=== PATIENT | male | born 1955 | race Caucasian/White ===

== ENCOUNTER 2017-06-19 15:14 | Inpatient (IN) | payer OTHER ==
[~2017-06-19] VITALS: Ht 170.2 cm; Wt 93.6 kg
--- NOTE | 2017-06-19 18:46 | NUR ---
temp 101.8. TYLENOL 500 MG PO GIVEN.
--- NOTE | 2017-06-19 20:15 | NUR ---
ADMIT TO CCU PER STRETCHER. SOB WITH EXERTION. STATES BREATHING HAS BEEN HARD FOR SOMETIME AND DOESN'T FEEL LIKE IT IS MUCH WORSE THAN USUAL. PT HAS NOT EVER BEEN HOSPITALIZED BEFORE.
--- NOTE | 2017-06-19 20:30 | NUR ---
MEDS GIVEN WITH APPLESAUCE HAS TROUBLE SWALLOWING PILLS. AT FIRST STAES HE DIDN'T BELIEVE IN PILLS. USED URINAL.
--- NOTE | 2017-06-20 00:23 | NUR ---
HAS BEEN RESTING. STATES SLEEPS ONLY 3-4HRS AT A TIME NORMALLY. STATES PAIN L LEG IS BETTER. DECLINES NEB TX.
--- NOTE | 2017-06-20 02:33 | NUR ---
AWAKENED FOR MEDS. MEDS CUT UP AND GIVEN WITH PUDDING. SATS DEC TO 85 WHILE ASLEEP, INC TO 94% WHEN AWAKE.
--- NOTE | 2017-06-20 04:15 | NUR ---
RESTING. HR CONTROLLED
--- NOTE | 2017-06-20 06:21 | NUR ---
IN WITH PT. EXPLAINED WOULD TAKE DAYS FOR CLOTS TO DISOLVE AND THAT ANTICOAGS GIVEN TO PREVENT NEW CLOTS. EDEMA IMPROVED L FOOT.PT STATES HE IS FEELING BETTER.
--- NOTE | 2017-06-20 08:00 | NUR ---
AWAKE, ASSESSMENT DONE. STATES HE FEELS BETTER. SATES MUCH LESS PAIN IN LEFT LEG AND LESS SWELLING. IN ROOM. TALK WITH PATIENT ABOUT PLAN OF CARE FOR DAY. IS UNDERSTANDING. BREAKFAST ORDERED.
--- NOTE | 2017-06-20 09:00 | NUR ---
TOOK BREAKFAST WELL. RESTFUL.
--- NOTE | 2017-06-20 11:00 | NUR ---
DR. GOOD HERE TO SEE PATIENT ORDERS RECIEVED.
--- NOTE | 2017-06-20 11:15 | NUR ---
AMBULATED IN HALLWAY PER DR. GOOD'S ORDERS. HR TO 88. O2 SAT REMAINED > 90. IS WITH INCREASED SHORTNESS OF BREATH WITH EXERTION.
--- NOTE | 2017-06-20 11:44 | NUR ---
SPONGE BATH GIVEN. TOBIAS. TELE # 6 APPLIED
--- NOTE | 2017-06-20 13:50 | NUR ---
Patient given 60 mg po cardizem crushed in pudding. Patient denies pain/sob. Call light in reach. Patient has no requests.
--- NOTE | 2017-06-20 14:30 | NUR ---
SLEEPING, NO DISTRESS NOTED.
--- NOTE | 2017-06-20 16:20 | NUR ---
REPORT RECIEVED FROM QUINN CCU RN VIA TELEPHONE PRIOR TO PT TRANSFER TO FLOOR. PT TO ROOM 112 VIA RECLINER ACCOMPANIED BY QUINN RN AT 1605. PT ALERT, ORIENTED X 4. RATES PAIN 09/01.
--- NOTE | 2017-06-20 17:03 | NUR ---
GAVE PT PRINTED INFORMATION REGARDING WARFARIN, AND ALSO PRINTED INFORMATION REGARDING WARFARIN AND DIET. PROVIDED VERBAL EDUCATION, AND GAVE PT THE ABOVE NOTED PRINTOUTS. PT DENIED QUESTIONS. VERBALIZED UNDERSTANDING OF COMMON SIDE EFFECTS OF WARFARIN. PT SITTING UP IN RECLINER. DENIES NEEDS AT THIS TIME.
--- NOTE | 2017-06-20 17:53 | NUR ---
PT IN CHAIR TOOK TRAY FRESH WATER
--- NOTE | 2017-06-20 18:01 | NUR ---
PT SITTING UP IN RECLINER. DENIES NEEDS.
--- NOTE | 2017-06-20 18:27 | NUR ---
PT TRANSFERED TO FLOOR, TO ROOM 112 FROM CCU AT 1605 THIS AFTERNOON. UP WITH 1 PERSON ASSIST. IS SALINE LOCKED. HAS DIMINISHED LUNGS THROUGHOUT LUNG KOENIG. LLE IS SLIGHTLY SWOLLEN, NO REDNESS NOTED, PT REPORTS PAIN TO LLE 09/01. PT IS ON RA. DOES GET SHORT OF BREATH WITH EXERTION, BUT MAINTAINS OXYGEN SATURATION LEVEL GREATER THAN 90%.
--- NOTE | 2017-06-20 19:10 | NUR ---
BEDSIDE REPORT RECEIVED FROM OFFGOING RN. PT SITTING UP IN CHAIR VISITING WITH FRIEND AT BEDSIDE. CALL LIGHT WITHIN REACH.
--- NOTE | 2017-06-20 22:11 | NUR ---
PT ASSESSMENT COMPLETE. PT DENIES PAIN, NAUSEA, OR SOB. PT DENIES BM SINCE PRIOR TO ADMISSION. LLE SLIGHTLY REDDENED WITH TRACE EDEMA PRESENT. PEDAL PULSE IS PRESENT. PT STATES THAT PAIN IN EXTREMITY IS GREATLY IMPROVED. PT SITTING UP IN BED EATING PUDDING AND WATCHING TV. PT DENIES NEEDS AT THIS TIME. CALL LIGHT WITHIN REACH.
--- NOTE | 2017-06-21 00:55 | NUR ---
PT LYING IN BED AWAKE, WATCHING TV. STATES THAT HE IS HAVING A HARD TIME SLEEPING. ICE AWTER REFILLED AND URINAL EMPTIED. PT DENIES OTHER NEEDS AT THIS TIME. AGREES TO CALL FOR NEEDS. CALL LIGHT WITHIN REACH.
--- NOTE | 2017-06-21 02:51 | NUR ---
PT LYING IN BED AWAKE. 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 PT REQUESTS COFFEE. ASSESSMENT COMPLETE. PT STATES THAT PAIN IS MINIMAL. LUNGS SOUND COARSE THROUGHOUT, NO COUGH NOTED. SLIGHT REDNESS TO LLE PRESENT, UNCHANGED FROM PREVIOUS ASSESSMENT. TRACE EDEMA PRESENT TO L FOOT. CMS INTACT. PT DENIES OTHER NEEDS AT THIS TIME. CALL LIGHT WITHIN REACH.
--- NOTE | 2017-06-21 05:00 | NUR ---
PT AWAKE THROUGHOUT THE NIGHT. MINIMAL PAIN TO LLE. SLIGHT EDEMA AND REDNESS TO LLE. SOB WITH EXERTION, RA. LUNGS CLEAR/DIM. PT ON TELE # 6 WITH A FLUTTER, HR 88. INDEPENDENT IN ROOM. IV SL.
--- NOTE | 2017-06-21 07:30 | NUR ---
RECIEVED BEDSIDE REPORT FROM ZITA CORDON. PT AWAKE, ALERT, DENIES NEEDS. 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
--- NOTE | 2017-06-21 08:50 | NUR ---
PT UP IN RECLINER, ATE BREAKFAST, APETITE GOOD. DENIED PAIN. UP INDEPENDANTLY IN ROOM WITH THIS RN SUPERVISING, PT STEADY ON FEET, DENIED LIGHTHEADEDNESS OR DIZZINESS. ONLY MILD INCREASE IN SHORTNESS OF BREATH AFTER AMBULATING AROUND ROOM FOR APROXIMATELY 1.5 MINUTES. ON RA, OXYGEN SATURATION LEVEL 94%.
--- NOTE | 2017-06-21 11:53 | NUR ---
PT AND PT'S IN ROOM. PT ASKED THIS RN TO EXPLAIN HIS DIAGNOSIS AND THE MEDICATIONS THAT HE HAS STARTED TO HIS . THIS RN PROVIDED EDUCATION, SHOWED PT'S THE PRINT OUTS FOR WARFARIN EDUCATION AND WARFARIN AND DIET EDUCATION. PT'S ASKED IF DR. GOOD COULD CALL HER TO DISCUSS HIS CARE AND CONDITION, PT GAVE PERMISSION. THIS RN RELAYED THE REQUEST TO DR. GOOD.
--- NOTE | 2017-06-21 14:09 | NUR ---
PT SITTING UP IN BED. REPORTED THAT HE FEELS BETTER ABOUT STAYING IN THE HOSPITAL FOR TREATMENT NOW THAT HE HAS SPOKEN WITH DR. GOOD. PT REPORTED THAT DR. GOOD INDICATED THAT HE WOULD BE HOSPITALIZED FOR 2 MORE DAYS, AND PT INDICATED THAT KNOWING THE TIME OF HIS APROXIMATE DISCHARGE EASED HIS ANXIETY REGARDING HIS STAY AT [facility]. DENIED PAIN, DENIED SHORTNESS OF BREATH. GAVE SCHEDULED MEDICATION.
--- NOTE | 2017-06-21 15:56 | NUR ---
PT SITTING UP IN RECLINER. JUST FINISHED SHOWER. PROVIDED PT WITH FRESH ICE WATER. PT HAD A MEDIUM SOFT BM, AND VOIDED 700 CC URINE. PT DENIED PAIN AT REST, REPORTED THAT WITH AMBULATION, HIS PAIN HAS BEEN 3/10 AT MOST. REPORTS THAT HIS PAIN LEVEL WITH AMBULATION IS GREATLY REDUCED FROM WHAT IT WAS AT TIME OF HIS ADMISSION.
--- NOTE | 2017-06-21 18:52 | NUR ---
PT DOING WELL, STEADY ON FEET. REPORTS THAT SHORTNESS OF BREATH, COUGHING, AND PAIN TO LLE WITH AMBULATION HAVE ALL IMPROVED GREATLY WHEN COMPARED WITH AT ADMISSION. URINE OUTPUT QUANTITY SUFFICIENT. LUNGS RANGED FROM COARSE WITH WHEEZES TO CLEAR BUT DIMINISHED. HAS BEEN ON RA ALL SHIFT. PT DENIED NEED FOR PAIN MEDICATION THIS SHIFT. HAD ECHO THIS AM, BUT NO RESULTS THUS FAR. INR WAS 1.3, RECIEVED COUMADIN 10 MG PO FOR ANTICOAGULATION IN ADDITION TO ORDERED LOVENOX. TELE D/C'D THIS SHIFT. HR REMAINS IRREGULAR.
--- NOTE | 2017-06-21 19:30 | NUR ---
BEDSIDE REPORT RECEIVED FROM OFFGOING RN. PT LYING IN BED. STATES THAT HE WAS ABLE TO SHOWER INDEPENDENTLY TODAY, AND HAS BEEN INDEPENDENT IN THE ROOM. PT DENIES PAIN WHILE STILL, PAIN SLIGHTLY ELEVATES WITH AMBULATION PER PT. PT DENIES NEEDS AT THIS TIME. CALL LIGHT WITHIN REACH.
--- NOTE | 2017-06-21 19:46 | NUR ---
PATIENT DIDN'T WANT TO TAKE A SHOWER TODAY JUST WANTED TO REST.
--- NOTE | 2017-06-21 22:27 | EKG ---
[facility] [address] [place] [address] Signed Atrial flutter with variable AV block ST \T\ T wave abnormality, consider inferior ischemia Abnormal ECG No previous ECGs available Confirmed by SHOAIB GOOD MD ([id number]) on 06/21/2017 10:27:45 PM Electronically Signed By: SHOAIB GOOD MD 06/21/17 2227 PATIENT NAME: JOHN HERNANDEZ Electrocardiogram DATE OF : 53 PHYSICIAN: SHOAIB GOOD MD REPORT #: [id number] REPORT IS CONFIDENTIAL AND NOT TO BE RELEASED WITHOUT AUTHORIZATION
--- NOTE | 2017-06-21 23:15 | NUR ---
PT ASSESSMENT COMPLETE. PT RETURNING TO BED FROM BATHROOM, STATES THAT HE "FILLED THE URINAL". PT NOTED TO BE SLIGHTLY TACHYPNIC, DENIES SOB. STATES THAT HIS STOMACH IS "UPSET". LUNG SOUNDS CLEAR/DIM THROUGHOUT. PT'S LLE CONTINUES TO BE SLIGHTLY REDDENED, WARM TO TOUCH. CMS IS INTACT TO LLE, PEDAL PULSES PRESENT. PT ABLE TO TAKE SCHEDULED MEDICATION WITH PUDDING, HOWEVER, STATES THAT IT WAS SOMEWHAT DIFFICULT AND PILL GOT "CAUGHT IN HIS THROAT" MOMENTARILY. PT DENIES NEEDS AT THIS TIME. MILK AND PUDDING AT BEDSIDE. PT CALL LIGHT WITHIN REACH.
--- NOTE | 2017-06-22 02:15 | NUR ---
PT RESTING WITH EYES CLOSED. RESPIRATIONS EVEN AND UNLABORED. PT APPEARS TO BE SLEEPING. CALL LIGHT WITHIN PT'S REACH.
--- NOTE | 2017-06-22 04:50 | NUR ---
PT RESTING IN BED WITH EYES CLOSED. APPEARS TO BE SLEEPING, RESPIRATIONS EVEN AND UNLABORED. NO S/SX OF DISTRESS NOTED. CALL LIGHT WITHIN REACH.
--- NOTE | 2017-06-22 06:16 | NUR ---
PT LYING IN BED WATCHING TV. AGREES THAT HE SLEPT MOST OF THE NIGHT. PT DENIES PAIN, NAUSEA, OR SOB. PT ASSESSMENT COMPLETE. LLE REMAINS SLIGHTLY PINK, WARM TO TOUCH. PEDAL PULSES PRESENT. CMS INTACT. PT DENIES NEEDS AT THIS TIME. STATES THAT HE IS "JUST WAITING ON BREAKFAST." CALL LIGHT WITHIN REACH.
--- NOTE | 2017-06-22 07:48 | NUR ---
PT AWAKE, ALERT, ORIENTED X 4. DENIED PAIN. REPORTED THAT HE RESTED WELL. BEDSIDE REPORT RECIEVED FROM [facility].
--- NOTE | 2017-06-22 10:49 | NUR ---
AM MEDICATIONS GIVEN TO PT. PT DENIES PAIN, DENIES SHORTNESS OF BREATH. ENCOURAGED PT TO DEEP BREATH AND COUGH, AND TO USE INSENTIVE SPIROMETER.
--- NOTE | 2017-06-22 13:45 | NUR ---
PT IS RESTING IN BED WITH CALL LIGHT IN REACH. PT DID NOT NEED ANYTHING ELSE AT THE MOMENT
--- NOTE | 2017-06-22 13:51 | NUR ---
PT LAYING IN BED, AWAKE, ALERT, ORIENTED X 4. PT DENIES PAIN, DENIES SHORTNESS OF BREATH, REPORTED THAT HE WAS ABLE TO EAT MOST OF LUNCH AND TOLERATED WELL. CMS TO RLE INTACT, TRACE EDEMA PRESENT, LEG REMAINS SLIGHTLY WARMER THAN LEFT LEG, AND SLIGHTLY PINK.
--- NOTE | 2017-06-22 14:20 | NUR ---
PT WAS SITTING UP EATING LUNCH AND WATCHING TV. HE WELCOMED ME, I TOLD HIM I JUST WANTED TO SAY HELLO, AND BE AVAILABLE IF NEEDED. HE THANKED ME AND WENT BACK TO HIS LUNCH. GOD BLESS HIM
[2017-06-22] MEDS ORDERED: DILTIAZEM 24HR240 M3 PO (15:38)
[2017-06-22] MEDS ORDERED: COUMADIN5 MG PO (15:38)
[2017-06-22] MEDS ORDERED: PREDNISONE20 MG PO (15:38)
[2017-06-22] MEDS ORDERED: PULMICORT FLE180 MCG INH (15:38)
[2017-06-22] MEDS ORDERED: COMBIVENT RESPIM4 GM INH (15:38)
[2017-06-22] MEDS ORDERED: CEFUROXIME500 MG PO (15:38)
[2017-06-22] MEDS ORDERED: IPRAT-ALBUT 0.5-3 ML INH (15:38)
[2017-06-22] MEDS ORDERED: NICOTINE PATCH1 EAC1 TD (15:38)
[2017-06-22] MEDS ORDERED: ENOXAPARIN100 MG/1 M SUB-Q (15:38)
[2017-06-22] MEDS ORDERED: SEREVENT DISKU1 PUFF INH (15:41)
--- NOTE | 2017-06-22 18:26 | NUR ---
PT IS SITTING UP[ ON SIDE OF BED VISITING WITH A FRIEND. PT DID NOT NEED ANYTHING ELSE AT THE MOMENT
--- NOTE | 2017-06-22 18:46 | NUR ---
PT IN BED, DENIES PAIN, DENIES NEEDS. REMAINS ON RA, DENIES SHORTNESS OF BREATH. VISITED WITH FRIEND FROM WORK FOR APROXIMATELY AN HOUR, AND FRIEND HAS NOW GONE HOME.
--- NOTE | 2017-06-22 20:16 | NUR ---
PT UP TO BATHROOM, STEADY ON FEET, INDEPENDANT IN ROOM. PT VERY PLEASENT, ALERT AND ORIENTED X4. DENIES PAIN. IV WNL AND FLUSHES WELL. SOB ON EXERTION, BUT RECOVERS QUICKLY. GAVE FRESH ICE WATER. CALL LIGHT IN REACH. NO FURTHER NEEDS.
--- NOTE | 2017-06-23 00:26 | NUR ---
PT HAS BEEN RESTING QUIETLY. CALL LIGHT IN REACH. PT LIGHTS AND TV OFF IN ROOM. APPEARS ASLEEP AT THE MOMENT, EYES CLOSED, RR WNL AND UNLABORED.
--- NOTE | 2017-06-23 03:04 | NUR ---
PT SITTING UP AT BEDSIDE. DUMPED URINAL AND HAT, WHICH WERE BOTH NEARLY FULL OF URINE. URINE IS LATOSHA IN COLOR. FILLED PT'S WATER CUP WITH FRESH ICE WATER. PT REPORTS "AKIRA BEEN REALLY THIRSTY, AKIRA FILLED MY CUP SEVERAL TIMES TONIGHT."
--- NOTE | 2017-06-23 06:20 | NUR ---
PT HAD UNEVENTFUL NIGHT. SLEPT MAJORITY OF SHIFT. INDEPENDANT IN ROOM. ALERT AND ORIENTED X4. VERY PLEASENT AND COOPERATIVE. PT WILL GO HOME ON LOVENOX, NEEDS TO BE TAUGHT HOW TO ADMINISTER THE SQ INJECTION, BOTH PT AND ON BOARD. DISCHARGE PLANNING INVOLVED IN HELPING WITH [facility].
--- NOTE | 2017-06-23 06:59 | NUR ---
PT SITTING UP IN BED, WATCHING TV. PT DENIES NEEDS AT THIS TIME.
--- NOTE | 2017-06-23 08:19 | NUR ---
Patient up giving himself a bedbath at this time. Breakfast tray taken out and linen changed.
--- NOTE | 2017-06-23 08:50 | NUR ---
Patient up to restroom at this time.
--- NOTE | 2017-06-23 09:30 | NUR ---
assessment complete. patient anxious about medications and discharge for hospital. the chapman of medications is a very big consern for pain at this time. in room. assisted wtih lovenox injection. demonstrated proper insertion of lovenox. the was them able to given on her own. patient tolerated well. tolerated instruction well and felt comfortable with given lovenox
--- NOTE | 2017-06-23 09:42 | NUR ---
Patient is up in room visiting with his .
--- NOTE | 2017-06-23 10:14 | NUR ---
Patient's up in room and dressed to go home. Vitals taken and I&O's charted.
--- NOTE | 2017-06-23 10:50 | NUR ---
Patient dressed and awaiting dr. smiley for discharge
--- NOTE | 2017-06-23 11:30 | NUR ---
dr. smiley in room to talk with patient. plan to discharge with plan to follow up with lab work and coumadin clinc
[2017-06-23] MEDS ORDERED: COUMADIN5 MG PO (12:11)
--- NOTE | 2017-06-23 12:24 | NUR ---
pharmacy in room to go over home medication and new prescriptions. side effects and reasons to take medication went over by pharmacy as well as nurse. given the extra scheduled dose of 10mg warfin. patient anxious at times about going home, but in room to assist with information that was given. all discharge information was given and patient and were able to read back.
[2017-08-11] MEDS ORDERED: LIPITOR80 MG PO (15:02)
[2017-08-11] MEDS ORDERED: LISINOPRIL20 MG PO (15:03)
== END 2017-06-23 12:45 | disposition home or self-care (01) | DRG 176 ==
LOC: ED 15:14 → MS 18:34 → CCU 18:34 → MS 18:34
PROVIDERS: ADMIT Internal Medicine
DX: I26.99 Other pulmonary embolism without acute cor pulmonale (principal); I48.92 Unspecified atrial flutter; J44.9 Chronic obstructive pulmonary disease, unspecified; R59.0 Localized enlarged lymph nodes; R79.89 Other specified abnormal findings of blood chemistry; F17.210 Nicotine dependence, cigarettes, uncomplicated
CPT/HCPCS: 36415; 71020; 71260; 80053; 83605; 83880; 84484; 85025; 85610; 93005; 93010; 93306; 93971; 94640; 94668; 96372; 96374; 96375; 99285; 99406; J1650; J2930; Q9967

== ENCOUNTER 2017-07-08 09:36 | Emergency (ER) | payer OTHER ==
[~2017-07-08] VITALS: Ht 170.2 cm; Wt 93.4 kg
[~2017-07-08 09:36] MED LIST: CEFUROXIME500 MG PO; COMBIVENT RESPIM4 GM INH; COUMADIN5 MG PO; DILTIAZEM 24HR240 M3 PO; ENOXAPARIN100 MG/1 M SUB-Q; IPRAT-ALBUT 0.5-3 ML INH; NICOTINE PATCH1 EAC1 TD; PREDNISONE20 MG PO; PULMICORT FLE180 MCG INH; SEREVENT DISKU1 PUFF INH
--- NOTE | 2017-07-08 20:42 | EKG ---
[facility] [address] [place] [address] Signed Normal sinus rhythm Normal ECG When compared with ECG of 19-JUN-2017 16:15, Sinus rhythm has replaced Atrial flutter ST no longer depressed in Inferior leads T wave inversion no longer evident in Inferior leads Confirmed by SHOAIB GOOD MD ([id number]) on 07/08/2017 8:42:27 PM Electronically Signed By: SHOAIB GOOD MD 07/08/172041 PATIENT NAME: JOHN HERNANDEZ Electrocardiogram DATE OF : 53 PHYSICIAN: SHOAIB GOOD MD REPORT #: [id number] REPORT IS CONFIDENTIAL AND NOT TO BE RELEASED WITHOUT AUTHORIZATION
[2017-08-11] MEDS ORDERED: LIPITOR80 MG PO (15:02)
[2017-08-11] MEDS ORDERED: LISINOPRIL20 MG PO (15:03)
== END 2017-07-08 13:13 | disposition short-term general hospital (02) ==
LOC: ED 09:36
DX: I63.9 Cerebral infarction, unspecified (principal); F17.200 Nicotine dependence, unspecified, uncomplicated; Z79.899 Other long term (current) drug therapy; Z79.52 Long term (current) use of systemic steroids; Z79.01 Long term (current) use of anticoagulants
CPT/HCPCS: 70450; 70496; 70498; 71010; 80053; 84484; 85025; 85610; 85730; 93005; 93010; 96374; 99285; J2997; Q9967

== ENCOUNTER 2017-08-23 13:10 | Inpatient (IN) | payer OTHER ==
[~2017-08-23] VITALS: Ht 172.7 cm; Wt 91.6 kg
--- OUTSIDE RECORDS SUMMARY | ~2017-08-23 | XMS | Clinical Summary ---
Demographics + + + | Address | [address] | | | [place] [address] | + + + | Home Phone | | + + + | Preferred Language | Unknown | + + + | Marital Status | | + + + | Lutheran Affiliation | CHR | + + + | Race | White | + + + | Ethnic Group | Not or | + + + Author + + + | Author | [facility] | + + + | Organization | [facility] | + + + | Address | Unknown | + + + | Phone | Unavailable | + + + Support +------+ + + + +-------- -+ | Name | Relationship | Address | Phone | +------+ + + + +-------- -+ ECON | [address] | | [address] | [address] | +------+ + + + +-------- -+ ECON | Unknown | Unavailable | +------+ + + + +-------- -+ Care Team Providers + +------+-------+ | Care Pediatric Speech Language Pathologist Name | Role | Phone | + +------+-------+ | Mercedes Good MD | PP | tel | + +------+-------+ Source Comments TONEY is fully live on both [facility] and [facility] In[facility] Allergies No Known Allergies Current Medications + + +---------+---------+------+------+-------+ | Prescription | Sig. | Disp. | Refills | Star | End | Statu | | | | | | t | Date | s | | | | | | Date | | | + + +---------+---------+------+------+-------+ | dilTIAZem CD 24 | Take 240 mg by mouth | | | | | Activ | | hour release (CARTIA | once daily. | | | | | e | | XT) 240 mg oral | | | | | | | | capsule,extended | | | | | | | | release 24hr | | | | | | | + + +---------+---------+------+------+-------+ | | Inhale 3 mL every | | | | | Activ | | ipratropium-albutero | six hours as needed | | | | | e | | l 0.5 mg-3 mg(2.5 mg | for dyspnea/SOB. | | | | | | | base)/3 mL | | | | | | | | inhalation solution | | | | | | | | for nebulization | | | | | | | + + +---------+---------+------+------+-------+ | atorvastatin 80 mg | Take 1 tablet by | 30 | 0 | 12/1 | | Activ | | oral | mouth once daily. | tablet | | 6/20 | | e | | tabletIndications: | Indications: | | | 17 | | | | prevention of | prevention of | | | | | | | cerebrovascular | cerebrovascular | | | | | | | accident | accident | | | | | | + + +---------+---------+------+------+-------+ | enoxaparin 40 | Inject 0.4 mL under | 5 | 0 | 12/1 | | Activ | | mg/0.4 mL | the skin (SUBC) once | Syringe | | 02/09 | | e | | subcutaneous | daily in the | | | 17 | | | | syringeIndications: | evening. | | | | | | | Pulmonary | Indications: | | | | | | | Thromboembolism | Pulmonary | | | | | | | Prevention, Until | Thromboembolism | | | | | | | INR therapeutic on | Prevention, Until | | | | | | | warfarin | INR therapeutic on | | | | | | | | warfarin | | | | | | + + +---------+---------+------+------+-------+ | lisinopril 20 mg | Take 1 tablet by | 30 | 0 | 12/ | | Activ | | oral | mouth once daily. | tablet | | 02/09 | | e | | tabletIndications: | Indications: | | | 17 | | | | hypertension, | hypertension, | | | | | | | Prevention of stroke | Prevention of stroke | | | | | | + + +---------+---------+------+------+-------+ | warfarin 5 mg oral | Take 1 tablet by | 1 | 0 | 07/23 | | Activ | | tabletIndications: | mouth once daily. 1 | tablet | | 02/09 | | e | | Deep Vein Thrombosis | pill (5mg) daily | | | 17 | | | | with Pulmonary | every day except | | | | | | | Embolism, Prevent | Wednesday. Take 1 and | | | | | | | Thromboembolism in | 08/24 (7.5mg) every | | | | | | | Chronic Atrial | Wednesday. Start | | | | | | | Fibrillation | Wednesday Indications: | | | | | | | | Deep Vein Thrombosis | | | | | | | | with Pulmonary | | | | | | | | Embolism, Prevent | | | | | | | | Thromboembolism in | | | | | | | | Chronic Atrial | | | | | | | | Fibrillation | | | | | | + + +---------+---------+------+------+-------+ | aspirin chewable | Chew and swallow 1 | 5 | 0 | 07/23 | 07/24 | Expir | | 81 mg oral | tablet once daily | tablet | | 02/09 | 09/11 | ed | | tablet,chewableIndic | for 5 days. Will | | | 17 | 17 | | | ations: prevention | stop in 5 days after | | | | | | | of cerebrovascular | starting Warfarin | | | | | | | accident | Indications: | | | | | | | | prevention of | | | | | | | | cerebrovascular | | | | | | | | accident | | | | | | + + +---------+---------+------+------+-------+ Active Problems + + + | Problem | Noted Date | + + + | Undifferentiated adenocarcinoma lung -multiple nodules with | 08/02/2017 | | adenopathy (HCC) | | + + + + + | Overview: Secondary to chronic tobacco abuse. Family | | considering not treating. Patient had biopsy done at [facility]. That result was not available on admission to | | inpatient rehabilitation. Result of the biopsy subsequently | | became available middle of this inpatient rehabilitation stay. | | Revealed adenocarcinoma which is poorly differentiated. | | Patient's had apparently been called by 1 of the physicians | | from [facility]. 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 | 07/22/2017 | | to hemorrhagic stroke following tPA (HCC) | | + + + Encounters +--------+ + + + + | Date | Type | Specialty | Care Team | Description | +--------+ + + + + | 07/22/ | Hospital | | Gillian Villarreal, | | | 2016 - | Encounter | | Bon Richards | | | | | | MD Jami Quiroz, | | | 08/07/ | | | Travon Hoover MD | | | 2016 | | | | | +--------+ + + + + +---+ + | | Discharge | | | Summaries | | | - Jami, | | | Travon Hoover | | | - | | | 08/06/2017 | | | 8:46 PM | | | PST | | | Formatting | | | of this | | | note may be | | | different | | | from the | | | original.IN | | | PATIENT | | | REHAB | | | DISCHARGE | | | SUMMARYHOSP | | | ITALIST | | | SERVICEAtte | | | nding | | | Physician: | | | Travon A | | | Jami, | | | MDPCP: | | | Lohith V | | | Good, | | | MDAdmission | | | Date: | | | 07/22/2017D | | | ischarge | | | Date: | | | 08/06/17Cod | | | e Status: | | | FullConsult | | | ing | | | Physician: | | | None | | | Discharge | | | diagnoses:1 | | | . Ischemic | | | left | | | temporal | | | parietal | | | stroke with | | | subsequent | | | hemorrhage | | | following | | | tPA2. | | | Undifferent | | | iated | | | adenocarcin | | | robin lung | | | diagnosis | | | [facility] | | | [facility] by | | | biopsy3. | | | Chronic | | | anticoagula | | | tion with | | | warfarin | | | -held for 1 | | | month due | | | to the | | | intracrania | | | l bleed | | | -resuming | | | on the day | | | before | | | discharge4. | | | Paroxysmal | | | atrial | | | fibrillatio | | | n5. Recent | | | pulmonary | | | embolism | | | approximate | | | ly 6 weeks | | | ago | | | resulting | | | in | | | initiation | | | of warfarin | | | Reason | | | For | | | Admission:P | | | atients | | | Hospital | | | Problem | | | List:Active | | | Hospital | | | Problems1) | | | CVA | | | (cerebral | | | vascular | | | accident) | | | with | | | subsequent | | | transformat | | | ion to | | | hemorrhagic | | | stroke | | | following | | | tPA (HCC)2) | | | | | | Undifferent | | | iated | | | adenocarcin | | | robin lung | | | -multiple | | | nodules | | | with | | | adenopathy | | | | | | (HCC)Second | | | andre to | | | chronic | | | tobacco | | | abuse. | | | Family | | | considering | | | not | | | treating. | | | Patient had | | | biopsy | | | done at | | | [facility] | | | hospital. | | | That result | | | was not | | | available | | | on | | | admission | | | to | | | inpatient | | | rehabilitat | | | ion. | | | Result of | | | the biopsy | | | subsequentl | | | y became | | | available | | | middle of | | | this | | | inpatient | | | rehabilitat | | | ion stay. | | | Revealed | | | adenocarcin | | | robin which | | | is poorly | | | differentia | | | tati. | | | Patient's | | | had | | | apparently | | | been called | | | by 1 of | | | the | | | physicians [facility] | | | Family is | | | currently | | | considering | | | not | | | pursuing | | | further | | | evaluation3 | | | ) | | | Paroxysmal | | | atrial | | | fibrillatio | | | n (HCC)4) | | | Chronic | | | anticoagula | | | tion5) | | | History of | | | cigarette | | | smokingAnti | | | coagulation | | | with | | | warfarin is | | | being held | | | due to the | | | | | | hemorrhagic | | | | | | transformat | | | ion listed | | | aboveMajor | | | Diagnostic | | | Studies:1. | | | MRI scan | | | brain | | | 08/06/2017 | | | -no | | | findings to | | | suggest | | | intracrania | | | l | | | metastases. | | | There is | | | a large | | | left | | | temporopari | | | etal stroke | | | which had | | | secondary | | | bleeding. | | | No longer | | | any mass | | | effect. | | | There is a | | | second very | | | small 8 by | | | 5 mm | | | density in | | | the left | | | cerebellum | | | -likely a | | | second | | | ischemic | | | stroke2. CT | | | scan head | | | without | | | contrast | | | July | | | 2016 | | | :1. No | | | evidence of | | | acute | | | intracrania | | | l | | | hemorrhage | | | or acute | | | hemorrhagic | | | transformat | | | ion of | | | previous | | | infarcts.2. | | | Evolving | | | large left | | | temporopari | | | etal | | | infarct | | | with | | | decreasing | | | edemaand | | | mass | | | effect.3. | | | Additional | | | small | | | hypodense | | | lesions | | | within the | | | deep left | | | frontalwhit | | | e matter | | | and left | | | cerebellar | | | vermis as | | | seen on the | | | prior | | | MRI.Hospita | | | l and | | | Inpatient | | | Rehab | | | Course:1. | | | Ischemic | | | stroke: | | | Patient had | | | no motor, | | | coordinatio | | | n, apraxic | | | symptoms or | | | signs. His | | | primary | | | deficit is | | | receptive | | | and | | | expressive | | | aphasia. | | | He is about | | | 80% | | | accurate on | | | | | | | | | yes-no for | | | questions. | | | He was | | | initially | | | essentially | | | mute but | | | now is | | | spontaneous | | | ly doing | | | some basic | | | spontaneous | | | speech. | | | The content | | | of the | | | speech is | | | fairly | | | marginal | | | still. He | | | is | | | independent | | | with | | | ambulation | | | and ADLs. | | | As this was | | | likely a | | | atrial | | | fibrillatio | | | n related | | | embolic | | | stroke | | | especially | | | with 2 | | | different | | | foci noted, | | | resumption | | | of | | | warfarin | | | was | | | recommended | | | by the | | | discharging | | | [facility]. | | | The | | | recommendat | | | ion was to | | | repeat a CT | | | scan on | | | 08/07/2017 | | | prior to | | | initiating | | | warfarin. | | | Since the | | | patient had | | | a previous | | | history at | | | the prior | | | hospital of | | | | | | adenocarcin | | | robin lung | | | and no MRI | | | of the | | | brain was | | | done, an | | | MRI of the | | | brain was | | | done with | | | and without | | | contrast | | | today | | | before | | | discharge. | | | There is no | | | findings | | | on either | | | of the | | | abnormality | | | seen to | | | suggest | | | that there | | | is | | | metastatic | | | adenocarcin | | | robin to the | | | brain. CT | | | scan today | | | did not | | | reveal | | | anything | | | suggesting | | | ongoing | | | bleeding. | | | I spoke | | | with the | | | patient's | | | by | | | phone as | | | the patient | | | is not | | | able to | | | comprehend | | | his overall | | | clinical | | | scenario | | | verbally. | | | I have | | | indicated | | | to her the | | | indication | | | to resume | | | warfarin | | | therapy the | | | risk and | | | the benefit | | | of it. | | | Told her | | | without | | | warfarin I | | | am | | | concerned | | | that he | | | could have | | | ongoing | | | more | | | devastating | | | stroke. | | | With the | | | warfarin | | | there is a | | | small | | | chance that | | | he could | | | have | | | another | | | intracrania | | | l bleed. | | | She agreed | | | to proceed | | | with | | | warfarin | | | therapy | | | after this | | | presentatio | | | n her. The | | | patient's | | | warfarin | | | was | | | slightly | | | subtherapeu | | | tic when he | | | first was | | | admitted | | | with his | | | stroke. It | | | is of note | | | that he | | | did miss | | | one of his | | | doses of | | | warfarin | | | which | | | likely | | | accounted | | | for this.I | | | have called | | | the | | | Neurology | | | [facility] | | | Dr. | | | Mikel | | | [facility] | | | yesterday | | | and again | | | today. He | | | has | | | apparently | | | not in the | | | country for | | | the next 3 | | | weeks. | | | The staff | | | at the | | | clinic | | | planning on | | | setting up | | | a visit | | | with 1 of | | | his | | | associates. | | | The neuro | | | images | | | done today | | | overall | | | pushed to | | | the clinic | | | per their | | | request. 2. | | | | | | Adenocarcin | | | robin lung | | | patient's | | | was | | | somewhat | | | reluctant | | | to have | | | this | | | discussed | | | in front of | | | her | | | . | | | The | | | inpatient | | | rehabilitat | | | ion | | | physician | | | the week | | | before me | | | did discuss | | | this in | | | front of | | | the patient | | | with his | | | | | | present. | | | It is | | | unclear | | | whether the | | | patient | | | actually | | | comprehends | | | this | | | diagnosis I | | | suspect | | | not. | | | Patient's | | | has | | | asked to be | | | able to | | | discuss | | | with him on | | | discharge. | | | Patient is | | | been | | | generally | | | informed of | | | this | | | diagnosis | | | but unclear | | | whether he | | | | | | comprehensi | | | ve.. | | | Initially | | | there was a | | | thought | | | that the | | | family did | | | not want to | | | treat | | | this. A | | | visit with | | | an | | | oncologist | | | in | | | [place] | | | has been | | | set up for | | | this next | | | Wednesday. | | | The | | | records | | | from | | | [facility] | | | [facility] | | | will be | | | helpful in | | | making | | | decisions | | | about | | | therapy. | | | The | | | patient's | | | will | | | attend the | | | oncology | | | visit. 3. | | | Paroxysmal | | | atrial | | | fibrillatio | | | n patient | | | has had no | | | episodes | | | that | | | suggest | | | atrial | | | fibrillatio | | | n while | | | here. A 12 | | | lead EKG | | | 1-3 | | | revealed | | | normal | | | sinus | | | rhythm. He | | | is | | | continued | | | on his | | | diltiazem | | | CD. 4. | | | History of | | | DVT/pulmona | | | ry embolism | | | apparently | | | early | | | June | | | the patient | | | presented | | | to the | | | hospital in | | | [place] | | | with a PE. | | | He was | | | started on | | | warfarin. | | | Due to the | | | intracrania | | | l bleed | | | warfarin | | | was | | | reversed | | | and he had | | | IVC filter | | | placed. | | | Once he is | | | therapeutic | | | again the | | | IVC filter | | | can | | | certainly | | | be | | | removed.I | | | called the | | | patient's | | | PCP Dr. | | | Good today | | | for verbal | | | hand off | | | of this | | | patient.Fun | | | ctional | | | Course:FUNC | | | TIONAL | | | HISTORY:* | | | | | | PRE-morbid | | | Admit | | | Discharge | | | Eating 7 | | | 2 6 | | | | | | Grooming 7 | | | 4 7 | | | Bathing 7 | | | 3 6 | | | Up.Dress. | | | 7 4 7 | | | Low. Dress. | | | 7 4 7 | | | Toilieting | | | 7 1 7 | | | Bladder 7 | | | 3 7 Bowel | | | mgmnt 7 | | | 6 7 | | | Bed,chair, | | | WC transf. | | | 7 4 7 | | | Toilet | | | trnsf 7 4 | | | 6 | | | Tub/shower | | | 7 4 shwr | | | 6 shwr | | | Walk or WC | | | 7 4 5 | | | Stairs 7 | | | 4 6 | | | Comprehensi | | | on 7 2 4 | | | Expression | | | 7 2 4 | | | Soc. | | | Interact. | | | 7 4 5 | | | Prob. Solv. | | | 7 3 4 | | | Memory 7 | | | 3 4* 7= | | | Compete; 6= | | | Modified | | | independent | | | ; 5= | | | Supervision | | | ; 4=Min | | | assist; | | | 3=Mod. | | | Assist; 2= | | | Max. | | | Assist; 1= | | | total | | | assist; 0= | | | did not | | | occurDischa | | | rge | | | Vitals:BP | | | 121/74 | | | | Pulse 65 | | | | Temp 37 C | | | (98.6 F) | | | | RR 18 | | | | Ht 1.778 m | | | (5' 10") | | | | Wt 84 kg | | | (185 lb 3 | | | oz) | SpO2 | | | 94% | BMI | | | 26.57 | | | kg/(m^2)Dis | | | charge | | | Examination | | | :General | | | Appearance: | | | Alert. | | | Spontaneous | | | | | | verbalizati | | | ons with | | | marginal | | | content. | | | Verbal | | | instruction | | | s without | | | demonstrati | | | on he often | | | does not | | | do | | | properly. | | | When I | | | demonstrate | | | he then | | | can copy | | | quite | | | well.HEENT: | | | PERRL, | | | EOMIRespira | | | tory: | | | Unlabored, | | | CTA | | | bilaterally | | | Cardiovascu | | | lar: RRR, | | | no | | | M/R/GAbdome | | | n: + BS, | | | soft, | | | NT/ND, no | | | massesExt/M | | | usculoskele | | | ketan: No LE | | | edemaSkin: | | | No | | | rashesNeuro | | | logic: No | | | facial | | | droop. | | | Doubt | | | visual | | | field cut | | | by | | | confrontati | | | on. | | | Responds | | | somewhat to | | | my verbal | | | questions | | | his | | | responses | | | are hard to | | | track with | | | his | | | vertebral | | | response. | | | Spontaneous | | | | | | verbalizati | | | ons have | | | improved. | | | Still the | | | content is | | | somewhat | | | difficult | | | to | | | trackPsychi | | | atric: | | | Alert. | | | Common | | | cooperative | | | . Very | | | directable. | | | Medication | | | List | | | START | | | taking | | | these | | | medications | | | aspirin | | | chewable 81 | | | mg | | | ChewChew | | | and swallow | | | 1 tablet | | | once daily | | | for 5 days. | | | Will stop | | | in 5 days | | | after | | | starting | | | Warfarin | | | Indications | | | : | | | prevention | | | of | | | cerebrovasc | | | ular | | | accidentSta | | | rt taking | | | on: | | | 08/07/2017 | | | atorvastati | | | n 80 mg | | | TabCommonly | | | known as: | | | | | | LIPITORTake | | | 1 tablet | | | by mouth | | | once daily. | | | | | | Indications | | | : | | | prevention | | | of | | | cerebrovasc | | | ular | | | accidentSta | | | rt taking | | | on: | | | 08/07/2017 | | | enoxaparin | | | 40 mg/0.4 | | | mL | | | SyrgCommonl | | | y known as: | | | | | | LOVENOXInje | | | ct 0.4 mL | | | under the | | | skin (SUBC) | | | once daily | | | in the | | | evening. | | | Indications | | | : Pulmonary | | | | | | Thromboembo | | | lism | | | Prevention, | | | Until INR | | | therapeutic | | | on | | | warfarinSta | | | rt taking | | | on: | | | 08/07/2017 | | | lisinopril | | | 20 mg | | | TabCommonly | | | known as: | | | | | | PRINIVILTak | | | e 1 tablet | | | by mouth | | | once daily. | | | | | | Indications | | | : | | | hypertensio | | | n, | | | Prevention | | | of | | | strokeStart | | | taking on: | | | | | | 08/07/2017 | | | CONTINUE | | | taking | | | these | | | medications | | | CARTIA XT | | | 240 mg | | | Cp24 1 | | | dailyGeneri | | | c drug: | | | dilTIAZem | | | CD 24 hour | | | release | | | ipratropium | | | -albuterol | | | 0.5 mg-3 | | | mg(2.5 mg | | | base)/3 mL | | | Nebu q.i.d. | | | p.r.n. | | | wheezingCom | | | monly known | | | as: | | | DUO-NEB | | | warfarin 5 | | | mg Tab 1 | | | every day | | | with | | | exception | | | of Wednesday | | | where he | | | takes 1 & | | | 1/2. First | | | dosage was | | | 08/06/2017 | | | after | | | having been | | | off for 1 | | | monthCommon | | | ly known | | | as: | | | COUMADIN | | | Diet | | | Regular | | | Sodium | | | restricted | | | diet | | | reduced | | | blood | | | pressure. | | | Should | | | target 4000 | | | mg per 24 | | | hours | | | Activity 1. | | | You are | | | not to | | | drive a | | | vehicle | | | until | | | cleared by | | | your doctor | | | 2. You | | | must have | | | someone | | | home at all | | | times as | | | you would | | | not be able | | | to call | | | for help if | | | a problem | | | arose3. You | | | are able | | | to ambulate | | | without an | | | assistive | | | deviceDesti | | | nation/Disp | | | osition | | | Destination | | | /Dispositio | | | n: Home | | | Condition | | | on | | | Discharge | | | Fair | | | Schedule | | | the | | | following | | | appointment | | | (s) when | | | you get | | | home | | | Mukund C | | | Lamar | | | , MD On | | | 08/11/2017. | | | | | | Specialty: | | | Hematology | | | & | | | OncologyWhy | | | : follow | | | up from | | | hospitaliza | | | tion, | | | appointment | | | time is | | | 2:30Contact | | | | | | information | | | [facility] | | | [id number] | | | [facility] | | | [address] | | | [address] | | | n [place] | | | [phone] | [phone] | | | LOHITH V | | | GOOD, MD | | | On | | | 08/11/2017. | | | | | | Specialty: | | | Internal | | | MedicineWhy | | | : follow | | | up from | | | hospitaliza | | | tion, | | | appointment | | | time is | | | 4:30 | | | pmContact | | | information | | | [facility] | | | [id number] | | | [address] | | | [address] | | | n [place] | | | [phone] | | [phone] | | | TATI J | | | LOWENKOPF, | | | MD. Call in | | | 1 week. | | | Specialty: | | | | | | NeurologyWh | | | y: Dr. | | | Lowenkopf | | | will not be | | | in the | | | office but | | | 1 of his | | | associates | | | will be | | | able to see | | | | | | you.Contact | | | | | | information | | | [facility] | [facility] | | | [facility] | | | [address] | | [address] | | | [address] | | | [address] | | | [place] | | | [phone] | | [phone] | | | Other | | | Discharge | | | Orders and | | | Instruction | | | s 1. Will | | | need to get | | | labs drawn | | | Cristian for | | | an INR. | | | This will | | | be sent to | | | your doctor | | | Good | | | Stroke | | | Discharge | | | Orders & | | | Instruction | | | s What are | | | the warning | | | signs of | | | stroke? | | | Call 911 | | | if you | | | experience: | | | - | | | Sudden | | | weakness or | | | numbness | | | of the | | | face, arm, | | | or leg, | | | especially | | | on one side | | | of the | | | body; - | | | Sudden | | | confusion, | | | trouble | | | speaking or | | | | | | understandi | | | ng; - | | | Sudden | | | trouble | | | seeing in | | | one or both | | | eyes; | | | - Sudden | | | trouble | | | walking, | | | dizziness, | | | loss of | | | balance or | | | coordinatio | | | n; - | | | Sudden | | | severe | | | headaches | | | with no | | | obvious | | | cause. | | | Today there | | | are | | | treatments | | | that can | | | reduce the | | | damage | | | caused by a | | | stroke. | | | However, | | | you must | | | seek | | | medical | | | attention | | | FAST | | | POSSIBLE BY | | | CALLING | | | 911. | | | Time is | | | Brain.Outst | | | anding | | | labs/studie | | | s: No | | | outstanding | | | labs or | | | studiesTime | | | spent in | | | preparation | | | of this | | | discharge | | | was greater | | | then 30 | | | minutes. | | | Travon | | | Jami, | | | [facility] | | | [facility] | | | ServiceMid- | | | [facility] | | | Center[facility] Dr | | | Mikel | | | Lowenkopf | | | Dr. | | | Lohith | | | Good MD | | | Dr. | | | Mukund | | | Lamar | +---+ + from Last 3 Months Social History + + + +--------+ + | Tobacco Use | Types | Packs/Day | Years | Date | | | | | Used | | + + + +--------+ + | Current Every Day | Cigarettes | 1.5 | 40 | Started: 07/22/1967 | | Smoker | | | | | + + + +--------+ + + + | Tobacco Cessation: Ready to Quit: Yes | + + + + +---------+ + | Alcohol Use | Drinks/We | oz/Week | Comments | | | ek | | | + + +---------+ + | No | | | | + + +---------+ + + + + | Sex Assigned at | Date Recorded | | | | + + + | Not on file | | + + + Last Filed Vital Signs + + + + | Vital Sign | Reading | Time Taken | + + + + | Blood Pressure | 108/64 | 08/07/2017 12:40 PM PST | + + + + | Pulse | 67 | 08/07/2017 12:40 PM PST | + + + + | Temperature | 36.6 C (97.8 F) | 08/07/2017 12:40 PM PST | + + + + | Respiratory Rate | 18 | 08/07/2017 12:40 PM PST | + + + + | Oxygen Saturation | 96% | 08/07/2017 12:40 PM PST | + + + + | Inhaled Oxygen | - | - | | Concentration | | | + + + + | Weight | 84 kg (185 lb 3 oz) | 08/01/2017 5:51 AM PST | + + + + | Height | 177.8 cm (5' 10") | 07/22/2017 4:28 PM PST | + + + + | Body Mass Index | 26.57 | 08/01/2017 5:51 AM PST | + + + + Plan of Treatment Not on file Results CBC ONLY (08/06/2017 1:51 PM)Only the most recent of 2 results within the time period is i ncluded. + + + + | Component | Value | Ref Range | + + + + | WBC COUNT | 6.3 | 3.5 - 10.8 K/cu mm | + + + + | RED CELL COUNT | 3.89 (L) | 4.50 - 6.00 M/cu mm | + + + + | HEMOGLOBIN | 11.4 (L) | 13.5 - 17.5 g/dL | + + + + | HEMATOCRIT | 32.9 (L) | 41.0 - 53.0 % | + + + + | MCV | 84.6 | 80.0 - 96.0 fL | + + + + | MCH | 29.2 | 28.0 - 34.7 pg | + + + + | MCHC | 34.6 | 33.0 - 35.5 g/dL | + + + + | RDW | 15.7 (H) | 11.5 - 15.0 % | + + + + | PLATELET COUNT | 189 | 150 - 400 K/cu mm | + + + + | MPV | 7.6 | 7.5 - 11.2 fL | + + + + + + + | Specimen | Performing Laboratory | + + + | Blood | [address] [facility] | | | [place] [address] | + + + + + | Narrative | + + | No reflex rules apply to this test. | + + CBC (HEMOGRAM ONLY) (08/06/2017 1:51 PM)Only the most recent of 2 results within the time period is included. + + + | Specimen | Performing Laboratory | + + + | Blood | | + + + + + | Narrative | + + | The following orders were created for panel order CBC (HEMOGRAM ONLY). | | Procedure | | Abnormality Status | | --------- | | ------ CBC | | ONLY[[id number]] | | Abnormal Final result Please view | | results for these tests on the individual orders. | + + INR (08/06/2017 1:51 PM) + +-------+ + | Component | Value | Ref Range | + +-------+ + | INR | 1.10 | 1.00 - 1.10 INR | + +-------+ + | PROTHROMBIN TIME | 11.0 | <=11.2 sec | + +-------+ + + + + | Specimen | Performing Laboratory | + + + | Blood | [address] [facility] | | | [place] [address] | + + + + + | Narrative | + + | INR Therapeutic ranges for full anticoagulation: INR for Venous | | Thromboembolism (2.0 - 3.0) INR INR for most patients with | | mech. valves (2.5 - 3.5) INR | + + BASIC METABOLIC SET (NA, K, CL, TCO2, BUN, CR, GLU, CA) (08/06/2017 1:51 PM)Only the most recent of 2 results within the time period is included. + +---------+ + | Component | Value | Ref Range | + +---------+ + | GLUCOSE, PLASMA | 160 (H) | 70 - 105 mg/dL | | (LAB) | | | + +---------+ + | BUN, PLASMA (LAB) | 13 | 6 - 26 mg/dL | + +---------+ + | CREATININE, PLASMA | 0.8 (L) | 0.9 - 1.3 mg/dL | + +---------+ + | SODIUM, PLASMA (LAB) | 138 | 137 - 146 mmol/L | + +---------+ + | POTASSIUM, PLASMA | 4.0 | 3.4 - 5.3 mmol/L | | (LAB) | | | + +---------+ + | CHLORIDE, PLASMA | 99 | 96 - 106 mmol/L | | (LAB) | | | + +---------+ + | TOTAL CO2, PLASMA | 23 | 18 - 30 mmol/L | | (LAB) | | | + +---------+ + | CALCIUM, PLASMA | 8.5 | 8.5 - 10.8 mg/dL | | (LAB) | | | + +---------+ + | BUN/CREATININE RATIO | 16 | 6 - 20 | + +---------+ + | EGFR - | >60 | >60 mL/min | | [facility] | | | + +---------+ + | EGFR NON | >60 | >60 mL/min | | -[place] | | | + +---------+ + | ANION GAP | 16 | 12 - 20 mmol/L | + +---------+ + + + + | Specimen | Performing Laboratory | + + + | Blood | [facility] | | | [place] [address] | + + + CT HEAD WO CONTRAST (08/06/2017 1:13 PM)Only the most recent of 2 results within the time period is included. + + + | Specimen | Performing Laboratory | + + + | | [facility] | + + + + + | Narrative | + + | [address] | | [place] [address] | | [phone] Name: NASH HERNANDEZ | | Phys: TRAVON VILLAGRAN : 1955 Sex: M | | CSN: [id number] MR# [id number] Exam Date: 08/06/2017 | | EXAM: CT HEAD WO CONTRAST CLINICAL HISTORY: Stroke with hemorrhagic | | conversion. Evaluate for recurrent or residual intracranial hemorrhage. | | COMPARISON: Brain MRI 08/06/2017. Head CT 07/24/2017. TECHNIQUE: Axial CT | | images of the brain from skull base to vertex, including portions of the face and | | sinuses, were obtained without contrast. Coronal and sagittal reformatted images were | | obtained. Dose reduction techniques including automated exposure control were | | utilized. FINDINGS: Hemorrhage: There is no acute intracranial hemorrhage. No | | significant residual hemorrhage is present. Brain: The large left temporoparietal | | infarct has evolved with decreasing mass effect, edema, and no residual midline | | shift. The overall area of hypodensity is slightly decreased compared to the prior | | study. There is no evidence of recurrent hemorrhagic transformation. A subtle | | hypodense lesion within the left cerebellar vermis measures approximately 5 x 6 | | mm. There is also a subtle hypodense lesion within the left frontal periventricular | | white matter measuring 8 x 8 mm. There is no evidence of acute infarct. | | Extra-axial spaces: No abnormal extra-axial fluid collection or mass. Ventricles: | | Unremarkable. No ventriculomegaly. Bones: No acute fracture. Sinuses: | | Unremarkable. No acute sinusitis. Mastoid air cells/inner ears: Clear. | | IMPRESSION: 1. No evidence of acute intracranial hemorrhage or acute hemorrhagic | | transformation of previous infarcts. 2. Evolving large left temporoparietal infarct | | with decreasing edema and mass effect. 3. Additional small hypodense lesions within | | the deep left frontal white matter and left cerebellar vermis as seen on the prior MRI. | | REPORT SIGNED IN OTHER VENDOR SYSTEM 08/06/2017 Reported by: Noman | | MD Clara Electronically signed by: Noman Elizabeth MD Transcribed Date/Time: | | 08/06/2017 13:32 Mathematics Academic Chair: FLUENCY | + + + + | Procedure Note | + + | Interface, Radiology Results - 08/06/2017 1:37 PM PST [address] | | [place] [address] | | Name: NASH HERNANDEZ Phys: JAMITRAVON Kiko : 1955 Sex: M | | CSN: [id number] MR# [id number] Exam Date: 08/06/2017 EXAM:CT HEAD WO CONTRAST | | CLINICAL HISTORY:Stroke with hemorrhagic conversion. Evaluate for recurrent orresidual | | intracranial hemorrhage. COMPARISON:Brain MRI 08/06/2017. Head CT 07/24/2017. | | TECHNIQUE:Axial CT images of the brain from skull base to vertex, includingportions of | | the face and sinuses, were obtained without contrast.Coronal and sagittal reformatted | | images were obtained. Dosereduction techniques including automated exposure control | | wereutilized. FINDINGS:Hemorrhage: There is no acute intracranial hemorrhage. | | Nosignificant residual hemorrhage is present. Brain: The large left temporoparietal | | infarct has evolved withdecreasing mass effect, edema, and no residual midline shift. | | Theoverall area of hypodensity is slightly decreased compared to theprior study. There | | is no evidence of recurrent hemorrhagictransformation. A subtle hypodense lesion within | | the left cerebellarvermis measures approximately 5 x 6 mm. There is also a | | subtlehypodense lesion within the left frontal periventricular white mattermeasuring 8 x | | 8 mm. There is no evidence of acute infarct. Extra-axial spaces: No abnormal | | extra-axial fluid collection or mass. Ventricles: Unremarkable. No ventriculomegaly. | | Bones: No acute fracture. Sinuses: Unremarkable. No acute sinusitis. Mastoid air | | cells/inner ears: Clear. IMPRESSION:1. No evidence of acute intracranial hemorrhage or | | acute hemorrhagictransformation of previous infarcts.2. Evolving large left | | temporoparietal infarct with decreasing edemaand mass effect.3. Additional small | | hypodense lesions within the deep left frontalwhite matter and left cerebellar vermis as | | seen on the prior MRI. REPORT SIGNED IN OTHER VENDOR SYSTEM 08/06/2017 Reported | | by: Noman Elizabeth MD Electronically signed by: Noman Elizabeth MD Transcribed Date/Time: | | 08/06/2017 13:32Transcriptionist: FLUENCY | |reduction techniques including automated exposure control were | |utilized. | | | |FINDINGS: | |Hemorrhage: There is no acute intracranial hemorrhage. No | |significant residual hemorrhage is present. | | | |Brain: The large left temporoparietal infarct has evolved with | |decreasing mass effect, edema, and no residual midline shift. The | |overall area of hypodensity is slightly decreased compared to the | |prior study. There is no evidence of recurrent hemorrhagic | |transformation. A subtle hypodense lesion within the left cerebellar | |vermis measures approximately 5 x 6 mm. There is also a subtle | |hypodense lesion within the left frontal periventricular white matter | |measuring 8 x 8 mm. There is no evidence of acute infarct. | | | |Extra-axial spaces: No abnormal extra-axial fluid collection or mass. | | | |Ventricles: Unremarkable. No ventriculomegaly. | | | |Bones: No acute fracture. | | | |Sinuses: Unremarkable. No acute sinusitis. | | | |Mastoid air cells/inner ears: Clear. | | | |IMPRESSION: | |1. No evidence of acute intracranial hemorrhage or acute hemorrhagic | |transformation of previous infarcts. | |2. Evolving large left temporoparietal infarct with decreasing edema | |and mass effect. | |3. Additional small hypodense lesions within the deep left frontal | |white matter and left cerebellar vermis as seen on the prior MRI. | | | | | | REPORT SIGNED IN OTHER VENDOR SYSTEM 08/06/2017 | |Reported by: Noman Elizabeth MD | | | |Electronically signed by: Noman Elizabeth MD | | | |Transcribed Date/Time: 08/06/2017 13:32 | |Mathematics Academic Chair: FLUENCY | | | | | | | + + MRI BRAIN WWO CONTRAST (08/06/2017 10:13 AM) + + + | Specimen | Performing Laboratory | + + + | | [facility] | + + + + + | Narrative | + + | [address] | | [place] [address] | | [phone] Name: NASH HERNANDEZ | | Phys: TRAVON VILLAGRAN : 1955 Sex: M | | CSN: [id number] MR# [id number] Exam Date: 08/06/2017 | | EXAM: MRI BRAIN WWO CONTRAST CLINICAL HISTORY: 61-year-old male with CVA, | | lung CA. COMPARISON: No prior MRI. Head CT of July 24, 2017. TECHNIQUE: | | Preinfusion sagittal T1, axial T1, T2, T2*GRE, DWI, FLAIR, coronal T2 and post infusion | | axial, coronal and sagittal T1 sequences were obtained. FINDINGS: There is a | | large subacute to chronic CVA in the left temporoparietal region as before, with | | hemosiderin deposition and complex cystic areas. Mass effect on the adjacent | | ventricle has resolved. There is an enhancing 8 x 4 mm focal intensity in the left | | cerebellar vermis, series 11, images 9, 10, series 10, images 8, 9, suspicious for | | metastasis. There was focal edema in this area on the prior nonenhanced head | | CT. Diffusion sequence shows small and tiny foci of water restriction in bilateral | | parietal lobes, right occipital lobe and left cerebellum, which suggest embolic | | infarcts. Patient apparently has atrial fibrillation. FLAIR sequence shows few | | bilateral frontoparietal T2 hyperintensities. Ventricles are normal in | | size. There are patent major arterial flow voids. There are no focal skull | | lesions. There are retention cysts in the right inferior maxillary sinus. | | IMPRESSION: Large left temporoparietal CVA, without mass effect. Multiple foci on | | the diffusion sequence. Focal area of enhancement in the left cerebellar vermis, | | rule out metastasis. REPORT SIGNED IN OTHER VENDOR SYSTEM 08/09/2017 | | Reported by: Musa Zavala MD Electronically signed by: Musa Zavala MD | | Transcribed Date/Time: 08/09/2017 21:05 Mathematics Academic Chair: FLUENCY | + + + + | Procedure Note | + + | Interface, Radiology Results - 08/09/2017 9:09 PM PST [address] | | [place] [address] | | Name: NASH HERNANDEZ Phys: TRAVON VILLAGRAN : 1955 Sex: M | | CSN: [id number] MR# [id number] Exam Date: 08/06/2017 EXAM:MRI BRAIN WWO CONTRAST | | CLINICAL HISTORY:61-year-old male with CVA, lung CA. COMPARISON:No prior MRI. Head CT | | of July 24, 2017. TECHNIQUE:Preinfusion sagittal T1, axial T1, T2, T2*GRE, DWI, | | FLAIR, coronal T2and post infusion axial, coronal and sagittal T1 sequences | | wereobtained. FINDINGS:There is a large subacute to chronic CVA in the left | | temporoparietalregion as before, with hemosiderin deposition and complex cysticareas. | | Mass effect on the adjacent ventricle has resolved. There isan enhancing 8 x 4 mm focal | | intensity in the left cerebellar vermis,series 11, images 9, 10, series 10, images 8, | | 9, suspicious formetastasis. There was focal edema in this area on the priornonenhanced | | head CT. Diffusion sequence shows small and tiny foci ofwater restriction in bilateral | | parietal lobes, right occipital lobeand left cerebellum, which suggest embolic | | infarcts. Patientapparently has atrial fibrillation. FLAIR sequence shows fewbilateral | | frontoparietal T2 hyperintensities. Ventricles are normalin size. There are patent | | major arterial flow voids. There are nofocal skull lesions. There are retention cysts | | in the right inferiormaxillary sinus. IMPRESSION:Large left temporoparietal CVA, without | | mass effect. Multiple focion the diffusion sequence. Focal area of enhancement in the | | leftcerebellar vermis, rule out metastasis. REPORT SIGNED IN OTHER VENDOR SYSTEM | | 08/09/2017 Reported by: Musa Zavala MD Electronically signed by: Musa Zavala MD | | Transcribed Date/Time: 08/09/2017 21:05Transcriptionist: FLUENCY | |Preinfusion sagittal T1, axial T1, T2, T2*GRE, DWI, FLAIR, coronal T2 | |and post infusion axial, coronal and sagittal T1 sequences were | |obtained. | | | |FINDINGS: | |There is a large subacute to chronic CVA in the left temporoparietal | |region as before, with hemosiderin deposition and complex cystic | |areas. Mass effect on the adjacent ventricle has resolved. There is | |an enhancing 8 x 4 mm focal intensity in the left cerebellar vermis, | |series 11, images 9, 10, series 10, images 8, 9, suspicious for | |metastasis. There was focal edema in this area on the prior | |nonenhanced head CT. Diffusion sequence shows small and tiny foci of | |water restriction in bilateral parietal lobes, right occipital lobe | |and left cerebellum, which suggest embolic infarcts. Patient | |apparently has atrial fibrillation. FLAIR sequence shows few | |bilateral frontoparietal T2 hyperintensities. Ventricles are normal | |in size. There are patent major arterial flow voids. There are no | |focal skull lesions. There are retention cysts in the right inferior | |maxillary sinus. | | | |IMPRESSION: | |Large left temporoparietal CVA, without mass effect. Multiple foci | |on the diffusion sequence. Focal area of enhancement in the left | |cerebellar vermis, rule out metastasis. | | | | | | REPORT SIGNED IN OTHER VENDOR SYSTEM 08/09/2017 | |Reported by: Musa Zavala MD | | | |Electronically signed by: Musa Zavala MD | | | |Transcribed Date/Time: 08/09/2017 21:05 | |Mathematics Academic Chair: FLUENCY | | | | | | | + + 12 LEAD ECG (08/01/2017) + + | Impressions | + + | Agree with the preliminary interpretation. Comparison EKG: None This has | | been electronically signed by Salvador Mancilla MD, 08/02/2017 at 6:13 AM. | + + JIMI HARRINGTON (07/31/2017 8:17 AM)Only the most recent of 33 results within the time period is included. + +-------+ + | Component | Value | Ref Range | + +-------+ + | BLOOD GLUCOSE, POC | 117 | mg/dL | + +-------+ + + + + | Specimen | Performing Laboratory | + + + | Blood | [facility] | + + + MODIFIED BARIUM SWALLOWING (07/28/2017 9:00 AM) + + + | Specimen | Performing Laboratory | + + + | | [facility] | + + + + + | Narrative | + + | Results by Speech Pathologist - See Notes in Chart Review Under Notes/Trans Tab | + + + + | Procedure Note | + + | Interface, Radiology Results - 07/28/2017 9:29 AM PST Results by Speech Pathologist | | - See Notes in Chart Review Under Notes/Trans Tab | + + ORDERS OTHER (07/22/2017)Only the most recent of 2 results within the time period is includ ed.from Last 3 Months
--- OUTSIDE RECORDS SUMMARY | ~2017-08-23 | XMS | Encounter Summary ---
Demographics + + + | Address | [address] | | | [place] [address] | + + + | Home Phone | | + + + | Preferred Language | Unknown | + + + | Marital Status | | + + + | Jehovah'S Witness Affiliation | CHR | + + + | Race | White | + + + | Ethnic Group | Not or | + + + Author + + + | Author | [facility] | + + + | Organization | [facility] | + + + | Address | Unknown | + + + | Phone | Unavailable | + + + Support +------+ + + + +-------- -+ | Name | Relationship | Address | Phone | +------+ + + + +-------- -+ ECON | [address] | | [address] [place] | [address] | +------+ + + + +-------- -+ ECON | Unknown | Unavailable | +------+ + + + +-------- -+ Care Team Providers + +------+-------+ | Care Membership Secretary Name | Role | Phone | + +------+-------+ | Mercedes Good MD | PCP | tel | + +------+-------+ Reason for Visit AUTH/CERT +--------+--------+ + + + + | Status | Reason | Specialty | Diagnoses / | Referred By | Referred To | | | | | Procedures | Contact | Contact | +--------+--------+ + + + + | | | | | | | +--------+--------+ + + + + Encounter Details +--------+ + + + + | Date | Type | Department | Care Team | Description | +--------+ + + + + | 07/22/ | Hospital | [facility] | Gillian Remy, | | | 2017 - | Encounter | [facility] [address] | [place], [place] | | | 08/07/ | | [place], [place] | [address] | | | 2016 | | [address] | [phone] | | | | | [phone] | | | | | | | Bon Couch MD | | | | | | [address] | | | | | | [place], [place] | | | | | | [address] | | | | | | [phone] | | | | | | | | | | | | Travon Farrell MD | | | | | | [address] | | | | | | [place], [place] | | | | | | [address] | | | | | | [phone] | | | | | | | | +--------+ + + + + Social History + + + +--------+ + [...] on file | | + + + as of this encounter Last Filed Vital Signs + + + [...] AM PST | + + + + in this encounter Discharge Summaries Travon Farrell MD - 08/06/2017 8:46 PM PSTFormatting of this note may be different from the original. INPATIENT REHAB DISCHARGE SUMMARY HOSPITALIST SERVICE Attending Physician: Travon Farrell MD PCP: Mercedes Good MD Admission Date: 07/22/2017 Discharge Date: 08/06/17 Code Status: Full Consulting Physician: None Discharge diagnoses: 1. 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 Undifferentiated adenocarcinoma lung diagnosis [facility] by biopsy 3. Chronic anticoagulation with warfarin -held for 1 month due to the intracranial bleed -r esuming on the day before discharge 4. Paroxysmal atrial fibrillation 5. Recent pulmonary embolism approximately 6 weeks ago resulting in initiation of warfarin Reason For Admission: Patients Hospital Problem List: Active Hospital Problems 1) CVA (cerebral vascular accident) with subsequent transformation to hemorrhagic stroke f ollowing tPA (HCC) 2) Undifferentiated adenocarcinoma lung -multiple nodules with adenopathy (HCC) Secondary to chronic tobacco abuse. Family considering not treating. Patient had biopsy d one at [facility]. That [facility] Result of the biopsy subsequently became available middle of this [facility]. Revealed adenocarcinoma which is poorly differentiated. Patient's had ap parently been called by 1 of the physicians from [facility]. Family is currently consi dering not pursuing further evaluation 3) Paroxysmal atrial fibrillation (HCC) 4) Chronic anticoagulation 5) History of cigarette smoking Anticoagulation with warfarin is being held due to the hemorrhagic transformation listed ab ove Major Diagnostic Studies: 1. MRI scan brain 08/06/2017 -no findings to suggest intracranial metastases. There is a l arge left temporoparietal stroke which had secondary bleeding. No longer any mass effect. There is a second very small 8 by 5 mm density in the left cerebellum -likely a second ische yajaira stroke 2. CT scan head without contrast August 06, 2017 : 1. No evidence of acute intracranial hemorrhage or acute hemorrhagic transformation of previous infarcts. 2. Evolving large left temporoparietal infarct with decreasing edema and mass effect. 3. Additional small hypodense lesions within the deep left frontal white matter and left cerebellar vermis as seen on the prior MRI. Hospital and Inpatient Rehab Course: 1. Ischemic stroke: Patient had no motor, coordination, apraxic symptoms or signs. His italo liana deficit is receptive and expressive aphasia. He is about 80% accurate on yes-no fo r questions. He was initially essentially mute but now is spontaneously doing some basic sp ontaneous speech. The content of the speech is fairly marginal still. He is independent wi th ambulation and ADLs. As this was likely a atrial fibrillation related embolic stroke alea ecially with 2 different foci noted, [facility] The recommendation was to repeat a CT scan on 08/07/2017 prio r to initiating warfarin. Since the patient had a previous history at the prior hospital of adenocarcinoma lung and no MRI of the brain was done, an MRI of the brain was done with and without contrast today before discharge. There is no findings on either of the abnormality seen to suggest that there is metastatic adenocarcinoma to the brain. CT scan today did no t reveal anything suggesting ongoing bleeding. I spoke with the patient's by phone as the patient is not able to comprehend his overall clinical scenario verbally. I have indica denise to her the indication to resume warfarin therapy the risk and the benefit of it. Told h er without warfarin I am concerned that he could have ongoing more devastating stroke. With the warfarin there is a small chance that he could have another intracranial bleed. She ag christina to proceed with warfarin therapy after this presentation her. The patient's warfarin w as slightly subtherapeutic when he first was admitted with his stroke. It is of note that brayan quiroz did miss one of his doses of warfarin which likely accounted for this. I have called the [facility] Dr. Mikel Saldana yesterday and again today. He has apparently not in the country for the next 3 weeks. The staff at the clinic planning o n setting up a visit with 1 of his associates. The neuro images done today overall pushed t o the clinic per their request. 2. Adenocarcinoma lung patient's was somewhat reluctant to have this discussed in fro nt of her . The inpatient rehabilitation physician the week before me did discuss th is in front of the patient with his present. It is unclear whether the patient actuall y comprehends this diagnosis I suspect not. Patient's has asked to be able to discuss with him on discharge. Patient is been generally informed of this diagnosis but unclear whet her he comprehensive.. Initially there was a thought that the family did not want to treat this. A visit with an oncologist in [place] has been set up for this next Wednesday. The records from [facility] will be helpful in making decisions about therapy. The joaquin patricio's will attend the oncology visit. 3. Paroxysmal atrial fibrillation patient has had no episodes that suggest atrial fibrilla tion while here. A 12 lead EKG 08-25 revealed normal sinus rhythm. He is continued on his dil tiazem CD. 4. History of DVT/pulmonary embolism apparently early June the patient presented to [facility] in [place] with a PE. He was started on warfarin. Due to the intracranial ble ed warfarin was reversed and he had IVC filter placed. Once he is therapeutic again the IVC filter can certainly be removed. I called the patient's PCP Dr. Good today for verbal hand off of this patient. Functional Course: FUNCTIONAL HISTORY:* PRE-morbid Admit Discharge Eating 7 2 6 Grooming 7 4 7 Bathing 7 3 6 Up.Dress. 7 4 7 Low. Dress. 7 4 7 Toilieting 7 1 7 Bladder 7 3 7 Bowel mgmnt 7 6 7 Bed,chair, WC transf. 7 4 7 Toilet trnsf 7 4 6 Tub/shower 7 4 shwr 6 shwr Walk or WC 7 4 5 Stairs 7 4 6 Comprehension 7 2 4 Expression 7 2 4 Soc. Interact. 7 4 5 Prob. Solv. 7 3 4 Memory 7 3 4 * 7= Compete; 6= Modified independent; 5= Supervision; 4=Min assist; 3=Mod. Assist; 2= Max. Assist; 1= total assist; 0= did not occur Discharge Vitals: BP 121/74 | Pulse 65 | Temp 37 C (98.6 F) | RR 18 | Ht 1.778 m (5' 10") | Wt 84 kg (185 lb 3 oz) | SpO2 94% | BMI 26.57 kg/(m^2) Discharge Examination: General Appearance: Alert. Spontaneous verbalizations with marginal content. Verbal inst ructions without demonstration he often does not do properly. When I demonstrate he then ca n copy quite well. HEENT: PERRL, EOMI Respiratory: Unlabored, CTA bilaterally Cardiovascular: RRR, no M/R/G Abdomen: + BS, soft, NT/ND, no masses Ext/Musculoskeletal: No LE edema Skin: No rashes Neurologic: No facial droop. Doubt visual field cut by confrontation. Responds somewhat t o my verbal questions his responses are hard to track with his vertebral response. Spontane ous verbalizations have improved. Still the content is somewhat difficult to track Psychiatric: Alert. Common cooperative. Very directable. Medication List START taking these medications aspirin chewable 81 mg Chew Chew and swallow 1 tablet once daily for 5 days. Will stop in 5 days after starting Warfari n Indications: prevention of cerebrovascular accident Start taking on: 08/07/2017 atorvastatin 80 mg Tab Commonly known as: LIPITOR Take 1 tablet by mouth once daily. Indications: prevention of cerebrovascular accident Start taking on: 08/07/2017 enoxaparin 40 mg/0.4 mL Syrg Commonly known as: LOVENOX Inject 0.4 mL under the skin (SUBC) once daily in the evening. Indications: Pulmonary Throm boembolism Prevention, Until INR therapeutic on warfarin Start taking on: 08/07/2017 lisinopril 20 mg Tab Commonly known as: PRINIVIL Take 1 tablet by mouth once daily. Indications: hypertension, Prevention of stroke Start taking on: 08/07/2017 CONTINUE taking these medications CARTIA XT 240 mg Cp24 1 daily Generic drug: dilTIAZem CD 24 hour release ipratropium-albuterol 0.5 mg-3 mg(2.5 mg base)/3 mL Nebu q.i.d. p.r.n. wheezing Commonly known as: DUO-NEB warfarin 5 mg Tab 1 every day with exception of Wednesday where he takes 1 & 1/2. First dosag e was 08/06/2017 after having been off for 1 month Commonly known as: COUMADIN Diet Regular Sodium restricted diet reduced blood pressure. Should target 4000 mg per 24 hours Activity 1. You are not to drive a vehicle until cleared by your doctor 2. You must have someone home at all times as you would not be able to call for help if a p roblem arose 3. You are able to ambulate without an assistive device Destination/Disposition Destination/Disposition: Home Condition on Discharge Fair Schedule the following appointment(s) when you get home Mukund Newton MD On 08/11/2017. Specialty: Hematology & Oncology Why: follow up from hospitalization, appointment time is 2:30 Contact information [facility] [address] [place] [id number] MERCEDES GOOD MD On 08/11/2017. Specialty: Internal Medicine Why: follow up from hospitalization, appointment time is 4:30 pm Contact information [facility] [address] [place] [id number] DENISE SALDANA MD. Call in 1 week. Specialty: Neurology Why: Dr. Saldana will not be in the office but 1 of his associates will be able to see y ou. Contact information [facility] [address] [place] [address] Other Discharge Orders and Instructions 1. Will need to get labs drawn Wednesday for an INR. This will be sent to your doctor [place] Stroke Discharge Orders & Instructions What are the warning signs of stroke? Call 911 if you experience: - Sudden weakness or numbness of the face, arm, or leg, especially on one side of the body; - Sudden confusion, trouble speaking or understanding; - Sudden trouble seeing in one or both eyes; - Sudden trouble walking, dizziness, loss of balance or coordination; - Sudden severe headaches with no obvious cause. Today there are treatments that can reduce the damage caused by a stroke. However, you mus t seek medical attention FAST POSSIBLE BY CALLING 911. Time is Brain. Outstanding labs/studies: No outstanding labs or studies Time spent in preparation of this discharge was greater then 30 minutes. Travon Farrell MD Hospital Medicine Service [facility] Dr Mikel Newton in this encounter Discharge Instructions Karla Greene RN - 08/03/2017Go to [facility] in [place] the am of Amari luna,08/09, to have your blood drawn. If you need adjustments in your meds, Dr Good's office w ill call. [facility] office will call for an appt to see Speech Therapy. If you rodriguez ve not heard from them by 08/11, please call them at [phone]. NO DRIVING!!!!!!!!!!!!!!!!!!! in this encounter Medications at Time of Discharge + + +---------+---------+ + + | Medication | Sig. | Disp. | Refills | Start | End Date | | | | | | Date | | + + +---------+---------+ + + | atorvastatin 80 mg | Take 1 tablet by | 30 | 0 | 08/07/20 | | | oral | mouth once daily. | tablet | | 17 | | | tabletIndications: | Indications: | | | | | | prevention of | prevention of | | | | | | cerebrovascular | cerebrovascular | | | | | | accident | accident | | | | | + + +---------+---------+ + + | dilTIAZem CD 24 | Take 240 mg by mouth | | | | | | hour release (CARTIA | once daily. | | | | | | XT) 240 mg oral | | | | | | | capsule,extended | | | | | | | release 24hr | | | | | | + + +---------+---------+ + + | enoxaparin 40 | Inject 0.4 mL under | 5 | 0 | 08/07/20 | | | mg/0.4 mL | the skin (SUBC) once | Syringe | | 17 | | | subcutaneous | daily in the | | | | | | syringeIndications: | evening. | | | | | | Pulmonary | Indications: | | | | | | Thromboembolism | Pulmonary | | | | | | Prevention, Until | Thromboembolism | | | | | | INR therapeutic on | Prevention, Until | | | | | | warfarin | INR therapeutic on | | | | | | | warfarin | | | | | + + +---------+---------+ + + | | Inhale 3 mL every | | | | | | ipratropium-albutero | six hours as needed | | | | | | l 0.5 mg-3 mg(2.5 mg | for dyspnea/SOB. | | | | | | base)/3 mL | | | | | | | inhalation solution | | | | | | | for nebulization | | | | | | + + +---------+---------+ + + | lisinopril 20 mg | Take 1 tablet by | 30 | 0 | 08/07/20 | | | oral | mouth once daily. | tablet | | 17 | | | tabletIndications: | Indications: | | | | | | hypertension, | hypertension, | | | | | | Prevention of stroke | Prevention of stroke | | | | | + + +---------+---------+ + + | warfarin 5 mg oral | Take 1 tablet by | 1 | 0 | 08/07/20 | | | tabletIndications: | mouth once daily. 1 | tablet | | 17 | | | Deep Vein Thrombosis | pill (5mg) daily | | | | | | with Pulmonary | every day except | | | | | | Embolism, Prevent | Wednesday. Take 1 and | | | | | | Thromboembolism in | 1/2 (7.5mg) every | | | | | | Chronic Atrial | Wednesday. Start | | | | | | Fibrillation [...] | Fibrillation | | | | | + + +---------+---------+ + + | aspirin chewable | Chew and swallow 1 | 5 | 0 | 08/07/20 | | | 81 mg oral | tablet once daily | tablet | | 17 | 7 | | tablet,chewableIndic | for 5 days. Will | | | | | | ations: prevention | stop in 5 days after | | | | | | of cerebrovascular | starting Warfarin | | | | | | accident | Indications: | | | | | | | prevention of | | | | | | | cerebrovascular | | | | | | | accident | | | | | + + +---------+---------+ + + as of this encounter Progress Notes Gilda Segura, PT - 08/06/2017 3:10 PM PSTFormatting of this note may be different from t edbby original. Amna PT Discharge Summary Reason for admit: CVA Precautions: fall risk Onset Date/Date of Surgery: 07/08/17 Rehabilitation/ Treatment Diagnosis: Difficulty walking, other abnormalities of gait and m obility Time in: 14:05 Time out: 15:05, Individual therapy History of present illness: 61 year old man admitted with CVA symptoms. 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 He also had a GI b leed following administration of tPA and has new diagnosis of diabetes. 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 He presents for acu te rehab with receptive and expressive aphasia and R-sided neglect, impaired balance and mob ility. Subjective: Patient subjective report: Notes difficulty with some activities, looking forward to going home based on emphatic "yes" NPRS: Appears comfortable, communicates some appropriate thoughts/needs despite aphasia Location/Description of Pain: N/A Objective: Observation: Pt sitting up in bed at initial contact Posture: Unchanged Neuro status: Coordination/Motor Control: slows with dual tasks slightly but continues walk ing ROM UE/LE (PROM, AROM): No deficits noted MMT UE/LE: Not reassessed. Strength is functional for ambulation and basic mobility Functional mobility: Transfer chair to bed walking independent of 1 no device Gait: Ambulates with independent of 1, no device 200-300 feet on level surface Stairs: Up/down 18 steps independent of 1 reciprocal pattern with a rail Balance: Improved based on DGI, no observed losses of balance with functional activities Tolerance to increased activity: Tolerating long durations of walking within 60m treatment session well Outcome measures: SWARTZ balance scale and Dynamic Gait Index Swartz (tested 08/02/17) = 52/56 DGI = Treatment provided: 60m neuromuscular re-education: Provided pt with simple map of 3rd floor identifying his room, dining room, rehab gym, wind ow on 3C, elevators and oriented him to map. Map-identification/pathfinding: -navigation from pt's room to 3C window using map: initially incorrect walking to gym and n eeding cues to correct -window to dining room correctly with confirmation question x1 -dining room to pt's room correctly -pt's room to elevator with cues -elevator to atrium with incorrect identification of up/down buttons, correct identificatio n of floor button based on verbal instruction -atrium to pt's room via elevator with confirmation of correct elevator button selections -pt's room to atrium via stairs (down 4.5 flights using 1 HR) with cues -atrium back to pt's room via elevator -independent from gym to pt's room at end of treatment Dual task walking: -re-test DGI (see above) -locating letters alphabetically on both sides of hallway, A-R over 50' distance (no errors for letters A-I; statement indicating next letter correctly "I'm looking for C"); 2 bouts w ith cues when incorrect letter is named -locating numbers 1-10 with field of letters remaining: accurately differentiates letters f rom numbers by pointing (although still stating names of letters periodically), errors in na me of number for 3/10 targets Education provided: encouragement re: continued progress especially with speech, repetition s of incorrect words during activities Assessment: Joses continues to improve with pathfinding and naming tasks associated with [employer] environments. His accuracy negotiating the elevator is improving, althou gh he still needs supervision to and instruction to manage this. He improved at visual targe ting/scanning task including differentiating letters from numbers today. He is independent w ith all basic mobility including floor to stand transfers. He appears to be a relatively low risk of falling, but would benefit from supervision for safety at home given his communicat ion impairments. He is ready for d/c home with family support and has no equipment needs at this time. Factors influencing patient progression toward goals: aphasia limits communication and asse ssment somewhat. Plan: Discharge home with family support tomorrow Discharge plan/recommendation: Recommend home with 24 hr family support, no AD Goals : Short term goals: Goal Description Status Date Achieve by Date Status Notes 1. Independent with transfers in and out of bed 07/27/2017 07/30/17 Met 2. Sit to stand transfers with supervision assist 07/27/2017 07/30/17 Met 3. Able to walk 150' with standby assist and LRAD 07/27/2017 07/30/17 Met 4. Able to climb 1 flight of steps with a handrail and standby assist 07/27/2017 07/30/17 Met correction goals: Goal Description Status Date Achieve by Date Status Notes 1. Independent with sit to stand transfers between surfaces 07/27/2017 08/06/17 Met 2. Able to walk >150' with mod independence and LRAD 07/22/2017 08/06/17 Met 3. Able to climb 1 flight of stairs with mod independence and handrail 07/22/2017 08/06/17 Met 4. Able to walk on uneven and compliant surfaces including ramps and curbs with supervision assist 07/22/2017 08/06/17 Met Supervision 5. Balance improved as evidenced by score of >45 on swartz balance test 07/22/17 08/06/17 Met 52/56 DGI Gilda Segura, PT, DPT Report signed, 08/06/2017 3:10 PM Yaniv Valverde, OTR/L - 08/06/2017 10:05 AM PSTFormatting of this note may be different f rom the original. [facility]Power OT Discharge Summary Reason for admit: CVA Precautions: fall/speech Onset Date/Date of Surgery: 07/08/17 Rehabilitation/ Treatment Diagnosis: CVA Time in: 0701 Time out: 0755 Time in: 1220 Time out: 1227 History of present illness: 61 year old man admitted with CVA symptoms. 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 He also had a GI b leed following administration of tPA and has new diagnosis of diabetes. 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 He presents for acu te rehab with receptive and expressive aphasia and R-sided neglect, impaired balance and mob ility. Subjective: Patient report: Pt agreeable to full ADL evaluation. States preference for seated showers. Speaking in sentences with ongoing word-finding challenges. NPRS: Denied Location/Description of Pain: NA Objective: Orientation: Unable to fully assess r/t ongoing aphasia Cognitive/Behavioral: Demonstrates fair safety awareness for BADL with noted improvements i n basic problem solving for task participation. 15/03 supervision recommended upon return tejal e. Comprehension: Aphasia ongoing. Expression: Aphasia ongoing. Consistently having needs met with progressing verbalization a nd ongoing use of gestures. Visual perceptual: WFL ROM: BUE AROM WFL Strength: WFL Neuro status: Kinesthesia: Continues to lightly clip doorways at times in R jered-field, but consistently without LOB. Visual tracking in all quadrants. Activities of daily living: UB Dressing Independent LB Dressing Independent Toileting Independent Grooming Independent Eating Independent - use of standard utensils with safe eating on [facility] soft diet and thin l iquids. Bathing Independent. Demonstrates appropriate balance sufficient for standing showers, rossa felicia OT recommends bathing from seated vs standing r/t COPD and SOB despite vitals WFL Transfers: Toilet Modified Independent without AD Shower Modified Independent to/from walk-in shower Chair Independent without AD Bed mobility Independent without AD Treatment provided: First tx: Final FIM assessment for self-cares and mobility with emphasi s on bathing assessment with instruction for modifications to manage COPD, written recommend ations placed in pt lifebook; Second tx: assessment of self-feeding. Education provided: energy conservation techniques for management of COPD Assessment: John has made excellent gains in mobility and self-care independence. He now de monstrates execution of dressing, bathing, toileting, grooming, eating independently without use of assistive device. Despite pt having appropriate balance for safe execution of bathin g from standing position, OT recommended seated bathing for management of SOB thought to be related to his COPD and progressing cancer. Pt is recommended to have / supervision for g eneral safety given problem solving and communication impairments ongoing. Likewise, setup a ssistance for meals preparation participation with pt currently functioning at standbye-assi stance level for basic meal preparation (e.g. Assembly of peanut butter and jelly sandwich). Goals: Short term goals: Goal Description Status Date Achieve by Date Status Notes 1. Toileting with LRD SBA without LOB. 07/22/2017 07/29/17 Met 07/27/2017 Mod I 08/03/2017 2. UB/LB dressing with SBA and use of LRD. 07/22/2017 07/29/17 Met 07/27/2017 3. Grooming from seated/standing with SBA with LRD 07/22/2017 07/29/17 met 07/29/17. Hair, sh aving all standing with cues 4. Functional transfers with SBA without LOB during ADL. 07/22/2017 07/29/17 met correction goals: Goal Description Status Date Achieve by Date Status Notes 1. Functional mobility mod I with LRD. 07/22/2017 08/05/17 Met Mod I in room with setup of environment without AD 2.UB/LB dressing with mod I and LRD. 07/22/2017 08/05/17 Met 08/04/17 3. Self-feeding with supervision only with minimal cueing. 07/22/2017 08/05/17 Met Nursing reporting pt consistently mod I for self-feeding. 4. Toileting mod I with LRD. 07/22/2017 08/05/17 Met 08/04/17 Safe showers mod I from seated position 08/04/17 08/06/17 Met 08/06/17 Discharge plan/recommendation: home with assistance 15/03 Equipment recommended: bath bench Yaniv Valverde OTR/Dipti Report signed, 08/06/2017 10:05 AM Sapna Lee MS,[facility]-START UP SPECIALIST - 08/06/2017 9:00 AM PSTFormatting of this note may be differen t from the original. [facility] DISCHARGE SUMMARY / DAILY NOTE Referring Provider: Phil Admission Date: 07/22/2017 Medical Diagnosis: CVA Rehabilitation/Treatment Diagnosis: dysphagia, expressive/receptive aphasia. Time In/Out:3351-0323 Evaluation Date: 07/23/2017 Last progress report:08/03/2017 Discharge Date: 08/07/2017 HISTORY OF PRESENT ILLNESS/INJURY: John Griffith is a 61 y.o. M referred for evaluation o f dysphagia and communication. Mr. 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 Per review of medic al records and H&P, pt was admitted to [facility] on 07/08. due to suspected ischemic CVA he received tPA. Head CT the following day revealed hemorrhage int he left MCA territory. T his resulted in right sided neglect, motor impairments, receptive and expressive aphasia and dysphagia. Upon admit to our program, he diet order includes puree and nectar thick liquid s. SUBJECTIVE: John understands he is leaving tomorrow and reports "when I go... I'll keep wor heron on it". SUBJECTIVE PAIN PRE: 0/10, POST: 0/10 OBJECTIVE:Receptive and expressive language intervention targeting use of cueing hierarchie s to elicit identifying and naming of body parts and functional objects. Receptive language intervention via auditory stimulation for object identification in a field of 3. Facilitated functional skills of naming body parts to express medical needs. Chunking of information a nd written cues used to elicit increased accuracy in counting hinson. LIMITATIONS: Patient's participation was not limited. REVIEW OF GOALS: SHORT-TERM GOALS: Goal Description Creation Date Achieve By Date Status Notes 1. Pt will improve comprehension to accurately respond y/n to basic need and biographical questioning using any modality, with 70% accurate response rate. 07/23/2017 07/29/2017 achiev ed 08/03/17: 70% with written choices. 2. Pt will improve expressive communication to verbalize 5 functional words in response to modeling/integral stimulation with max assist 80% of trials over two sessions. 07/23/2017 achieved 08/02/17: Picture naming with written cue: 6/17 (35%) With phonemic prompt: 3/11 (27%) With Modelin/8 (62%). After priming with this task, probed response to modeling for target words with 75% respons e rate. 3. Pt will improve receptive communication to identify objects or pictures from a field of two given maximal semantic cues. 07/23/2017 07/29/2017 Achieved 07/27/1707/30: ID of unrelated objects F:2 80% 07/27/17: Identification of objects in a F:2 unrelated with gestures: 04/01 ID of pictures in a file of tow, unrelated with gestures: 05/02 4. Pt will participate in modified barium swallow study to objectively assess pharyngeal fu nctioning. 07/23/2017 07/28/2017 Achieved 07/28/17 07/28/17: See results in MBSS study note. Upgrade to thin liquids. 07/26/17: educated patient and regarding goals and MBSS 5. With external modifications and clinician verbal/tactile cues, pt will manage mechanical soft textures in functional, nutritive quantities without s/sx aspiration. 07/23/20172016 achieved Achieved 07/24/17: Achieved observational trails of meal quantity mechanical soft with setup assistance and in termittent assist with utensil management. Pt demonstrates brisk and thorough chew, complete AP transit and no overt s/sx aspiration. Recommend cutting to ensure small bite size due to limited coordination and strength of extremities. No overt s/sx aspiration with 6 oz nectar thick juice, however, respirations appear increasingly labored during session. 6. Pt will identify unrelated objects in a field of two in structured comprehension tasks w ith 80% accuracy, working towards ability to use aided communication. 07/28/2017 07/31/2017 a chieved 07/29:ID pictures in a field of 2, unrelated: 810 07/28: pictures unrelated in a field of two: 70% 07/28/17: ID pictures with no semantic cue, unrelated: 7/10 Related: 2/5 7. Working towards ability to use aided communication, pt will accurately identify words/pi ctures/objects that are semantically related in a field of two with 70% accuracy over 5 tria ls. 07/29/17 08/03/17 ongoing 08/06/17: ID objects, unrelated in a field of 3: 6/10 (discont inued) 08/03/17: Identification of picture, unrelated: F:2 70%; identification of written words, u nrelated F:2 70%. Increased complexity to field of 3. Accuracy fell to 40%. 08/02/17: Identification of written words, unrelated F:2: 60% in first trial, 80% in second trial 8. Pt will name 10 functional items with written cue and phonemic prompts. 08/02/172016 Achieved 08/06/2017 08/06/2017: Objects 08/11 given phoneme cue, provided full modeling. Body parts: 08/11 with phoneme cue. 08/05/17: Body Parts: PATEL 350 With phoneme cue: 38/47 With full model: 01/2908/04/17: IND 10/12 Phonemic cue: 10/10 Written cue: 12/16 Model: 04/03 In generalization task in room, pt responded to written cue and model to name objects in hi s environment in 8/10 trials, 2/10 PATEL 08/03/17: Patient independently named 4 out 20 pictured objects; patient imitated 7 out of 20 pictured objects provided a model. Patient did not respond to lead in cues or phonetic c ues 9. With model and written cues, pt will state his name and his 's name in 8/10 trials each. 08/02/17 08/06/2017 Achieved over 2 sessions 08/05/17: accuracy given model and written cue. 100% accuracy in 10 trials each with full model and written cue, not maintained when cues f aded. 10. Pt will count dollars and cents given a visual cue in 8/10 trials. 08/03/17 08/07/17 ongoing 08/06/2017: mod assist for organizing money, chunking 10's and 1's, with 6/10 accuracy 08/05/17: Counting change: 3/5 PATEL, Dollars: 2/5 PATEL. Improved overall to 7/10 when given written cues to chunk amounts (e.g. 39.00 is written as 30+9). LONG-TERM GOALS: Goal Description Creation Date Achieve By Date Status Notes 1. Pt will improve oropharyngeal swallow function to return to least restrictive diet witho ut overt s/sx aspiration in quantities sufficient for nutritional oral intake 07/23/2017 achieved 08/03/17: managing mechanical soft and thin liquids at meals. 07/27/17: trials of thin liquids with no oral loss, no overt s/sx aspiration in sequential cup sips of 3 oz. 2. Pt will improve receptive/expressive communication to follow simple commands and express single word requests via any modality for basic needs with moderate assistance. 07/23/2017 08/11/2017 partially achieved 08/06: Per nursing, improved conversational output. Able to request bathroom, discuss presence of pain, needs within room, and make meal choices given s upport. Continues with anomia limiting specificity of expression. 08/03/17: patient is intermittently following simple commands with high level of context an d visual cues. Patient is spontaneously verbalizing rote phrases (i.e. Thank you, hello). ASSESSMENT: Mr. Griffith has participated in dysphagia intervention to reduce aspiration risk a nd advance to least restrictive diet, resulting in upgrade to thin liquids and mechanical so ft (pt is primarily edentulous). Language intervention for expressive and receptive aphasia resulting in increased reliability for basic yes/no questions, ability to follow commands i n context and identify objects in a small field of two without context, and improved stimula bility for object naming, now responsive to phonemic cues with moderate accuracy. Spontaneou s utterances, although the continue to be highly paraphasic, are transitioning away from non related paraphasias and stereotypy, to semantic and phonemic paraphasias suggesting improvi ng semantic organization. Overall, Mr. Griffith continues with severe expressive and receptive aphasia with high frequency of paraphasias with auditory feedback limiting self awareness of errors. Recommend ongoing intensive language intervention via outpatient therapy upon retur n home. Home program provided for Mr. Griffith and his family. FUNCTIONAL LIMITATIONS: Communication: communicating medical assistance conversational l evel communication, communicating medical needs, communicating in an emergency. DISCHARGE PLAN: Home with home program and Outpatient services RECOMMENDATIONS: DIET RECOMMENDATIONS: Thin - no thickener, Level 3 Advanced = soft foods that require some chewing, NO hard foods such as hard chips, raw veggies, etc MEDICATIONS TO BE GIVEN: Pills with liquids EDUCATION this session was focused to RN regarding home program. The RN was able to verbali ze understanding. . Transfer of patient care to [facility] staff. Sapna Lee MS,[facility]-START UP SPECIALIST [facility] Travon Farrell MD - 08/05/2017 7:58 PM PSTFormatting of this note may be different from the original. INPATIENT HOSPITALIST PROGRESS NOTE Hospital Day: 14 Patient's Name: John Griffith Today's Date: 08/05/2017 Major Events since last note: None. Doing well with modified independent in room Subjective: (Interval Hx): Patient to offer no spontaneous complaints. His aphasia such that it is a difficult thing for him to come up with any type of meaningful response to my questions. Is yes no reliability seems quite poor. Review of systems otherwise normal or non-contributatory Current Medications: acetaminophen (TYLENOL) tablet 650 mg, 650 mg, oral, Q6H PRN aspirin chewable tablet 81 mg, 81 mg, oral, DAILY atorvastatin (LIPITOR) tablet 80 mg, 80 mg, oral, DAILY bisacodyl (DULCOLAX) suppository 10 mg, 10 mg, rectal, DAILY PRN budesonide (PULMICORT) 0.5 mg/2 mL nebulizer suspension 0.5 mg, 0.5 mg, inhalation, BID dilTIAZem CD 24 hour release (CARDIZEM CD) capsule 240 mg, 240 mg, oral, DAILY enoxaparin (LOVENOX) injection 40 mg, 40 mg, subcutaneous, QPM ipratropium-albuterol (DUO-NEB) nebulizer solution 3 mL, 3 mL, inhalation, Q6H PRN lisinopril (PRINIVIL) tablet 20 mg, 20 mg, oral, DAILY melatonin tablet TbER 3 mg, 3 mg, oral, QPM pantoprazole (PROTONIX) tablet 40 mg, 40 mg, oral, DAILY polyethylene glycol (MIRALAX) packet 17 g, 17 g, oral, DAILY PRN Physical Exam: Vitals (24 hr): Admit wt:Weight: 85.5 kg (188 lb 7.9 oz) (07/22/17 1618) Today wt: Wt Readings from Last 1 Encounters: 08/01/17 84 kg (185 lb 3 oz) Last Vitals: BP 115/72 | Pulse 72 | Temp 36.3 C (97.4 F) | RR 20 | Ht 1.778 m (5' 10") | Wt 84 kg (185 lb 3 oz) | SpO2 95% | BMI 26.57 kg/(m^2) 24 Hour Vital Min/Max: Pulse Min: 66 Max: 72 Temp Min: 36.3 C (97.4 F) Max: 36.7 C (98.1 F) SpO2 Min: 95 % Max: 96 % General Appearance:Resting comfortably. Pleasant. Comprehension of my speech seems margin al. If I act out what I want him to do, he will do it. If I verbally say to raise hi s arm he was unable to do so. HEENT: Atraumatic. No conjunctival injection. No scleral icterus Respiratory: Unlabored, CTA bilaterally Cardiovascular: RRR, no M/G/R Abdomen: + BS, soft, Non-tender. Non-distented Musculoskeletal:Normal extremities Ext: No edema Skin: No rashes Neurologic: No facial droop. Doubt visual field cut by confrontation. Respond somewhat t o my verbal questions his responses are hard to track with his vertebral response. Spontane ous verbal other rinses have improved. Still a content is somewhat difficult to track Psychiatric: Call and cooperative Diagnostic Data: (Reviewed & Notable for:) CBC with diff last 72 hours (or 3 results) - Refreshable Chemistries: Last 72 Hours (or 3 results) - Refreshable New Imaging since last note: Head CT 07/24/2017 IMPRESSION: 1. Marked interval improvement in left temporoparietal hemorrhage. 2. Residual vasogenic edema and mild subfalcine herniation, which has improved when compared to the prior study 07/15/2017 from other institution. 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 Repeat head CT 07/24/17 revealed interval improvement of the left temporoparietal hemorrhage and mild subfalcine herniation. Anticoagulation being held until 08/[address] Couch. In reviewing Dr. Remy is note from 07/25 for review of care everywhere it was recomm ended a repeat CT be performed 08/07/2017. Patient predominantly has expressive and recepti ve aphasia and right-sided neglect. Yes no reliability reported at 70%. He has a difficult time identifying objects. Gradual improvement in his spontaneous speech and seeming compre hension speech Yesterday some 1 from [place] called requesting that the CT be done and the images be pushed to them . I had the nurse call back and it was just a general number. Today I rodriguez ve contacted the patient's follow-up Neurology office a Dr. Mikel Saldana [phone]. He is unfortunately not in the office. It appears as though he did not follow the patient in the hospital best I can tell. I then reviewed the discharge AVS and there was a neurolo gist listed in the provider seen during the hospital list. Her name is Dr. Pepper mancia. She was somewhat resistant to give me much meaningful information as she said she is only the hospital neurologist . I indicated to her the needed information in order to he lp determine whether a MRI or CT would be more appropriate. She finally agreed that since brayan quiroz has metastatic adenocarcinoma the MRI head with and without contrast would be reasonable i n place of a CT -MRI scan with and without contrast tomorrow instead of a head CT -will then try to reach the patient's follow-up neurologist ,Dr. Mikel Saldana [phone]. Did discuss the appropriateness of warfarin therapy -continue aspirin and statin -continue OT PT and speech -continue thin liquids with mechanical soft diet -repeat CT scan 08/07/2017 and then determine appropriateness of resuming anticoagulation therapy to the high risk of repeat stroke. -ultimate disposition will perhaps be home but he will require 24 hour supervision by his family. On note from Dr. Couch from 07/31 family was still not sure they are capable of doin g this. -plan for discharge on Wednesday with follow-up of and INR on Wednesday, follow up with his PC P once a day, follow-up with Oncology in [place] as well. Atrial fibrillation (paroxysmal) and history of DVT/PE as listed above anticoagulation cur rently being held due to his intracranial bleed. Diltiazem for rate control doing well. Joaquin patricio had an inferior vena caval filter placed at [facility] during his hosp italization. EKG on 08/01 revealed normal sinus rhythm. -continue diltiazem for rate control -reconsider anticoagulation with warfarin following MRI of head tomorrow. This conceivabl e that may need to actually do the unenhanced head CT as well to compare that with the previ ous CT. Prior GI bleed following tPA therapy no ongoing active bleeding. Pulmonary nodules with mediastinal adenopathy biopsy results revealed adenocarcinoma lung (poorly differentiated) a physician at [facility] apparently talked to the tita spencer's regarding this diagnosis. She does not want this discussed with her a s he is not likely cannot understand it. Her team conference note 07/27 it was mentioned the patient has oncology set up at [place] at [facility] in the future. F amily conference occurred 07/30. Family leaning in favor of not pursuing any further Oncolog y evaluation and treatment -confirm prior to discharge regarding whether to keep visit scheduled at Cancer [facility] in [place] New diagnosis of diabetes patient was started on metformin approximately 10 days ago. Was also initially on long-acting and short-acting insulin. On 07/28 patient was converted off insulin this was felt to be something he would have difficult time with at home. He was converted to metformin as monotherapy. -glucoscans 90-117. Who scans were discontinued on 07/31. COPD -meter dose inhalers or difficult for the patient utilize. P.r.n. nebulizers ordered -continue Pulmicort nebulized therapy Past history of marijuana smoking Patients Hospital Problem List: Active Hospital Problems 1) CVA (cerebral vascular accident) with subsequent transformation to hemorrhagic stroke f ollowing tPA (HCC) 2) Undifferentiated adenocarcinoma lung -multiple nodules with adenopathy (HCC) 3) Paroxysmal atrial fibrillation (HCC) 4) Chronic anticoagulation 5) History of cigarette smoking Miscellaneous: Hydration route: Oral Nutrition delivery: Oral Prophylaxes VTE Enoxaparin has been can utilize the entire hospitalization Travon Farrell MD Hospital Medicine Department of Medicine [facility] Rocío Hoffman OT - 08/05/2017 2:43 PM PSTFormatting of this note may be different from the original. [facility] OT Daily Note Reason for admit: CVA Precautions: fall/speech Onset Date/Date of Surgery: 11/16/17 Rehabilitation/ Treatment Diagnosis: CVA Time in: 1300 Time out: 1400, Individual therapy History of present Illness: 61 year old man admitted with CVA symptoms. 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 He also had a GI b leed following administration of tPA and has new diagnosis of diabetes. 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 He presents for acu te rehab with receptive and expressive aphasia and R-sided neglect, impaired balance and mob ility. Interval history: Now cleared mod I in room with the exception of showers. Nursing reports pt was fatigued after lunch and laying down for a rest before afternoon OT session. Subjective: Patient report: Pt approached supine in bed resting comfortably. He is excited about discha rging home in 1.5 days. NPRS: no c/o pain Objective: Kitchen mobility with multi-step IADL tasks. SBA for retrieving objects from the floor. Mod I ambulating in kitchen with improved awareness of objects and barriers to R side. SBA and mod verbal cues loading safety council director and placing groceries in fridge SBA and 75% verbal cues for initiation/sequencing making peanut butter and jelly sandwic h. Seated rest breaks due to shortness of breath with FMC and object orientation game. Pt d emonstrated difficulty orienting dishes into safety council director during kitchen task. Pathfinding from therapy kitchen to room with mod I. Treatment provided: 60 minutes therapeutic activities for IADL independence, kitchen safety and problem solving. Tolerance to activity: Good Education provided: Task sequencing and cues for problem solving during IADL task. Assessment: Pt is making continued gains in safety awareness, awareness of obstacles on R s carmen of body, comprehension and problem solving. Pt may be able to increase IADL participatio n in home setting with SBA and verbal cues. Home health OT recommended at discharge for cont inued gains in functional independence. Barriers to patient's progress toward goals: aphasia, cognitive imapairment Recommendations to nursing: RN recommended to setup and [facility]. Plan: Plan next visit: continue per plan of primary OT Discharge plan/recommendation: home with s/o on 08/06/17 Goals: Short term goals: Goal Description Status Date Achieve by Date Status Notes 1. Toileting with LRD SBA without LOB. 07/22/2017 07/29/17 Met 07/27/2017 Mod I 08/03/2017 2. UB/LB dressing with SBA and use of LRD. 07/22/2017 07/29/17 Met 07/27/2017 3. Grooming from seated/standing with SBA with LRD 07/22/2017 07/29/17 met 07/29/17. Hair, sh aving all standing with cues 4. Functional transfers with SBA without LOB during ADL. 07/22/2017 07/29/17 met correction goals: Goal Description Status Date Achieve by Date Status Notes 1. Functional mobility mod I with LRD. 07/22/2017 08/05/17 Met Mod I in room with setup of environment without AD 2.UB/LB dressing with mod I and LRD. 07/22/2017 08/05/17 Met 08/04/17 3. Self-feeding with supervision only with minimal cueing. 07/22/2017 08/05/17 Ongoing 4. Toileting mod I with LRD. 07/22/2017 08/05/17 Met 08/04/17 Safe showers mod I from seated position 08/04/17 08/06/17 DIVINA Brumfield/Sapna Callejas MS,[facility]-START UP SPECIALIST - 08/05/2017 11:18 AM PSTFormatting of this note may be differen t from the original. [facility] START UP SPECIALIST DAILY NOTE Referring Provider: Phil Admission Date: 07/22/2017 Medical Diagnosis: CVA Rehabilitation/Treatment Diagnosis: dysphagia, expressive/receptive aphasia. Time In/Out:[id number] Evaluation Date: 07/23/2017 Last progress report:08/03/2017 HISTORY OF PRESENT ILLNESS/INJURY: John Griffith is a 61 y.o. M referred for evaluation o f dysphagia and communication. Mr. 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 Per review of medic al records and H&P, pt was admitted to [facility] on 07/08. due to suspected ischemic CVA he received tPA. Head CT the following day revealed hemorrhage int he left MCA territory. T his resulted in right sided neglect, motor impairments, receptive and expressive aphasia and dysphagia. Upon admit to our program, he diet order includes puree and nectar thick liquid s. SUBJECTIVE: Patient participatory. He reports he is trying hard SUBJECTIVE PAIN PRE: 0/10, POST: 0/10, LOCATION: na, NOTE: patient denies pain. Receptive and expressive language intervention targeting use of cueing hierarchies to elici t identifying and naming of functional objects and words. Facilitated functional skills of n aming body parts to express medical needs. Chunking of information and written cues used to elicit increased accuracy in counting hinson. LIMITATIONS: Patient's participation was not limited. REVIEW OF GOALS: SHORT-TERM GOALS: Goal Description Creation Date Achieve By Date Status Notes 1. Pt will improve comprehension to accurately respond y/n to basic need and biographical questioning using any modality, with 70% accurate response rate. 07/23/2017 07/29/2017 acheiv ed 08/03/17: 70% with written choices. 2. Pt will improve expressive communication to verbalize 5 functional words in response to modeling/integral stimulation with max assist 80% of trials over two sessions. 07/23/2017 achieved 08/02/17: Picture naming with written cue: 6/17 (35%) With phonemic prompt: 3/11 (27%) With Modelin/8 (62%). After priming with this task, probed response to modeling for target words with 75% respons e rate. 3. Pt will improve receptive communication to identify objects or pictures from a field of two given maximal semantic cues. 07/23/2017 07/29/2017 Achieved 07/27/17 12: ID of unrelated objects F:2 80% 07/27/17: Identification of objects in a F:2 unrelated with gestures: 04/01 ID of pictures in a file of tow, unrelated with gestures: 05/02 4. Pt will participate in modified barium swallow study to objectively assess pharyngeal fu nctioning. 07/23/2017 07/28/2017 Achieved 07/28/17 07/28/17: See results in MBSS study note. Upgrade to thin liquids. 07/26/17: educated patient and regarding goals and MBSS 5. With external modifications and clinician verbal/tactile cues, pt will manage mechanical soft textures in functional, nutritive quantities without s/sx aspiration. 07/23/20172016 achieved Achieved 07/24/17: Achieved observational trails of meal quantity mechanical soft with setup assistance and in termittent assist with utensil management. Pt demonstrates brisk and thorough chew, complete AP transit and no overt s/sx aspiration. Recommend cutting to ensure small bite size due to limited coordination and strength of extremities. No overt s/sx aspiration with 6 oz nectar thick juice, however, respirations appear increasingly labored during session. 6. Pt will identify unrelated objects in a field of two in structured comprehension tasks w ith 80% accuracy, working towards ability to use aided communication. 07/28/2017 07/31/2017 a chieved 07/29:ID pictures in a field of 2, unrelated: 04/01 07/28: pictures unrelated in a field of two: 70% 07/28/17: ID pictures with no semantic cue, unrelated: 03/01 Related: 2/ 7. Working towards ability to use aided communication, pt will accurately identify words/pi ctures/objects that are semantically related in a field of two with 70% accuracy over 5 tria ls. 07/29/17 08/03/17 ongoing 08/03/17: Identification of picture, unrelated: F:2 70%; identification of written words, u nrelated F:2 70%. Increased complexity to field of 3. Accuracy fell to 40%. 08/02/17: Identification of written words, unrelated F:2: 60% in first trial, 80% in second trial 8. Pt will name 10 functional items with written cue and phonemic prompts. 08/02/172016 Ongoing Good progress 08/05/17: Body Parts: PATEL 350 With phoneme cue: 38/47 With full model: 01/2908/04/17: IND 10/12 Phonemic cue: 10/10 Written cue: 12/16 Model: 04/03 In generalization task in room, pt responded to written cue and model to name objects in hi s environment in 8/10 trials, 10/02 PATEL 08/03/17: Patient independently named 4 out 20 pictured objects; patient imitated 7 out of 20 pictured objects provided a model. Patient did not respond to lead in cues or phonetic c ues 9. With model and written cues, pt will state his name and his 's name in 8/10 trials each. 08/02/17 08/06/2017 Achieved over 2 sessions 08/05/17: 20 accuracy given model and written cue. 100% accuracy in 10 trials each with full model and written cue, not maintained when cues f aded. 10. Pt will count dollars and cents given a visual cue in 8/10 trials. 08/03/17 08/07/17 ongoing 08/05/17: Counting change: 3/5 PATEL, Dollars: 2/5 PATEL. Improved overall t o 03/01 when given written cues to chunk amounts (e.g. 39.00 is written as 30+9). LONG-TERM GOALS: Goal Description Creation Date Achieve By Date Status Notes 1. Pt will improve oropharyngeal swallow function to return to least restrictive diet witho ut overt s/sx aspiration in quantities sufficient for nutritional oral intake 07/23/2017 acheived 08/03/17: managing mechanical soft and thin liquids at meals. 07/27/17: trials of thin liquids with no oral loss, no overt s/sx aspiration in sequential cup sips of 3 oz. 2. Pt will improve receptive/expressive communication to follow simple commands and express single word requests via any modality for basic needs with moderate assistance. 07/23/2017 08/11/2017 ongoing 08/03/17: patient is intermittently following simple commands with high level of context and visual cues. Patient is spontaneously verbalizing rote phrases (i.e. Th ank you, hello). ASSESSMENT: Phonemic cues highly facilitative for eliciting body part naming. Data suggest patient is becoming increasingly stimulable for naming, but not yet spontaneously naming ob jects in the context of a confrontational task. Accuracy in counting coin and dollar [place] is improved if patient is given cue to chunk 10's and 1's. PLAN: Next session, continue to facilitate naming through written cues and clinician modeli ng, fading cues if accuracy remains high. Continue counting money in context of buying items . PROGRESS TOWARDS GOALS: Good, to achieve stated therapy goals FUNCTIONAL LIMITATIONS: Safety Risks: being left alone, reacting to an emergency, managing medication, traveling alone in the community and advanced ADL management Communication: communicating need for assistance , following therapeutic instructions. RECOMMENDATIONS: Continue language intervention 60 minutes per day 5 days a week. DISCHARGE RECOMMENDATIONS: Home w/assist and Home w/Home Health, or outpatient. DIET RECOMMENDATIONS: Thin liquids, Level 2 mechanically altered = cohesive, moist, fork m ashed foods, requiring slight chewing/jaw munching MEDICATIONS TO BE GIVEN: Pills whole with liquids Or with puree COMPENSATORY STRATEGIES: Upright 90 degrees for PO intake, Remain upright 45 min post feedi ng and Oral care after meals EDUCATION this session was focused to RN regarding home program in notebook. Transferred patient care to [facility] This note will serve as an episode of care summary if the patient is discharged from the [facility] prior to the next treatment session. Sapna Lee, MS,CCC-START UP SPECIALIST Gilda Segura, PT - 08/05/2017 10:08 AM PSTFormatting of this note may be different from t debby original. [facility] PT Progress Note Reason for admit: CVA Precautions: fall risk Onset Date/Date of Surgery: 07/08/17 Rehabilitation/ Treatment Diagnosis: Difficulty walking, other abnormalities of gait and m obility Time in: 9:03 Time out: 10:03, Individual therapy History of present Illness: 61 year old man admitted with CVA symptoms. 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 He also had a GI b leed following administration of tPA and has new diagnosis of diabetes. 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 He presents for acu te rehab with receptive and expressive aphasia and R-sided neglect, impaired balance and mob ility. Subjective: Patient report: Increased variety of verbalizations, making effort to read words. NPRS: n/a Location/Description of Pain: n/a Objective: Observation: Pt supine in bed, resting but easily awoken Treatment provided: 45m neuromuscular re-education: Independent with sit to stand transfers at various surfaces Independent with ambulation on level surfaces, supervision for pathfinding/cognitive dual t asks Gait training/pathfinding: -added name labels to rehab unit locations (dining room, gym), practiced verbalizing these in situ -pathfinding from pt's room to dining room and back, pt's room to gym and back -pathfinding to/from atrium x2, instruction given via written cues for first repetition of 305 to atrium, return to rm 305 with pt asking for confirmation initially and needing assist with correct buttons to negotiate elevator, able to locate his room once on 3rd floor -pathfinding to/from gift shop using simple written directions, needed cues x2 at elevator and once in hallway -names of locations verbalized with each change in place Elevator negotiation: -up/down in elevator x6 trips total -with increased time pt does identify button vs name label -requires cues nearly 100% of the time to identify correct choice of UP/DN -needed cues (visual cue) for correct floor ~60% of the time Pathfinding/recall task: retreive post-it with pt's name written on it from gym doorway. In struction given at initiation of task and not repeated throughout. Pt needed distant supervi feliciano during task, moving slowly and hesitantly, occassionally looks to therapist for confirm ation but needed no verbal cues and recalled task instruction throughout. 15m therapeutic exercise: Sit to stand squats, 2 sets of 10 reps -pt counting repetitions out loud with therapist -rest between sets due to dyspnea with exertion Mini-lunges with raising arms overhead, 10 reps each leg ahead Standing heel raises with UE support, 2 x 10 reps -pt counting repetitions along with therapist Standing on one leg -5-8 bouts per side -therapist counting time in single leg stance, best effort 4-6 seconds on each side During seated rest breaks practiced naming parts of the body using labeled chart, attempted pointing to body parts when named without success Education provided: strengthening exercise with verbal counting, pathfinding tasks around h ospital Therapist Assessment: John continues to do well with gait and balance, but is still needing distant supervision level of assist for pathfinding and negotiating more complex environmen t. He is improving with negotiating the elevator, and was able to read the name given a visu al cue, but is still needing instruction/supervision to effectively use the elevator for tra nsport. Receptive aphasia appears to be part of his limitation for these more complex tasks, as he often appears to recognize a task only as he completes the objective. With supervisio n from family for safety and negotiation of complex/community situations, John should be katherin dy to d/c home on Wednesday per plan. Equipment needs: None Tolerance to increase in activity: good Barriers to patient's progress toward goals: impaired communication. Expressive aphasia. Recommendations to nursing: SBA walk to meal, independent in room Plan: Plan next visit: Ongoing combined/dual task activities incorporating naming and counting, p athfinding tasks while walking, HEP for strengthening Discharge plan/recommendation: Home w/assist, no further PT follow-up needed Goals: Short term goals: Goal Description Status Date Achieve by Date Status Notes 1. Independent with transfers in and out of bed 07/27/2017 07/30/17 Met 2. Sit to stand transfers with supervision assist 07/27/2017 07/30/17 Met 3. Able to walk 150' with standby assist and LRAD 07/27/2017 07/30/17 Met 4. Able to climb 1 flight of steps with a handrail and standby assist 07/27/2017 07/30/17 Met Railing x 1 correction goals: Goal Description Status Date Achieve by Date Status Notes 1. Independent with sit to stand transfers between surfaces 07/27/2017 08/06/17 Met 2. Able to walk >150' with mod independence and LRAD 07/22/2017 08/06/17 Met 3. Able to climb 1 flight of stairs with mod independence and handrail 07/22/2017 08/06/17 Met 4. Able to walk on uneven and compliant surfaces including ramps and curbs with supervision assist 07/22/2017 08/06/17 Ongoing Met for grass, stairs, inclines 5. Balance improved as evidenced by score of >45 on swartz balance test 07/22/17 08/06/17 Met 52/56 Gilda Segura, PT, DPT Report signed, 08/05/2017 10:08 AM Gilda Segura, PT - 08/04/2017 4:30 PM PSTFormatting of this note may be different from t debby original. [facility] PT Progress Note Reason for admit: CVA Precautions: fall risk Onset Date/Date of Surgery: 07/08/17 Rehabilitation/ Treatment Diagnosis: Difficulty walking, other abnormalities of gait and m obility Time in: 10:02 Time out: 11:01, Individual therapy History of present Illness: 61 year old man admitted with CVA symptoms. 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 He also had a GI b leed following administration of tPA and has new diagnosis of diabetes. 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 He presents for acu te rehab with receptive and expressive aphasia and R-sided neglect, impaired balance and mob ility. Subjective: Patient report: Doing well. Expresses some frustration when having difficulty with speech/n aming tasks -does at times identify "I'm not getting it" NPRS: n/a Location/Description of Pain: n/a Objective: Observation: pt sitting up at EOB, alert and cooperative Treatment provided: 59m neuromuscular re-education: Independent with sit to stand transfers at various surfaces Independent with ambulation on level surfaces Preparatory practice for cognitive dual task: seated: -naming colors of cones with written word for cue -progressed to naming colors of objects with written word provided to correct errors, progr essing up to 50% accuracy for field of 4 objects naming colors Gait training with cognitive/visual scanning dual task: -walking (50') + identification and naming of letters A-J (all in simple visual field on R side) -walking (60') + identification and naming of letters A-J (located on both sides of pt thro ughout visual field) -walking + naming colors of cones on either side of hallway (needed cue of written color na me for ~75% of attempts), targets to left and right Dynamic balance practice on multiple surfaces (walked ~600'): -descending stairs: 5 flights total from 3rd floor to atrium level outside -negotiating sidewalks and paths with verbal cues for pathfinding and attention to task -walking over grassy slope with supervision assist -observed pt negotiate stepping over a unpaved area where two sidewalks meet with accurate stepping to avoid unpaved area -up 2 flights of steps with handrail, independent -identification of colors by name (visual pointing) at stained glass window on 2nd floor -naming colors of objects in environment walking around hospital floors, feedback of writte n word if needed after an error -elevator negotiation: maximal cues for task planning, 50% cues for accuracy pushing elevat or buttons to complete plan. Pt transferred back to sitting at EOB following activity, left up in room with immediate ne eds met Education provided: Ongoing dual task practice, naming items while walking and scanning env ironment, pathfinding Therapist Assessment: John continues to do well with basic balance and mobility and appears to be doing well with ambulation in his room independently with ongoing use of no AD. Today he was able to complete color naming task with assistance/cue of reading name of color off a card in conjunction with seeing the color itself. His accuracy with unprompted naming of c olors improved within session, although he continues to struggle as he fatigues. I think meli Cao will continue to do well and is on track to meet goals for discharge home with family support this weekend. Equipment needs: TBD Tolerance to increase in activity: good Barriers to patient's progress toward goals: impaired communication. Expressive aphasia. Recommendations to nursing: SBA walk to meal. Plan: Plan next visit: ongoing dual task training incorporating visual scanning and naming Discharge plan/recommendation: Home w/assist, no further PT follow-up needed Goals: Short term goals: Goal Description Status Date Achieve by Date Status Notes 1. Independent with transfers in and out of bed 07/27/2017 07/30/17 Met 2. Sit to stand transfers with supervision assist 07/27/2017 07/30/17 Met 3. Able to walk 150' with standby assist and LRAD 07/27/2017 07/30/17 Met 4. Able to climb 1 flight of steps with a handrail and standby assist 07/27/2017 07/30/17 Met Railing x 1 correction goals: Goal Description Status Date Achieve by Date Status Notes 1. Independent with sit to stand transfers between surfaces 07/27/2017 08/06/17 Met 2. Able to walk >150' with mod independence and LRAD 07/22/2017 08/06/17 Met 3. Able to climb 1 flight of stairs with mod independence and handrail 07/22/2017 08/06/17 Met 4. Able to walk on uneven and compliant surfaces including ramps and curbs with supervision assist 07/22/2017 08/06/17 Ongoing Met for grass, stairs, inclines 5. Balance improved as evidenced by score of >45 on swartz balance test 07/22/17 08/06/17 Met 52/56 Gilda Segura, PT, DPT Report signed, 08/04/2017 4:31 PM Sapna Lee MS,CCC-START UP SPECIALIST - 08/04/2017 3:46 PM PSTFormatting of this note may be differen t from the original. [facility] [place] START UP SPECIALIST PROGRESS REPORT / DAILY NOTE Referring Provider: Phil Admission Date: 07/22/2017 Medical Diagnosis: CVA Rehabilitation/Treatment Diagnosis: dysphagia, expressive/receptive aphasia. Time In/Out:2532-2861 Evaluation Date: 07/23/2017 Last progress report:07/27/2017 HISTORY OF PRESENT ILLNESS/INJURY: John Griffith is a 61 y.o. M referred for evaluation o f dysphagia and communication. Mr. 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 Per review of medic al records and H&P, pt was admitted to [facility] on 07/08. due to suspected ischemic CVA he received tPA. Head CT the following day revealed hemorrhage int he left MCA territory. T his resulted in right sided neglect, motor impairments, receptive and expressive aphasia and dysphagia. Upon admit to our program, he diet order includes puree and nectar thick liquid s. SUBJECTIVE: Patient participatory and engaged in all tasks presented. SUBJECTIVE PAIN PRE: 0/10, POST: 0/10, LOCATION: na, NOTE: patient denies pain. Receptive and expressive language intervention targeting use of cueing hierarchies to elici t identifying and naming of functional objects and words. Facilitated functional skills of n aming and writing objects in room by proviing written cues for home program. Assessed match ing of photos in a field of 8 for use of augmentative communication. LIMITATIONS: Patient's participation was not limited. REVIEW OF GOALS: SHORT-TERM GOALS: Goal Description Creation Date Achieve By Date Status Notes 1. Pt will improve comprehension to accurately respond y/n to basic need and biographical questioning using any modality, with 70% accurate response rate. 07/23/2017 07/29/2017 acheiv ed 08/03/17: 70% with written choices. 2. Pt will improve expressive communication to verbalize 5 functional words in response to modeling/integral stimulation with max assist 80% of trials over two sessions. 07/23/2017 achieved 08/02/17: Picture naming with written cue: 6/17 (35%) With phonemic prompt: 3/11 (27%) With Modelin/8 (62%). After priming with this task, probed response to modeling for target words with 75% respons e rate. 3. Pt will improve receptive communication to identify objects or pictures from a field of two given maximal semantic cues. 07/23/2017 07/29/2017 Achieved 07/27/1707/30: ID of unrelated objects F:2 80% 07/27/17: Identification of objects in a F:2 unrelated with gestures: 04/01 ID of pictures in a file of tow, unrelated with gestures: 05/02 4. Pt will participate in modified barium swallow study to objectively assess pharyngeal fu nctioning. 07/23/2017 07/28/2017 Achieved 07/28/17 07/28/17: See results in MBSS study note. Upgrade to thin liquids. 07/26/17: educated patient and regarding goals and MBSS 5. With external modifications and clinician verbal/tactile cues, pt will manage mechanical soft textures in functional, nutritive quantities without s/sx aspiration. 07/23/20172016 achieved Achieved 07/24/17: Achieved observational trails of meal quantity mechanical soft with setup assistance and in termittent assist with utensil management. Pt demonstrates brisk and thorough chew, complete AP transit and no overt s/sx aspiration. Recommend cutting to ensure small bite size due to limited coordination and strength of extremities. No overt s/sx aspiration with 6 oz nectar thick juice, however, respirations appear increasingly labored during session. 6. Pt will identify unrelated objects in a field of two in structured comprehension tasks w ith 80% accuracy, working towards ability to use aided communication. 07/28/2017 07/31/2017 a chieved 07/29:ID pictures in a field of 2, unrelated: 04/01 07/28: pictures unrelated in a field of two: 70% 07/28/17: ID pictures with no semantic cue, unrelated: 03/01 Related: 2/5 7. Working towards ability to use aided communication, pt will accurately identify words/pi ctures/objects that are semantically related in a field of two with 70% accuracy over 5 tria ls. 07/29/17 08/03/17 ongoin 08/03/17: Identification of picture, unrelated: F:2 70%; identi fication of written words, unrelated F:2 70%. Increased complexity to field of 3. Accuracy f ell to 40%. 08/02/17: Identification of written words, unrelated F:2: 60% in first trial, 80% in second trial 8. Pt will name 10 functional items with written cue and phonemic prompts. 08/02/172016 ongoing 08/04/17: IND 10/12 Phonemic cue: 10/10 Written cue: 12/16 Model: 04/03 In generalization task in room, pt responded to written cue and model to name objects in hi s environment in 8/10 trials, 10/02 PATEL 08/03/17: Patient independently named 4 out 20 pictured objects; patient imitated 7 out of 20 pictured objects provided a model. Patient did not respond to lead in cues or phonetic c ues 9. With model and written cues, pt will state his name and his 's name in 8/10 trials each. 08/02/17 08/06/2017 Achieved over 1 session 100% accuracy in 10 trials each with full model and wri tten cue, not maintained when cues faded. 10. Pt will count dollars and cents given a visual cue in 8/10 trials. 08/03/17 08/07/17 New LONG-TERM GOALS: Goal Description Creation Date Achieve By Date Status Notes 1. Pt will improve oropharyngeal swallow function to return to least restrictive diet witho ut overt s/sx aspiration in quantities sufficient for nutritional oral intake 07/23/2017 acheived 08/03/17: managing mechanical soft and thin liquids at meals. 07/27/17: trials of thin liquids with no oral loss, no overt s/sx aspiration in sequential cup sips of 3 oz. 2. Pt will improve receptive/expressive communication to follow simple commands and express single word requests via any modality for basic needs with moderate assistance. 07/23/2017 08/11/2017 ongoing 08/03/17: patient is intermittently following simple commands with high level of context and visual cues. Patient is spontaneously verbalizing rote phrases (i.e. Th ank you, hello). Additional observations: Patient matched picture to picture in a field of 8 on communicati on board with 60% accuracy for feelings, medical states and functional objects. Improved to with choices of two. ASSESSMENT: Modelign and written cue continue to be most facilitative for naming. This lev el of cueing generalized to outside of the therapy setting. Accurate namign of self and spou se with maximal prompts, but not yet able to maintain with faded cues. PLAN: Next session, continue to facilitate naming through written cues and clinician modeli ng, fading cues if accuracy remains high. Continue counting money in context of buying items . Probed auditory stimulation in field of 2 semantically related words. PROGRESS TOWARDS GOALS: Good, to achieve stated therapy goals FUNCTIONAL LIMITATIONS: Safety Risks: being left alone, reacting to an emergency, managing medication, traveling alone in the community and advanced ADL management Communication: communicating need for assistance , following therapeutic instructions. RECOMMENDATIONS: Continue language intervention 60 minutes per day 5 days a week. DISCHARGE RECOMMENDATIONS: Home w/assist and Home w/Home Health, or outpatient. DIET RECOMMENDATIONS: Thin liquids, Level 2 mechanically altered = cohesive, moist, fork m ashed foods, requiring slight chewing/jaw munching MEDICATIONS TO BE GIVEN: Pills whole with liquids Or with puree COMPENSATORY STRATEGIES: Upright 90 degrees for PO intake, Remain upright 45 min post feedi ng and Oral care after meals EDUCATION this session was focused to PT regarding improvements in expression. Transferred patient to sitting in room with bed alarm on, RN notified. This note will serve as an episode of care summary if the patient is discharged from the [facility] prior to the next treatment session. Sapna Lee MS,CCC-START UP SPECIALIST Yaniv Valverde, OTR/Dipti - 08/04/2017 2:12 PM PSTFormatting of this note may be different f rom the original. [facility] OT Daily Note Reason for admit: CVA Precautions: fall/speech Onset Date/Date of Surgery: 07/08/17 Rehabilitation/ Treatment Diagnosis: CVA Time in: 1300 Time out: 1402, Individual therapy History of present Illness: 61 year old man admitted with CVA symptoms. 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 He also had a GI b leed following administration of tPA and has new diagnosis of diabetes. 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 He presents for acu te rehab with receptive and expressive aphasia and R-sided neglect, impaired balance and mob ility. Interval history: Now cleared mod I in room with the exception of showers. No reported conc erns from nursing. Subjective: Patient report: Pt gesturing/verbalizing to have needs met. Declined shower upon inquiry, b ut communicating that he would like a shower, that he normally showers in the morning betwee n 6-7 or by 8. Asking about "stuff needed" for shower apparently indicating towels. Did not appear to fully understand OT recommending supervision assist. NPRS: no c/o pain Objective: 2 self-corrected LOB in very confined spaces, without attempt to move furniture/obstacle s out of path Good spacing of ornaments L and R side during tree decorating task Verbally counting to 1-10 without demonstration Visual memory recall and locate for ornaments placed around room for up to 8 pieces, arvind hernandez lost count after 5 and needed cue Safe reaching 100% opportunities to floor, under table, into refrigerator Pathfinding with safe return to room (all on 3rd floor) 3/3 locations Treatment provided: 60 minutes therapeutic activities for safety when reaching, problem jose ving for safe obstacle management, visual memory and safe mobility without AD Tolerance to activity: Good Education provided: Recommendation for supervision during bathing, moving obstacles from hi s path to avoid falls Assessment: Pt doing well for mod I in room with nursing keeping pathways clear of obstacle s. Pt engaged today in pathfinding without difficulty to return to his room from 3 unfamilia r locations on 3rd floor without cueing. Pt also engaged in [place] tree decorating activi ty with emphasis on visual memory for locating ornaments hidden by therapist, safe reaching, and problem solving for obstacle management (e.g. Chairs, tissue box, etc.) in pt path. Pt demonstrates 2 self-corrected LOB with CGA while ambulating without AD when he attempted to mobilize around an obstacle without moving it from his path. This is likely a problem solvin g issue and pt will likely benefit from having family members ensure clear pathways. Continu e skilled OT to progress functional independence. Goals upgraded. Barriers to patient's progress toward goals: aphasia, cognitive imapairment Recommendations to nursing: RN recommended to setup and supervise for seated shower in morn ing. Plan: Plan next visit: continue per plan of primary OT Discharge plan/recommendation: home with s/o on 08/06/17 Goals: Short term goals: Goal Description Status Date Achieve by Date Status Notes 1. Toileting with LRD SBA without LOB. 07/22/2017 07/29/17 Met 07/27/2017 Mod I 08/03/2017 2. UB/LB dressing with SBA and use of LRD. 07/22/2017 07/29/17 Met 07/27/2017 3. Grooming from seated/standing with SBA with LRD 07/22/2017 07/29/17 met 07/29/17. Hair, sh aving all standing with cues 4. Functional transfers with SBA without LOB during ADL. 07/22/2017 07/29/17 met correction goals: Goal Description Status Date Achieve by Date Status Notes 1. Functional mobility mod I with LRD. 07/22/2017 08/05/17 Met Mod I in room with setup of environment without AD 2.UB/LB dressing with mod I and LRD. 07/22/2017 08/05/17 Met 08/04/17 3. Self-feeding with supervision only with minimal cueing. 07/22/2017 08/05/17 Ongoing 4. Toileting mod I with LRD. 07/22/2017 08/05/17 Met 08/04/17 Safe showers mod I from seated position 08/04/17 08/06/17 Shaheed Valverde OTR/Travon Leggett MD - 08/03/2017 8:40 PM PSTReview to discharge summary from outside hosp ital -for hospitalization 07/08 through 07/22/2017 1. Recommended waiting until August 07 repeat the scan and go back on anticoagulation w ith full-dose warfarin. 2. Discussion regarding discontinuation of the IVC filter which can be done after the patie nt is adequately anticoagulated. The IVC filter was placed 07/11/2017 3. With history of PE/DVT and paroxysmal atrial fibrillation certainly should be treated wi th systemic anticoagulation especially in the setting of more hypercoagulable state as resul t of his metastatic adenocarcinoma 4. Review of care everywhere reveals no MRIs have been performed. Travon Farrell MD - 08/03/2017 6:18 PM PSTREHAB TEAM CONFERENCE NOTE Author; Travon Farrell MD Attending Physician: Travon Farrell MD Hospital Day: 12 PCP: Mercedes Good MD Patient's Name: John Griffith Today's Date: 08/03/2017 Duration on unit: 12 Team Conference Individuals present: Physician: Travon Farrell MD RN Director: D/C Planning: RN: Dayanara PT: Rosangela OT: Yaniv START UP SPECIALIST: Sapna Feldmanst: Hollie Primary Rehab dx: CVA Barriers to Rehab Progress/Community re-integration: 1. ADLs 2. Mobility 3. Medication management 4. Caregiver training 1. MD: Patient has had multiple complex medical problems arise at the same time. PE/DVT, subsequently developed a ischemic stroke which then bled with the initiation of tPA, found t o have adenocarcinoma of his lung also diagnosed at the same time. Resuming his anticoagula tion will be considered on August 06 based on the head CT at that time. He will then ez abdi follow up with his PCP Wednesday with a INR on Wednesday. 2. D/C Planning: Likely discharge Wednesday a.m.. Is to do no driving. He will need 24/7 supervision for safety awareness. 3. Updates to barriers/inter-disciplinary plan of care updates (RN;PT;OT;START UP SPECIALIST;Fabric Normalizer): 1. Mobility is quite good with only minimal apraxia per physical therapist. No assistive d evices needed. Considering a trial of outside ambulation see if he can get by without radha tive device.. 2. Independent at the supervision level with ADLs 3. START UP SPECIALIST indicates that he has good safety awareness. Is on mechanical soft diet due to lack of dentition. Speech is gradually improving. He is starting to read words. Is having candace e spontaneous conversation. He will clearly need 24 hour supervision in his home environmen t. He would not be able to call for help. This has been electronically signed by Travon Farrell MD, 08/03/2017 at 6:24 PM. Rocío Hoffman, OT - 08/03/2017 1:45 PM PSTFormatting of this note may be different from the original. [facility] [place] Reason for admit: CVA Precautions: fall/speech Onset Date/Date of Surgery: 07/08/17 Rehabilitation/ Treatment Diagnosis: CVA Time in: 709 Time out: 45, Individual therapy Time in: 1300 Time out: 1332, Individual therapy History of present Illness: 61 year old man admitted with CVA symptoms. 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 He also had a GI b leed following administration of tPA and has new diagnosis of diabetes. 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 He presents for acu te rehab with receptive and expressive aphasia and R-sided neglect, impaired balance and mob ility. Subjective: Patient report: Pt approached with lead OT present in morning agreeable to self care educat ion in morning. Pt seen again in afternoon with family present, agreeable to participation w ith OT. NPRS: no c/o pain Objective: Visual scanning and cognitive retraining activity with visual search and sequencing task in corridors during functional mobility activity Mobility activity in gym with cognitive component matching and sorting cones with retrie mauricio from varied heights and management of varied surface textures and tripping hazards. CGA and moderate verbal cues for attention to obstacles on R side. ADL retraining with verbal cues for gathering clothing prior to shower and applying toot hpaste during grooming and hygiene. SBA for safety while bathing with one instance LOB in restroom and 25% verbal cues for s eated bathing and dressing Mod I toileting and SUP with verbal cues for grooming and hygiene. Treatment provided: Problem solving, multi-step task completion, and visual scanning for en vironmental awareness and attention to R side. Tolerance to activity: Good Education provided: Importance of attention to all areas of environment for safe ADL functi onal mobility. Assessment: Pt continues to improve balance and safety awareness during functional mobility and is able to follow basic mobility cues with improved carryover throughout course of sess ion. Recommend continued ADL mobility challenges simulating anticipated environmental obstac les similar to home setting for improved environmental awareness. Plan for pt discharge end of this week with 24 hour in-home supervision provided by family. Continued inpatient rehab treatment is medically necessary to refine ADL technique and safety during transfers for inc reased independence and reduced risk of rehospitalization upon discharge. Barriers to patient's progress toward goals: aphasia, cognitive imapairment Recommendations to nursing: none Plan: Plan next visit: continue per plan of primary OT Discharge plan/recommendation: home with s/o Goals: Short term goals: Goal Description Status Date Achieve by Date Status Notes 1. Toileting with LRD SBA without LOB. 07/22/2017 07/29/17 Met 07/27/2017 Mod I 08/03/2017 2. UB/LB dressing with SBA and use of LRD. 07/22/2017 07/29/17 Met 07/27/2017 3. Grooming from seated/standing with SBA with LRD 07/22/2017 07/29/17 met 07/29/17. Hair, sh aving all standing with cues 4. Functional transfers with SBA without LOB during ADL. 07/22/2017 07/29/17 met correction goals: Goal Description Status Date Achieve by Date Status Notes 1. Functional mobility mod I with LRD. 07/22/2017 08/05/17 Ongoing Manual W/C 07/24/17 2.UB/LB dressing with mod I and LRD. 07/22/2017 08/05/17 Ongoing 3. Self-feeding with supervision only with minimal cueing. 07/22/2017 08/05/17 Ongoing 4. Toileting mod I with LRD. 07/22/2017 08/05/17 Ongoing Rocío Hoffman OTR/Gilda Dailey, PT - 08/03/2017 12:34 PM PSTFormatting of this note may be different from t debby original. [facility] PT Progress Note Reason for admit: CVA Precautions: fall risk Onset Date/Date of Surgery: 07/08/17 Rehabilitation/ Treatment Diagnosis: Difficulty walking, other abnormalities of gait and m obility Time in: 10:30 Time out: 11:27, Individual therapy History of present illness: 61 year old man admitted with CVA symptoms. 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 He also had a GI b leed following administration of tPA and has new diagnosis of diabetes. 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 He presents for acu te rehab with receptive and expressive aphasia and R-sided neglect, impaired balance and mob ility. Subjective: Patient subjective report: Expresses some frustration with his thinking NPRS: Appears comfortable, unable to communicate Location/Description of Pain: N/A Objective: Observation: Pt sitting up at EOB, alert and cooperative. Situationally appropriate. Speech is variable, sometimes more fluent than others Posture: Unchanged Neuro status: Coordination/Motor Control: Mild apraxia noted with dual motor tasks while wa lking (slows gait, requires increased effort) ROM UE/LE (PROM, AROM): No deficits noted MMT UE/LE: Not reassessed. Strength is functional for ambulation and basic mobility Functional mobility: Transfer chair to bed walking independent of 1 no device Gait: Ambulates with independent of 1, no device 100-200 feet when in familiar environment . Supervision in unfamiliar environment or novel task Stairs: Up/down 18 steps independent of 1 reciprocal pattern with a rail Balance: impaired based on DGI, unclear if due to apraxia as test is mostly dual-task based or due to true balance impairment Tolerance to increased activity: Tolerating long durations of walking within 60m treatment session well Outcome measures: SWARTZ balance scale and Dynamic Gait Index Swartz (tested 08/02/17) = 52/56 DGI = Treatment provided: 60m neuromuscular re-education: Walking warm-up: 300' with distant supervision with no AD. Steady but somewhat slow gait. Cognitive dual-task: -locating and naming serial numbers in hallway (80' distance, 1-15), x3 repetitions -2 errors in numerical naming per repetition, corrects with cues, self-corrects sequencing errors/recalls sequence without assistance -attempted serial naming of letters (with numbers still in place in hallway), pt initiating trail making task, but becoming too difficult after first 4 in series, downgraded to letter s only with removal of numbers from visual field; increased cuing to correctly name number Pathfinding: -written instruction pathfinding between pt's room and atrium including negotiation of elev ator -improved performance with simple written instructions -50% of encounters with buttons on elevator pt needing cues to correctly locate button and to name correctly -~250' walking distance with seated rest break in atrium DGI testing (see flow sheet) = Education provided: discussed progress toward goals, improvements in speech, balance and mo bility Assessment: John is progressing well and is independent with all mobility. He does seem to need supervision for pathfinding and negotiating novel situations and environments, although it is unclear based on his communication deficits to what degree this is truly necessary fo r safety. With familiar environments and automatics tasks he does well independently. Today he had some trouble with dual tasks involving ambulation and speech (correctly identifying s erial letters and numbers) and did better with isolated tasks. He would benefit from ongoing dual task practice in order to maximize carryover of speech/language gains to all watt of his life Factors influencing patient progression toward goals: aphasia limits communication and asse ssment somewhat. Plan: Plan next visit: Continue dual task training incorporating visual scanning/head turns, janice ng objects for speech practice Frequency and duration: Continue 60m treatments/day Discharge plan/recommendation: Recommend home with 24 hr family support, no AD Goals : Short term goals: Goal Description Status Date Achieve by Date Status Notes 1. Independent with transfers in and out of bed 07/27/2017 07/30/17 Met 2. Sit to stand transfers with supervision assist 07/27/2017 07/30/17 Met 3. Able to walk 150' with standby assist and LRAD 07/27/2017 07/30/17 Met 4. Able to climb 1 flight of steps with a handrail and standby assist 07/27/2017 07/30/17 Met Railing x 1 exterminator helper goals: Goal Description Status Date Achieve by Date Status Notes 1. Independent with sit to stand transfers between surfaces 07/27/2017 08/06/17 Met 2. Able to walk >150' with mod independence and LRAD 07/22/2017 08/06/17 Met 3. Able to climb 1 flight of stairs with mod independence and handrail 07/22/2017 08/06/17 Met 4. Able to walk on uneven and compliant surfaces including ramps and curbs with supervision assist 07/22/2017 08/06/17 Ongoing 5. Balance improved as evidenced by score of >45 on swartz balance test 07/22/17 08/06/17 Met 52/56 Gilda Segura, PT Report signed, 08/03/2017 12:35 Luz Marina Chinchilla [facility]-START UP SPECIALIST - 08/03/2017 10:36 AM PSTFormatting of this note may be different from the original. [facility] [place] START UP SPECIALIST PROGRESS REPORT / DAILY NOTE Referring Provider: Phil Admission Date: 07/22/2017 Medical Diagnosis: CVA Rehabilitation/Treatment Diagnosis: dysphagia, expressive/receptive aphasia. Time In/Out:9:15A-10:15A Evaluation Date: 07/23/2017 Last progress report:07/27/2017 HISTORY OF PRESENT ILLNESS/INJURY: John Griffith is a 61 y.o. M referred for evaluation o f dysphagia and communication. Mr. 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 Per review of medic al records and H&P, pt was admitted to [facility] on 07/08. due to suspected ischemic CVA he received tPA. Head CT the following day revealed hemorrhage int he left MCA territory. T his resulted in right sided neglect, motor impairments, receptive and expressive aphasia and dysphagia. Upon admit to our program, he diet order includes puree and nectar thick liquid s. SUBJECTIVE: Patient participatory and engaged in all tasks presented. SUBJECTIVE PAIN PRE: 0/10, POST: 0/10, LOCATION: na, NOTE: patient denies pain. Receptive and expressive language intervention targeting use of cueing hierarchies to elici t identifying and naming of functional objects and words. Facilitated functional skills for money management with basic coin and dollar counting. Facilitated spontaneous phrases using problem solving picture cards. Graded cuing in a hierarchy to elicit meaningful utterances. LIMITATIONS: Patient's participation was not limited. REVIEW OF GOALS: SHORT-TERM GOALS: Goal Description Creation Date Achieve By Date Status Notes 1. Pt will improve comprehension to accurately respond y/n to basic need and biographical questioning using any modality, with 70% accurate response rate. 07/23/2017 07/29/2017 acheiv ed 08/03/17: 70% with written choices. 07/30: 40% with written supports. 07/29/2017: 10/30, 11/30 with written supports 12/6 PM session: 50% 07/28/17: 6/10 and 10 over two trails. Mis match between verbalization and use of visual aid x 3. 07/27/17: Y/N reliability: 03/0107/26/17: 03/01 trial 1, 11/30 trial 2 07/24: Elicited yes and no in isolated trials with maximal verbal and visual cues in 08/11 t rials. Pt continues to perseverate on counting. With hand over hand assistance, pt answered biographical/personally relevant y/n questions for 10 trials with 100% accuracy due to max a ssist 2. Pt will improve expressive communication to verbalize 5 functional words in response to modeling/integral stimulation with max assist 80% of trials over two sessions. 07/23/2017 achieved 08/02/17: Picture naming with written cue: 02/06 (35%) With phonemic prompt: 3/11 (27%) With Modelin/8 (62%). After priming with this task, probed response to modeling for target words with 75% respons e rate. 07/31: With model, object presentation and written supports, pt verbalized: -Name of 10 functional objects after initial model in 8/10 trials (phonemic error in 2 tria ls), improved with additional modeling. In repetition probes, these productions were not luís ntained. -Verbalized own name with written cue, lead in prompt and model: 05/02 -Verbalizes spouse name with written cue and model: 06/09 trials, improved to 08/09 with ad ditional models. -Generalization: With lead in cue and written prompt, pt able to say name to RN 07/30: In confrontation naming tasks with max assist 0/5 Action pictures with response elaboration: Pt verbalized 3 spontaneous functional phases (e .g. lotta heat, dessert, more good) and one in response to modeling (clean up). 07/29/17: when presented with ation pictures presenting safety scenarios, with response elab oration and phrase completion, pt verbalized 5 units of relevant information in 15 trials (e .g. "no good", "he can't go down", "on", "stop" and "more"). No object naming. 07/28: With automatic counting, pt verbalizes numbers 2-9 given lead in cue and visual suppo rts. With maximal modeling and elicited of automatic speech, pt names 3 days of the week, ho wever, this is not replicated consistently over additional trials. In picture naming tasks with maximal modeling,pt names 1/10 targets (ball). 07/28/17: noted to spontaneously repeat two words during expressive language activities. 07/27/17: in response elaboration training, pt verbalized 2 relevant units of information i n 14 trials. Verbalized "yes" in isolated trials PATEL: 4/10 with model improved to 8/10 Verbalized "no" in isolated trails PATEL 10/10 No object naming achieved with max assist. Conversational photos with response elaboration elicited a gesture with full modeling in 6/14 trials (apraxia) 3. Pt will improve receptive communication to identify objects or pictures from a field of two given maximal semantic cues. 07/23/2017 07/29/2017 Achieved 07/27/17 12: ID of unrelated objects F:2 80% 07/27/17: Identification of objects in a F:2 unrelated with gestures: 04/01 ID of pictures in a file of tow, unrelated with gestures: 05/02 4. Pt will participate in modified barium swallow study to objectively assess pharyngeal fu nctioning. 07/23/2017 07/28/2017 Achieved 07/28/17 07/28/17: See results in MBSS study note. Upgrade to thin liquids. 07/26/17: educated patient and regarding goals and MBSS 5. With external modifications and clinician verbal/tactile cues, pt will manage mechanical soft textures in functional, nutritive quantities without s/sx aspiration. 07/23/20172016 achieved Achieved 07/24/17: Achieved observational trails of meal quantity mechanical soft with setup assistance and in termittent assist with utensil management. Pt demonstrates brisk and thorough chew, complete AP transit and no overt s/sx aspiration. Recommend cutting to ensure small bite size due to limited coordination and strength of extremities. No overt s/sx aspiration with 6 oz nectar thick juice, however, respirations appear increasingly labored during session. 6. Pt will identify unrelated objects in a field of two in structured comprehension tasks w ith 80% accuracy, working towards ability to use aided communication. 07/28/2017 07/31/2017 a chieved 07/29:ID pictures in a field of 2, unrelated: 8/10 07/28: pictures unrelated in a field of two: 70% 07/28/17: ID pictures with no semantic cue, unrelated: 03/01 Related: 2/5 7. Working towards ability to use aided communication, pt will accurately identify words/pi ctures/objects that are semantically related in a field of two with 70% accuracy over 5 tria ls. 07/29/17 08/03/17 ongoin 08/03/17: Identification of picture, unrelated: F:2 70%; identi fication of written words, unrelated F:2 70%. Increased complexity to field of 3. Accuracy f ell to 40%. 08/02/17: Identification of written words, unrelated F:2: 60% in first trial, 80% in second trial 07/30: ID objects in a field of three: discontinued after 4 consecutive errors ID objects F:3 with increased semantic description: 30% 07/29: Advanced auditory stimulation tasks: Letters, semantically related, F:2: <60% Shapes, F:2: <60% Food F:2:5/10 Objects unrelated F:3: 4/10 8. Pt will name 10 functional items with written cue and phonemic prompts. 08/02/172016 ongoing 08/03/17: Patient independently named 4 out 20 pictured objects; patient imitat ed 7 out of 20 pictured objects provided a model. Patient did not respond to lead in cues o r phonetic cues 9. With model and written cues, pt will state his name and his 's name in 8/10 trials each. 08/02/17 08/06/2017 new 10. Pt will count dollars and cents given a visual cue in 8/10 trials. 08/03/17 08/07/17 New LONG-TERM GOALS: Goal Description Creation Date Achieve By Date Status Notes 1. Pt will improve oropharyngeal swallow function to return to least restrictive diet witho ut overt s/sx aspiration in quantities sufficient for nutritional oral intake 07/23/2017 acheived 08/03/17: managing mechanical soft and thin liquids at meals. 07/27/17: trials of thin liquids with no oral loss, no overt s/sx aspiration in sequential cup sips of 3 oz. 2. Pt will improve receptive/expressive communication to follow simple commands and express single word requests via any modality for basic needs with moderate assistance. 07/23/2017 08/11/2017 ongoing 08/03/17: patient is intermittently following simple commands with high level of context and visual cues. Patient is spontaneously verbalizing rote phrases (i.e. Th ank you, hello). ASSESSMENT: Patient upgraded to mechanical soft with thin liquid diet without any s/sx of a spiration reported at meals. Providing ongoing response to modeling for object naming, prov ided modeling and written cues which is becoming more facilitative. Continued improvement on yes/no reliability provided written cues. Patient is identifying pictures of objects in a f ield of 2 with high accuracy; when increased complexity to field of 3 accuracy decreased. Ov erall, patient is intermittently following simple commands with high level of context and vi sual cues. Patient is spontaneously verbalizing rote phrases (i.e. Thank you, hello). Contin ues with severe receptive and expressive aphasia limiting ability to functionally express ba sic and medical needs. Recommend 24 hr supervision upon discharge. PLAN: Next session, continue to facilitate naming through written cues and clinician modeli ng, fading cues if accuracy remains high. Continue counting money in context of buying items . Probed auditory stimulation in field of 2 semantically related words. PROGRESS TOWARDS GOALS: Good, to achieve stated therapy goals FUNCTIONAL LIMITATIONS: Safety Risks: being left alone, reacting to an emergency, managing medication, traveling alone in the community and advanced ADL management Communication: communicating need for assistance , following therapeutic instructions. RECOMMENDATIONS: Continue language intervention 60 minutes per day 5 days a week. DISCHARGE RECOMMENDATIONS: Home w/assist and Home w/Home Health, or outpatient. DIET RECOMMENDATIONS: Thin liquids, Level 2 mechanically altered = cohesive, moist, fork m ashed foods, requiring slight chewing/jaw munching MEDICATIONS TO BE GIVEN: Pills whole with liquids Or with puree COMPENSATORY STRATEGIES: Upright 90 degrees for PO intake, Remain upright 45 min post feedi ng and Oral care after meals EDUCATION this session was focused to PT regarding improvements in expression. Transferred patient to sitting in room with bed alarm on, RN notified. This note will serve as an episode of care summary if the patient is discharged from the [facility] prior to the next treatment session. Luz Marina Healy, [facility] Erica Cleary, PT - 08/02/2017 3:17 PM PSTFormatting of this note may be different from the original. Amna PT Progress Note Reason for admit: CVA Precautions: fall risk Onset Date/Date of Surgery: 07/08/17 Rehabilitation/ Treatment Diagnosis: Difficulty walking, other abnormalities of gait and m obility Time in: 1400 Time out: 1500, Individual therapy History of present Illness: 61 year old man admitted with CVA symptoms. 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 He also had a GI b leed following administration of tPA and has new diagnosis of diabetes. 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 He presents for acu te rehab with receptive and expressive aphasia and R-sided neglect, impaired balance and mob ility. Subjective: Patient report: Denies pain, doing well NPRS: n/a Location/Description of Pain: n/a Objective: Observation: in bed upon arrival -follows 1 step visual/verbal commands most of the of time Treatment provided: 30 minutes gait training: Ascending/descending 1 flight of stairs with SBA with 1 handrail Gait without AD on level surface x 1000 ft, no LOB Pt challenged by walking as fast as he can, then as slow as possible; able to transition sa aminata with SBA Obstacle course; stepping up/down different height of steps, stepping over hurdles, around cones with SBA, no LOB without UE support 30 minutes of therapeutic activities Different balance activities including balloon toss reaching outside FAVIO with SBA Weight shifting activities rocking forward/backward against wall Bouncing/sitting on gym ball and weight shifting during marching Walking forward/backwards and sideways against resistance of elastic band and manual pertur bation Fall recovery; getting up/down from floor with SBA with minimal cues needed Swartz balance testing; pt scored 52/56 Education provided: balance activities gait training without AD Therapist Assessment: Pt continues showing improvement in dynamic and static standing dustin ce. He tested 52/56 on swartz balance, corresponding to low risk for falling. He sustained n o LOB during gait or while being challenged in therapy, demonstrating good balance reactions but continues to require 1 step commands and cues with activities with some deficits in Mot or planning and safety awareness. Equipment needs: TBD Tolerance to increase in activity: good Barriers to patient's progress toward goals: impaired communication. Expressive aphasia. Recommendations to nursing: SBA walk to meal. Plan: Plan next visit: gait, balance training Discharge plan/recommendation: Home w/assist and home health vs outpatient therapies Goals: Short term goals: Goal Description Status Date Achieve by Date Status Notes 1. Independent with transfers in and out of bed 07/27/2017 07/30/17 Ongoing 2. Sit to stand transfers with supervision assist 07/27/2017 07/30/17 Met 3. Able to walk 150' with standby assist and LRAD 07/27/2017 07/30/17 Met 4. Able to climb 1 flight of steps with a handrail and standby assist 07/27/2017 07/30/17 met Railing x 1 correction goals: Goal Description Status Date Achieve by Date Status Notes 1. Independent with sit to stand transfers between surfaces 07/27/2017 08/06/17 Ongoing 2. Able to walk >150' with mod independence and LRAD 07/22/2017 08/06/17 Ongoing 3. Able to climb 1 flight of stairs with mod independence and handrail 07/22/2017 08/06/17 Ongoing SBA 4. Able to walk on uneven and compliant surfaces including ramps and curbs with supervision assist 07/22/2017 08/06/17 Ongoing 5. Balance improved as evidenced by score of >45 on swartz balance test 07/22/17 08/06/17 met 52/56 Erica cleary, PT Travon Farrell MD - 08/02/2017 3:01 PM PSTFormatting of this note may be different from the original. INPATIENT HOSPITALIST PROGRESS NOTE Hospital Day: 11 Patient's Name: John Griffith Today's Date: 08/02/2017 Major Events since last note: None Subjective: (Interval Hx): Patient offers no spontaneous complaints. Is a aphasia such th at it is a difficult thing for him to come up with any type of meaningful response to my que stions. Is yes no reliability seems quite poor. Review of systems otherwise normal or non-contributatory Current Medications: acetaminophen (TYLENOL) tablet 650 mg, 650 mg, oral, Q6H PRN aspirin chewable tablet 81 mg, 81 mg, oral, DAILY atorvastatin (LIPITOR) tablet 80 mg, 80 mg, oral, DAILY bisacodyl (DULCOLAX) suppository 10 mg, 10 mg, rectal, DAILY PRN budesonide (PULMICORT) 0.5 mg/2 mL nebulizer suspension 0.5 mg, 0.5 mg, inhalation, BID dilTIAZem CD 24 hour release (CARDIZEM CD) capsule 240 mg, 240 mg, oral, DAILY enoxaparin (LOVENOX) injection 40 mg, 40 mg, subcutaneous, QPM ipratropium-albuterol (DUO-NEB) nebulizer solution 3 mL, 3 mL, inhalation, Q6H PRN lisinopril (PRINIVIL) tablet 20 mg, 20 mg, oral, DAILY melatonin tablet TbER 3 mg, 3 mg, oral, QPM pantoprazole (PROTONIX) tablet 40 mg, 40 mg, oral, DAILY polyethylene glycol (MIRALAX) packet 17 g, 17 g, oral, DAILY PRN Physical Exam: Vitals (24 hr): Admit wt:Weight: 85.5 kg (188 lb 7.9 oz) (07/22/17 1618) Today wt: Wt Readings from Last 1 Encounters: 08/01/17 84 kg (185 lb 3 oz) Last Vitals: BP 110/68 | Pulse 67 | Temp 36.9 C (98.4 F) | RR 18 | Ht 1.778 m (5' 10") | Wt 84 kg (185 lb 3 oz) | SpO2 94% | BMI 26.57 kg/(m^2) 24 Hour Vital Min/Max: Pulse Min: 67 Max: 87 Temp Min: 36.6 C (97.8 F) Max: 36.9 C (98.4 F) SpO2 Min: 94 % Max: 96 % Intake/Output Summary (Last 24 hours) at 08/02/17 1501 Last data filed at 08/02/17 1300 Gross per 24 hour Intake 1410 ml Output 0 ml Net 1410 ml General Appearance:Resting comfortably. Pleasant. Comprehension of my speech seems margin al. If I act out what I want him to do, he will do it. If I verbally say to raise hi s arm he was unable to do so. HEENT: Atraumatic. No conjunctival injection. No scleral icterus Respiratory: Unlabored, CTA bilaterally Cardiovascular: RRR, no M/G/R Abdomen: + BS, soft, Non-tender. Non-distented Musculoskeletal:Normal extremities Ext: No edema Skin: No rashes Neurologic: No facial droop. Doubt visual field cut by confrontation. Respond somewhat t o my verbal questions his responses are hard to track with his vertebral response. Psychiatric: Common cooperative Diagnostic Data: (Reviewed & Notable for:) CBC with diff last 72 hours (or 3 results) - Refreshable Chemistries: Last 72 Hours (or 3 results) - Refreshable Recent Labs 07/30/17 1718 07/31/17 0817 GLU 106 117 New Imaging since last note: Head CT 07/24/2017 IMPRESSION: 1. Marked interval improvement in left temporoparietal hemorrhage. 2. Residual vasogenic edema and mild subfalcine herniation, which has improved when compared to the prior study 07/15/2017 from other institution. 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 Repeat head CT 07/24/17 revealed interval improvement of the left temporoparietal hemorrhage and mild subfalcine herniation. Anticoagulation being held until 08/[address] Couch. In reviewing Dr. Remy is note from 07/25 for review of care everywhere it was recomm ended a repeat CT be performed 08/07/2017. Patient predominantly has expressive and recepti ve aphasia and right-sided neglect. Yes no reliability reported at 70%. He has a difficult time identifying objects. -continue aspirin and statin -continue OT PT and speech -continue thin liquids with mechanical soft diet -repeat CT scan 08/07/2017 and then determine appropriateness of resuming anticoagulation therapy to the high risk of repeat stroke. -ultimate disposition will perhaps be home but he will require 24 hour supervision by his family. On note from Dr. Couch from 07/31 family was still not sure they are capable of doin g this. Atrial fibrillation (paroxysmal) and history of DVT/PE as listed above anticoagulation cur rently being held due to his intracranial bleed. Diltiazem for rate control doing well. Joaquin patricio had an inferior vena caval filter placed at [facility] during his hosp italization. EKG on 08/01 revealed normal sinus rhythm. -continue diltiazem for rate control -reconsider anticoagulation with warfarin following head CT 08/07/2017 Prior GI bleed following tPA therapy no ongoing active bleeding. Pulmonary nodules with mediastinal adenopathy biopsy results revealed adenocarcinoma lung (poorly differentiated) a physician at [facility] apparently talked to the tita spencer's regarding this diagnosis. She does not want this discussed with her a s he is not likely cannot understand it. Her team conference note 07/27 it was mentioned the patient has oncology set up at [place] at [facility] in the future. F amily conference occurred 07/30. Family leaning in favor of not pursuing any further Oncolog y evaluation and treatment -confirm prior to discharge regarding whether to keep visit scheduled at [facility] [place] New diagnosis of diabetes patient was started on metformin approximately 10 days ago. Was also initially on long-acting and short-acting insulin. On 07/28 patient was converted off insulin this was felt to be something he would have difficult time with at home. He was converted to metformin as monotherapy. -glucoscans 90-117. Who scans were discontinued on 07/31. COPD -meter dose inhalers or difficult for the patient utilize. P.r.n. nebulizers ordered -continue Pulmicort nebulized therapy Past history of marijuana smoking Patients Hospital Problem List: Active Hospital Problems 1) CVA (cerebral vascular accident) with subsequent transformation to hemorrhagic stroke f ollowing tPA (HCC) 2) Undifferentiated adenocarcinoma lung -multiple nodules with adenopathy (HCC) 3) Paroxysmal atrial fibrillation (HCC) 4) Chronic anticoagulation 5) History of cigarette smoking Miscellaneous: Hydration route: Oral Nutrition delivery: Oral Prophylaxes VTE Enoxaparin has been can utilize the entire hospitalization Travon Farrell MD [facility] Medicine Department of Medicine [facility] Yaniv Valverde, VICENTER/Dipti - 08/02/2017 3:00 PM PSTFormatting of this note may be different f rom the original. Amna OT Daily Note Reason for admit: CVA Precautions: fall/speech Onset Date/Date of Surgery: 07/08/17 Rehabilitation/ Treatment Diagnosis: CVA Time in: 1055 Time out: 1158, Individual therapy History of present Illness: 61 year old man admitted with CVA symptoms. 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 He also had a GI b leed following administration of tPA and has new diagnosis of diabetes. 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 He presents for acu te rehab with receptive and expressive aphasia and R-sided neglect, impaired balance and mob ility. Interval history: Nursing reporting use of irregular utensils during self-feeding (eg. Fork for yogurt) but otherwise self-feeding in safe manner Subjective: Patient report: Ongoing progress in verbalizations. Denied pain. Somewhat confused regardin g verbal directions at times requiring gestural instruction and repetition. NPRS: no c/o pain Objective: pathfinding back from various locations (first floor fish tank, ADL kitchen, gym) with a ssist for managing elevator Unable to verbalize colors for matching colored cones nor to match colored cones when ve rbalized by OT, but did match like colors 5/5 trials x2 Reaching to floor in various locations around gym 5 reps x2 to match like colored cones positioned on plinth Card sorting activity with placing cards in piles L to R in ascending order, good scanni ng to R without difficulty, 5 errors in ordering of ascending sequencing Ambulating throughout with SBA without AD, but CGA x1 for LOB while changing directions Correct ID of 3/5 ADL items upon verbal command Treatment provided: Therapeutic activities for problem solving, multi-step task completion, and visual scanning Tolerance to activity: Good Education provided: to patient Assessment: Pt demonstrating SBA without AD for ambulation on and off of unit with 1 LOB re quiring CGA to correct. He was able to pathfind from various locations on unit and 1 locatio n off unit with assistance only for safely operating elevator. He had difficulty following v erbal commands for correct identification of colored cones and ADL items. Will continue to e mphasize safe execution for ADL Pt participated well today with an ability to follow multi-step directions benefiting from demonstration to initiate tasks. He has slow processing speed and difficulty with visual rec ognition of how parts might fit to make a whole at this time, but with increased work on the se skills improvement is likely. Barriers to patient's progress toward goals: aphasia, cognitive imapairment Recommendations to nursing: none Plan: Plan next visit: self-care and mobility retraining Discharge plan/recommendation: home with s/o Goals: Short term goals: Goal Description Status Date Achieve by Date Status Notes 1. Toileting with LRD SBA without LOB. 07/22/2017 07/29/17 Met 07/27/2017 2. UB/LB dressing with SBA and use of LRD. 07/22/2017 07/29/17 Met 07/27/2017 3. Grooming from seated/standing with SBA with LRD 07/22/2017 07/29/17 met 07/29/17. Hair, sh aving all standing with cues 4. Functional transfers with SBA without LOB during ADL. 07/22/2017 07/29/17 met correction goals: Goal Description Status Date Achieve by Date Status Notes 1. Functional mobility mod I with LRD. 07/22/2017 08/05/17 Ongoing SBA-CGA without AD 2.UB/LB dressing with mod I and LRD. 07/22/2017 08/05/17 Ongoing supervision only without AD 3. Self-feeding with supervision only with minimal cueing. 07/22/2017 08/05/17 Met 08/02/17 4. Toileting mod I with LRD. 07/22/2017 08/05/17 Ongoing Supervision only without AD Yaniv Valverde OTR/Sapan Callejas MS,[facility] - 08/02/2017 10:23 AM PSTFormatting of this note may be differen t from the original. [facility] SPECIALIST DAILY NOTE Referring Provider: Phil Admission Date: 07/22/2017 Medical Diagnosis: CVA Rehabilitation/Treatment Diagnosis: dysphagia, expressive/receptive aphasia. Time In/Out: Evaluation Date: 07/23/2017 Last progress report:07/27/2017 HISTORY OF PRESENT ILLNESS/INJURY: John Griffith is a 61 y.o. M referred for evaluation o f dysphagia and communication. Mr. 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 Per review of medic al records and H&P, pt was admitted to [facility] on 07/08. due to suspected ischemic CVA he received tPA. Head CT the following day revealed hemorrhage int he left MCA territory. T his resulted in right sided neglect, motor impairments, receptive and expressive aphasia and dysphagia. Upon admit to our program, he diet order includes puree and nectar thick liquid s. REVIEW OF PATIENT'S HOSPITALIZATION SINCE LAST VISIT: Per RN, pt continues to verbalize candace e spontaneous relevant ideas. SUBJECTIVE: "It might be cold. I guess we will find out" when asked if he needs a sweater. In discussing breakfast: "I think I almost ate too much". SUBJECTIVE PAIN PRE: 0/10, POST: 0/10, LOCATION: na, NOTE: patient denies pain. OBJECTIVE: SKILLED THERAPY ADDRESSED: Expressive language intervention targeting use of cueing hierarc hies to elicit naming of functional objects and words. Probed cognitive functioning for safe ty and problem solving via sequencing tasks. Assessed functional skills for money managemen t with basic coin dollar counting for future goal planning. LIMITATIONS: Patient's participation was not limited GOALS: SHORT-TERM GOALS: Goal Description Creation Date Achieve By Date Status Notes 1. Pt will improve comprehension to accurately respond y/n to basic need and biographical questioning using any modality, with 70% accurate response rate. 07/23/2017 07/29/2017 erwin moody 07/30: 40% with written supports. 07/29/2017: 3/10, 11/30 with written supports 12/6 PM session: 50% 07/28/17: 6 and 12/30 over two trails. Mis match between verbalization and use of visual aid x 3. 07/27/17: Y/N reliability: 03/0107/26/17: 03/01 trial 1, 11/30 trial 2 07/24: Elicited yes and no in isolated trials with maximal verbal and visual cues in 08/11 t rials. Pt continues to perseverate on counting. With hand over hand assistance, pt answered biographical/personally relevant y/n questions for 10 trials with 100% accuracy due to max a ssist 2. Pt will improve expressive communication to verbalize 5 functional words in response to modeling/integral stimulation with max assist 80% of trials over two sessions. 07/23/2017 achieved 08/02/17: Picture naming with written cue: 6/ (35%) With phonemic prompt: 3 (27%) With Modelin (62%). After priming with this task, probed response to modeling for target words with 75% respons e rate. 07/31: With model, object presentation and written supports, pt verbalized: -Name of 10 functional objects after initial model in 8/10 trials (phonemic error in 2 tria ls), improved with additional modeling. In repetition probes, these productions were not luís ntained. -Verbalized own name with written cue, lead in prompt and model: 05/02 -Verbalizes spouse name with written cue and model: 06/09 trials, improved to 08/09 with ad ditional models. -Generalization: With lead in cue and written prompt, pt able to say name to RN 07/30: In confrontation naming tasks with max assist 0/5 Action pictures with response elaboration: Pt verbalized 3 spontaneous functional phases (e .g. lotta heat, dessert, more good) and one in response to modeling (clean up). 07/29/17: when presented with ation pictures presenting safety scenarios, with response elab oration and phrase completion, pt verbalized 5 units of relevant information in 15 trials (e .g. "no good", "he can't go down", "on", "stop" and "more"). No object naming. 07/28: With automatic counting, pt verbalizes numbers 2-9 given lead in cue and visual suppo rts. With maximal modeling and elicited of automatic speech, pt names 3 days of the week, ho wever, this is not replicated consistently over additional trials. In picture naming tasks with maximal modeling,pt names 1/10 targets (ball). 07/28/17: noted to spontaneously repeat two words during expressive language activities. 07/27/17: in response elaboration training, pt verbalized 2 relevant units of information i n 14 trials. Verbalized "yes" in isolated trials PATEL: 4/10 with model improved to 8/10 Verbalized "no" in isolated trails PATEL 10/10 No object naming achieved with max assist. Conversational photos with response elaboration elicited a gesture with full modeling in 6/14 trials (apraxia) 3. Pt will improve receptive communication to identify objects or pictures from a field of two given maximal semantic cues. 07/23/2017 07/29/2017 Achieved 07/27/17 12: ID of unrelated objects F:2 80% 07/27/17: Identification of objects in a F:2 unrelated with gestures: 04/01 ID of pictures in a file of tow, unrelated with gestures: 05/02 4. Pt will participate in modified barium swallow study to objectively assess pharyngeal fu nctioning. 07/23/2017 07/28/2017 Achieved 07/28/17 07/28/17: See results in MBSS study note. Upgrade to thin liquids. 07/26/17: educated patient and regarding goals and MBSS 5. With external modifications and clinician verbal/tactile cues, pt will manage mechanical soft textures in functional, nutritive quantities without s/sx aspiration. 07/23/20172016 achieved Achieved 07/24/17: Achieved observational trails of meal quantity mechanical soft with setup assistance and in termittent assist with utensil management. Pt demonstrates brisk and thorough chew, complete AP transit and no overt s/sx aspiration. Recommend cutting to ensure small bite size due to limited coordination and strength of extremities. No overt s/sx aspiration with 6 oz nectar thick juice, however, respirations appear increasingly labored during session. 6. Pt will identify unrelated objects in a field of two in structured comprehension tasks w ith 80% accuracy, working towards ability to use aided communication. 07/28/2017 07/31/2017 a chieved 07/29:ID pictures in a field of 2, unrelated: 04/01 07/28: pictures unrelated in a field of two: 70% 07/28/17: ID pictures with no semantic cue, unrelated: 03/01 Related: 2/5 7. Working towards ability to use aided communication, pt will accurately identify words/pi ctures/objects that are semantically related in a field of two with 70% accuracy over 5 tria ls. 07/29/17 08/03/17 new 08/02/17: Identification of written words, unrelated F:2: 60% in first trial, 80% in second trial 07/30: ID objects in a field of three: discontinued after 4 consecutive errors ID objects F:3 with increased semantic description: 30% 07/29: Advanced auditory stimulation tasks: Letters, semantically related, F:2: <60% Shapes, F:2: <60% Food F:2:10 Objects unrelated F:3: 10 8. Pt will name 10 functional items with written cue and phonemic prompts. 08/02/172016 new New 08/02/17 9. With model and written cues, pt will state his name and his 's name in 8/10 trials each. 08/02/17 08/06/2017 new LONG-TERM GOALS: Goal Description Creation Date Achieve By Date Status Notes 1. Pt will improve oropharyngeal swallow function to return to least restrictive diet witho ut overt s/sx aspiration in quantities sufficient for nutritional oral intake 07/23/2017 ongoing 07/27/17: trials of thin liquids with no oral loss, no overt s/sx aspiratio n in sequential cup sips of 3 oz. 2. Pt will improve receptive/expressive communication to follow simple commands and express single word requests via any modality for basic needs with moderate assistance. 07/23/2017 08/11/2017 New goal new Additional Observations: With high contrast background, opt counted coins in .5 cent increments up to 1.00 7/accurac y Pt counted bills in 5.00 increments up to 35.00 with 100% accuracy given time to self corre ct. Sequencing: Accurately sequenced adl activity picture cards in 3/3 trials, but required >50 % assist for sequences of 5 or more steps. ASSESSMENT: Ongoing improving response to modeling for object naming, with phonemic and wri tten cues becoming more facilitative. Cognitive tasks such as sequencing of ADLs reveal acc uracy in lower level activities with small amounts of information (e.g. Counting coins and d ollars, sequencing 3 step activities), but breakdowns with increased information. PLAN: Next session, continue to facilitate naming through written cues and clinician modeli ng, fading cues if accuracy remains high. PROGRESS TOWARDS GOALS: Good, to achieve stated therapy goals FUNCTIONAL LIMITATIONS: Safety Risks: being left alone, reacting to an emergency, managing medication, traveling alone in the community and advanced ADL management Swallow: risk for aspiration Communication: communicating need for assistance , following therapeutic instructions. RECOMMENDATIONS: DISCHARGE RECOMMENDATIONS: Home w/assist and Home w/Home Health DIET RECOMMENDATIONS: Thin liquids, Level 2 mechanically altered = cohesive, moist, fork m ashed foods, requiring slight chewing/jaw munching MEDICATIONS TO BE GIVEN: Pills whole with liquids Or with puree COMPENSATORY STRATEGIES: Upright 90 degrees for PO intake, Remain upright 45 min post feedi ng and Oral care after meals EDUCATION this session was focused to RN regarding improvements in expression. Transferred patient to sitting in room with bed alarm on, RN notified. This note will serve as an episode of care summary if the patient is discharged from the [facility] prior to the next treatment session. Sapna Lee MS,CCC-START UP SPECIALIST [facility]ITALNew Nancy Kiko, RD - 08/02/2017 10:01 AM PSTPatient did not scr een at nutritional risk upon admission. PO intake 100% consistently. Blood glucose values we ll controlled. FSBS dc'd. Do not anticipate any nutritional issues during admission. Contin ue to follow q 5-7 days. Bon Couch MD - 08/01/2017 1:26 PM PSTCRITICAL EVENTS OF THE PAST 24 HOURS: None. SUBJECTIVE: Mr. Griffith continues to have significant apraxia, and expressive aphasia, and co gnitive deficits. Unfortunately, he really has not improved much since he has been here, al though he was able to look at the newspaper today and describe a 20% discount at about a 3rd of the time that I asked that he read back numbers for me. He otherwise has significant ap raxia. When asked to raise his hands up, he is inconsistent about this. He is unable to fo llow instructions to touch the tip of his nose with his right finger, and significant cognit yinka deficits are apparent in this gentleman. PHYSICAL EXAMINATION: VITAL SIGNS: Demonstrate a temperature of 36.7, his pulse is 73, respiratory rate is 18, b lood pressure is 107/66, oxygen saturation is 94%. ORAL CAVITY: Demonstrates moist mucous membranes. NECK: He has no jugular venous distention. HEART: Regular. There are no S3, rubs, rubs, clicks, or murmurs and it almost sounds like he is in a sinus rhythm today. LUNGS: Clear. ABDOMEN: Soft. It is not tender. EXTREMITIES: Demonstrate no edema. NEUROLOGICAL: Significant for expressive aphasia and apraxia, but really not significant f or any other focal deficits and his deficits are more cognitive. ASSESSMENT AND PLAN: 1.Significant stroke with really no significant improvement over the last several days. 2.Lung cancer secondary to chronic tobacco use. At this point, extensive conversation with the family has not led to a decision to move forward with treatment and I suspect that they will choose not to. 3.Atrial fibrillation. It feels like he is in sinus rhythm for me now. We will get an EKG . 4.History of chronic anticoagulation for atrial fibrillation. At this point, the decision to proceed forth with ongoing anticoagulation has not been made until CT scan, which is reji g to be obtained on the . If no further intracranial hemorrhage is present, we will be able to discontinue his Lovenox and start him again on more long-term anticoagulation strate gy. 5.Diabetes, currently not active. I have discontinued all his insulin as well as his oral agents since he has been in here and he is doing fine with that, so we will not continue to do surveillance of this. 6.Chronic tobacco smoking, currently not active. Ultimately, the discharge plan is likely going to be home with his family members on hospice-type care. Jr Clements/MORA /[id number] Couch MD - 07/31/2017 2:21 PM PSTCRITICAL EVENTS IN TH E PAST 24 HOURS: None. SUBJECTIVE: I had a lengthy conversation with Mr. Griffith's family yesterday about his curren t circumstances, and they are still muddling through whether they would like to have him at home and whether or not they have sufficient resources to take care of him at home or whethe r perhaps they are going to need to have him at a shelter facility. They do underst and that he has a very serious medical condition here going on with his underlying cancer in addition to his stroke. Mr. Griffith is perhaps a little bit more capable of following instruc tions, but still has dense expressive aphasia. PHYSICAL EXAMINATION: GENERAL: He is alert. It is difficult to tell if he is oriented to time, place, or person , as he has such dense expressive aphasia and significant word-finding difficulties with candace e jumbled words. VITAL SIGNS: Temperature is 36.8, his pulse is 76, respiratory rate is 18, blood pressure is 131/71. HEENT: Oral cavity demonstrates well-hydrated mucous membranes. NECK: He has no jugular venous distention. HEART: Has a regular rate without S3. LUNGS: Clear with good clear breath sounds. ABDOMEN: Has positive bowel sounds. It is soft. There is no tenderness present. EXTREMITIES: Demonstrate no edema. NEUROLOGIC: Neuromuscular testing demonstrates good strength throughout with 4+ upper and lower body strength, but significant cognitive deficits present with word-finding difficulty . LABORATORY: Glucoses have all been under good control, even after discontinuing diabetic c are. ASSESSMENT AND PLAN: 1.Status post cerebrovascular accident, likely secondary to paraneoplastic effect related t o his underlying lung cancer. 2.Left temporoparietal hemorrhage after thrombolytic therapy. 3.Underlying lung cancer. 4.Initial glucose intolerance. Currently his diabetes is under excellent control. We will discontinue glucose monitoring. Disposition continues to be an issue with this gentleman. He is going to need 24-hour supe rvision at home, as he is cognitively not capable of asking for help or doing any sort of co mplex activities. I discussed with his family about this in detail yesterday and ultimately sorting out exactly what the next form for care will need to be done. Finally, he will nee d to be restarted on his Coumadin on the outpatient basis. This has been withheld secondary to his hemorrhage, and it was recommended that he get another CT scan on the of this m [facility]. Should this CT scan not show any further hemorrhage, Coumadin can be safely restarted and Lovenox will be discontinued. Jr Clements/MORA /[id number], ,[facility]-START UP SPECIALIST - 07/31/2017 1:13 PM PSTFormatting of t his note may be different from the original. [facility] [place] START UP SPECIALIST DAILY NOTE Referring Provider: Phil Admission Date: 07/22/2017 Medical Diagnosis: CVA Rehabilitation/Treatment Diagnosis: dysphagia, expressive/receptive aphasia. Time In/Out:[id number] Evaluation Date: 07/23/2017 Last progress report:07/27/2017 HISTORY OF PRESENT ILLNESS/INJURY: John Griffith is a 61 y.o. M referred for evaluation o f dysphagia and communication. Mr. 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 Per review of medic al records and H&P, pt was admitted to [facility] on 07/08. due to suspected ischemic CVA he received tPA. Head CT the following day revealed hemorrhage int he left MCA territory. T his resulted in right sided neglect, motor impairments, receptive and expressive aphasia and dysphagia. Upon admit to our program, he diet order includes puree and nectar thick liquid s. REVIEW OF PATIENT'S HOSPITALIZATION SINCE LAST VISIT: Per RN, pt continues to verbalize candace e spontaneous relevant ideas. SUBJECTIVE: Mr. Griffith appears in good spirits. He is participatory. When I say he is gettin g better, he states "slowly I am.." SUBJECTIVE PAIN PRE: 0/10, POST: 0/10, LOCATION: na, NOTE: pt nods no when given verbal and written cue. OBJECTIVE: SKILLED THERAPY ADDRESSED: Expressive language intervention targeting use of cueing hierarc hies to elicit naming of functional objects and words. LIMITATIONS: Patient's participation was not limited GOALS: SHORT-TERM GOALS: Goal Description Creation Date Achieve By Date Status Notes 1. Pt will improve comprehension to accurately respond y/n to basic need and biographical questioning using any modality, with 70% accurate response rate. 07/23/2017 07/29/2017 ongoin g 07/30: 40% with written supports. 07/29/2017: 10/30, 11/30 with written supports 12 PM session: 50% 07/28/17: 01/30 and 12/30 over two trails. Mis match between verbalization and use of visual aid x 3. 07/27/17: Y/N reliability: 03/0107/26/17: 03/01 trial 1, 11/30 trial 2 07/24: Elicited yes and no in isolated trials with maximal verbal and visual cues in 08/11 t rials. Pt continues to perseverate on counting. With hand over hand assistance, pt answered biographical/personally relevant y/n questions for 10 trials with 100% accuracy due to max a ssist 2. Pt will improve expressive communication to verbalize 5 functional words in response to modeling/integral stimulation with max assist 80% of trials over two sessions. 07/23/2017 achieved over one session 07/31: With model, object presentation and written suppor ts, pt verbalized: -Name of 10 functional objects after initial model in 8/10 trials (phonemic error in 2 tria ls), improved with additional modeling. In repetition probes, these productions were not luís ntained. -Verbalized own name with written cue, lead in prompt and model: 05/02 -Verbalizes spouse name with written cue and model: 06/09 trials, improved to 08/09 with ad ditional models. -Generalization: With lead in cue and written prompt, pt able to say name to RN 07/30: In confrontation naming tasks with max assist 0/5 Action pictures with response elaboration: Pt verbalized 3 spontaneous functional phases (e .g. lotta heat, dessert, more good) and one in response to modeling (clean up). 07/29/17: when presented with ation pictures presenting safety scenarios, with response elab oration and phrase completion, pt verbalized 5 units of relevant information in 15 trials (e .g. "no good", "he can't go down", "on", "stop" and "more"). No object naming. 07/28: With automatic counting, pt verbalizes numbers 2-9 given lead in cue and visual suppo rts. With maximal modeling and elicited of automatic speech, pt names 3 days of the week, ho wever, this is not replicated consistently over additional trials. In picture naming tasks with maximal modeling,pt names 1/10 targets (ball). 07/28/17: noted to spontaneously repeat two words during expressive language activities. 07/27/17: in response elaboration training, pt verbalized 2 relevant units of information i n 14 trials. Verbalized "yes" in isolated trials PATEL: 4/10 with model improved to 8/10 Verbalized "no" in isolated trails PATEL 10/10 No object naming achieved with max assist. Conversational photos with response elaboration elicited a gesture with full modeling in 6/14 trials (apraxia) 3. Pt will improve receptive communication to identify objects or pictures from a field of two given maximal semantic cues. 07/23/2017 07/29/2017 Achieved 07/27/17 12: ID of unrelated objects F:2 80% 07/27/17: Identification of objects in a F:2 unrelated with gestures: 04/01 ID of pictures in a file of tow, unrelated with gestures: 05/02 4. Pt will participate in modified barium swallow study to objectively assess pharyngeal fu nctioning. 07/23/2017 07/28/2017 Achieved 07/28/17 07/28/17: See results in MBSS study note. Upgrade to thin liquids. 07/26/17: educated patient and regarding goals and MBSS 5. With external modifications and clinician verbal/tactile cues, pt will manage mechanical soft textures in functional, nutritive quantities without s/sx aspiration. 07/23/20172016 achieved Achieved 07/24/17: Achieved observational trails of meal quantity mechanical soft with setup assistance and in termittent assist with utensil management. Pt demonstrates brisk and thorough chew, complete AP transit and no overt s/sx aspiration. Recommend cutting to ensure small bite size due to limited coordination and strength of extremities. No overt s/sx aspiration with 6 oz nectar thick juice, however, respirations appear increasingly labored during session. 6. Pt will identify unrelated objects in a field of two in structured comprehension tasks w ith 80% accuracy, working towards ability to use aided communication. 07/28/2017 07/31/2017 a chieved 07/29:ID pictures in a field of 2, unrelated: 04/01 07/28: pictures unrelated in a field of two: 70% 07/28/17: ID pictures with no semantic cue, unrelated: 03/01 Related: 2/5 7. Working towards ability to use aided communication, pt will accurately identify words/pi ctures/objects that are semantically related in a field of two with 70% accuracy over 5 tria ls. 07/29/17 08/03/17 new 07/30: ID objects in a field of three: discontinued after 4 consecu tive errors ID objects F:3 with increased semantic description: 30% 07/29: Advanced auditory stimulation tasks: Letters, semantically related, F:2: <60% Shapes, F:2: <60% Food F:2:5/10 Objects unrelated F:3: 4/10 LONG-TERM GOALS: Goal Description Creation Date Achieve By Date Status Notes 1. Pt will improve oropharyngeal swallow function to return to least restrictive diet witho ut overt s/sx aspiration in quantities sufficient for nutritional oral intake 07/23/2017 ongoing 07/27/17: trials of thin liquids with no oral loss, no overt s/sx aspiratio n in sequential cup sips of 3 oz. 2. Pt will improve receptive/expressive communication to follow simple commands and express single word requests via any modality for basic needs with moderate assistance. 07/23/2017 08/11/2017 New goal new ASSESSMENT: For the first session, pt is beginning to respond to written cues and modeling to verbalize functional words. This suggests improving auditory comprehension as well as ex pression. We will look forward to advancing his therapeutic program to include additional na west treatment. PLAN: Next session, continue to facilitate naming through written cues and clinician modeli ng, fading cues if accuracy remains high. PROGRESS TOWARDS GOALS: Good, to achieve stated therapy goals FUNCTIONAL LIMITATIONS: Safety Risks: being left alone, reacting to an emergency, managing medication, traveling alone in the community and advanced ADL management Swallow: risk for aspiration Communication: communicating need for assistance , following therapeutic instructions. RECOMMENDATIONS: DISCHARGE RECOMMENDATIONS: Home w/assist and Home w/Home Health DIET RECOMMENDATIONS: Thin liquids, Level 2 mechanically altered = cohesive, moist, fork m ashed foods, requiring slight chewing/jaw munching MEDICATIONS TO BE GIVEN: Pills whole with liquids Or with puree COMPENSATORY STRATEGIES: Upright 90 degrees for PO intake, Remain upright 45 min post feedi ng and Oral care after meals EDUCATION this session was focused to RN regarding generalization task. Transferred patient to sitting in room with bed alarm on, RN notified. This note will serve as an episode of care summary if the patient is discharged from the [facility] prior to the next treatment session. Sapna Lee MS,CCC-START UP SPECIALIST [facility] CENTERchBill king W, PT - 07/31/2017 12:40 PM PSTFormatting of this note may be different from the original. [facility]na PT Progress Note Reason for admit: CVA Precautions: fall risk Onset Date/Date of Surgery: 07/08/17 Rehabilitation/ Treatment Diagnosis: Difficulty walking, other abnormalities of gait and m obility Time in: 1030 Time out: 1100, Individual therapy History of present Illness: 61 year old man admitted with CVA symptoms. 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 He also had a GI b leed following administration of tPA and has new diagnosis of diabetes. 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 He presents for acu te rehab with receptive and expressive aphasia and R-sided neglect, impaired balance and mob ility. Subjective: Patient report: Denies pain NPRS: n/a Location/Description of Pain: n/a Objective: Observation: supine in bed upon arrival -follows simple commands most of the of time Treatment provided: 30 minutes therapuetic exercise: -Sit to stand with supervision -supine to sit: supervision -ambulation without an AD 150' x 2 with SBA -//bars: standing on foam, eo/ec, line walking -hurdles, fwd, lat -sidestepping with red band Education provided: balance activities gait training without AD Therapist Assessment: Patient progressing well in tolerance to ambulation and balance exerc ises. He demonstrates good balance on the foam and with balance activities. No assisted dusty ce required with ambulation. Some difficulty following commands, greatest deficit seems to b e cognitive Equipment needs: TBD Tolerance to increase in activity: good Barriers to patient's progress toward goals: impaired communication. Expressive aphasia. Recommendations to nursing: SBA walk to meal. Plan: Plan next visit: gait, balance training Discharge plan/recommendation: Home w/assist and home health vs outpatient therapies Goals: Short term goals: Goal Description Status Date Achieve by Date Status Notes 1. Independent with transfers in and out of bed 07/27/2017 07/30/17 Ongoing 2. Sit to stand transfers with supervision assist 07/27/2017 07/30/17 Met 3. Able to walk 150' with standby assist and LRAD 07/27/2017 07/30/17 Met 4. Able to climb 1 flight of steps with a handrail and standby assist 07/27/2017 07/30/17 met SPC and Railing x 1 correction goals: Goal Description Status Date Achieve by Date Status Notes 1. Independent with sit to stand transfers between surfaces 07/27/2017 08/06/17 Ongoing 2. Able to walk >150' with mod independence and LRAD 07/22/2017 08/06/17 Ongoing 3. Able to climb 1 flight of stairs with mod independence and handrail 07/22/2017 08/06/17 Ongoing SBA 4. Able to walk on uneven and compliant surfaces including ramps and curbs with supervision assist 07/22/2017 08/06/17 Ongoing 5. Balance improved as evidenced by score of >45 on swartz balance test 07/22/17 08/06/17 Giulianaheidy Bush, PT Estrella Gregg, OT - 07/31/2017 12:23 PM PSTFormatting of this note may be different from t debby original. [facility] OT Daily Note Reason for admit: CVA Precautions: fall/speech Onset Date/Date of Surgery: 07/08/17 Rehabilitation/ Treatment Diagnosis: CVA Time in: 0730 Time out: 0800, Individual therapy History of present Illness: 61 year old man admitted with CVA symptoms. 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 He also had a GI b leed following administration of tPA and has new diagnosis of diabetes. 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 He presents for acu te rehab with receptive and expressive aphasia and R-sided neglect, impaired balance and mob ility. Subjective: Patient report: Pt appears agitated on OT entrance to room; he is requesting to eat breakfa st and pointing at the clock. OT tried to explain by pointing at the clock that there was st ill 30 minutes until breakfast. Pt stated that they "keep changing it" in response to this a nd OT attempted to explain that breakfast is at the same time each day. Pt continued to requ est food so OT ambulated with pt to dining thakur to show that the food had not arrived; pt ca lmed at this point and agreed to work with OT until breakfast. NPRS: no c/o pain Objective: Visual scanning and cognitive retraining activity doing puzzle with focus on problem jose ving skills Pt had difficulty initiating task but once OT opened the box and spread out pieces, he b agata to sort out the edges independently After sorting, pt struggled to initiate putting pieces together so OT removed most of th e pieces and provided a few at a time which helped pt recall how to put puzzle together; pro gressed back to having all pieces in front of patient and he was able to continue working th e puzzle Slow processing speed and impaired memory noted as pt would attempt to connect the same pieces several times before realizing what he was doing; also attempted to connect pieces th at obviously did not connect occasionally Verbalized colors while searching for pieces that matched, however colors he was stating were not the actual colors on the pieces Treatment provided: Problem solving, multi-step task completion, and visual scanning Tolerance to activity: Good Education provided: Importance of working on cognitively challenging tasks to help with tho ught processes Assessment: Pt participated well today with an ability to follow multi-step directions bene fiting from demonstration to initiate tasks. He has slow processing speed and difficulty wit h visual recognition of how parts might fit to make a whole at this time, but with increased work on these skills improvement is likely. Barriers to patient's progress toward goals: aphasia, cognitive imapairment Recommendations to nursing: none Plan: Plan next visit: continue per plan of primary OT Discharge plan/recommendation: home with s/o Goals: Short term goals: Goal Description Status Date Achieve by Date Status Notes 1. Toileting with LRD SBA without LOB. 07/22/2017 07/29/17 Met 07/27/2017 2. UB/LB dressing with SBA and use of LRD. 07/22/2017 07/29/17 Met 07/27/2017 3. Grooming from seated/standing with SBA with LRD 07/22/2017 07/29/17 met 07/29/17. Hair, sh aving all standing with cues 4. Functional transfers with SBA without LOB during ADL. 07/22/2017 07/29/17 met exterminator helper goals: Goal Description Status Date Achieve by Date Status Notes 1. Functional mobility mod I with LRD. 07/22/2017 08/05/17 Ongoing Manual W/C 07/24/17 2.UB/LB dressing with mod I and LRD. 07/22/2017 08/05/17 Ongoing 3. Self-feeding with supervision only with minimal cueing. 07/22/2017 08/05/17 Ongoing 4. Toileting mod I with LRD. 07/22/2017 08/05/17 Ongoing Estrella Gregg OTR/Bill Peterson, PT - 07/30/2017 4:32 PM PSTFormatting of this note may be different from the original. [facility]na PT Progress Note Reason for admit: CVA Precautions: fall risk Onset Date/Date of Surgery: 07/08/17 Rehabilitation/ Treatment Diagnosis: Difficulty walking, other abnormalities of gait and m obility Time in: 1400 Time out: 1500, Individual therapy History of present Illness: 61 year old man admitted with CVA symptoms. 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 He also had a GI b leed following administration of tPA and has new diagnosis of diabetes. 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 He presents for acu te rehab with receptive and expressive aphasia and R-sided neglect, impaired balance and mob ility. Subjective: Patient report: Denies pain NPRS: n/a Location/Description of Pain: n/a Objective: Observation: sitting at edge of bed upon arrival follows simple commands most of the of time Treatment provided: 60 minutes therapuetic exercise: -Sit to stand without UE x 12 -ambulation without an AD 150' x 3 with SBA -//bars: standing on foam, eo/ec -stairs x 18 up and down with 1 railing and SBA -balance activities, ball kicking, toe taps on 6" step, hurdles: fwd,lateral Education provided: balance activities gait training without AD Therapist Assessment: Patient progressing well in tolerance to ambulation and balance exerc ises. He did not require an assisted device with ambulation. He did fatigue with stair climb ing today after performing a full flight of stairs. His greatest deficit is cognitive at t his point. Equipment needs: TBD Tolerance to increase in activity: good Barriers to patient's progress toward goals: impaired communication. Expressive aphasia. Recommendations to nursing: SBA walk to meal. Plan: Plan next visit: gait, balance training Discharge plan/recommendation: Home w/assist and home health vs outpatient therapies Goals: Short term goals: Goal Description Status Date Achieve by Date Status Notes 1. Independent with transfers in and out of bed 07/27/2017 07/30/17 Ongoing 2. Sit to stand transfers with supervision assist 07/27/2017 07/30/17 Met 3. Able to walk 150' with standby assist and LRAD 07/27/2017 07/30/17 Met 4. Able to climb 1 flight of steps with a handrail and standby assist 07/27/2017 07/30/17 met SPC and Railing x 1 correction goals: Goal Description Status Date Achieve by Date Status Notes 1. Independent with sit to stand transfers between surfaces 07/27/2017 08/06/17 Ongoing 2. Able to walk >150' with mod independence and LRAD 07/22/2017 08/06/17 Ongoing 3. Able to climb 1 flight of stairs with mod independence and handrail 07/22/2017 08/06/17 Ongoing SBA 4. Able to walk on uneven and compliant surfaces including ramps and curbs with supervision assist 07/22/2017 08/06/17 Ongoing 5. Balance improved as evidenced by score of >45 on swartz balance test 07/22/17 08/06/17 Giuliana stacy Bush, PT Rocío Hoffman, OT - 07/30/2017 3:29 PM PSTFormatting of this note may be different from the original. [facility] OT Daily Note Reason for admit: CVA Precautions: fall/speech Onset Date/Date of Surgery: 07/08/17 Rehabilitation/ Treatment Diagnosis: CVA Time in: 706 Time out: 806, Individual therapy History of present Illness: 61 year old man admitted with CVA symptoms. 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 He also had a GI b leed following administration of tPA and has new diagnosis of diabetes. 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 He presents for acu te rehab with receptive and expressive aphasia and R-sided neglect, impaired balance and mob ility. Subjective: Patient report: agreeable for shower and morning routine NPRS: no c/o pain Objective: Supervision for showering and transfer. Cues for safety Morning ADLs without AD; increased confusion noted due to alteration of typical routine since admission SBA to gather clothing from standing and ambulate to shower. Standing at sink with cues for sequence, supervision Supervision for dressing with cues encouraging seated clothing management for fall preve ntion Visual search activity in therapy kitchen collecting items to R side to increase environ mental awareness and mitigate R inattention Treatment provided: morning ADL routine, bathing, dressing, g/h, there act Tolerance to activity: fair. Needs seated rest breaks between activities due to shortness o f breath Education provided: patient Assessment: Pt challenged to complete BADLs without SPC which diverts from established rout ine since admission. Periods of increased confusion noted, such as attempting to don LB clot franchesca from standing before taking shower. Overall balance and activity tolerance are improvin g but supervision and cueing are needed to sequence familiar ADL tasks such as applying toot hpaste to toothbrush and thorough hygiene while bathing. Barriers to patient's progress toward goals: aphasia, cognitive imapairment Recommendations to nursing: none Plan: Plan next visit: continue per plan of primary OT Discharge plan/recommendation: home with s/o Goals: Short term goals: Goal Description Status Date Achieve by Date Status Notes 1. Toileting with LRD SBA without LOB. 07/22/2017 07/29/17 Met 07/27/2017 2. UB/LB dressing with SBA and use of LRD. 07/22/2017 07/29/17 Met 07/27/2017 3. Grooming from seated/standing with SBA with LRD 07/22/2017 07/29/17 met 07/29/17. Hair, sh aving all standing with cues 4. Functional transfers with SBA without LOB during ADL. 07/22/2017 07/29/17 met exterminator helper goals: Goal Description Status Date Achieve by Date Status Notes 1. Functional mobility mod I with LRD. 07/22/2017 08/05/17 Ongoing Manual W/C 07/24/17 2.UB/LB dressing with mod I and LRD. 07/22/2017 08/05/17 Ongoing 3. Self-feeding with supervision only with minimal cueing. 07/22/2017 08/05/17 Ongoing 4. Toileting mod I with LRD. 07/22/2017 08/05/17 Ongoing Rocío Hoffman OTR/Dipti Report signed, 07/29/2017 6:55 AM Sapna Lee MS,CCC-START UP SPECIALIST - 07/30/2017 10:04 AM PSTFormatting of this note may be differen t from the original. [facility] [place] START UP SPECIALIST DAILY NOTE Referring Provider: Phil Admission Date: 07/22/2017 Medical Diagnosis: CVA Rehabilitation/Treatment Diagnosis: dysphagia, expressive/receptive aphasia. Time In/Out:8836-8792 Evaluation Date: 07/23/2017 Last progress report:07/27/2017 HISTORY OF PRESENT ILLNESS/INJURY: John Griffith is a 61 y.o. M referred for evaluation o f dysphagia and communication. Mr. 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 Per review of medic al records and H&P, pt was admitted to [facility] on 07/08. due to suspected ischemic CVA he received tPA. Head CT the following day revealed hemorrhage int he left MCA territory. T his resulted in right sided neglect, motor impairments, receptive and expressive aphasia and dysphagia. Upon admit to our program, he diet order includes puree and nectar thick liquid s. REVIEW OF PATIENT'S HOSPITALIZATION SINCE LAST VISIT: Per RN, pt continues to verbalize candace e spontaneous relevant ideas. SUBJECTIVE: Mr. Griffith appears in good spirits. He is participatory SUBJECTIVE PAIN PRE: 0/10, POST: 0/10, LOCATION: na, NOTE: pt nods no when given verbal and written cue. OBJECTIVE: SKILLED THERAPY ADDRESSED: Receptive language intervention targeting graded auditory stimu lation exercises, probing response to increase in task complexity to identification of unrel ated objects in a field of three, and identification of objects with description in a field of 3. Establishing stability using a written Yes/NO aid for reliable responses to questions regarding basic biographical information to improve patient's ability to express needs. Prob eric solving picture cards presented with response elaboration to facilitate relevant spontan eous utterances. LIMITATIONS: Patient's participation was not limited GOALS: SHORT-TERM GOALS: Goal Description Creation Date Achieve By Date Status Notes 1. Pt will improve comprehension to accurately respond y/n to basic need and biographical questioning using any modality, with 70% accurate response rate. 07/23/2017 07/29/2017 ongobelén moody 07/30: 40% with written supports. 07/29/2017: 10/30, 11/30 with written supports 07/28 PM session: 50% 07/28/17: 01/30 and 12/30 over two trails. Mis match between verbalization and use of visual aid x 3. 07/27/17: Y/N reliability: 03/0107/26/17: 03/01 trial 1, 11/30 trial 2 07/24: Elicited yes and no in isolated trials with maximal verbal and visual cues in 08/11 t rials. Pt continues to perseverate on counting. With hand over hand assistance, pt answered biographical/personally relevant y/n questions for 10 trials with 100% accuracy due to max a ssist 2. Pt will improve expressive communication to verbalize 5 functional words in response to modeling/integral stimulation with max assist 80% of trials over two sessions. 07/23/2017 ongoing 07/30: In confrontation naming tasks with max assist 0/5 Action pictures with response elaboration: Pt verbalized 3 spontaneous functional phases (e .g. lotta heat, dessert, more good) and one in response to modeling (clean up). 07/29/17: when presented with ation pictures presenting safety scenarios, with response elab oration and phrase completion, pt verbalized 5 units of relevant information in 15 trials (e .g. "no good", "he can't go down", "on", "stop" and "more"). No object naming. 07/28: With automatic counting, pt verbalizes numbers 2-9 given lead in cue and visual suppo rts. With maximal modeling and elicited of automatic speech, pt names 3 days of the week, ho wever, this is not replicated consistently over additional trials. In picture naming tasks with maximal modeling,pt names 1/10 targets (ball). 07/28/17: noted to spontaneously repeat two words during expressive language activities. 07/27/17: in response elaboration training, pt verbalized 2 relevant units of information i n 14 trials. Verbalized "yes" in isolated trials PATEL: 4/10 with model improved to 8/10 Verbalized "no" in isolated trails PATEL 10/10 No object naming achieved with max assist. Conversational photos with response elaboration elicited a gesture with full modeling in 6/14 trials (apraxia) 3. Pt will improve receptive communication to identify objects or pictures from a field of two given maximal semantic cues. 07/23/2017 07/29/2017 Achieved 07/27/17 12: ID of unrelated objects F:2 80% 07/27/17: Identification of objects in a F:2 unrelated with gestures: 04/01 ID of pictures in a file of tow, unrelated with gestures: 9/ 4. Pt will participate in modified barium swallow study to objectively assess pharyngeal fu nctioning. 07/23/2017 07/28/2017 Achieved 07/28/17 07/28/17: See results in MBSS study note. Upgrade to thin liquids. 07/26/17: educated patient and regarding goals and MBSS 5. With external modifications and clinician verbal/tactile cues, pt will manage mechanical soft textures in functional, nutritive quantities without s/sx aspiration. 07/23/20172016 achieved Achieved 07/24/17: Achieved observational trails of meal quantity mechanical soft with setup assistance and in termittent assist with utensil management. Pt demonstrates brisk and thorough chew, complete AP transit and no overt s/sx aspiration. Recommend cutting to ensure small bite size due to limited coordination and strength of extremities. No overt s/sx aspiration with 6 oz nectar thick juice, however, respirations appear increasingly labored during session. 6. Pt will identify unrelated objects in a field of two in structured comprehension tasks w ith 80% accuracy, working towards ability to use aided communication. 07/28/2017 07/31/2017 a chieved 07/29:ID pictures in a field of 2, unrelated: 8/10 07/28: pictures unrelated in a field of two: 70% 07/28/17: ID pictures with no semantic cue, unrelated: 03/01 Related: 2/5 7. Working towards ability to use aided communication, pt will accurately identify words/pi ctures/objects that are semantically related in a field of two with 70% accuracy over 5 tria ls. 07/29/17 08/03/17 new 07/30: ID objects in a field of three: discontinued after 4 consecu tive errors ID objects F:3 with increased semantic description: 30% 07/29: Advanced auditory stimulation tasks: Letters, semantically related, F:2: <60% Shapes, F:2: <60% Food F:2:12/30 Objects unrelated F:3: 11/30 LONG-TERM GOALS: Goal Description Creation Date Achieve By Date Status Notes 1. Pt will improve oropharyngeal swallow function to return to least restrictive diet witho ut overt s/sx aspiration in quantities sufficient for nutritional oral intake 07/23/2017 ongoing 07/27/17: trials of thin liquids with no oral loss, no overt s/sx aspiratio n in sequential cup sips of 3 oz. 2. Pt will improve receptive/expressive communication to follow simple commands and express single word requests via any modality for basic needs with moderate assistance. 07/23/2017 08/11/2017 New goal new ASSESSMENT: Advancement of auditory stimulation activities did not facilitate therapeutic l evel accuracy even in the presence of increased contextual/semantic cues. Y/N reliability i n therapeutic trials continues to be low and not reliable. Conversational, response elabora tion was the best intervention to achieve functional, spontaneous language this session. PLAN: Next session, continue to facilitate naming through automatics, response elaboration training and focus auditory stimulation at the level of related and unrelated objects/pics i n a field of 2. PROGRESS TOWARDS GOALS: Good, to achieve stated therapy goals FUNCTIONAL LIMITATIONS: Safety Risks: being left alone, reacting to an emergency, managing medication, traveling alone in the community and advanced ADL management Swallow: risk for aspiration Communication: communicating need for assistance , following therapeutic instructions. RECOMMENDATIONS: DISCHARGE RECOMMENDATIONS: Home w/assist and Home w/Home Health DIET RECOMMENDATIONS: Thin liquids, Level 2 mechanically altered = cohesive, moist, fork m ashed foods, requiring slight chewing/jaw munching MEDICATIONS TO BE GIVEN: Pills whole with liquids Or with puree COMPENSATORY STRATEGIES: Upright 90 degrees for PO intake, Remain upright 45 min post feedi ng and Oral care after meals EDUCATION this session was focused to START UP SPECIALIST regarding deficits and cueing level. Transferred patient to sitting in room with bed alarm on, RN notified. This note will serve as an episode of care summary if the patient is discharged from the [facility] prior to the next treatment session. Sapna Lee MS,[facility]-START UP SPECIALIST [facility], Bon Quiroz MD - 07/29/2017 7:13 PM PSTCritical events ov er the past 24 hours. Mr. Griffith has really not required any significant treatment for his el evated blood glucoses, and he came to us on Lantus in addition to Glucophage. Mr. Griffith is e ating without difficulty. Mr. Griffith, unfortunately, continues to have a fairly dense express yinka aphasia and apraxia, and has a great deal of difficulty with word finding. Mr. Griffith barton s follow some simple commands today, and he can pick out a few words on occasion, but really not very well. When asked to lift up his arms, he can do this, and has good ability to lat eralize, but unfortunately, he is not capable of similarly doing so with his legs. He does not appear to be in any pain. PHYSICAL EXAMINATION: VITAL SIGNS: His vital signs demonstrate a blood pressure of 112/68, respiratory rate is 1 8, pulse is 90, temperature is 36.7. ORAL CAVITY: Demonstrates moist mucous membranes. HEART: Regular without S3. LUNGS: Completely clear. ABDOMEN: Soft and nontender. NEUROLOGIC: Gross motor strength is actually fairly good, and he has 3+ out of 4+ upper ex tremity strength, and fairly good lower extremity strength as well, but clearly has a dense expressive aphasia and word difficulty finding, in addition to a fair bit of apraxia. LABORATORY: Glucoses have all been under excellent control. In fact, it has been as low a s 95 off Lantus. ASSESSMENT AND PLAN: 1. Status post cerebrovascular accident, likely related to underlying malignancy. 2. Lung cancer with mediastinal adenopathy, likely indicating stage IV disease. Currently, the family is trying to decide if they wish to pursue aggressive care here, and hopefully brayan is will be here tomorrow for a conference. 3. Atrial fibrillation. Currently, it almost feels like he is in a sinus rhythm. His anti coagulation strategy is with Lovenox, and the plan was to repeat a CT scan on the . If this shows no expansion of intracranial hemorrhage, which occurred after tPA, we will likely switch him to another form of anticoagulation, Coumadin versus Eliquis. 4. Significant chronic obstructive pulmonary disease, currently stable. 5. Diabetes, under very good control. We will discontinue his metformin and watch his gluc oses. Jr Clements/MORA /[id number] Nathan Hidalgo, PT,OCS - 07/29/2017 11:46 AM PSTFormatting of this note may be different fr om the original. [facility] PT Progress Note Reason for admit: CVA Precautions: fall risk Onset Date/Date of Surgery: 07/08/17 Rehabilitation/ Treatment Diagnosis: Difficulty walking, other abnormalities of gait and m obility Time in: 09:01 Time out: 10:02, Individual therapy History of present Illness: 61 year old man admitted with CVA symptoms. 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 He also had a GI b leed following administration of tPA and has new diagnosis of diabetes. 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 He presents for acu te rehab with receptive and expressive aphasia and R-sided neglect, impaired balance and mob ility. Subjective: Patient report: Denies pain NPRS: n/a Location/Description of Pain: n/a Objective: Observation: sitting at edge of bed upon arrival follows simple commands 60% of time, able to state "going in there?" appropriately. unable to tell me his name, former occupation, or where he lived. He does respond to these question s but nonsensically and without knowledge that he is unable to properly answer. Treatment provided: 60 minutes therapuetic exercise: -Sit to stand s UE use 2x20 -ambulation s AD 600' with SBA -//bars: march walking, single leg stance, tandem walking, lateral walking while look to hi s right into mirror -airex: head turn, eyes closed, and marching -stairs x20 s UE step-to gait, needed UE twice to correct small LOB. Education provided: Sequencing, gait training without AD Therapist Assessment: Patient progressing well in tolerance to ambulation and balance exerc ises. He did not require cane during 600' feet of ambulation. He was able to step up and jamilah n 20 stairs without us of UE. His greatest deficit is cognitive at this point. Would like to discuss with family what concerns they have for his physical tolerance to ret urning home. Equipment needs: TBD Tolerance to increase in activity: good Barriers to patient's progress toward goals: impaired communication. Expressive aphasia. Recommendations to nursing: SBA walk to meal. Plan: Plan next visit: gait, balance training Discharge plan/recommendation: Home w/assist and home health vs outpatient therapies Goals: Short term goals: Goal Description Status Date Achieve by Date Status Notes 1. Independent with transfers in and out of bed 07/27/2017 07/30/17 Ongoing 2. Sit to stand transfers with supervision assist 07/27/2017 07/30/17 Met 3. Able to walk 150' with standby assist and LRAD 07/27/2017 07/30/17 Met 4. Able to climb 1 flight of steps with a handrail and standby assist 07/27/2017 07/30/17 met SPC and Railing x 1 exterminator helper goals: Goal Description Status Date Achieve by Date Status Notes 1. Independent with sit to stand transfers between surfaces 07/27/2017 08/06/17 Ongoing 2. Able to walk >150' with mod independence and LRAD 07/22/2017 08/06/17 Ongoing 3. Able to climb 1 flight of stairs with mod independence and handrail 07/22/2017 08/06/17 Ongoing 4. Able to walk on uneven and compliant surfaces including ramps and curbs with supervision assist 07/22/2017 08/06/17 Ongoing 5. Balance improved as evidenced by score of >45 on swartz balance test 07/22/17 08/06/17 [place] stacy Hidalgo, PT,OCS Sapna Lee, MS,CCC-START UP SPECIALIST - 07/29/2017 11:00 AM PSTFormatting of this note may be differen t from the original. [facility] START UP SPECIALIST DAILY NOTE Referring Provider: Phil Admission Date: 07/22/2017 Medical Diagnosis: CVA Rehabilitation/Treatment Diagnosis: dysphagia, expressive/receptive aphasia. Time In/Out:2873-1090 Evaluation Date: 07/23/2017 Last progress report:07/27/2017 HISTORY OF PRESENT ILLNESS/INJURY: John Griffith is a 61 y.o. M referred for evaluation o f dysphagia and communication. Mr. 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 Per review of medic al records and H&P, pt was admitted to [facility] on 07/08. due to suspected ischemic CVA he received tPA. Head CT the following day revealed hemorrhage int he left MCA territory. T his resulted in right sided neglect, motor impairments, receptive and expressive aphasia and dysphagia. Upon admit to our program, he diet order includes puree and nectar thick liquid s. REVIEW OF PATIENT'S HOSPITALIZATION SINCE LAST VISIT: Per RN, patient is managing thin liqu ids well at meals. SUBJECTIVE: Mr. Griffith appears in good spirits. Despite his aphasia, he continuously attempts verbalizations. Limited self awareness of errors. SUBJECTIVE PAIN PRE: 0/10, POST: 0/10, LOCATION: na, NOTE: pt nods no when given verbal and written cue. OBJECTIVE: SKILLED THERAPY ADDRESSED: Receptive language intervention targeting graded auditory stimu lation exercises, increasing task complexity to identification of unrelated objects in a fie ld of three, and semantically related pictures in a field of two. Establishing stability usi ng a written Yes/NO aid for reliable responses to questions regarding basic biographical inf ormation to improve patient's ability to express needs. Problem solving picture cards presen denise with response elaboration to facilitate relevant spontaneous utterances. LIMITATIONS: Patient's participation was not limited GOALS: SHORT-TERM GOALS: Goal Description Creation Date Achieve By Date Status Notes 1. Pt will improve comprehension to accurately respond y/n to basic need and biographical questioning using any modality, with 70% accurate response rate. 07/23/2017 07/29/2017 ongoin g 07/29/2017: 10/30, 11/30 with written supports.s 12/6 PM session: 50% 07/28/17: 610 and 12/30 over two trails. Mis match between verbalization and use of visual aid x 3. 07/27/17: Y/N reliability: 03/0107/26/17: 7/10 trial 1, 4/10 trial 2 07/24: Elicited yes and no in isolated trials with maximal verbal and visual cues in 08/11 t rialorin. Pt continues to perseverate on counting. With hand over hand assistance, pt answered biographical/personally relevant y/n questions for 10 trials with 100% accuracy due to max a ssist 2. Pt will improve expressive communication to verbalize 5 functional words in response to modeling/integral stimulation with max assist 80% of trials over two sessions. 07/23/2017 ongoing 07/29/17: when presented with ation pictures presenting safety scenarios, w ith response elaboration and phrase completion, pt verbalized 5 units of relevant informatio n in 15 trials (e.g. "no good", "he can't go down", "on", "stop" and "more"). No object janice ng. 07/28: With automatic counting, pt verbalizes numbers 2-9 given lead in cue and visual suppo rts. With maximal modeling and elicited of automatic speech, pt names 3 days of the week, ho wever, this is not replicated consistently over additional trials. In picture naming tasks with maximal modeling,pt names 1/10 targets (ball). 07/28/17: noted to spontaneously repeat two words during expressive language activities. 07/27/17: in response elaboration training, pt verbalized 2 relevant units of information i n 14 trials. Verbalized "yes" in isolated trials PATEL: 4/10 with model improved to 8/10 Verbalized "no" in isolated trails PATEL 10/10 No object naming achieved with max assist. Conversational photos with response elaboration elicited a gesture with full modeling in 6/14 trials (apraxia) 07/26: With integral stimulation, 0/5 for object naming. Stereotypy of counting is noted to fade with 2 semantic paraphasias observed. 07/23 see response to y/n training above. 3. Pt will improve receptive communication to identify objects or pictures from a field of two given maximal semantic cues. 07/23/2017 07/29/2017 Achieved 07/27/17 07/27/17: Identification of objects in a F:2 unrelated with gestures: 04/01 ID of pictures in a file of tow, unrelated with gestures: 05/0207/26/17: Object y/n identification: 03/01 (e.g. Is this a hammer) with written supports Object identification in a field of two non related, gestured cues: 6/10 Matching object to verbal description: 0/5 Matching picture to object in field of two: 3/5 4. Pt will participate in modified barium swallow study to objectively assess pharyngeal fu nctioning. 07/23/2017 07/28/2017 Achieved 07/28/17 07/28/17: See results in MBSS study note. Upgrade to thin liquids. 07/26/17: educated patient and regarding goals and MBSS 5. With external modifications and clinician verbal/tactile cues, pt will manage mechanical soft textures in functional, nutritive quantities without s/sx aspiration. 07/23/20172016 achieved Achieved 07/24/17: Achieved observational trails of meal quantity mechanical soft with setup assistance and in termittent assist with utensil management. Pt demonstrates brisk and thorough chew, complete AP transit and no overt s/sx aspiration. Recommend cutting to ensure small bite size due to limited coordination and strength of extremities. No overt s/sx aspiration with 6 oz nectar thick juice, however, respirations appear increasingly labored during session. 6. Pt will identify unrelated objects in a field of two in structured comprehension tasks w ith 80% accuracy, working towards ability to use aided communication. 07/28/2017 07/31/2017 a chieved 07/29:ID pictures in a field of 2, unrelated: 8/10 07/28: pictures unrelated in a field of two: 70% 07/28/17: ID pictures with no semantic cue, unrelated: 03/01 Related: 2/5 7. Working towards ability to use aided communication, pt will accurately identify words/pi ctures/objects that are semantically related in a field of two with 70% accuracy over 5 tria ls. 07/29/17 08/03/17 new 07/29: Advanced auditory stimulation tasks: Letters, semantically related, F:2: <60% Shapes, F:2: <60% Food F:2:5/10 Objects unrelated F:3: 4/10 LONG-TERM GOALS: Goal Description Creation Date Achieve By Date Status Notes 1. Pt will improve oropharyngeal swallow function to return to least restrictive diet witho ut overt s/sx aspiration in quantities sufficient for nutritional oral intake 07/23/2017 ongoing 07/27/17: trials of thin liquids with no oral loss, no overt s/sx aspiratio n in sequential cup sips of 3 oz. 2. Pt will improve receptive/expressive communication to follow simple commands and express single word requests via any modality for basic needs with moderate assistance. 07/23/2017 08/11/2017 New goal new ASSESSMENT: Advancement of auditory stimulation activities did not facilitate therapeutic l evel accuracy. Recommend trailing additional tasks such as object identification to descript ion/action, and ongoing brief probes of more advanced task in identifying items that are tomy antically related. Pt continues with high frequency of stereotypy and non related paraphasia s with limited self monitoring. PLAN: Next session, continue to facilitate naming through automatics, response elaboration training and focus auditory stimulation at the level of related and unrelated objects/pics i n a field of 2. PROGRESS TOWARDS GOALS: Good, to achieve stated therapy goals FUNCTIONAL LIMITATIONS: Safety Risks: being left alone, reacting to an emergency, managing medication, traveling alone in the community and advanced ADL management Swallow: risk for aspiration Communication: communicating need for assistance , following therapeutic instructions. RECOMMENDATIONS: DISCHARGE RECOMMENDATIONS: Home w/assist and Home w/Home Health DIET RECOMMENDATIONS: Thin liquids, Level 2 mechanically altered = cohesive, moist, fork m ashed foods, requiring slight chewing/jaw munching MEDICATIONS TO BE GIVEN: Pills whole with liquids Or with puree COMPENSATORY STRATEGIES: Upright 90 degrees for PO intake, Remain upright 45 min post feedi ng and Oral care after meals EDUCATION this session was focused to RN regarding diet upgrades Transferred patient to sitting in room with bed alarm on, RN notified. This note will serve as an episode of care summary if the patient is discharged from the [facility] prior to the next treatment session. Sapna Lee MS,CCC-START UP SPECIALIST [facility] Eldridge OTR/Dipti,BLAKE - 07/29/2017 6:55 AM PSTFormatti ng of this note may be different from the original. [facility] OT Daily Note Reason for admit: CVA Precautions: fall/speech Onset Date/Date of Surgery: 07/08/17 Rehabilitation/ Treatment Diagnosis: CVA Time in: 0650 Time out: 0800, Individual therapy History of present Illness: 61 year old man admitted with CVA symptoms. 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 He also had a GI b leed following administration of tPA and has new diagnosis of diabetes. 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 He presents for acu te rehab with receptive and expressive aphasia and R-sided neglect, impaired balance and mob ility. Subjective: Patient report: agreeable for shower and morning routine NPRS: no c/o pain, unable to rate Objective: Supervision for toileting and transfer Supervision for showering and transfer. Cues for safety Standing at sink with cues for sequence, supervision Supervision with cues for initiating task to get clothes to put on Card sorting game with elements of fine motor control and visual scanning Treatment provided: morning ADL routine, toileting, bathing, dressing, g/h Tolerance to activity: fair. Needs seated rest breaks throughout Education provided: patient Assessment: Nacho is doing well with supervision and cueing for all his BADL. Had him do his shaving seated to conserve energy. Cues for technique. Used a deck of cards to determine wh at he could recognize and perform cognitively along with fine motor use and visual scanning. He was unable to group cards according to color or suit. What the activity evolved into was pairing cards by the number represented on them. In a long line across the table. This [facility] ed him to scan all the way to the right and use his right hand to place cards. He was incapa ble of sorting any other way today. After all piles were established by number, asked him to "hand me the pile of 2's", "hand me the pile of Jacks". This was very confusing to him and he was about 50% successful with is, but what was noted was his increase in correct verbaliz ations of numbers. Barriers to patient's progress toward goals: aphasia Recommendations to nursing: none Plan: Plan next visit: continue per plan of primary OT Discharge plan/recommendation: home with s/o Goals: Short term goals: Goal Description Status Date Achieve by Date Status Notes 1. Toileting with LRD SBA without LOB. 07/22/2017 07/29/17 Met 07/27/2017 2. UB/LB dressing with SBA and use of LRD. 07/22/2017 07/29/17 Met 07/27/2017 3. Grooming from seated/standing with SBA with LRD 07/22/2017 07/29/17 met 07/29/17. Hair, sh aving all standing with cues 4. Functional transfers with SBA without LOB during ADL. 07/22/2017 07/29/17 met correction goals: Goal Description Status Date Achieve by Date Status Notes 1. Functional mobility mod I with LRD. 07/22/2017 08/05/17 Ongoing Manual W/C 07/24/17 2.UB/LB dressing with mod I and LRD. 07/22/2017 08/05/17 Ongoing 3. Self-feeding with supervision only with minimal cueing. 07/22/2017 08/05/17 Ongoing 4. Toileting mod I with LRD. 07/22/2017 08/05/17 Ongoing Lorrie Eldridge OTR/Dipti,CLT-GAIL Report signed, 07/29/2017 6:55 AM Sapna Lee MS,[facility]-START UP SPECIALIST - 07/28/2017 5:00 PM PSTFormatting of this note may be differen t from the original. [facility] [place] START UP SPECIALIST DAILY NOTE Referring Provider: Phil Admission Date: 07/22/2017 Medical Diagnosis: CVA Rehabilitation/Treatment Diagnosis: dysphagia, expressive/receptive aphasia. Time In/Out:4968-7546 Evaluation Date: 07/23/2017 Last progress report:07/27/2017 HISTORY OF PRESENT ILLNESS/INJURY: John Griffith is a 61 y.o. M referred for evaluation o f dysphagia and communication. Mr. 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 Per review of medic al records and H&P, pt was admitted to [facility] on 07/08. due to suspected ischemic CVA he received tPA. Head CT the following day revealed hemorrhage int he left MCA territory. T his resulted in right sided neglect, motor impairments, receptive and expressive aphasia and dysphagia. Upon admit to our program, he diet order includes puree and nectar thick liquid s. REVIEW OF PATIENT'S HOSPITALIZATION SINCE LAST VISIT: Therapy team discusses discontinuing wheel chair use. SUBJECTIVE: This evening, pt spontaneously states to me "aren't you done?" He appears in g obela spirits. SUBJECTIVE PAIN PRE: 0/10, POST: 0/10, LOCATION: na, NOTE: pt nods no when given verbal and written cue. OBJECTIVE: SKILLED THERAPY ADDRESSED: Receptive language intervention targeting graded auditory stimu lation exercises ruben field of two objects or pictures, unrelated. Establishing stability usi ng a written Yes/NO aid for reliable responses to questions regarding basic biographical inf ormation to improve patient's ability to express needs. Automatics probed to aid in expressi on of functional information such as numbers and days of week. LIMITATIONS: Patient's participation was not limited GOALS: SHORT-TERM GOALS: Goal Description Creation Date Achieve By Date Status Notes 1. Pt will improve comprehension to accurately respond y/n to basic need and biographical questioning using any modality, with 70% accurate response rate. 07/23/2017 07/29/2017 ongoin g 12/6 PM session: 50% 07/28/17: 610 and 12/30 over two trails. Mis match between verbalization and use of visual aid x 3. 07/27/17: Y/N reliability: 03/0107/26/17: 03/01 trial 1, 11/30 trial 2 07/24: Elicited yes and no in isolated trials with maximal verbal and visual cues in 08/11 t rials. Pt continues to perseverate on counting. With hand over hand assistance, pt answered biographical/personally relevant y/n questions for 10 trials with 100% accuracy due to max a ssist 2. Pt will improve expressive communication to verbalize 5 functional words in response to modeling/integral stimulation with max assist 80% of trials over two sessions. 07/23/2017 ongoing 07/28: With automatic counting, pt verbalizes numbers 2-9 given lead in cue and visual supports. With maximal modeling and elicited of automatic speech, pt names 3 day s of the week, however, this is not replicated consistently over additional trials. In pict ure naming tasks with maximal modeling,pt names 1/10 targets (ball). 07/28/17: noted to spontaneously repeat two words during expressive language activities. 07/27/17: in response elaboration training, pt verbalized 2 relevant units of information i n 14 trials. Verbalized "yes" in isolated trials PATEL: 4/10 with model improved to 8/10 Verbalized "no" in isolated trails PATEL 10/10 No object naming achieved with max assist. Conversational photos with response elaboration elicited a gesture with full modeling in 6/14 trials (apraxia) 07/26: With integral stimulation, 0/5 for object naming. Stereotypy of counting is noted to fade with 2 semantic paraphasias observed. 07/23 see response to y/n training above. 3. Pt will improve receptive communication to identify objects or pictures from a field of two given maximal semantic cues. 07/23/2017 07/29/2017 Achieved 07/27/17 07/27/17: Identification of objects in a F:2 unrelated with gestures: 04/01 ID of pictures in a file of tow, unrelated with gestures: 05/0207/26/17: Object y/n identification: 710 (e.g. Is this a hammer) with written supports Object identification in a field of two non related, gestured cues: 6 Matching object to verbal description: 0/5 Matching picture to object in field of two: 3/5 4. Pt will participate in modified barium swallow study to objectively assess pharyngeal fu nctioning. 07/23/2017 07/28/2017 Achieved 07/28/17 07/28/17: See results in MBSS study note. Upgrade to thin liquids. 07/26/17: educated patient and regarding goals and MBSS 5. With external modifications and clinician verbal/tactile cues, pt will manage mechanical soft textures in functional, nutritive quantities without s/sx aspiration. 07/23/20172016 achieved Achieved 07/24/17: Achieved observational trails of meal quantity mechanical soft with setup assistance and in termittent assist with utensil management. Pt demonstrates brisk and thorough chew, complete AP transit and no overt s/sx aspiration. Recommend cutting to ensure small bite size due to limited coordination and strength of extremities. No overt s/sx aspiration with 6 oz nectar thick juice, however, respirations appear increasingly labored during session. 6. Pt will identify unrelated objects in a field of two in structured comprehension tasks w ith 80% accuracy, working towards ability to use aided communication. 07/28/2017 07/31/2017 n ew 07/28: pictures unrelated in a field of two: 70% 07/28/17: ID pictures with no semantic cue, unrelated: 03/01 Related: 2/5 LONG-TERM GOALS: Goal Description Creation Date Achieve By Date Status Notes 1. Pt will improve oropharyngeal swallow function to return to least restrictive diet witho ut overt s/sx aspiration in quantities sufficient for nutritional oral intake 07/23/2017 ongoing 07/27/17: trials of thin liquids with no oral loss, no overt s/sx aspiratio n in sequential cup sips of 3 oz. 2. Pt will improve receptive/expressive communication to follow simple commands and express single word requests via any modality for basic needs with moderate assistance. 07/23/2017 08/11/2017 New goal new ASSESSMENT: Automatics elicited some functional words, however, only in highly structured, therapeutic context. Continues with reduction in y/n reliability this session. Maintaining s tability in identification of unrelated objects and pictures. Ready for advancement of this auditory comprehension task. PLAN: Next session, continue language intervention focusing on y/n reliability and semantic supports for comprehension. Naming treatment. Increase complexity of auditory comprehensio n tasks. PROGRESS TOWARDS GOALS: Good, to achieve stated therapy goals FUNCTIONAL LIMITATIONS: Safety Risks: being left alone, reacting to an emergency, managing medication, traveling alone in the community and advanced ADL management Swallow: risk for aspiration Communication: communicating need for assistance , following therapeutic instructions. RECOMMENDATIONS: DISCHARGE RECOMMENDATIONS: Home w/assist and Home w/Home Health DIET RECOMMENDATIONS: Thin liquids, Level 2 mechanically altered = cohesive, moist, fork m ashed foods, requiring slight chewing/jaw munching MEDICATIONS TO BE GIVEN: Pills whole with liquids Or with puree COMPENSATORY STRATEGIES: Upright 90 degrees for PO intake, Remain upright 45 min post feedi ng and Oral care after meals EDUCATION this session was focused to RN regarding diet upgrades Transferred patient to sitting in room with bed alarm on, RN notified. This note will serve as an episode of care summary if the patient is discharged from the [facility] prior to the next treatment session. Sapna Lee MS,CCC-START UP SPECIALIST [facility], Bon Quiroz MD - 07/28/2017 3:04 PM PSTCritical events of the past 24 hours none. SUBJECTIVE: Mr. Griffith continues to have severe apraxia and expressive aphasia. Mr. Griffith wa s able to answer a few questions today. His word finding is better today than it was yester day, but he continues to repeat various different numbers. He is frequently not able to fin d the words he needs to express himself. Mr. Griffith was visited by his family yesterday, and our current discharge plan is going to be home with family. At this point, nobody really burks spects that this gentleman is going to request significant care for his tumor, and it is exp ected that he will probably end up going on hospice-type care. PHYSICAL EXAMINATION: GENERAL: Today, Mr. Griffith is alert, and it is very questionable as to whether he is oriente d to place or person. VITAL SIGNS: His temperature is 96.4. His pulse is 77. Respiratory rate is 18. Blood pr essure is 106/65. ORAL CAVITY: Moist mucous membranes with poor dentition. NECK: Veins are flat. HEART: Regular without S3. LUNGS: Clear. ABDOMEN: Soft and nontender. He has no peripheral edema present. Neuromuscular testing demonstrates significant apraxia, but he can reach out and grab my fi ngers on command. He can squeeze my fingers bilaterally, but when asked to pull me towards him, he tends to confuse this and push me away from him. When asked to lift up his right le g, he is incapable of understanding this and really can not do this, although distraction te sting demonstrates good neuromuscular strength in his lower extremities, which is bilaterall y equal. LABORATORY: Glucoses have been under good control. ASSESSMENT AND PLAN: 1. Status post cerebrovascular accident, hemorrhagic in nature, after thrombolytic therapy. Likely significantly worsened by possible underlying metastatic disease. 2. Adenocarcinoma of lung, poorly differentiated. Likely the primary problem for this thro mbotic event .. 3. History of placement of inferior vena cava filter. 4. History of chronic marijuana smoking. 5. History of diabetes with extremely well controlled glucose. He is not going to be able to do insulin at home very well, so we will discontinue his insulin and watch his sugars num wallace. 6. Anticoagulation with Lovenox. The patient is due to get another CT scan of his head on the . If there is no further bleeding, he can likely be transitioned over to Coumadin a nticoagulation. 7. History of chronic tobacco addiction. Currently not active. 8. History of chronic obstructive pulmonary disease. Currently stable. 9. History of hypertension. On lisinopril. 10. Risk factor modification. Currently with atorvastatin and aspirin in place. Bon Couch M.D. AURE/MORA /[id number] Lorrie Eldridge, OTR/L,T-GAIL - 07/28/2017 1:58 PM PSTFormatting of this note may be diff erent from the original. [facility] OT Daily Note Reason for admit: CVA Precautions: fall, speech Onset Date/Date of Surgery: 07/08/2017 Rehabilitation/ Treatment Diagnosis: CVA Time in: 1200 Time out: 1230, Individual therapy History of present Illness: 61 year old man admitted with CVA symptoms. 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 He also had a GI b leed following administration of tPA and has new diagnosis of diabetes. 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 He presents for acu te rehab with receptive and expressive aphasia and R-sided neglect, impaired balance and mob ility. Subjective: Patient report: Pt has limited verbalizations, but gave a good effort. NPRS: unable to rate, no acute distress Objective: Laboratory Supervisor R: 38#, L=47# Treatment provided: fine motor coordination training at table waiting for lunch. 9-hole peg practice, coin translation tip<->palm, writing Tolerance to activity: good Education provided: patient, and other patients waiting at tables for lunch Assessment: John demonstrates improving right hand coordination with variety of objects wit h repetition in short treatment time. Demonstrated some difficulty sensing smooth wooden peg s with right hand, so had him complete the task with eyes closed and open to show him the di fference. With multiple trials, noted the efficiency of tip<->palm translation improving. En couraged John to work with his right, dominant hand as much as possible, to improve success and confidence, and to decrease reliance on the left for familiar tasks, even though it may look a little sloppy to start. Barriers to patient's progress toward goals: hemiparesis, speech and cognition Recommendations to nursing: none Plan: Plan next visit: continue with plan of care per primary OT Discharge plan/recommendation: home with family Goals: Short term goals: Goal Description Status Date Achieve by Date Status Notes 1. Toileting with LRD SBA without LOB. 07/22/2017 07/29/17 Met 07/27/2017 2. UB/LB dressing with SBA and use of LRD. 07/22/2017 07/29/17 Met 07/27/2017 3. Grooming from seated/standing with SBA with LRD 07/22/2017 07/29/17 Ongoing Oral care sea denise with set-up 07/24/17 4. Functional transfers with SBA without LOB during ADL. 07/22/2017 07/29/17 Ongoing correction goals: Goal Description Status Date Achieve by Date Status Notes 1. Functional mobility mod I with LRD. 07/22/2017 08/05/17 Ongoing Manual W/C 07/24/17 2.UB/LB dressing with mod I and LRD. 07/22/2017 08/05/17 Ongoing 3. Self-feeding with supervision only with minimal cueing. 07/22/2017 08/05/17 Ongoing 4. Toileting mod I with LRD. 07/22/2017 08/05/17 Ongoing DIVINA Hayward/Dipti,ОЛЕГ-GAIL Report signed, 07/28/2017 1:58 PM Erica Cleary, PT - 07/28/2017 12:37 PM PSTFormatting of this note may be different from the original. [facility] PT Progress Note Reason for admit: CVA Precautions: fall risk Onset Date/Date of Surgery: 07/08/17 Rehabilitation/ Treatment Diagnosis: Difficulty walking, other abnormalities of gait and m obility Time in: 1100 Time out: 1200, Individual therapy History of present Illness: 61 year old man admitted with CVA symptoms. 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 He also had a GI b leed following administration of tPA and has new diagnosis of diabetes. 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 He presents for acu te rehab with receptive and expressive aphasia and R-sided neglect, impaired balance and mob ility. Subjective: Patient report: Denies pain NPRS: n/a Location/Description of Pain: n/a Objective: Observation: resting in bed upon arrival Treatment provided: 15 minutes gait training Gait with SPC on even terrain and over hurdles 2x 150 ft, 2x 75 ft with physical/tactile a nd verbal cues for sequencing with cane Up/down 3 steps x 4 reps with SPC and 1 HR with SBA and cues for cane placement Up/down curb and ramp with SPC and SBA, minimal cues provided 15 minutes therapeutic exs Side-stepping in parallel bars 10' x 4 Squat and hold/hover 10 x 5 seconds Step up 10 x each on first set without UE support standing ball toss 15 x throwing/ catching from center and from right and left side Balance with eyes closed 10 seconds x 6, eyes closed standing on foam Balance with eyes open with PT perturbations 1 minute 30 minutes therapeutic activity Pt instructed on floor recovery; Pt able to perform floor transfer with [id number] visu al cues Transfer training STS, bed mobility and maneuvering in room and tight spaces with SBA with SPC Education provided: Sequencing, gait training with SPC Therapist Assessment: Patient is independent with bed mobility. On [id number] transfers, he still requires SBA at times depending on fatigue level. Strength is fairly good based o n the volume of transfers he did during session (~40 [id number]). Balance is improving well based on his ability to ascend/descend curb without UE support which he was unable to d o 2 days ago. Pt continues requiring cues for appropriate use of SPC but sustained no LOB d uring gait/ mobility during session. Equipment needs: TBD Tolerance to increase in activity: good Barriers to patient's progress toward goals: impaired communication. Expressive aphasia. Recommendations to nursing: use of SPC with CGA walk to meal. nsg instructed on how to pro vide cueing for appropriate use of SPC. Reminders about sequencing for hand washing. Plan: Plan next visit: gait, balance training Discharge plan/recommendation: Home w/assist and home health vs outpatient therapies Goals: Short term goals: Goal Description Status Date Achieve by Date Status Notes 1. Independent with transfers in and out of bed 07/27/2017 07/30/17 Ongoing 2. Sit to stand transfers with supervision assist 07/27/2017 07/30/17 Met 3. Able to walk 150' with standby assist and LRAD 07/27/2017 07/30/17 Met 4. Able to climb 1 flight of steps with a handrail and standby assist 07/27/2017 07/30/17 met SPC and Railing x 1 correction goals: Goal Description Status Date Achieve by Date Status Notes 1. Independent with sit to stand transfers between surfaces 07/27/2017 08/06/17 Ongoing 2. Able to walk >150' with mod independence and LRAD 07/22/2017 08/06/17 Ongoing 3. Able to climb 1 flight of stairs with mod independence and handrail 07/22/2017 08/06/17 Ongoing 4. Able to walk on uneven and compliant surfaces including ramps and curbs with supervision assist 07/22/2017 08/06/17 Ongoing 5. Balance improved as evidenced by score of >45 on swartz balance test 07/22/17 08/06/17 Giuliana Cleary, PT Sapna Lee, ,CCC-START UP SPECIALIST - 07/28/2017 10:47 AM PSTFormatting of this note may be differen t from the original. [facility] START UP SPECIALIST DAILY NOTE/PROGRESS REPORT Referring Provider: Phil Admission Date: 07/22/2017 Medical Diagnosis: CVA Rehabilitation/Treatment Diagnosis: dysphagia, expressive/receptive aphasia. Time In/Out: 2623-2161 Evaluation Date: 07/23/2017 Last progress report:07/27/2017 HISTORY OF PRESENT ILLNESS/INJURY: John Griffith is a 61 y.o. M referred for evaluation o f dysphagia and communication. Mr. 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 Per review of medic al records and H&P, pt was admitted to [facility] on 07/08. due to suspected ischemic CVA he received tPA. Head CT the following day revealed hemorrhage int he left MCA territory. T his resulted in right sided neglect, motor impairments, receptive and expressive aphasia and dysphagia. Upon admit to our program, he diet order includes puree and nectar thick liquid s. REVIEW OF PATIENT'S HOSPITALIZATION SINCE LAST VISIT: RN reports medications are most ea si lty administered in puree. SUBJECTIVE:Pt is continuously attempting to verbalize. Participatory, states regarding his cane "do you want this here?" SUBJECTIVE PAIN PRE: 0/10, POST: 0/10, LOCATION: na, NOTE: pt nods no when given verbal and written cue. OBJECTIVE: SKILLED THERAPY ADDRESSED: Receptive language intervention targeting graded auditory stimu lation exercises ruben field of two objects or pictures, unrelated. Establishing stability usi ng a written Yes/NO aid for reliable responses to questions regarding basic biographical inf ormation to improve patient's ability to express needs. LIMITATIONS: Patient's participation was not limited GOALS: SHORT-TERM GOALS: Goal Description Creation Date Achieve By Date Status Notes 1. Pt will improve comprehension to accurately respond y/n to basic need and biographical questioning using any modality, with 70% accurate response rate. 07/23/2017 07/29/2017 ongoin g 07/28/17: 6/10 and 10 over two trails. Mis match between verbalization and use of visua l aid x 3. 07/27/17: Y/N reliability: 03/0107/26/17: 03/01 trial 1, 11/30 trial 2 07/24: Elicited yes and no in isolated trials with maximal verbal and visual cues in 08/11 t rials. Pt continues to perseverate on counting. With hand over hand assistance, pt answered biographical/personally relevant y/n questions for 10 trials with 100% accuracy due to max a ssist 2. Pt will improve expressive communication to verbalize 5 functional words in response to modeling/integral stimulation with max assist 80% of trials over two sessions. 07/23/2017 ongoing 07/28/17: noted to spontaneously repeat two words during expressive langau ge activities. 07/27/17: in response elaboration training, pt verbalized 2 relevant units of information i n 14 trials. Verbalized "yes" in isolated trials PATEL: 4/10 with model improved to 8/10 Verbalized "no" in isolated trails PATEL 10/10 No object naming achieved with max assist. Conversational photos with response elaboration elicited a gesture with full modeling in 6/14 trials (apraxia) 07/26: With integral stimulation, 0/5 for object naming. Stereotypy of counting is noted to fade with 2 semantic paraphasias observed. 07/23 see response to y/n training above. 3. Pt will improve receptive communication to identify objects or pictures from a field of two given maximal semantic cues. 07/23/2017 07/29/2017 Achieved 07/27/17 07/27/17: Identification of objects in a F:2 unrelated with gestures: 04/01 ID of pictures in a file of tow, unrelated with gestures: 05/0207/26/17: Object y/n identification: 10 (e.g. Is this a hammer) with written supports Object identification in a field of two non related, gestured cues: 6 Matching object to verbal description: 0/5 Matching picture to object in field of two: 3/5 4. Pt will participate in modified barium swallow study to objectively assess pharyngeal fu nctioning. 07/23/2017 07/28/2017 Achieved 07/28/17 07/28/17: See results in MBSS study note. Upgrade to thin lqiuids. 07/26/17: educated patient and regarding goals and MBSS 5. With external modifications and clinician verbal/tactile cues, pt will manage mechanical soft textures in functional, nutritive quantities without s/sx aspiration. 07/23/20172016 achieved Achieved 07/24/17: Achieved observational trails of meal quantity mechanical soft with setup assistance and in termittent assist with utensil management. Pt demonstrates brisk and thorough chew, complete AP transit and no overt s/sx aspiration. Recommend cutting to ensure small bite size due to limited coordination and strength of extremities. No overt s/sx aspiration with 6 oz nectar thick juice, however, respirations appear increasingly labored during session. 6. Pt will identify unrelated objects in a field of two in structured comprhension tasks, w orking towards ability to use aided communication. 07/28/2017 07/31/2017 new 07/28/17: ID pic juan [place] with no semantic cue, unrelated: 03/01 Related: 2/5 LONG-TERM GOALS: Goal Description Creation Date Achieve By Date Status Notes 1. Pt will improve oropharyngeal swallow function to return to least restrictive diet witho ut overt s/sx aspiration in quantities sufficient for nutritional oral intake 07/23/2017 ongoing 07/27/17: trials of thin liquids with no oral loss, no overt s/sx aspiratio n in sequential cup sips of 3 oz. 2. Pt will improve receptive/expressive communication to follow simple commands and express single word requests via any modality for basic needs with moderate assistance. 07/23/2017 08/11/2017 New goal new ASSESSMENT: Upgrade to thin liquids as per MBSS results which revealed grossly functional p haryngeal phase of swallow. Decrease noted in y/n reliability from last session. This may be related to changes in environment as therapy was conducted in novel location. Recommend con tinued trials to establish reliable means of communication. Spontaneous repetition may dali edy readiness for additional naming treatment. PROGRESS TOWARDS GOALS: Good, to achieve stated therapy goals FUNCTIONAL LIMITATIONS: Safety Risks: being left alone, reacting to an emergency, managing medication, traveling alone in the community and advanced ADL management Swallow: risk for aspiration Communication: communicating need for assistance , following therapeutic instructions. PLAN: Next session, continue language intervention focusing on y/n reliability and semantic supports for comprehension. Trial identification of pictures without gestured support. Janice ng treatment. RECOMMENDATIONS: DISCHARGE RECOMMENDATIONS: Home w/assist and Home w/Home Health DIET RECOMMENDATIONS: Thin liquids, Level 2 mechanically altered = cohesive, moist, fork m ashed foods, requiring slight chewing/jaw munching MEDICATIONS TO BE GIVEN: Pills whole with liquids Or with puree COMPENSATORY STRATEGIES: Upright 90 degrees for PO intake, Remain upright 45 min post feedi ng and Oral care after meals EDUCATION this session was focused to RN regarding diet upgrades Transferred patient care to respiratory therapist. Bed alarm is engaged. This note will serve as an episode of care summary if the patient is discharged from the [facility] prior to the next treatment session. Sapna Lee MS,CCC-START UP SPECIALIST [facility] Sapna Lee MS,CCC-START UP SPECIALIST - 07/28/2017 10:38 AM PSTFormatting of this note may be differen t from the original. Modified Barium Swallow Study (MBSS) Referring Provider: Phil Admission Date: 07/22/2017 Medical Diagnosis: CVA Rehabilitation/Treatment Diagnosis: dysphagia, expressive/receptive aphasia. Time In/Out: 5208-4655 Evaluation Date: 07/23/2017 HISTORY OF PRESENT ILLNESS/INJURY: John Griffith is a 61 y.o. M referred for evaluation o f dysphagia and communication. Mr. 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 Per review of medic al records and H&P, pt was admitted to [facility] on 07/08. due to suspected ischemic CVA he received tPA. Head CT the following day revealed hemorrhage int he left MCA territory. T his resulted in right sided neglect, motor impairments, receptive and expressive aphasia and dysphagia. Upon admit to our program, he diet order includes puree and nectar thick liquid s. John Griffith participated in Modified Barium Swallow Study (MBSS) in Diagnostic Imaging at [facility] with speech-language pathology. The MBSS was completed to obj ectively assess swallow function and safety, provide recommendations for least restrictive d iet textures and liquid consistencies, trial and recommend compensatory swallowing strategie s, and provide recommendations for treatment and/or referrals. POSITIONING: John Griffith was positioned fully upright in Hausted chair. lateral and ant eriorposterior plane were obtained. PRESENTATIONS: The following consistencies were administered during the study: [place] thick liquids via op en cup x 1, thin liquids in single sips and sequential open cup sips, puree via tsp x 2, mec hanical soft x 1, regular textures x 2. Barium pill x 1 with liquids, however, discontinued with liquids due to effortful oral transit. ORAL PHASE: BOLUS CONTROL: No anterior loss or significant pre swallow spillage. Difficulty with coord ination of oral transit of barium pill with thin liquids. Pt is taking medications well with puree on the cabrales. BOLUS FORMATION: Prolonged and impaired related to missing molars. Has anterior teeth only . ANTERIOR/POSTERIOR TRANSIT: complete, with min oral residue. PHARYNGEAL PHASE: PHARYNGEAL PHASE INITIATION: mildly delayed with trigger at mid pharynx for thin liquids VELOPHARYNGEAL CLOSURE: no nasal regurgitation. . TONGUE BASE TO POSTERIOR PHARYNGEAL WALL CONTACT: normal as evidenced by no significant pos t-swallow residue in the valleculae . LARYNGEAL ELEVATION: normal. EPIGLOTTIC DEFLECTION: compelte resulting in adequate closure of the laryngeal vestibule. PHARYNGEAL CONSTRICTION: complete resulting in clearance of all pharyngeal residue after t he swallow with all consistencies. SHRUTHI-POSTERIOR VIEW OF SWALLOW: normally symmetric. ESOPHAGEAL PHASE: CRICOPHARYNGEAL FUNCTION: normal characterized by no hesitation of bolus or barium column b ackflow at UES. A brief esophageal scan revealed normal esophogeal peristalsis without davey is or retro flow. ASPIRATION/PENETRATION: For all consistencies there was noted to be no penetration or aspiration. PENETRATION-ASPIRATION SCALE: The Penetration-Aspiration Scale is a 8-point interval scale used to describe penetration and aspiration based on the depth of passage of material into the airway and whether the material is expelled. John Griffith scored as follows: 1-Materi al does not enter the airway ASSESSMENT: Mr. Griffith is a 61 y.o male with recent CVA resulting in weakness, dis coordinati on, aphasia, apraxia and dysphagia. MBSS today is suggestive of normal pharyngeal phase of the swallow with ongoing mild difficulties with oral preparatory phase, namely medications w ith thin liquids, due to suspected motor planning deficit. Recommend upgrade to thin liquids with continuation of mechanical soft diet as pt does not have sufficient dentition to masti edy regular solids. EDUCATION: Results with reviewed with patient after follow PO trials on the cabrales which cont inued to reveal no s/sx aspiration with 4 oz thin liquids. Sapna Lee, MS,CCC-START UP SPECIALIST Travon Hernandez, PT,DPT,OCS - 07/27/2017 5:39 PM PSTFormatting of this note may be different from the original. [facility] PT Progress Note Reason for admit: CVA Precautions: fall risk Onset Date/Date of Surgery: 07/08/17 Rehabilitation/ Treatment Diagnosis: Difficulty walking, other abnormalities of gait and m obility Time in: 1310 Time out: 1410, Individual therapy History of present Illness: 61 year old man admitted with CVA symptoms. 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 He also had a GI b leed following administration of tPA and has new diagnosis of diabetes. 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 He presents for acu te rehab with receptive and expressive aphasia and R-sided neglect, impaired balance and mob ility. Subjective: Patient report: Denies pain NPRS: n/a Location/Description of Pain: n/a Objective: Observation: sitting at EOB with family upon arrival Treatment provided: 15 minutes gait training High knee marching in place 1 minute Ambulation with SPC from room to PT gym x 2 (~100' x 2) with CGA x 1 and WC follow Ambulation with SPC 30' x 2, 10' x 4 15 minutes therapeutic exercise 5-times [id number] time = ~12 seconds with AD. Side-stepping in parallel bars 10' x 4 Squat and hold/hover 10 x 5 seconds Step up 5 x each on first set and 10 x each on second step Seated ball toss 15 x Balance with eyes closed 10 seconds x 6 Balance with eyes open with PT perturbations 1 minute Sit to stand from bed in room 3 x 10 30 minutes therapeutic activity Patient had a bowel movement on toilet in PT gym and was able to wipe and wash hands wit h Min A from PT. Mostly required verbal cues for sequencing due to apraxia and CGA for kolby nce. Squatted for ~2 minutes while wiping. Patient was unsure where to put used toilet pap er (trash can vs. toilet) and handed each wad of used toilet paper to PT. Patient then ran hands under water at sink but tried to dry hands with paper towels without having used soap. When cued to use liquid soap, patient was initially unsure what to do with it and could no t recall sequencing (soap, lather, rinse, dry with paper towels). Patient is independent in log rolling. Patient required SBA with stand-pivot transfers to L and R. Ascended and descended 3 stairs twice with SPC and railing x 1 with CGA x 1. Transfers STS SBA Toilet transfer SBA Education provided: Sequencing, gait training with SPC Therapist Assessment: Patient is independent with bed mobility. On [id number] transfers, he still requires SBA at times depending on fatigue level. Strength is fairly good based o n the volume of transfers he did during session (~40 [id number]). Further work on hand w ashing/hygiene with OT is appropriate based on his difficulties with sequencing today. Kolby dorsey is improving well based on his ability to perform high-knee marching in place without an AD and without losses of balance. Further balance work should emphasize changes in momentu m (e.g. turning while walking) and higher level static balance activities (e.g. Marching in place, Swartz Balance Test items). Equipment needs: TBD Tolerance to increase in activity: good Barriers to patient's progress toward goals: impaired communication. Expressive aphasia. Recommendations to nursing: use of SPC with CGA walk to meal. nsg instructed on how to pro vide cueing for appropriate use of SPC. Reminders about sequencing for hand washing. Plan: Plan next visit: gait, balance training Discharge plan/recommendation: Home w/assist and home health vs outpatient therapies Goals: Short term goals: Goal Description Status Date Achieve by Date Status Notes 1. Independent with transfers in and out of bed 07/27/2017 07/30/17 Ongoing 2. Sit to stand transfers with supervision assist 07/27/2017 07/30/17 Met 3. Able to walk 150' with standby assist and LRAD 07/27/2017 07/30/17 Met 4. Able to climb 1 flight of steps with a handrail and standby assist 07/27/2017 07/30/17 Partially met Railings x 2 or SPC and Railing x 1 correction goals: Goal Description Status Date Achieve by Date Status Notes 1. Independent with sit to stand transfers between surfaces 07/27/2017 08/06/17 Ongoing 2. Able to walk >150' with mod independence and LRAD 07/22/2017 08/06/17 Ongoing 3. Able to climb 1 flight of stairs with mod independence and handrail 07/22/2017 08/06/17 Ongoing 4. Able to walk on uneven and compliant surfaces including ramps and curbs with supervision assist 07/22/2017 08/06/17 Ongoing 5. Balance improved as evidenced by score of >45 on swartz balance test 07/22/17 08/06/17 Mecosta oilouie Hernandez, PT, DPT, OCS, Cert. Bon Munoz MD - 07/27/2017 5:22 PM PSTDATE OF CONFERENCE: 07/27/2017 This is a team conference note. Date of team conference is 07/27 at 1:00 p.m. Attending t eam included MD Bon Couch, RN Edwina, PT Gilda, OT Yaniv, Speech and Language Pathologi [facility]. medical issues and treatment approaches include the etiology of this gentle man's stroke which is likely metastatic disease to his brain at the very least, a paraneopla stic effect with significant intrathoracic cancer, likely primary lung cancer per most recen t evaluation done at [facility]. The patient currently has not made up any sort of significant de cision about trying to decide if he wishes to seek treatment for this, and I had a lengthy d iscussion with the patient's yesterday about possible treatment options for this indivi dual, in particular whether or not he would want to have oncology consultation and considera tion of radiation therapy and chemotherapy. He apparently does have some appointment which is set up for him out in [place] at [facility]. It is unclear as to wh ether or not the patient wants to proceed forth with further evaluation with this. Discharge plan is currently to have the patient in the hospital for an 18-day length of sta y. Ultimately, it is hoped that he can develop increased strength, increased swallowing, in creased p.o. intake, and get to be strong enough that [facility] will be [facility] RN plans include continuing to help this gentleman communicate in a better fashion, improve his swallow, and increase p.o. intake. Currently, physical therapy plans include increasing his ability to get around. He current ly has a contact guard and has a supervision level of activity and, unfortunately, he is sig nificantly impulsive and will get up and move around without assistance on occasion. Occupational therapy: Currently, the patient is rated as a contact guard for self-care and he seems to be improving in terms of his ADLs, although precautions are still necessary to keep this gentleman from getting up and spontaneously placing himself in danger. Speech Therapy has been working with this gentleman extensively and currently he exhibits s ignificant apraxia and due to his apraxia, he has approximately 70% success with yes or no q uestions. Identification of objects is difficult. The patient currently seems to focus mos tly on numbers as the patient's preoccupation is with mostly gambling as this was his main t franchesca that he did prior to being injured with this stroke. The patient is currently graduall y improving with speech and language therapy. At this point, the patient does seem to be improving. Likely, his length of stay will be 1 8 days here. Ultimately, he will need to have oncology followup should he choose to pursue this. Currently, he will be managed aggressively for recurrent stroke with Lipitor and aspi rin. He currently is on Lovenox for prophylaxis, and the plan was to get a CT scan on the 08 28 of this month. Should the CT scan not demonstrate any further bleeding, he can likely b e switched back over to Coumadin. It is very unclear as to whether or not this gentleman is going to proceed forth with any sort of ongoing further evaluation of his cancer. The tyesha ent is also currently being managed with insulin, and this would be a very difficult thing f or the family to manage at home, so I will endeavor to try to gradually convert him back ove r to a program which will be a bit easier for them to use at home. Bon Couch M.D. AURE/MORA /[id number] Lee MS,[facility]-START UP SPECIALIST - 07/27/2017 10:14 AM PSTFormatting of t his note may be different from the original. [facility] [place] START UP SPECIALIST DAILY NOTE/PROGRESS REPORT Referring Provider: Phil Admission Date: 07/22/2017 Medical Diagnosis: CVA Rehabilitation/Treatment Diagnosis: dysphagia, expressive/receptive aphasia. Time In/Out: 7053-6840 Evaluation Date: 07/23/2017 Last progress report: NA Number of visits: 4 HISTORY OF PRESENT ILLNESS/INJURY: John Griffith is a 61 y.o. M referred for evaluation o f dysphagia and communication. Mr. 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 Per review of medic al records and H&P, pt was admitted to [facility] on 07/08. due to suspected ischemic CVA he received tPA. Head CT the following day revealed hemorrhage int he left MCA territory. T his resulted in right sided neglect, motor impairments, receptive and expressive aphasia and dysphagia. Upon admit to our program, he diet order includes puree and nectar thick liquid s. REVIEW OF PATIENT'S HOSPITALIZATION SINCE LAST VISIT: Per OT, improving spontaneous comment s. SUBJECTIVE:Pt is continuously attempting to verbalize. Participatory. SUBJECTIVE PAIN PRE: 0/10, POST: 0/10, LOCATION: na, NOTE: pt nods no when given verbal and written cue. OBJECTIVE: SKILLED THERAPY ADDRESSED: Brief screening of dyspragia with challenge trials of thin liqui ds presented. Expressive language intervention targeting on facilitating verbalization of "y es" and "no" in isolation in response to questioning using faded models. Conversational phot os used with response elaboration and lead in phrases to elicit gestures and speech regardin g personal states (tired, hungry). Receptive language intervention targeting graded night clerk auditor y stimulation exercises ruben field of two objects or pictures, unrelated. LIMITATIONS: Patient's participation was not limited GOALS: SHORT-TERM GOALS: Goal Description Creation Date Achieve By Date Status Notes 1. Pt will improve comprehension to accurately respond y/n to basic need and biographical questioning using any modality, with 70% accurate response rate. 07/23/2017 07/29/2017 ongoin g 07/27/17: Y/N reliability: 03/0107/26/17: 03/01 trial 1, 11/30 trial 2 07/24: Elicited yes and no in isolated trials with maximal verbal and visual cues in 08/11 t rials. Pt continues to perseverate on counting. With hand over hand assistance, pt answered biographical/personally relevant y/n questions for 10 trials with 100% accuracy due to max a ssist 2. Pt will improve expressive communication to verbalize 5 functional words in response to modeling/integral stimulation with max assist 80% of trials over two sessions. 07/23/2017 ongoing 07/27/17: in response elaboration training, pt verbalized 2 relevant units of information in 14 trials. Verbalized "yes" in isolated trials PATEL: 4/10 with model improved to 8/10 Verbalized "no" in isolated trails PATEL 10/10 No object naming achieved with max assist. Conversational photos with response elaboration elicited a gesture with full modeling in 6/14 trials (apraxia) 07/26: With integral stimulation, 0/5 for object naming. Stereotypy of counting is noted to fade with 2 semantic paraphasias observed. 07/23 see response to y/n training above. 3. Pt will improve receptive communication to identify objects or pictures from a field of two given maximal semantic cues. 07/23/2017 07/29/2017 Achieved 07/27/17 07/27/17: Identification of objects in a F:2 unrelated with gestures: 04/01 ID of pictures in a file of tow, unrelated with gestures: 05/0207/26/17: Object y/n identification: 03/01 (e.g. Is this a hammer) with written supports Object identification in a field of two non related, gestured cues: 6/10 Matching object to verbal description: 0/5 Matching picture to object in field of two: 3/5 4. Pt will participate in modified barium swallow study to objectively assess pharyngeal fu nctioning. 07/23/2017 07/28/2017 New goal 07/26/17: educated patient and regarding goals and MBSS 5. With external modifications and clinician verbal/tactile cues, pt will manage mechanical soft textures in functional, nutritive quantities without s/sx aspiration. 07/23/20172016 achieved Achieved 07/24/17: Achieved observational trails of meal quantity mechanical soft with setup assistance and in termittent assist with utensil management. Pt demonstrates brisk and thorough chew, complete AP transit and no overt s/sx aspiration. Recommend cutting to ensure small bite size due to limited coordination and strength of extremities. No overt s/sx aspiration with 6 oz nectar thick juice, however, respirations appear increasingly labored during session. LONG-TERM GOALS: Goal Description Creation Date Achieve By Date Status Notes 1. Pt will improve oropharyngeal swallow function to return to least restrictive diet witho ut overt s/sx aspiration in quantities sufficient for nutritional oral intake 07/23/2017 ongoing 07/27/17: trials of thin liquids with no oral loss, no overt s/sx aspiratio n in sequential cup sips of 3 oz. 2. Pt will improve receptive/expressive communication to follow simple commands and express single word requests via any modality for basic needs with moderate assistance. 07/23/2017 08/11/2017 New goal new ASSESSMENT: Patient has participated in speech language treatment for aphasia to establish reliable means of basic communication, and dysphagia intervention targeting establishing saf e, least restrictive diet through diagnostic diet texture trials. Progress towards goals is fair. Mr. Mcgee has been upgraded from puree to mechanical soft textures and is responding fa vorably to trials of thin liquids in isolation. Expressively, pt is improving in accurate u s of verbalization and pointing to express yes and no, but is not yet responding to naming t reatment or response elaboration training for functional language in therapeutic context. He is however, using pointing and spontaneous phrases such as "I'll sit right here" in context . Receptively, patient demonstrates improving identification of pictures and objects in a f ield of two, however, this is not yet functional for a low or high tech communication device . Profound receptive/expressive aphasia with apraxia limits patient's ability to express bas ic needs or ask for help in an emergency. Recommend ongoing intensive intervention to improv e expression, ability to follow commands and ability to consume least restrictive diet with minimal aspiration risk. PROGRESS TOWARDS GOALS: Good, to achieve stated therapy goals FUNCTIONAL LIMITATIONS: Safety Risks: being left alone, reacting to an emergency, managing medication, traveling alone in the community and advanced ADL management Swallow: risk for aspiration Communication: communicating need for assistance , following therapeutic instructions. PLAN: Next session, continue language intervention focusing on y/n reliability and semantic supports for comprehension. Trial identification of pictures without gestured support. RECOMMENDATIONS: DISCHARGE RECOMMENDATIONS: Home w/assist and Home w/Home Health DIET RECOMMENDATIONS: [place] thick - like nectar juice or thick formulas (ex: Pediasure/Ens ure), Level 2 mechanically altered = cohesive, moist, fork mashed foods, requiring slight ch hampton/jaw munching MEDICATIONS TO BE GIVEN: Pills whole with liquids COMPENSATORY STRATEGIES: Upright 90 degrees for PO intake, Remain upright 45 min post feedi ng and Oral care after meals EDUCATION this session was focused to RN regarding response to PO trials. Transferred patient care to respiratory therapist. Bed alarm is engaged. This note will serve as an episode of care summary if the patient is discharged from the [facility] prior to the next treatment session. Sapna Lee MS,CCC-START UP SPECIALIST [facility] HOSPITALHookeRocío salazar OT - 07/27/2017 8:07 AM PSTFormatting of this note may be different from the original. [facility] OT Progress Report Reason for admit: CVA Precautions: Fall risk, DIET (mechanical soft and nectar thick), aspiration precautions Onset Date: 07/08/2017 Rehabilitation/ Treatment Diagnosis: CVA with impaired coordination RUE Time in: 707 Time out: 807, Individual therapy History of present Illness: 61 year old man admitted with CVA symptoms. 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 He also had a GI b leed following administration of tPA and has new diagnosis of diabetes. 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 He presents for acu te rehab with receptive and expressive aphasia and R-sided neglect, impaired balance and mob ility. Interval history: Now on mechanical soft diet. Subjective: Patient report: Pt approached supine in bed completing breathing treatment agreeable to ADL retraining for morning self care routine. NPRS: Denied Location/Description of Pain: None Objective: Bed mobility with supervision Transfers with SPC CGA, cues for use of cane due to impulsivity Ambulation in room primarily holding SPC without LOB, did not use for all step during am bulation Toileting with stand by assist; cues for attention to R side to use toilet paper instead of paper towels for hygiene Seated bathing min A with cues for safety awareness and task sequencing, thorough comple tion Dressing with stand by assistance Treatment provided: ADL retraining with focus on safe decision making during self care, introducing seated bath ing techniques for fall prevention, thorough completion of hygiene and sequencing of bathing task and interventions to bring attention to patient's R side during ADLs and navigation of physical environment. Tolerance to activity: Fair, needs rest breaks between toileting, bathing and dressing due to chronic shortness of breath. Education provided: Mobility and self care training Assessment: Pt is making steady gains towards all goals as stated on OT plan of care. Pt will benefit f rom high repetition in context during ADL tasks due to limitations in cognition and communic ation. Recommend ADL retraining with focus on task sequencing and safe decision making and t herapeutic activities to increase attention to R side during functional mobility. Barriers to patient's progress toward goals: Impaired communication and cognition Recommendations to nursing: Heavier or weighted cup and utensils. Plan: Plan next visit: therapeutic activities and ADL retraining with focus on inattention to R s carmen during functional mobility Discharge plan/recommendation: Home w/assist Goals: Short term goals: Goal Description Status Date Achieve by Date Status Notes 1. Toileting with LRD SBA without LOB. 07/22/2017 07/29/17 Met 07/27/2017 2. UB/LB dressing with SBA and use of LRD. 07/22/2017 07/29/17 Met 07/27/2017 3. Grooming from seated/standing with SBA with LRD 07/22/2017 07/29/17 Ongoing Oral care sea denise with set-up 07/24/17 4. Functional transfers with SBA without LOB during ADL. 07/22/2017 07/29/17 Ongoing correction goals: Goal Description Status Date Achieve by Date Status Notes 1. Functional mobility mod I with LRD. 07/22/2017 08/05/17 Ongoing Manual W/C 07/24/17 2.UB/LB dressing with mod I and LRD. 07/22/2017 08/05/17 Ongoing 3. Self-feeding with supervision only with minimal cueing. 07/22/2017 08/05/17 Ongoing 4. Toileting mod I with LRD. 07/22/2017 08/05/17 Ongoing Rocío Hoffman, OTR/L Yaniv Valverde, OTR/L Iris 07/26/2017 5:10 PM PSTFormatting of this note may be different from the original. [facility] OT Daily Note Reason for admit: CVA Precautions: Fall risk, DIET (mechanical soft and nectar thick), aspiration precautions Onset Date: 07/08/2017 Rehabilitation/ Treatment Diagnosis: CVA with impaired coordination RUE Time in: 1442 Time out: 1530, Individual therapy Time in: 1602 Time out: 1615, Individual therapy History of present Illness: 61 year old man admitted with CVA symptoms. 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 He also had a GI b leed following administration of tPA and has new diagnosis of diabetes. 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 He presents for acu te rehab with receptive and expressive aphasia and R-sided neglect, impaired balance and mob ility. Interval history: Now on mechanical soft diet. Subjective: Patient report: Pt quite fatigued and pt indicating desire to sit and visit with . Pt p rovided a short rest period with tx completed in 2 sessions to accommodate. Some improvement in verbal expression. Pt stated a few 2-3 word utterances that appeared contextually correc t throughout tx. NPRS: Denied Location/Description of Pain: None Objective: Standing 5 minutes at a time Transfers with SPC CGA Ambulation in room primarily holding SPC without LOB, also some switching of holding SPC in LUE vs RUE, which did not really impact overall use; no noted LOB throughout Standing grooming for shaving with RUE with setup and modification to electric razor for higher contrast on jesus button, SBA for balance and min A to activate yue. Pt did not do shaving very thoroughly with a great deal of stubble remaining, but did shave over entire face and trim mustache Dealing cards with translation and manipulation of single cards with RUE and no physical assist Picking up single cards from table with multiple layers of cards with minimal difficulty Treatment provided: First tx: Self-care retraining and mobility with SPC x 45 minutes Second tx: therapeutic activities promoting dexterity and coordination for leisure particip ation x 15 minutes Tolerance to activity: Fair. Education provided: Mobility and self care training Assessment: Good attention to RUE throughout without cueing. Pt demonstrating limited habituation for u se of cane including carrying cane and also changing from R to L hand, though did not have L OB nor noted instability throughout. OT will continue to coordinate with PT on mobility bharti mmendations. Progressing dexterity and coordination for use of RUE during fine motor tasks ( card play). Barriers to patient's progress toward goals: Impaired communication and cognition Recommendations to nursing: Heavier or weighted cup and utensils. Plan: Plan next visit: Self-care and mobility with SPC. Discharge plan/recommendation: Home w/assist Goals: Short term goals: Goal Description Status Date Achieve by Date Status Notes 1. Toileting with LRD SBA without LOB. 07/22/2017 07/29/17 Ongoing 2. UB/LB dressing with SBA and use of LRD. 07/22/2017 07/29/17 Ongoing 3. Grooming from seated/standing with SBA with LRD 07/22/2017 07/29/17 Ongoing Oral care sea denise with set-up 07/24/17 4. Functional transfers with SBA without LOB during ADL. 07/22/2017 07/29/17 Ongoing correction goals: Goal Description Status Date Achieve by Date Status Notes 1. Functional mobility mod I with LRD. 07/22/2017 08/05/17 Ongoing Manual W/C 07/24/17 2.UB/LB dressing with mod I and LRD. 07/22/2017 08/05/17 Ongoing 3. Self-feeding with supervision only with minimal cueing. 07/22/2017 08/05/17 Ongoing 4. Toileting mod I with LRD. 07/22/2017 08/05/17 Ongoing DIVINA Sullivan/Sapna Callejas, MS,CCC-START UP SPECIALIST - 07/26/2017 1:00 PM PSTFormatting of this note may be differe nt from the original. [facility] START UP SPECIALIST DAILY NOTE Referring Provider: Phil Admission Date: 07/22/2017 Medical Diagnosis: CVA Rehabilitation/Treatment Diagnosis: dysphagia, expressive/receptive aphasia. Today's Date: 07/23/2017 Time In/Out: [id number] REVIEW OF PATIENT'S HOSPITALIZATION SINCE LAST VISIT: Inconsistent us of call light. SUBJECTIVE: is present for treatment today. SUBJECTIVE PAIN PRE: 0/10, POST: 0/10, LOCATION: na, NOTE: pt nods no OBJECTIVE: SKILLED THERAPY ADDRESSED: Speech language intervention targeting improving comprehension t hrough training in y/n visual aid use in reliability trials. Auditory stimulation to improve comprehension via graded exercises including y/n qestioning in basic biographical sscenario s, y/n object idenfication and object identification given gesural cues in a field of two. Interviewed patient ans sig. Other to laquita informaiton regarding likes/dislies and history to prepar for augmentative communication int eh future. Expressive language intervention ta reting the use of integral stimulation for object naming, modeling for expression of yes and no. LIMITATIONS: Patient's participation was not limited GOALS: SHORT-TERM GOALS: Goal Description Creation Date Achieve By Date Status Notes 1. Pt will improve comprehension to accurately respond y/n to basic need and biographical questioning using any modality, with 70% accurate response rate. 07/23/2017 07/29/2017 ongoin g 07/26/17: 03/01 trial 1, 11/30 trial 2 07/24: Elicited yes and no in isolated trials with maximal verbal and visual cues in 08/11 t rials. Pt continues to perseverate on counting. With hand over hand assistance, pt answered biographical/personally relevant y/n questions for 10 trials with 100% accuracy due to max a ssist 2. Pt will improve expressive communication to verbalize 5 functional words in response to modeling/integral stimulation with max assist 80% of trials over two sessions. 07/23/2017 ongoihg 07/26: With integral stimulation, 0/5 for object naming. Stereotypy of coun ting is noted to fade with 2 semantic paraphasias observed. 07/23 see response to y/n training above. 3. Pt will improve receptive communication to identify objects or pictures from a field of two given maximal semantic cues. 07/23/2017 07/29/2017 ongoing 07/26/17: Object y/n identification: 7/10 (e.g. Is this a hammer) with written supports Object identification in a fild of two non related, gestured cues: 6/10 Matching object to verbal description: 0/5 Matching picture to object in field of two: 3/5 4. Pt will participate in modified barium swallow study to objectively assess pharyngeal fu nctioning. 07/23/2017 07/28/2017 New goal 07/26/17: educated patient and regarding goals and MBSS 5. With external modifications and clinician verbal/tactile cues, pt will manage mechanical soft textures in functional, nutritive quantities without s/sx aspiration. 07/23/20172016 achieved Achieved 07/24/17: Achieved observational trails of meal quantity mechanical soft with setup assistance and in termittent assist with utensil management. Pt demonstrates brisk and thorough chew, complete AP transit and no overt s/sx aspiration. Recommend cutting to ensure small bite size due to limited coordination and strength of extremities. No overt s/sx aspiration with 6 oz nectar thick juice, however, respirations appear increasingly labored during session. LONG-TERM GOALS: Goal Description Creation Date Achieve By Date Status Notes 1. Pt will improve oropharyngeal swallow function to return to least restrictive diet witho ut overt s/sx aspiration in quantities sufficient for nutritional oral intake 07/23/2017 New goal new 2. Pt will improve receptive/expressive communication to follow simple commands and express single word requests via any modality for basic needs with moderate assistance. 07/23/2017 08/11/2017 New goal new ASSESSMENT: Pt demonstrates variation in answers using y/n written responses and for biogra phical information is moderately accurate in first trial, demonstrating improved comprehensi on. Verbally, continues with paraphasias/stereotypy, however, noted some more relevant sema ntic attempts today. PROGRESS TOWARDS GOALS: Good, to achieve stated therapy goals FUNCTIONAL LIMITATIONS: Safety Risks: being left alone, reacting to an emergency, managing medication, traveling alone in the community and advanced ADL management Swallow: risk for aspiration Communication: communicating need for assistance , following therapeutic instructions. PLAN: Next session, continue language intervention focusing on y/n reliability and semantic supports for comprehension. RECOMMENDATIONS: DISCHARGE RECOMMENDATIONS: Home w/assist and Home w/Home Health DIET RECOMMENDATIONS: [place] thick - like nectar juice or thick formulas (ex: Pediasure/Ens ure), Level 2 mechanically altered = cohesive, moist, fork mashed foods, requiring slight ch hampton/jaw munching MEDICATIONS TO BE GIVEN: Pills whole with liquids COMPENSATORY STRATEGIES: Upright 90 degrees for PO intake, Remain upright 45 min post feedi ng and Oral care after meals EDUCATION this session was focused to MD regarding diet modification. The MD was able to ve rbalize understanding. NURSING RECOMMENDATIONS/COMMUNICATION: Please remove extra utensils and eating supplies fro m tray to reduce motor planning difficulties. Medications one at a time with thickened liqui ds, pt is able to self administer and employ automatic movements. Transfer of patient care to OT This note will serve as an episode of care summary if the patient is discharged from the [facility] prior to the next treatment session. Sapna Lee MS,CCC-START UP SPECIALIST [facility]OS[facility]ITALErica Cleary, PT - 07/26/2017 12:49 PM PSTFormatting of this note may be different from the original. [facility] PT Daily Note Reason for admit: CVA Precautions: fall risk Onset Date/Date of Surgery: 07/08/17 Rehabilitation/ Treatment Diagnosis: Difficulty walking, other abnormalities of gait and m obility Time in: 0900 Time out: 1000, Individual therapy History of present Illness: 61 year old man admitted with CVA symptoms. 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 He also had a GI b leed following administration of tPA and has new diagnosis of diabetes. 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 He presents for acu te rehab with receptive and expressive aphasia and R-sided neglect, impaired balance and mob ility. Subjective: Patient report: unable to report NPRS: n/a Location/Description of Pain: n/a Objective: Observation: sitting in chair in breakfast room upon arrival Treatment provided: 40 minutes therapeutic activities Bed mobility SBA Transfers STS SBA Toilet transfer SBA Dynamic standing balance activities including side stepping, standing on foam, stepping ove r hurdles, step ups/down different height of step, tandem walk. Balance activities performe d in // bars with intermittent use of UE's for balance as needed. Pt provided several prolo nged seated rest breaks d/t report of fatigue. 20 minutes of gait training Gait with FWW x 400 ft with SBA, no LOB but cues to use AD when maneuvering in tight spaces and with transfers Gait with SPC; pt requiring constant tactile/ verbal cues for sequencing, no LOB 3x 200 ft Gait without AD with CGA, LOB x 2 with turns requiring min to mod A to recover x 400 ft Education provided: balance training activities, gait with SPC Therapist Assessment: The patient presents with L CVA with R sided neglect. Recommending am bulation with SPC and CGA at this time although pt continues requiring frequent cues for saf e/ appropriate sequencing with cane but no loss of balance noted. Nsg instructed on use of SPC with pt and how to provide cueing. He tolerates balance activities well. Patient does h ave some difficulty understanding the task on hand and needs verbal and visual demonstration . Patient will benefit from skilled PT intervention and should be able to return home with assist. Equipment needs: TBD Tolerance to increase in activity: good Barriers to patient's progress toward goals: impaired communication. Recommendations to nursing: use of SPC with CGA walk to meal. nsg instructed on how to pro vide cueing for appropriate use of SPC Plan: Plan next visit: gait, balance training Discharge plan/recommendation: Home w/assist and home health vs outpatient therapies Goals: Short term goals: Goal Description Status Date Achieve by Date Status Notes 1. Independent with transfers in and out of bed 07/22/2017 07/30/17 ongoing 2. Sit to stand transfers with supervision assist 07/22/2017 07/30/17 ongoing 3. Able to walk 150' with standby assist and LRAD 07/22/2017 07/30/17 ongoing 4. Able to climb 1 flight of steps with a handrail and standby assist 07/22/2017 07/30/17 on going correction goals: Goal Description Status Date Achieve by Date Status Notes 1. Independent with sit to stand transfers between surfaces 07/22/2017 08/06/17 New 2. Able to walk >150' with mod independence and LRAD 07/22/2017 08/06/17 New 3. Able to climb 1 flight of stairs with mod independence and handrail 07/22/2017 08/06/17 New 4. Able to walk on uneven and compliant surfaces including ramps and curbs with supervision assist 07/22/2017 08/06/17 New 5. Balance improved as evidenced by score of >45 on swartz balance test 07/22/17 08/06/17 New Erica Cleary, PT Report signed, 07/24/2017 2:11 PM Bon Couch MD - 07/26/2017 11:29 AM PSTCRITICAL EVENTS OVER THE PAST 24 HOURS: None . SUBJECTIVE: Mr. Griffith is markedly impaired in terms of his cognition. Mr. Griffith is not real ly able to answer any questions with any sort of meaningful answers and he frequently just r ecites long streams of numbers when asked any question. Mr. Griffith is clearly cognitively not capable of understanding his condition. In particular the discovery of lung cancer recentl y, which I suspect led to all of the problems which he has. In particular he probably has b rain mets as a cause for the stroke. At the very least a perineoplastic hypercoagulable sta te participating in his current situation. PHYSICAL EXAMINATION: GENERAL: Today, is not oriented to time, place, or person. He cannot answer any questions with any sort of meaningful response. VITAL SIGNS: Demonstrate a temperature of 36.8, his pulse is 77, respiratory rate is 18, b lood pressure is 114/70, oxygen saturation is 94%. HEENT: Oral cavity demonstrates a good state of hydration. HEART: Regular without S3. LUNGS: Completely clear with no wheezing, rales or rhonchi present. ABDOMEN: Soft and nontender. EXTREMITIES: Demonstrate no edema. NEUROLOGICAL: Testing is marked for expressive aphasia which is intermittent, apraxia and higher level cognitive deficits without a lot of gross motor deficits noted. LABORATORY: Glucoses have been under good control. ASSESSMENT AND PLAN: 1.Cerebrovascular accident with substantial cognitive impairment at present. leading to apr axia. It is difficult to get a good neuro exam on him, as he cannot really understand what you are asking him to do. 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 We will discuss this with his . The prognosis is quite bad for this, given the fact that the patient already has mediasti nal adenopathy present indicative of fairly advanced stage disease plus cytology type was mo re aggressive. 3.History of deep venous thrombosis with a filter in place. 4.Review of Care Everywhere indicates an indication for repeating a CT scan on the 16 of this month. If this is negative for any further bleeding, Coumadin may be able to be restar denise. He clearly is at extremely high risk for both venous and thrombotic events. 5.Chronic obstructive pulmonary disease, currently not wheezing. Will switch his nebs to p .r.n. 6.Diabetes, under good control. 7.I do plan to discuss this case in detail with the patient's . It is difficult for me to conceive that this individual would ever be able to return home without one on one care. I will discuss with his and see what plans we can come up with. Bon Couch M.D. AURE/MORA /[id number], Nancy Kiko, PINKY - 07/26/2017 9:52 AM PSTPatient being followed by [facility] UP SPECIALIST. Regular texture and nectar thickened liquids. PO intake fair to good. Do not antic ipate any nutritional issues during admission. Continue to follow q 5-7 days. Justus Remy MD - 07/25/2017 11:56 AM PST PROGRESS NOTE Hospital Day: 3 Patient's Name: John Griffith Today's Date: 07/25/2017 24-Hr Events& Subjective: The patient continues to have a very difficult time communicating. He does seem to be deny ing any pain or other discomfort today. Nursing staff report that he slept reasonably well last night. No report of any constipati on or diarrhea issues. He worked with OT, PT, and speech language pathology yesterday. Physical Exam: General. Well-developed, overweight male in no apparent acute distress. Vitals. Temperature 36.9degrees. Pulse 76. Respiratory rate 20. Blood pressure 104/59. O 2 sat 94 percent on room air. Skin. Warm and dry. No generalized rash. HEENT. Sclera and conjunctiva are clear. Oropharynx is damp. Chest. Clear to auscultation and percussion. Respirations are unlabored. Cardiovascular. Irregularly irregular. No murmurs, rubs, or gallops. Abdomen. Soft and nontender. Normal bowel tones. Extremities. No clubbing, cyanosis, or edema. Neuro. Sitting in a chair without difficulty. Able to follow simple 1 step commands. Sev ere expressive and likely receptive aphasia. No tremor. No facial droop. Strength appears symmetric in both upper and lower extremities. Psych. Calm and cooperative. Diagnostic Data: Fingerstick blood sugars 135-156. Head CT yesterday showed marked interval improvement of left temporoparietal hemorrhage and residual vasogenic edema and mild sub fall seen herniation which had improved since previou s study. Assessment and Plan 1. 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 The patient continues to have resulting dysphagia, aphasia, and right-sided neglect and weakness. Initial records sent from [facility] indicated that the tyesha ent was to have a follow-up head CT on the of this month. Follow-up CT shows improvemen t of the previous intracranial hemorrhage. On review of most recent documentation in [facility] very[facility], follow-up CT is recommended no earlier than 08/07/2017. -continue aspirin and statin therapy -continue OT, PT, and speech language pathology -continue modified textured diet -would plan on follow-up CT on 08/07/2017 and determine whether not to restart warfarin at that time. 2. Atrial fibrillation and history of DVT and PE. The patient had an SVC filter placed at [facility]. He is currently not on any anticoagulation because of his recen t intracranial hemorrhage. Heart rate is well controlled on current dose of diltiazem. -continue oral diltiazem -re-evaluate restarting anticoagulation after head CT the middle of this month 3. New diagnosis of diabetes. Fingerstick blood sugars are currently well controlled. The patient was started on oral metformin this week. -continue long-acting and short-acting insulin as well as metformin and continue to decreas e insulin dosage as tolerated -continue to follow fingerstick blood sugars Q a.c. and HS 4. COPD. Continues to appear to be well controlled. The patient was noted by staff to janet e difficulty managing MD eyes. -inhaled bronchodilators and steroids have been transitioned to nebulizer treatments 5. Pulmonary nodules and mediastinal lymphadenopathy. Found incidentally. Records from [facility] indicate that lymph node biopsy has come back positive for add no CA of likely pulmonary primary. Further studies are still pending. The patient's has bee n made aware of this by one of the physicians from [place]. She does not want this discu ssed with her at this time. I suspect that he is unlikely to be able to adequately understand this information currently. The patient's has been working and not availabl e for further discussion this week. -would recommend further discussion with the patient's when she is available next week regarding further evaluation and treatment plan 6. DVT prophylaxis. The patient continues to be at high risk for life-threatening thromboe mbolic complications. -continue enoxaparin Gillian Remy MD [facility] Medicine Department of Medicine [facility] Zohra Cohn, OTR/L,CHT - 07/24/2017 4:30 PM PSTFormatting of this note may be different from the original. [facility] OT Daily Note Reason for admit: CVA Precautions: Fall risk, DIET (purees and nectar thick), aspiration precautions Onset Date: 07/08/2017 Rehabilitation/ Treatment Diagnosis: CVA with impaired coordination RUE Time in: 900 Time out: 1000, Individual therapy History of present Illness: 61 year old man admitted with CVA symptoms. 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 He also had a GI b leed following administration of tPA and has new diagnosis of diabetes. 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 He presents for acu te rehab with receptive and expressive aphasia and R-sided neglect, impaired balance and mob ility. Subjective: Patient report: Aphasic and apraxic, however nods agreement to work with therapy. NPRS: Shakes his head no Location/Description of Pain: None Objective: Objective findings: Spontaneous scanning and attention to RT jered field with ball and balloon tasks Attention deficits with difficulty transitioning to the next step in a sequence requirin g tactile cues Functional mobility from manual W/C with Min assist for navigation Set-up for oral care sinkside with thickened water and cues to spit paste. Apraxic RT h and use spilling water and necessitating donning clean shirt. Treatment provided: Therapeutic Activity x 40 minutes for visual scanning, attending to RT jered field and propr ioception BUE. ADL x 20 minutes to brush teeth and change shirt Tolerance to activity: Fair. Education provided: Mobility and self care training Assessment: Pt spontaneously reaching and scanning into the RT jered field. Deficits in attention causi ng task perseveration and tactile cues to transition. Pt able to complete a four step seque nce after multiple trials (i.e., clap, clap > push, push). Discreet drift to the RT with nadja kelly W/C mobility. Set-up for oral care, however Pt does not engage in the task for a thoro ugh cleaning and lost control of his cup of thickened water spilling it down the front of hi s shirt. Barriers to patient's progress toward goals: Impaired communication and cognition Recommendations to nursing: Heavier or weighted cup and utensils. Plan: Plan next visit: ADL and push-pull activities for BUE. Activity in RT jered field as able. Discharge plan/recommendation: Home w/assist Goals: Short term goals: Goal Description Status Date Achieve by Date Status Notes 1. Toileting with LRD SBA without LOB. 07/22/2017 07/29/17 Ongoing 2. UB/LB dressing with SBA and use of LRD. 07/22/2017 07/29/17 Ongoing 3. Grooming from seated/standing with SBA with LRD 07/22/2017 07/29/17 Ongoing Oral care sea denise with set-up 07/24/17 4. Functional transfers with SBA without LOB during ADL. 07/22/2017 07/29/17 Ongoing correction goals: Goal Description Status Date Achieve by Date Status Notes 1. Functional mobility mod I with LRD. 07/22/2017 08/05/17 Ongoing Manual W/C 07/24/17 2.UB/LB dressing with mod I and LRD. 07/22/2017 08/05/17 Ongoing 3. Self-feeding with supervision only with minimal cueing. 07/22/2017 08/05/17 Ongoing 4. Toileting mod I with LRD. 07/22/2017 08/05/17 Ongoing Zohra Omalley, OTR/L,CHT Report signed, 07/24/2017 4:30 PM Blil Bush, PT - 07/24/2017 2:11 PM PSTFormatting of this note may be different fro m the original. [facility] PT Daily Note Reason for admit: CVA Precautions: fall risk Onset Date/Date of Surgery: 07/08/17 Rehabilitation/ Treatment Diagnosis: Difficulty walking, other abnormalities of gait and m obility Time in: 1300 Time out: 1400, Individual therapy History of present Illness: 61 year old man admitted with CVA symptoms. 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 He also had a GI b leed following administration of tPA and has new diagnosis of diabetes. 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 He presents for acu te rehab with receptive and expressive aphasia and R-sided neglect, impaired balance and mob ility. Subjective: Patient report: unable to report NPRS: n/a Location/Description of Pain: n/a Objective: Observation: sitting in chair upon arrival Treatment provided: 60 minutes therapeutic activities -sit<>stand x 12 reps with supervision -ambulates to bathroom to void in standing with SBA -ambulates 150' x 2 with a SPC and SBA - standing on blue foam in // bars -stepping over hurdles fwd/ sideways in // bars and with a SPC, SBA - navigating cones with a SPC, SBA -ball rolls with R and L UE on mat -standing pushups using // bars Education provided: balance training activities Therapist Assessment: The patient presents with L CVA with R sided neglect. He ambulates wi th a SPC and CGA with no loss of balance noted. He tolerates balance activities well using a SPC. Patient does have some difficulty understanding the task on hand and needs verbal an d visual demonstration. Patient will benefit from skilled PT intervention and should be abl e to return home with assist. Equipment needs: TBD Tolerance to increase in activity: good Barriers to patient's progress toward goals: impaired communication. Recommendations to nursing: Recommend FWW use for now until pt's fatigability can be assess ed, anticipate progression to less restrictive AD. Walk to meals as able. Plan: Plan next visit: gait, balance training Discharge plan/recommendation: Home w/assist and home health vs outpatient therapies Goals: Short term goals: Goal Description Status Date Achieve by Date Status Notes 1. Independent with transfers in and out of bed 07/22/2017 07/30/17 ongoing 2. Sit to stand transfers with supervision assist 07/22/2017 07/30/17 ongoing 3. Able to walk 150' with standby assist and LRAD 07/22/2017 07/30/17 ongoing 4. 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 Independent with sit to stand transfers between surfaces 07/22/2017 08/06/17 New 2. Able to walk >150' with mod independence and LRAD 07/22/2017 08/06/17 New 3. Able to climb 1 flight of stairs with mod independence and handrail 07/22/2017 08/06/17 New 4. Able to walk on uneven and compliant surfaces including ramps and curbs with supervision assist 07/22/2017 08/06/17 New 5. Balance improved as evidenced by score of >45 on swartz balance test 07/22/17 08/06/17 New Bill Bush, PT Report signed, 07/24/2017 2:11 PM Sapna Lee MS,CCC-[facility] UP SPECIALIST - 07/24/2017 12:16 PM PSTFormatting of this note may be differen t from the original. [facility] UP SPECIALIST DAILY NOTE Referring Provider: Phil Admission Date: 07/22/2017 Medical Diagnosis: CVA Rehabilitation/Treatment Diagnosis: dysphagia, expressive/receptive aphasia. Today's Date: 07/23/2017 Time In/Out: [id number] REVIEW OF PATIENT'S HOSPITALIZATION SINCE LAST VISIT: Inconsistent us of call light. SUBJECTIVE: pt is participatory and appears agreeable to texture trails of mechanical soft. SUBJECTIVE PAIN PRE: 0/10, POST: 0/10, LOCATION: na, NOTE: pt reports "I think I'm ok". OBJECTIVE: SKILLED THERAPY ADDRESSED: Speech language intervention targeting improving comprehension t hrough training in y/n visual aid use in reliability trials. Provided hand over hand trainin g to aid comprehension of task. Verbal and physical "yes" and "no" expression elicited thro [facility] direct modeling. LIMITATIONS: Patient's participation was not limited GOALS: SHORT-TERM GOALS: Goal Description Creation Date Achieve By Date Status Notes 1. Pt will improve comprehension to accurately respond y/n to basic need and biographical questioning using any modality, with 70% accurate response rate. 07/23/2017 07/29/2017 ongoin g 07/24: Elicited yes and no in isolated trials with maximal verbal and visual cues in 20 trials. Pt continues to perseverate on counting. With hand over hand assistance, pt answered biographical/personally relevant y/n questions for 10 trials with 100% accuracy due to max assist 2. Pt will improve expressive communication to verbalize 5 functional words in response to modeling/integral stimulation with max assist 80% of trials over two sessions. 07/23/2017 new goal 07/23 see response to y/n training above. 3. Pt will improve receptive communication to identify objects or pictures from a field of two given maximal semantic cues. 07/23/2017 07/29/2017 ongoing Matching object to verbal desc ription: 0/5 Matching picture to object in field of two: 3/5 4. Pt will participate in modified barium swallow study to objectively assess pharyngeal fu nctioning. 07/23/2017 07/28/2017 New goal new 5. With external modifications and clinician verbal/tactile cues, pt will manage mechanical soft textures in functional, nutritive quantities without s/sx aspiration. 07/23/20172016 achieved Achieved 07/24/17: Achieved observational trails of meal quantity mechanical soft with setup assistance and in termittent assist with utensil management. Pt demonstrates brisk and thorough chew, complete AP transit and no overt s/sx aspiration. Recommend cutting to ensure small bite size due to limited coordination and strength of extremities. No overt s/sx aspiration with 6 oz nectar thick juice, however, respirations appear increasingly labored during session. LONG-TERM GOALS: Goal Description Creation Date Achieve By Date Status Notes 1. Pt will improve oropharyngeal swallow function to return to least restrictive diet witho ut overt s/sx aspiration in quantities sufficient for nutritional oral intake 07/23/2017 New goal new 2. Pt will improve receptive/expressive communication to follow simple commands and express single word requests via any modality for basic needs with moderate assistance. 07/23/2017 08/11/2017 New goal new ASSESSMENT: Elicited verbal or gestured responses of target words yes and no with inconsist ent accuracy. Continues with profound ability to express needs due to apraxia and aphasia. PROGRESS TOWARDS GOALS: Good, to achieve stated therapy goals FUNCTIONAL LIMITATIONS: Safety Risks: being left alone, reacting to an emergency, managing medication, traveling alone in the community and advanced ADL management Swallow: risk for aspiration Communication: communicating need for assistance , following therapeutic instructions. PLAN: Next session, continue language intervention focusing on y/n reliability and semantic supports for comprehension. RECOMMENDATIONS: DISCHARGE RECOMMENDATIONS: Home w/assist and Home w/Home Health DIET RECOMMENDATIONS: [place] thick - like nectar juice or thick formulas (ex: Pediasure/Ens ure), Level 2 mechanically altered = cohesive, moist, fork mashed foods, requiring slight ch hampton/jaw munching MEDICATIONS TO BE GIVEN: Pills whole with liquids COMPENSATORY STRATEGIES: Upright 90 degrees for PO intake, Remain upright 45 min post feedi ng and Oral care after meals EDUCATION this session was focused to MD regarding diet modification. The MD was able to ve rbalize understanding. NURSING RECOMMENDATIONS/COMMUNICATION: Please remove extra utensils and eating supplies fro m tray to reduce motor planning difficulties. Medications one at a time with thickened liqui ds, pt is able to self administer and employ automatic movements. Transfer of patient care to OT This note will serve as an episode of care summary if the patient is discharged from the [facility] prior to the next treatment session. Sapna Lee MS,CCC-START UP SPECIALIST [facility] Sapna Lee MS,CCC-START UP SPECIALIST - 07/24/2017 10:45 AM PSTFormatting of this note may be differen t from the original. [facility] UP SPECIALIST DAILY NOTE Referring Provider: Phil Admission Date: 07/22/2017 Medical Diagnosis: CVA Rehabilitation/Treatment Diagnosis: dysphagia, expressive/receptive aphasia. Today's Date: 07/23/2017 Time In/Out: [id number] REVIEW OF PATIENT'S HOSPITALIZATION SINCE LAST VISIT: Inconsistent us of call light. SUBJECTIVE: pt is participatory and appears agreeable to texture trails of mechanical soft. SUBJECTIVE PAIN PRE: 0/10, POST: 0/10, LOCATION: na, NOTE: pt reports "I think I'm ok". OBJECTIVE: SKILLED THERAPY ADDRESSED: Dysphagia intervention targeting diagnostic assessment to presen tation of challenge trails of mechanical soft solids at meal. Tray was prepared by cutting soft items in less than 1 inch pieces, and moistening eggs initially with gravy. Monitored patient for pacing and head positioning. Pt requires assistance with utensils and use of con tainers due to apraxia. Instructed RN, and demonstrated reducing distractions during medicat ion administration by removing tray, placing pills one at a time on a high contrast surface and allowing patient to automatically perform task. LIMITATIONS: Patient's participation was not limited GOALS: SHORT-TERM GOALS: Goal Description Creation Date Achieve By Date Status Notes 1. Pt will improve comprehension to accurately respond y/n to basic need and biographical questioning using any modality, with 70% accurate response rate. 07/23/2017 07/29/2017 New go al new 2. Pt will improve expressive communication to verbalize 5 functional words in response to modeling/integral stimulation with max assist 80% of trials over two sessions. 07/23/2017 new goal new 3. Pt will improve receptive communication to identify objects or pictures from a field of two given maximal semantic cues. 07/23/2017 07/29/2017 New goal new 4. Pt will participate in modified barium swallow study to objectively assess pharyngeal fu nctioning. 07/23/2017 07/28/2017 New goal new 5. With external modifications and clinician verbal/tactile cues, pt will manage mechanical soft textures in functional, nutritive quantities without s/sx aspiration. 07/23/20172016 achieved Achieved 07/24/17: Achieved observational trails of meal quantity mechanical soft with setup assistance and in termittent assist with utensil management. Pt demonstrates brisk and thorough chew, complete AP transit and no overt s/sx aspiration. Recommend cutting to ensure small bite size due to limited coordination and strength of extremities. No overt s/sx aspiration with 6 oz nectar thick juice, however, respirations appear increasingly labored during session. LONG-TERM GOALS: Goal Description Creation Date Achieve By Date Status Notes 1. Pt will improve oropharyngeal swallow function to return to least restrictive diet witho ut overt s/sx aspiration in quantities sufficient for nutritional oral intake 07/23/2017 New goal new 2. Pt will improve receptive/expressive communication to follow simple commands and express single word requests via any modality for basic needs with moderate assistance. 07/23/2017 08/11/2017 New goal new ASSESSMENT: Good management of mechanical soft trials at meal without overt s/sx aspiration , whoever due to apraxia and weakness tray preparation will be required. Recommend solid betty d upgrade. Aspiration precautions posted. PROGRESS TOWARDS GOALS: Good, to achieve stated therapy goals FUNCTIONAL LIMITATIONS: Safety Risks: being left alone, reacting to an emergency, managing medication, traveling alone in the community and advanced ADL management Swallow: risk for aspiration Communication: communicating need for assistance , following therapeutic instructions. PLAN: Next session, continue language intervention focusing on y/n reliability and semantic supports for comprehension. RECOMMENDATIONS: DISCHARGE RECOMMENDATIONS: Home w/assist and Home w/Home Health DIET RECOMMENDATIONS: [place] thick - like nectar juice or thick formulas (ex: Pediasure/Ens ure), Level 2 mechanically altered = cohesive, moist, fork mashed foods, requiring slight ch hampton/jaw munching MEDICATIONS TO BE GIVEN: Pills whole with liquids COMPENSATORY STRATEGIES: Upright 90 degrees for PO intake, Remain upright 45 min post feedi ng and Oral care after meals EDUCATION this session was focused to MD regarding diet modification. The MD was able to ve rbalize understanding. NURSING RECOMMENDATIONS/COMMUNICATION: Please remove extra utensils and eating supplies fro m tray to reduce motor planning difficulties. Medications one at a time with thickened liqui ds, pt is able to self administer and employ automatic movements. Transfer of patient care to OT This note will serve as an episode of care summary if the patient is discharged from the [facility] prior to the next treatment session. Sapna Lee MS,CCC-START UP SPECIALIST [facility] Reported Signed 07/24/2017 10:45 AM Gillian Remy MD - 07/23/2017 3:33 PM PST PROGRESS NOTE Hospital Day: 1 Patient's Name: John Griffith Today's Date: 07/23/2017 24-Hr Events& Subjective: The patient has a very difficult time communicating. I am not certain that he is able to a nswer my questions appropriately. He did work with OT today. Nursing staff reported that brayan quiroz seemed to sleep well last night. Physical Exam: General. Well-developed, obese male in no apparent acute distress. Vitals. Temperature 36.8degrees. Pulse 86. Respiratory rate 24. Blood pressure 119/77. O 2 sat 97 percent on room air. Skin. Warm and dry. HEENT. Sclera and conjunctiva are clear. Oropharynx is damp. Chest. Clear to auscultation and percussion. Respirations are unlabored. Cardiovascular. Irregularly irregular. No murmurs, rubs, or gallops. Abdomen. Soft and nontender. Normal bowel tones. Extremities. No clubbing, cyanosis, or edema. Neuro. Alert. Unable to assess orientation. No facial droop. Pupils are equal, round, r eactive to light. No tremor. Moderate to severe aphasia. Psych. Calm and cooperative. Diagnostic Data: Fingerstick blood sugars 104-146. Basic metabolic panel unremarkable. CBC remarkable for hemoglobin 11.2. Assessment and Plan 1. 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 Patient with resulting dysphagia, apha vinh, and right-sided neglect and weakness. -continue aspirin and statin therapy -continue OT, PT, and speech language pathology -modified textured diet 2. Atrial fibrillation and history of DVT and PE. The patient's previously prescribed warf emelina was discontinued when he converted his thromboembolic CVA to a hemorrhagic CVA. He has an IVC filter now. -recheck head CT tomorrow to evaluate whether not it is safe to restart warfarin 3. New diagnosis of diabetes. Blood sugars appear to be very well controlled on current do ses of insulin. -start metformin at 500 milligrams p.o. q.h.s. -decrease sliding scale to low-dose and decrease glargine to 8 units daily -continue ADA diet 4. COPD. Continues to appear to be well compensated. Patient had a recent exacerbation af ter his bronchoscopy associated with leukocytosis. Leukocytosis has resolved. -continue usually prescribed bronchodilators and inhaled steroid -have added p.r.n. albuterol by nebulizer as needed 5. Pulmonary nodules and mediastinal lymphadenopathy. Lymph node biopsy pathology was not available on transfer. -will request path results from [facility] 6. Mild hypokalemia. This appears to have resolved. 7. GI bleed with melena after treatment with tPA recently. The patient is mildly anemic bu t hemoglobin appears stable. -continue PPI treatment 8. DVT prophylaxis. The patient is at high risk for life-threatening thromboembolic compli cations. -continue enoxaparin Gillian Remy MD [facility] Medicine Department of Medicine [facility] Yaniv Valverde, VICENTER/Dipti - 07/23/2017 2:21 PM PSTFormatting of this note may be different f rom the original. [facility] OT Initial Evaluation Demographics: Type of patient: Inpt Rehab Referring Provider: Gillian Remy MD Reason for admit: CVA Code Status Code Status Full Code Rehabilitation/Treatment Diagnosis: CVA with impaired coordination RUE Onset Date/Date of Surgery: Admitted to hospital 07/08/17 Precautions/Weight Bearing Status: Fall risk, DIET (purees and nectar thick), aspiration pr ecautions Time in: 704 Time out: 809 , Individual therapy History of present illness: 61 year old man admitted with CVA symptoms. 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 He also had a GI b leed following administration of tPA and has new diagnosis of diabetes. 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 He presents for acu te rehab with receptive and expressive aphasia and R-sided neglect, impaired balance and mob ility. Subjective Exam: Pain Rating: No signs of pain throughout evaluation Location/description of pain: NA Patient Interview: Very limited verbalization r/t aphasia. PLOF: Pt unable to provide and family not present during evaluation. Pre-screen indicates pt lived with his in an apartment in [place], OR independent for ADL/IADL. Will confi rm with pt as POC continues. CLOF: CGA-min A for transfers and mobility with 1 significant LOB to R side when attemptin g to transfer onto toilet. Min A for dressing and mod A for showering from seated. Cues for activity pacing with 1 episode of significant SOB. Assistive devices used at home: Unknown Home architectural barriers (toilet, shower, bathroom): Unknown Current home environment: Lives with Others - Past Medical History: Diagnosis Date Atrial fibrillation (HCC) Chronic airway obstruction (HCC) COPD (chronic obstructive pulmonary disease) (HCC) CVA (cerebral vascular accident) (HCC) Ischemic left MCA Diabetes (HCC) DVT (deep venous thrombosis) (HCC) Dysphagia Emphysema lung (HCC) GI bleed Multiple mesenteric infarcts and melena Hypertension ICH (intracerebral hemorrhage) (HCC) Mediastinal adenopathy PE (pulmonary thromboembolism) (HCC) Pulmonary nodules Current Facility-Administered Medications Medication Dose Route Frequency Provider Last Rate Last Dose acetaminophen (TYLENOL) tablet 650 mg 650 mg oral Q6H PRN Gillian Remy MD aspirin chewable tablet 81 mg 81 mg oral DAILY Gillian Remy MD 81 mg at 7 0912 atorvastatin (LIPITOR) tablet 80 mg 80 mg oral DAILY Gillian Remy MD 80 mg at 1 09/23/16 0912 bisacodyl (DULCOLAX) suppository 10 mg 10 mg rectal DAILY PRN Gillian Remy MD budesonide (PULMICORT) 180 mcg/actuation inhaler 1 puff 1 puff inhalation BID Gillian Rmey MD 1 puff at 07/23/17 1047 dextrose 50 % in water IV 25 mL 25 mL intravenous PRN Gillian Remy MD dilTIAZem CD 24 hour release (CARDIZEM CD) capsule 240 mg 240 mg oral DAILY Gillian Remy MD 240 mg at 07/23/17 0909 enoxaparin (LOVENOX) injection 40 mg 40 mg subcutaneous QPM Gillian Remy MD 40 mg at 07/22/17 2121 glucagon (GLUCAGEN) injection 1 mg 1 mg intramuscular PRN Gillian Remy MD insulin aspart (NOVOLOG FLEXPEN) injection 1-15 Units 1-15 Units subcutaneous AC and H S Gillian Remy MD 2 Units at 07/22/17 2123 insulin detemir (LEVEMIR) injection 10 Units 10 Units subcutaneous DAILY Gillian melendez MD 10 Units at 07/23/17 0906 ipratropium-albuterol (COMBIVENT RESPIMAT) inhaler 1 puff 1 puff inhalation QID Anais Remy MD 1 puff at 07/23/17 1407 lisinopril (PRINIVIL) tablet 20 mg 20 mg oral DAILY Gillian Remy MD 20 mg at 0912 melatonin tablet TbER 3 mg 3 mg oral QPM Gillian Remy MD 3 mg at 07/22/17 2122 pantoprazole (PROTONIX) tablet 40 mg 40 mg oral DAILY Gillian Remy MD 40 mg at 07/23/17 0912 polyethylene glycol (MIRALAX) packet 17 g 17 g oral DAILY PRN Gillian Remy MD salmeterol (SEREVENT) 50 mcg/dose diskus inhaler 1 puff 1 puff inhalation BID Gillian Remy MD 1 puff at 07/23/17 1047 Objective Exam: Orientation: Unable to identify r/t aphasia Cognitive/Behavioral: Pleasant and agreeable throughout evaluation. OT suspects possible li mitation in task initiation. No noted impulsivity during evaluation. Comprehension: suspected aphasia Expression: aphasia Visual perceptual: No formal testing completed. However, pt demonstrating visual tracking i n all quadrants without difficulty during evaluation. RN reporting having noted what appeare d to be some difficulty with visual search. OT will continue to assess for impairments. ROM: BUE AROM WFL Strength: LUE 5/5; RUE 4+/5 Neuro status: Coordination/Motor Control: finger to nose WFL bilaterally. Rapid alternating movment mildly delayed in RUE compared to LUE. Digital opposition mildy delayed on RUE. and Mild R neglect more prominent during bimanual tasks. Activities of daily living: UB Dressing supervision assist with setup LB Dressing contact-guard assist Toileting contact-guard assist assist Voiding from standing with urgency Grooming contact-guard assist assist from standing at sink with extra time only; noted dec rease in coordination for doffing/donning toothpaste cap and manipulating toothbrush Eating Min A at times for cleaning R hand after he unknowingly placed R hand into food dis h and required cueing to remove, otherwise SBA on purees and nectar thick liquids. Safe use of standard utensils. Bathing Min assist with max cueing seated in walk-in shower on bench Transfers: Toilet contact-guard assist assist stand step with FWW and grab bar Chair contact-guard assist assist stand step FWW Bed mobility supervision assist scooting and supine-sit flat bed Treatment Performed: Evaluation Education Provided: Safe transfers and use of FWW Left Patient at end of Tx: seated recliner with alarm active and call light in reach. 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 Pt demonstrates mild coordination impairments affected RUE/RLE with R neglect, impaired balance and safety for mobility below his functional basel ine as well as pronounced impairments in communication. Skilled OT services are medically ne cessary to progress his functional independence for self-care and mobility. OT anticipates p t will be able to return home with general supervision for self-care participation, however 15/03 supervision likely required for cognition and safety awareness. Plan: Equipment Needs: To be determined Rehab Potential: Good, to achieve stated therapy goals Co-morbidities that may influence discharge plan: Impaired communication and cognition, INSTRUMENT DESIGNER D Goals: Rehab objective: To achieve optimal level of patient functioning, Self-care and Quality of life Short term goals: Goal Description Status Date Achieve by Date Status Notes 1. Toileting with LRD SBA without LOB. 07/22/2017 07/29/17 New goal 2. UB/LB dressing with SBA and use of LRD. 07/22/2017 07/29/17 New goal 3. Grooming from seated/standing with SBA with LRD 07/22/2017 07/29/17 New goal 4. Functional transfers with SBA without LOB during ADL. 07/22/2017 07/29/17 New goal exterminator helper goals: Goal Description Status Date Achieve by Date Status Notes 1. Functional mobility mod I with LRD. 07/22/2017 08/05/17 New goal 2.UB/LB dressing with mod I and LRD. 07/22/2017 08/05/17 New goal 3. Self-feeding with supervision only with minimal cueing. 07/22/2017 08/05/17 New goal 4. Toileting mod I with LRD. Frequency and duration: 60 minutes per day x 5 days per week Interventions: Therapeutic exercise Neuromuscular re-ed Therapeutic Activities Self care/ADL Discharge Plan/Prognosis: Home w/assist Recommendations for Nursing: CGA with FWW for mobility, seated bathing DIVINA Sullivan/Dipti Report signed, 07/23/2017 2:21 PM Gilda Segura PT - 07/23/2017 12:27 PM PSTFormatting of this note may be different from t he original. [facility] PT Initial Evaluation Demographics: Type of patient: Inpt Rehab Referring Provider: Phil, Gillian E Reason for admit: CVA Code Status Code Status Full Code Rehabilitation/Treatment Diagnosis: Difficulty walking, other abnormalities of gait and mob ility Onset Date/Date of Surgery: 07/08/17 (CVA hospital admission) Precautions/Weight Bearing Status: Fall risk, aspiration Time in: 11:00 Time out: 12:05 , Individual therapy History of present illness: 61 year old man admitted with CVA symptoms. 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 He also had a GI b leed following administration of tPA and has new diagnosis of diabetes. 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 He presents for acu te rehab with receptive and expressive aphasia and R-sided neglect, impaired balance and mob ility. Subjective Exam: Pain Rating: Appears comfortable. Unable to report pain complaint Location/description of pain: N/A Patient Interview: Very limited patient interview due to aphasia -will follow-up with pt's to confirm information gathered by chart review PLOF: Lives independently with his CLOF: Ambulatory with and without assistive device with assistance, contact guard to min a ssist for transfers and ambulation Assistive devices used at home: None -presumed Home architectural barriers (ramp, stairs): uncertain -pt reportedly lives in an apartment Current home environment: Lives with Others Who provides assistance: patient's (works days), and daughter Past Medical History: Diagnosis Date Atrial fibrillation (HCC) Chronic airway obstruction (HCC) COPD (chronic obstructive pulmonary disease) (HCC) CVA (cerebral vascular accident) (HCC) Ischemic left MCA Diabetes (HCC) DVT (deep venous thrombosis) (HCC) Dysphagia Emphysema lung (HCC) GI bleed Multiple mesenteric infarcts and melena Hypertension ICH (intracerebral hemorrhage) (HCC) Mediastinal adenopathy PE (pulmonary thromboembolism) (HCC) Pulmonary nodules Current Facility-Administered Medications Medication Dose Route Frequency Provider Last Rate Last Dose acetaminophen (TYLENOL) tablet 650 mg 650 mg oral Q6H PRN Gillian Remy MD aspirin chewable tablet 81 mg 81 mg oral DAILY Gillian Remy MD 81 mg at 7 0912 atorvastatin (LIPITOR) tablet 80 mg 80 mg oral DAILY Gillian Remy MD 80 mg at 1 09/23/16 0912 bisacodyl (DULCOLAX) suppository 10 mg 10 mg rectal DAILY PRN Gillain Remy MD budesonide (PULMICORT) 180 mcg/actuation inhaler 1 puff 1 puff inhalation BID Gillian Remy MD 1 puff at 07/23/17 1047 dextrose 50 % in water IV 25 mL 25 mL intravenous PRN Gillian Remy MD dilTIAZem CD 24 hour release (CARDIZEM CD) capsule 240 mg 240 mg oral DAILY Gillian Remy MD 240 mg at 07/23/17 0909 enoxaparin (LOVENOX) injection 40 mg 40 mg subcutaneous QPM Gillian Remy MD 40 mg at 07/22/172120 glucagon (GLUCAGEN) injection 1 mg 1 mg intramuscular PRN Gillian Remy MD insulin aspart (NOVOLOG FLEXPEN) injection 1-15 Units 1-15 Units subcutaneous AC and H S Gillian Remy MD 2 Units at 07/22/172122 insulin detemir (LEVEMIR) injection 10 Units 10 Units subcutaneous DAILY Gillian melendez MD 10 Units at 07/23/17 0906 ipratropium-albuterol (COMBIVENT RESPIMAT) inhaler 1 puff 1 puff inhalation QID Anais Remy MD 1 puff at 07/23/17 0925 lisinopril (PRINIVIL) tablet 20 mg 20 mg oral DAILY Gillian Remy MD 20 mg at 0912 melatonin tablet TbER 3 mg 3 mg oral QPM Gillian Remy MD 3 mg at 07/22/172121 pantoprazole (PROTONIX) tablet 40 mg 40 mg oral DAILY Gillian Remy MD 40 mg at 07/23/17 0912 polyethylene glycol (MIRALAX) packet 17 g 17 g oral DAILY PRN Gillian Remy MD salmeterol (SEREVENT) 50 mcg/dose diskus inhaler 1 puff 1 puff inhalation BID Gillian Remy MD 1 puff at 07/23/17 1047 Systems review/Screen: Musculoskeletal Neuro Cardiopulmonary Integumentary Yes Yes Yes No Objective Exam: Orientation: Unable to assess due to aphasia Observation: Pt supine in bed, alert and cooperative. He follows simple visual/gestural ins tructions, but struggles with mirroring more complex tasks Posture/alignment: Mildly increased thoracic kyphosis, rounded shoulders and forward head Neuro status: Coordination/Motor Control: appears to have some dysdiadochokinesia in all 4 extremities vs difficulty understanding instruction. START UP SPECIALIST indicates some observation of aprax ia and Sensation: Appears intact in upper and lower extremities -pt withdraws to plantar sti mulation of his foot bilaterally with symmetric responses. Appears to have R-sided neglect b ut responds to repeated cues to attend to stimuli there. Unable to accurately assess vision. ROM: No significant deficits noted MMT: Assessment somewhat limited by communication impairments Lower extremity manual muscle tests (R, L): Hip flexion: 3/5, 3/5 -at least Knee flexion: 4/5, 4/5 -at least Knee extension: 5/5, 5/5 Ankle DF: 5/5, 5/5 Functional mobility: Bed mobility: Supine to sit supervision of 1 Sit to stand contact-guard assist of 1 Transfer bed to chair stand step contact-guard assist of 1 FWW Gait: Ambulates with contact-guard assist of 1, FWW >150 feet; 150' with no AD and min ass ist; 100' with SPC and contact guard Stairs: Up/down 12 steps contact-guard assist of 1 step-to pattern with a rail, can climb steps with unilateral or bilateral handrail WC mobility: Observed propelling w/c with supervision assist from staff. Balance: see swartz balance scale score below Tolerance to standing activities: Good -tolerated activity without evidence of significant fatigue; pt unable to report subjective symptoms Outcome measures: SWARTZ balance scale 30/56 Gait speed with FWW = 0.6 ft/sec Gait speed with SPC = 0.7 ft/sec Treatment Performed: 35m gait training: Gait training with FWW: -150' x3 -contact guard assist progressing to standby assist Trial of ambulation with SPC: 100' with close contact guard assist Trial of ambulation with no AD: 100', 50' with close contact guard Stair trainin steps with 2 handrails + 9 steps with 1 HR, contact guard assist Ramp training with FWW, 4' ramp with contact guard Education Provided: Brief review of PT POC, gestural instruction for transfers, gait traini ng with various assistive devices Left Patient at end of Tx: Sitting up in wheelchair with SALES LEAD GENERATOR for transport to lunch room Assessment: Physical Impairment: Arousal, attention, and cognition, Gait, locomotion, and balance and O ther: communication Functional Limitations: Self-Care, Home management and Community/leisure Problem List: Neuromuscular, Balance, Difficulty walking, Falls or poor balance and Other: impaired communication Therapist Assessment: John is a 61 year old man admitted for acute rehab care after ischemi c CVA with conversion to hemorrhagic injury. He presents with mildly impaired coordination a ffecting his upper and lower extremities, R-sided neglect and balance/gait impairment. His g ait pattern is grossly normal, but slow speed and evidence of impaired balance based on obje ctive measure. Although his score on balance test is low, he did well and was able to attemp t all items and has good prognosis for improvement. He did well with simple gestures to comm unicate, but will need to work with START UP SPECIALIST on communication strategies. With support from giacomo luna, I anticipate that he will be able to return home, but may need 24 hr support depending on cognition and safety awareness. Plan: Equipment Needs: May need ambulatory assistive device, although at present appears to have good prognosis to recover independent ambulation with no device. Rehab Potential: Good, to achieve stated therapy goals Co-morbidities that may influence discharge plan: impaired communication likely to impact o utcomes. Goals and POC: Rehab objective: To achieve optimal level of patient functioning, Self-care, Self-responsib ility, [place] and Quality of life and safety Short term goals: Goal Description Status Date Achieve by Date Status Notes 1. Independent with transfers in and out of bed 07/22/2017 07/30/17 New 2. Sit to stand transfers with supervision assist 07/22/2017 07/30/17 New 3. Able to walk 150' with standby assist and LRAD 07/22/2017 07/30/17 New 4. Able to climb 1 flight of steps with a handrail and standby assist 07/22/2017 07/30/17 Ne w correction goals: Goal Description Status Date Achieve by Date Status Notes 1. Independent with sit to stand transfers between surfaces 07/22/2017 08/06/17 New 2. Able to walk >150' with mod independence and LRAD 07/22/2017 08/06/17 New 3. Able to climb 1 flight of stairs with mod independence and handrail 07/22/2017 08/06/17 New 4. Able to walk on uneven and compliant surfaces including ramps and curbs with supervision assist 07/22/2017 08/06/17 New 5. Balance improved as evidenced by score of >45 on swartz balance test 07/22/17 08/06/17 New Frequency and duration: 1x/day or equivalent of 60 min treatment x5-6 days/wk Interventions: Gait training Therapeutic exercise Neuromuscular re-ed Therapeutic Activities Discharge Plan/Prognosis: Home w/assist and home health vs outpatient therapies Recommendations for Nursing: Recommend FWW use for now until pt's fatigability can be asses sed, anticipate progression to less restrictive AD. Walk to meals as able. A Physical Therapist Flower Grader may be involved in this care, as determined appropriate by t he Physical Therapist Gilda Segura, PT Report signed, 07/23/2017 12:27 PM Nancy Wolff, RD - 07/23/2017 10:53 AM PSTPatient screens at nutritional risk upon admis feliciano due to dysphagia. Patient being followed by START UP SPECIALIST. Appears to have done fairly well with breakfast his am with pureed and thickened liquids. Patient with reasonable fasting blood glucose. Will continue to follow. Uncertain if patient was on insulin prior to CVA. Fairly l ow doses here thus far. Patient may be a candidate for metformin. Continue to follow. Sapna Lee MS,CCC-START UP SPECIALIST - 07/23/2017 9:19 AM PSTFormatting of this note may be different from the original. [facility] [place] START UP SPECIALIST dysphagia and speech language EVALUATION Referring Provider: Phil Admission Date: 07/22/2017 Medical Diagnosis: CVA Rehabilitation/Treatment Diagnosis: dysphagia, expressive/receptive aphasia. Today's Date: 07/23/2017 Time In/Out: 4107-8169 (clinical swallow evaluation) 1300--1350 (aphasia evaluation) HISTORY OF PRESENT ILLNESS/INJURY: John Griffith is a 61 y.o. M referred for evaluation o f dysphagia and communication. Mr. 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 Per review of medic al records and H&P, pt was admitted to [facility] on 07/08. due to suspected ischemic CVA he received tPA. Head CT the following day revealed hemorrhage int he left MCA territory. T his resulted in right sided neglect, motor impairments, receptive and expressive aphasia and dysphagia. Upon admit to our program, he diet order includes puree and nectar thick liquid s. 61-year-old male transferred to inpatient Rehab from [facility] after thrombo embolic CVA which then converted to an ischemic CVA PAST MEDICAL/SURGICAL HISTORY: Past Medical History: Diagnosis Date Atrial fibrillation (HCC) Chronic airway obstruction (HCC) COPD (chronic obstructive pulmonary disease) (HCC) CVA (cerebral vascular accident) (HCC) Ischemic left MCA Diabetes (HCC) DVT (deep venous thrombosis) (HCC) Dysphagia Emphysema lung (HCC) GI bleed Multiple mesenteric infarcts and melena Hypertension ICH (intracerebral hemorrhage) (HCC) Mediastinal adenopathy PE (pulmonary thromboembolism) (HCC) Pulmonary nodules Past Surgical History Procedure Laterality Date Ivc filter placement MEDICATIONS: Current Facility-Administered Medications Medication Dose Route Frequency acetaminophen (TYLENOL) tablet 650 mg 650 mg oral Q6H PRN aspirin chewable tablet 81 mg 81 mg oral DAILY atorvastatin (LIPITOR) tablet 80 mg 80 mg oral DAILY bisacodyl (DULCOLAX) suppository 10 mg 10 mg rectal DAILY PRN budesonide (PULMICORT) 180 mcg/actuation inhaler 1 puff 1 puff inhalation BID dextrose 50 % in water IV 25 mL 25 mL intravenous PRN dilTIAZem CD 24 hour release (CARDIZEM CD) capsule 240 mg 240 mg oral DAILY enoxaparin (LOVENOX) injection 40 mg 40 mg subcutaneous QPM glucagon (GLUCAGEN) injection 1 mg 1 mg intramuscular PRN insulin aspart (NOVOLOG FLEXPEN) injection 1-15 Units 1-15 Units subcutaneous AC and H S insulin detemir (LEVEMIR) injection 10 Units 10 Units subcutaneous DAILY ipratropium-albuterol (COMBIVENT RESPIMAT) inhaler 1 puff 1 puff inhalation QID lisinopril (PRINIVIL) tablet 20 mg 20 mg oral DAILY melatonin tablet TbER 3 mg 3 mg oral QPM pantoprazole (PROTONIX) tablet 40 mg 40 mg oral DAILY polyethylene glycol (MIRALAX) packet 17 g 17 g oral DAILY PRN salmeterol (SEREVENT) 50 mcg/dose diskus inhaler 1 puff 1 puff inhalation BID ALLERGIES: Allergies No Known Allergies PRECAUTIONS: CVA PREVIOUS SPEECH THERAPY: No PRIOR LEVEL OF FUNCTION: HOME ENVIRONMENT: spouse PRIOR COMMUNICATION STATUS: Independent PRIOR COGNITION LEVEL: Reported as independent PRIOR TASKS INCLUDED: Medication Management and Household Maintenance at Independent level. PRIOR DIET TEXTURE: Thin - no thickener, Regular texture diet = no restrictions MEDICATIONS: Pills with liquids FEEDING ASSISTANCE: Independent ENDURANCE DURING MEALS: WNL CURRENT LEVEL OF FUNCTIONING: Changes from PLOF noted include impaired performance in: Swallow and communication. CURRENT DIET TEXTURE & LIQUID CONSISTENCY: [place] thick - like nectar juice or thick formul as (ex: Pediasure/Ensure) with Level 1 pureed = very cohesive, pudding-like, requires no yariel wing, MEDICATIONS: Pills crushed in puree FEEDING ASSISTANCE: Mod assist SUBJECTIVE: Pt is agreeable to participating. It is apparent that he requires a high level of visual cues due to reduced understanding of instructions. SUBJECTIVE PAIN PRE: 0/10, POST: 0/10, , NOTE: When asked, reports "I think I'm OK. PATIENT GOALS: Unable to state. OBJECTIVE FINDINGS: TESTS: Clinical swallow Evaluation ORAL MECHANISM EXAMINATION: Limited by impaired response to motor commands, suspected compo nent of apraxia. DENTITION: Many missing teeth and Poor repair ORAL MUCOSA: moist FACIAL FEATURES AT REST: symmetrical LABIAL MOVEMENTS: symmetrical TONGUE APPEARANCE: no atrophy or fasciculation. LINGUAL MOVEMENTS:limited evaluation due to motor imitation JAW: normal range for opening. P.O. TRIALS: The following consistencies were trialed with the patient: puree solids, mecha nical soft solids, nectar thick liquids. Medications trialed with puree and with nectar thi ck liquids. Position During Assessment: upright at meal. Feeding Assistance: partial assist for self feeding due to coordination. Factors Affecting Performance: none Liquid Consistency Administered Via Quantity Response [place] thick Open cup 4 oz. Pt initiates single and sequential sips self fed. Prolonged or al hold and effortful oral transit intermittently. Laryngeal elevation appears complete but mildly delayed. Delayed cough x 2 Solid Textures Administered Via Quantity Response Puree Tsp self fed 9 tsp Piecemeal oral residue but no pocketing. No overt s/sx aspiration . Mechanical soft banana Self fed via hand and fork. 6 bites Mildly prolonged chew due to mi ssing dentition. Complete oral preparation and only mild oral residue. No overt s/sx aspirat ion. Medications whole with pure tsp 1 Pt attempts chewing of bolus. Medication with nectar thick liquids 1 at a time. Self fed. 4 Effective oral transit and no overt s/sx aspiration. ASSESSMENT: CLINICAL IMPRESSIONS: Examination results, including review of history, patient interview a nd objective findings are suggestive of mild oral and pharyngeal phase swallow with suspecte d apraxic component impacting the coordination of the oropharyngeal swallow. Aspiration ris k present. A modified barium swallow study is indicated to objectively passes pharyngeal pha se in anticipation of thin liquid upgrade. Aphasia evaluation reveals severe expressive and receptive aphasia with underlying apraxia limiting patient's ability to follow simple direct ions and profoundly limiting expression of basic wants and needs. Skilled Speech-Language Pathology services are deemed medically necessary in order to reduc e risk of aspiration and return patient to highest level of safe nutritional intake, improve expressive and receptive communication in order to allow patient to express basic and medic al needs and understand directions to participate in his self care. Prognosis for achieving stated outcomes is Fair based on therapeutic probes. FUNCTIONAL LIMITATIONS: Safety Risks: reacting to an emergency, managing medication, trave ling alone in the community and advanced ADL management Swallow: risk for aspiration Communication: expression of basic wants and needs , following therapeutic, medical and s afety instructions. FIMS: - Eatin - Minimal Contact Assistance - Comprehension: 2 - Maximum Assistance - Expression: 2 - Maximum Assistance - Social Interaction: 5 - Supervision/Setup - Problem Solvin - Moderate Assistance - Memory: 3 - Moderate Assistance RECOMMENDATIONS: DISCHARGE RECOMMENDATIONS: Home w/assist and Home w/Home Health DIET RECOMMENDATIONS: [place] thick - like nectar juice or thick formulas (ex: Pediasure/Ens ure), Level 1 pureed = very cohesive, pudding-like, requires no chewing, MEDICATIONS TO BE GIVEN: Pills whole with liquids FEEDING ASSISTANCE: Mod assist COMPENSATORY STRATEGIES: -Limit items on tray to improve motor planning for self feeding -slow rate -provide medications one at a time with thickened liquids - Oral care after meals Aphasia Evaluation: The [place] Aphasia Screening Test (MAST) is a standardized measure to assess strengths /weaknesses of individuals with impaired communication/language skills. MAST Expressive Index Naming 0/10 Automatic Speech 1/10 Repetition 0/10 Writing 0/10 Verbal Fluency 0/10 Expressive Subscale 150 MAST Receptive Index Yes/No Accuracy 2/20 Object Recognition 0/10 Following Instructions 0/10 Reading Instructions 0/10 Total Subscale 2/50 Total Score: 3/100 Interpretation: Naming: Pt responded to direct modeling after repetition in 1/5 probes during evaluation. I n extended testing, responded to a total of 2 direct word models in 10 trials. Integral stim ulation elicited phonemic jargon paraphasias as well as stereotypy of counting. Automatics: Pt counted from 2-6 with model and written cue. Y/N accuracy in testin20 Y/N accuracy given written cues for basic biographically relevant information: 3/10. Pt res ponded 'yes' for 80% of trials. Object recognition: in extended testing, pt identified objects in a field of two with 4/10 accuracy, improved to 5/10 when given semantic details. Picture recognition: in extended testing, pt identified pictures in a field of two with 2/1 0 accuracy. Following instructions: groping, apraxic movements noted. Hand over hand assist achieved ap proximation of pointing. Spontaneous utterances: High occurrence of jargon and non word paraphasias and stereotypy o f counting. Pt initiates spontaneously "I'm ok" and "yes" , although not accurate in all con texts. Noted to say "TV off" and "heat on" spontaneously. Additional Ratings: Dysarthria: no dysarthria noted in spontaneous speech, Paraphasias: se misty , Oriented: limited evaluation due to reduced accuracy with y/n response. PLAN OF CARE: INTERVENTIONS: Aphasia Evaluation Clinical Swallow Evaluation Speech Language Treatment Treatment of Swallow Dysfunction Video Fluoroscopic Swallowing Study FREQUENCY AND INTENSITY: 60 minutes a day, 5-6 times per week. DISCHARGE PLAN: Home with caregiver assist and Visiting health services SHORT-TERM GOALS: Goal Description Creation Date Achieve By Date Status Notes 1. Pt will improve comprehension to accurately respond y/n to basic need and biographical questioning using any modality, with 70% accurate response rate. 07/23/2017 07/29/2017 New go al new 2. Pt will improve expressive communication to verbalize 5 functional words in response to modeling/integral stimulation with max assist 80% of trials over two sessions. 07/23/2017 new goal new 3. Pt will improve receptive communication to identify objects or pictures from a field of two given maximal semantic cues. 07/23/2017 07/29/2017 New goal new 4. Pt will participate in modified barium swallow study to objectively assess pharyngeal fu nctioning. 07/23/2017 07/28/2017 New goal new 5. With external modifications and clinician verbal/tactile cues, pt will manage mechanical soft textures in functional, nutritive quantities without s/sx aspiration. 07/23/20172016 new new LONG-TERM GOALS: Goal Description Creation Date Achieve By Date Status Notes 1. Pt will improve oropharyngeal swallow function to return to least restrictive diet witho ut overt s/sx aspiration in quantities sufficient for nutritional oral intake 07/23/2017 New goal new 2. Pt will improve receptive/expressive communication to follow simple commands and express single word requests via any modality for basic needs with moderate assistance. 07/23/2017 08/11/2017 New goal new EDUCATION this session was focused to RN regarding medication via wmbly one at a time. . The RN was able to verbalize Understanding. . Alarm engaged at end of session and Transfer of patient care to RN This note will serve as an episode of care summary if the patient is discharged from the [facility] prior to the next treatment session. Thank you for this referral. We look forward to working with John Griffith. Sapna Lee MS,CCC-START UP SPECIALIST [facility] Reported Signed 07/23/2017 9:19 AM in this encounter Plan of Treatment Not on fileas of this encounter Results CBC ONLY (08/06/2017 1:51 PM) + + + + | Component | [...] | + + + | Blood | [address] [facility] | | | [place] [address] | + + + + + | Narrative | + + | No reflex rules apply to this test. | + + BASIC METABOLIC SET (NA, K, CL, TCO2, BUN, CR, GLU, CA) (08/06/2017 1:51 PM) + +---------+ + | Component | Value [...] | >60 | >60 mL/min | | EMIRATI | | | + +---------+ + | EGFR NON | >60 | >60 mL/min | | -EMIRATI | | | + +---------+ + | ANION GAP | 16 | 12 - 20 mmol/L | + +---------+ + + + + | Specimen | Performing Laboratory | + + + | Blood | [address] [facility] | | | [place] [address] | + + + CBC (HEMOGRAM ONLY) (08/06/2017 1:51 PM) + + + | Specimen | Performing Laboratory | + + + | Blood | | + + + + + | Narrative | + + | The following orders were created for panel order CBC (HEMOGRAM ONLY). | | Procedure | | Abnormality Status | | --------- | | ------ CBC | | ONLY[[id number]] | | Abnormal Final result Please view [...] | + + + | Blood | [address] [facility] | | | [place] [address] | + + + + + | Narrative | + + | INR Therapeutic ranges for full anticoagulation: INR for Venous | | Thromboembolism (2.0 - 3.0) INR INR for most patients with | | mech. valves (2.5 - 3.5) INR | + + CT HEAD WO CONTRAST (08/06/2017 1:13 PM) + + + | Specimen | Performing Laboratory | + + + | | [facility] | + + + + + | Narrative | + + | [address] | | [place] [address] | | [phone] Name: JOHN GRIFFITH | | Phys: TRAVON FARRELL : 1955 Sex: M | | CSN: [id number] MR# [id number] Exam Date: 08/06/2017 | | EXAM: CT [...] MD Transcribed Date/Time: | | 08/06/2017 13:32 Canceling Machine Operator: FLUENCY | + + + + | Procedure Note | + + | Interface, Radiology Results - 08/06/2017 1:37 PM PST [address] | | [address] [place] [address] | | Name: JOHN GRIFFITH Phys: TRAVON FARRELL : 1955 Sex: M | | CSN: [id number] MR# [id number] Exam Date: 08/06/2017 EXAM:CT HEAD WO CONTRAST [...] | | |Transcribed Date/Time: 08/06/2017 13:32 | |Canceling Machine Operator: FLUENCY | | | | | | | + + MRI BRAIN WWO CONTRAST (08/06/2017 10:13 AM) + + + | Specimen | Performing Laboratory | + + + | | [facility] | + + + + + | Narrative | + + | [address] [place] [address] | | [place] [address] | | [phone] Name: JOHN GRIFFITH | | Phys: TYSHAWNTRAVON TREVIÑO Kiko : 1955 Sex: M | | CSN: [id number] MR# [id number] Exam Date: 08/06/2017 | | EXAM: MRI [...] MD | | Transcribed Date/Time: 08/09/2017 21:05 Canceling Machine Operator: FLUENCY | + + + + | Procedure Note | + + | Interface, Radiology Results - 08/09/2017 9:09 PM PST [address] | | [address] [place] [address] | | Name: JOHN GRIFFITH Phys: TRAVON FARRELL : 1955 Sex: M | | CSN: [id number] MR# [id number] Exam Date: 08/06/2017 EXAM:MRI BRAIN WWO CONTRAST [...] | | |Transcribed Date/Time: 08/09/2017 21:05 | |Canceling Machine Operator: SHERRI | | | | | | | + + 12 LEAD ECG (08/01/2017) + + | Impressions | + + | Agree with the preliminary interpretation. Comparison EKG: None This has | | been electronically signed by Salvador Mancilla MD, 08/02/2017 at 6:13 AM. | + + CAP GLU,POC (07/31/2017 8:17 AM) + +-------+ + | Component | Value | Ref Range | + +-------+ + | BLOOD GLUCOSE, POC | 117 | mg/dL | + +-------+ + + + + | Specimen | Performing Laboratory | + + + | Blood | [facility] | + + + CAP GLU,POC (07/30/2017 5:18 PM) + +-------+ + | Component | Value | Ref Range | + +-------+ + | BLOOD GLUCOSE, POC | 106 | mg/dL | + +-------+ + + + + | Specimen | Performing Laboratory | + + + | | [facility] | + + + CAP GLU,POC (07/30/2017 12:23 PM) + +-------+ + | Component | Value | Ref Range | + +-------+ + | BLOOD GLUCOSE, POC | 90 | mg/dL | + +-------+ + + + + | Specimen | Performing Laboratory | + + + | Blood | [facility] | + + + CAP GLU,POC (07/30/2017 8:08 AM) + +-------+ + | Component | Value | Ref Range | + +-------+ + | BLOOD GLUCOSE, POC | 136 | mg/dL | + +-------+ + + + + | Specimen | Performing Laboratory | + + + | Blood | [facility] | + + + CAP GLU,POC (07/29/2017 9:42 PM) + +-------+ + | Component | Value | Ref Range | + +-------+ + | BLOOD GLUCOSE, POC | 121 | mg/dL | + +-------+ + + + + | Specimen | Performing Laboratory | + + + | Blood | [facility] | + + + CAP GLU,POC (07/29/2017 4:51 PM) + +-------+ + | Component | Value | Ref Range | + +-------+ + | BLOOD GLUCOSE, POC | 106 | mg/dL | + +-------+ + + + + | Specimen | Performing Laboratory | + + + | Blood | [facility] | + + + CAP GLU,POC (07/29/2017 12:06 PM) + +-------+ + | Component | Value | Ref Range | + +-------+ + | BLOOD GLUCOSE, POC | 95 | mg/dL | + +-------+ + + + + | Specimen | Performing Laboratory | + + + | Blood | [facility] | + + + CAP GLU,POC (07/29/2017 8:05 AM) + +-------+ + | Component | Value | Ref Range | + +-------+ + | BLOOD GLUCOSE, POC | 130 | mg/dL | + +-------+ + + + + | Specimen | Performing Laboratory | + + + | Blood | [facility] | + + + CAP GLU,POC (07/28/2017 9:06 PM) + +-------+ + | Component | Value | Ref Range | + +-------+ + | BLOOD GLUCOSE, POC | 106 | mg/dL | + +-------+ + + + + | Specimen | Performing Laboratory | + + + | Blood | [facility] | + + + CAP GLU,POC (07/28/2017 6:16 PM) + +-------+ + | Component | Value | Ref Range | + +-------+ + | BLOOD GLUCOSE, POC | 190 | mg/dL | + +-------+ + + + + | Specimen | Performing Laboratory | + + + | Blood | [facility] | + + + CAP GLU,POC (07/28/2017 12:27 PM) + +-------+ + | Component | Value | Ref Range | + +-------+ + | BLOOD GLUCOSE, POC | 124 | mg/dL | + +-------+ + + [...] Review Under Notes/Trans Tab | + + CAP GLU,POC (07/28/2017 8:08 AM) + +-------+ + | Component | Value | Ref Range | + +-------+ + | BLOOD GLUCOSE, POC | 122 | mg/dL | + +-------+ + + + + | Specimen | Performing Laboratory | + + + | Blood | [facility] | + + + CAP GLU,POC (07/27/2017 8:47 PM) + +-------+ + | Component | Value | Ref Range | + +-------+ + | BLOOD GLUCOSE, POC | 118 | mg/dL | + +-------+ + + + + | Specimen | Performing Laboratory | + + + | Blood | [facility] | + + + CAP GLU,POC (07/27/2017 4:21 PM) + +-------+ + | Component | Value | Ref Range | + +-------+ + | BLOOD GLUCOSE, POC | 137 | mg/dL | + +-------+ + + + + | Specimen | Performing Laboratory | + + + | Blood | [facility] | + + + CAP GLU,POC (07/27/2017 11:07 AM) + +-------+ + | Component | Value | Ref Range | + +-------+ + | BLOOD GLUCOSE, POC | 123 | mg/dL | + +-------+ + + + + | Specimen | Performing Laboratory | + + + | Blood | [facility] | + + + CAP GLU,POC (07/27/2017 8:15 AM) + +-------+ + | Component | Value | Ref Range | + +-------+ + | BLOOD GLUCOSE, POC | 134 | mg/dL | + +-------+ + + + + | Specimen | Performing Laboratory | + + + | Blood | [facility] | + + + CAP GLU,POC (07/26/2017 8:43 PM) + +-------+ + | Component | Value | Ref Range | + +-------+ + | BLOOD GLUCOSE, POC | 156 | mg/dL | + +-------+ + + + + | Specimen | Performing Laboratory | + + + | Blood | [facility] | + + + CAP GLU,POC (07/26/2017 4:30 PM) + +-------+ + | Component | Value | Ref Range | + +-------+ + | BLOOD GLUCOSE, POC | 120 | mg/dL | + +-------+ + + + + | Specimen | Performing Laboratory | + + + | Blood | [facility] | + + + CAP GLU,POC (07/26/2017 12:06 PM) + +-------+ + | Component | Value | Ref Range | + +-------+ + | BLOOD GLUCOSE, POC | 128 | mg/dL | + +-------+ + + + + | Specimen | Performing Laboratory | + + + | Blood | [facility] | + + + CAP GLU,POC (07/26/2017 7:43 AM) + +-------+ + | Component | Value | Ref Range | + +-------+ + | BLOOD GLUCOSE, POC | 124 | mg/dL | + +-------+ + + + + | Specimen | Performing Laboratory | + + + | Blood | [facility] | + + + CAP GLU,POC (07/25/2017 8:58 PM) + +-------+ + | Component | Value | Ref Range | + +-------+ + | BLOOD GLUCOSE, POC | 169 | mg/dL | + +-------+ + + + + | Specimen | Performing Laboratory | + + + | Blood | [facility] | + + + CAP GLU,POC (07/25/2017 6:05 PM) + +-------+ + | Component | Value | Ref Range | + +-------+ + | BLOOD GLUCOSE, POC | 126 | mg/dL | + +-------+ + + + + | Specimen | Performing Laboratory | + + + | Blood | [facility] | + + + CAP GLU,POC (07/25/2017 12:35 PM) + +-------+ + | Component | Value | Ref Range | + +-------+ + | BLOOD GLUCOSE, POC | 159 | mg/dL | + +-------+ + + + + | Specimen | Performing Laboratory | + + + | Blood | [facility] | + + + CAP GLU,POC (07/25/2017 8:56 AM) + +-------+ + | Component | Value | Ref Range | + +-------+ + | BLOOD GLUCOSE, POC | 135 | mg/dL | + +-------+ + + + + | Specimen | Performing Laboratory | + + + | Blood | [facility] | + + + CAP GLU,POC (07/24/2017 9:00 PM) + +-------+ + | Component | Value | Ref Range | + +-------+ + | BLOOD GLUCOSE, POC | 156 | mg/dL | + +-------+ + + + + | Specimen | Performing Laboratory | + + + | Blood | [facility] | + + + CAP GLU,POC (07/24/2017 4:58 PM) + +-------+ + | Component | Value | Ref Range | + +-------+ + | BLOOD GLUCOSE, POC | 137 | mg/dL | + +-------+ + + + + | Specimen | Performing Laboratory | + + + | Blood | [facility] | + + + CAP GLU,POC (07/24/2017 12:15 PM) + +-------+ + | Component | Value | Ref Range | + +-------+ + | BLOOD GLUCOSE, POC | 115 | mg/dL | + +-------+ + + + + | Specimen | Performing Laboratory | + + + | Blood | [facility] | + + + CT HEAD WO CONTRAST (07/24/2017 10:07 AM) + + + | Specimen | Performing Laboratory | + + + | | [facility] | + + + + + | Narrative | + + | [address] [place] [address] | | [place] [address] | | [phone] Report has been | | interpreted by a Virtual Radiology Physician Name: John Griffith | | Phys: GILLIAN REMY : 1955 Sex: M | | CSN: [id number] MR# [id number] Exam Date: 07/24/2017 | | EXAM: CT Head Without Intravenous Contrast CLINICAL HISTORY: 61 years | | old, male; Signs and symptoms; Other: Status post intracranial hemorrhage. ; | | Patient HX: Status post intracranial hemorrhage. Please evaluate for stability | | TECHNIQUE: Axial computed tomography images of the head/brain without intravenous | | contrast. All CT scans at this facility use one or more dose reduction | | techniques, viz.: automated exposure control; ma/kV adjustment per patient size | | (including targeted exams where dose is matched to indication; i.e. head); or | | iterative reconstruction technique. Coronal and sagittal reformatted images were | | created and reviewed. COMPARISON: CT HEAD WO CONTRAST 2017-07-15 05:28 | | FINDINGS: Brain: Marked interval improvement in left temporoparietal hemorrhage. | | Residual vasogenic edema and mild subfalcine herniation, which has improved when | | compared to the prior study. Asymmetric effacement of the left cortical sulci. | | Prominent right cortical and bilateral cerebellar sulci. Small vessel ischemic | | change. Ventricles: Improved caliber of the left lateral ventricle. | | Bones/joints: No acute calvarial pathology. Soft tissues: Unremarkable. | | Sinuses: Unremarkable as visualized. No acute sinusitis. Mastoid air | | cells: Unremarkable as visualized. No mastoid effusion. | | IMPRESSION: 1. Marked interval improvement in left temporoparietal | | hemorrhage. 2. Residual vasogenic edema and mild subfalcine herniation, which has | | improved when compared to the prior study. THIS DOCUMENT HAS BEEN ELECTRONICALLY | | SIGNED BY ASHLEY FAUSTIN MD | + + + + | Procedure Note | + + | Interface, Radiology Results - 07/24/2017 10:50 AM PST [address] | [address], [place] [address] | | Report has been interpreted by a Virtual Radiology Physician Name: John Griffith | | Phys: GILLIAN REMY : 1955 Sex: M CSN: [id number] MR# | | [id number] Exam Date: 07/24/2017 EXAM: CT Head Without Intravenous Contrast CLINICAL | | HISTORY: 61 years old, male; Signs and symptoms; Other: Status post intracranial | | hemorrhage. ; Patient HX: Status post intracranial hemorrhage. Please evaluate for | | stability TECHNIQUE: Axial computed tomography images of the head/brain without | | intravenous contrast. All CT scans at this facility use one or more dose reduction | | techniques, viz.: automated exposure control; ma/kV adjustment per patient size | | (including targeted exams where dose is matched to indication; i.e. head); or iterative | | reconstruction technique. Coronal and sagittal reformatted images were created and | | reviewed. COMPARISON: CT HEAD WO CONTRAST 2017-07-15 05:28 FINDINGS: Brain: Marked | | interval improvement in left temporoparietal hemorrhage. Residual vasogenic edema and | | mild subfalcine herniation, which has improved when compared to the prior study. | | Asymmetric effacement of the left cortical sulci. Prominent right cortical and bilateral | | cerebellar sulci. Small vessel ischemic change. Ventricles: Improved caliber of | | the left lateral ventricle. Bones/joints: No acute calvarial pathology. Soft tissues: | | Unremarkable. Sinuses: Unremarkable as visualized. No acute sinusitis. Mastoid air | | cells: Unremarkable as visualized. No mastoid effusion. IMPRESSION: 1. Marked | | interval improvement in left temporoparietal hemorrhage.2. Residual vasogenic edema and | | mild subfalcine herniation, which has improved when compared to the prior study. THIS | | DOCUMENT HAS BEEN ELECTRONICALLY SIGNED BY ASHLEY FAUSTIN MD | | | |TECHNIQUE: | | Axial computed tomography images of the head/brain without | |intravenous | |contrast. All CT scans at this facility use one or more dose | |reduction | |techniques, viz.: automated exposure control; ma/kV adjustment per | |patient size | |(including targeted exams where dose is matched to indication; i.e. | |head); or | |iterative reconstruction technique. | | Coronal and sagittal reformatted images were created and reviewed. | | | |COMPARISON: | | CT HEAD WO CONTRAST 2017-07-15 05:28 | | | |FINDINGS: | | Brain: Marked interval improvement in left temporoparietal | |hemorrhage. | |Residual vasogenic edema and mild subfalcine herniation, which has | |improved | |when compared to the prior study. Asymmetric effacement of the left | |cortical | |sulci. Prominent right cortical and bilateral cerebellar sulci. | |Small vessel | |ischemic change. | | Ventricles: Improved caliber of the left lateral ventricle. | | Bones/joints: No acute calvarial pathology. | | Soft tissues: Unremarkable. | | Sinuses: Unremarkable as visualized. No acute sinusitis. | | Mastoid air cells: Unremarkable as visualized. No mastoid | |effusion. | | | | | |IMPRESSION: | |1. Marked interval improvement in left temporoparietal hemorrhage. | |2. Residual vasogenic edema and mild subfalcine herniation, which | |has improved | |when compared to the prior study. | | | |THIS DOCUMENT HAS BEEN ELECTRONICALLY SIGNED BY ASHLEY FAUSTIN MD | | | + + CAP GLU,POC (07/24/2017 8:12 AM) + +-------+ + | Component | Value | Ref Range | + +-------+ + | BLOOD GLUCOSE, POC | 132 | mg/dL | + +-------+ + + + + | Specimen | Performing Laboratory | + + + | Blood | [facility] | + + + CAP GLU,POC (07/23/2017 9:05 PM) + +-------+ + | Component | Value | Ref Range | + +-------+ + | BLOOD GLUCOSE, POC | 193 | mg/dL | + +-------+ + + + + | Specimen | Performing Laboratory | + + + | Blood | [facility] | + + + CAP GLU,POC (07/23/2017 4:29 PM) + +-------+ + | Component | Value | Ref Range | + +-------+ + | BLOOD GLUCOSE, POC | 97 | mg/dL | + +-------+ + + + + | Specimen | Performing Laboratory | + + + | Blood | [facility] | + + + CAP GLU,POC (07/23/2017 12:06 PM) + +-------+ + | Component | Value | Ref Range | + +-------+ + | BLOOD GLUCOSE, POC | 104 | mg/dL | + +-------+ + + + + | Specimen | Performing Laboratory | + + + | Blood | [facility] | + + + CAP GLU,POC (07/23/2017 7:53 AM) + +-------+ + | Component | Value | Ref Range | + +-------+ + | BLOOD GLUCOSE, POC | 140 | mg/dL | + +-------+ + + + + | Specimen | Performing Laboratory | + + + | Blood | [facility] | + + + CBC ONLY (07/23/2017 6:35 AM) + + + + | Component | Value | Ref Range | + + + + | WBC COUNT | 9.4 | 3.5 - 10.8 K/cu mm | + + + + | RED CELL COUNT | 3.91 (L) | 4.50 - 6.00 M/cu mm | + + + + | HEMOGLOBIN | 11.2 (L) | 13.5 - 17.5 g/dL | + + + + | HEMATOCRIT | 33.1 (L) | 41.0 - 53.0 % | + + + + | MCV | 84.7 | 80.0 - 96.0 fL | + + + + | MCH | 28.6 | 28.0 - 34.7 pg | + + + + | MCHC | 33.8 | 33.0 - 35.5 g/dL | + + + + | RDW | 14.7 | 11.5 - 15.0 % | + + + + | PLATELET COUNT | 277 | 150 - 400 K/cu mm | + + + + | MPV | 7.6 | 7.5 - 11.2 fL | + + + + + + + | Specimen | Performing Laboratory | + + + | Blood | [address] [facility] | | | [place] [address] | + + + + + | Narrative | + + | No reflex rules apply to this test. | + + BASIC METABOLIC SET (NA, K, CL, TCO2, BUN, CR, GLU, CA) (07/23/2017 6:35 AM) + +---------+ + | Component | Value | Ref Range | + +---------+ + | GLUCOSE, PLASMA | 128 (H) | 70 - 105 mg/dL | | (LAB) | | | + +---------+ + | BUN, PLASMA (LAB) | 9 | 6 - 26 mg/dL | + +---------+ + | CREATININE, PLASMA | 0.8 (L) | 0.9 - 1.3 mg/dL | + +---------+ + | SODIUM, PLASMA (LAB) | 138 | 137 - 146 mmol/L | + +---------+ + | POTASSIUM, PLASMA | 4.1 | 3.4 - 5.3 mmol/L | | (LAB) | | | + +---------+ + | CHLORIDE, PLASMA | 101 | 96 - 106 mmol/L | | (LAB) | | | + +---------+ + | TOTAL CO2, PLASMA | 26 | 18 - 30 mmol/L | | (LAB) | | | + +---------+ + | CALCIUM, PLASMA | 8.1 (L) | 8.5 - 10.8 mg/dL | | (LAB) | | | + +---------+ + | BUN/CREATININE RATIO | 11 | 6 - 20 | + +---------+ + | EGFR - | >60 | >60 mL/min | | EMIRATI | | | + +---------+ + | EGFR NON | >60 | >60 mL/min | | -EMIRATI | | | + +---------+ + | ANION GAP | 11 (L) | 12 - 20 mmol/L | + +---------+ + + + + | Specimen | Performing Laboratory | + + + | Blood | [address] [facility] | | | [place] [id number] | + + + CBC (HEMOGRAM ONLY) (07/23/2017 6:35 AM) + + + | Specimen | Performing Laboratory | + + + | Blood | | + + + + + | Narrative | + + | The following orders were created for panel order CBC (HEMOGRAM ONLY). | | Procedure | | Abnormality Status | | --------- | | ------ CBC | | ONLY[[id number]] | | Abnormal Final result Please view | | results for these tests on the individual orders. | + + CAP GLU,POC (07/22/2017 9:01 PM) + +-------+ + | Component | Value | Ref Range | + +-------+ + | BLOOD GLUCOSE, POC | 146 | mg/dL | + +-------+ + + + + | Specimen | Performing Laboratory | + + + | Blood | [facility] POINT OF CARE TESTING | + + + ORDERS OTHER (07/22/2017)ORDERS OTHER (07/22/2017)in this encounter Visit Diagnoses + + | Diagnosis | + + | Cerebrovascular accident (CVA), unspecified mechanism (HCC) - Primary | + + | Undifferentiated adenocarcinoma lung -multiple nodules with adenopathy (HCC) | + + | Malignant neoplasm of bronchus and lung, unspecified site | + + | Paroxysmal atrial fibrillation (HCC) | + + | Atrial fibrillation | + + | Chronic anticoagulation | + + | Encounter for long-term (current) use of anticoagulants | + + | History of cigarette smoking | + + Admitting Diagnoses + + | Diagnosis | + + | CVA | + + Administered Medications + +--------+ +--------+------+------+ | Medication Order | MAR | Action | Dose | Rate | Site | | | Action | Date | | | | + +--------+ +--------+------+------+ | albuterol 0.083% | Given | 12/3/201 | 2.5 mg | | | | (PROVENTIL,VENTOLIN) 2.5 mg /3 mL | | 7 18:22 | | | | | (0.083 %) nebulizer solution 2.5 | | PST | | | | | mg 2.5 mg, inhalation, EVERY 4 | | | | | | | HOURS NEEDED, Starting Fri | | | | | | | 07/23/17 at 1527, Until Mon | | | | | | | 07/26/17 at 1038, dyspnea/SOB | | | | | | + +--------+ +--------+------+------+ +---+---+ | | | +---+---+ + +-------+ +-------+---+---+ | aspirin chewable tablet 81 mg | Given | 08/05/20 | 81 mg | | | | 81 mg, oral, DAILY, First dose on | | 17 08:22 | | | | | 07/23/17 at 0900, Until | | PST | | | | | Discontinued | | | | | | + +-------+ +-------+---+---+ +-------+ +-------+---+---+ | Given | 08/06/20 | 81 mg | | | | | 17 08:33 | | | | | | PST | | | | +-------+ +-------+---+---+ | Given | 08/07/20 | 81 mg | | | | | 17 08:23 | | | | | | PST | | | | +-------+ +-------+---+---+ +---+---+ | | | +---+---+ + +-------+ +-------+---+---+ | atorvastatin (LIPITOR) tablet | Given | 08/05/20 | 80 mg | | | | 80 mg 80 mg, oral, DAILY, First | | 17 08:22 | | | | | dose on Wed07/23/17 at 0900, | | PST | | | | | Until Discontinued | | | | | | + +-------+ +-------+---+---+ +-------+ +-------+---+---+ | Given | 08/06/20 | 80 mg | | | | | 17 08:33 | | | | | | PST | | | | +-------+ +-------+---+---+ | Given | 08/07/20 | 80 mg | | | | | 17 08:23 | | | | | | PST | | | | +-------+ +-------+---+---+ +---+---+ | | | +---+---+ + +-------+ +--------+---+---+ | budesonide (PULMICORT) 0.5 mg/2 | Given | 08/06/20 | 0.5 mg | | | | mL nebulizer suspension 0.5 mg | | 17 08:45 | | | | | 0.5 mg, inhalation, TWICE DAILY, | | PST | | | | | First dose on 07/24/17 at | | | | | | | 2100, Until Discontinued | | | | | | + +-------+ +--------+---+---+ +-------+ +--------+---+---+ | Given | 1520 | 0.5 mg | | | | | 17 20:43 | | | | | | PST | | | | +-------+ +--------+---+---+ | Given | 08/07/20 | 0.5 mg | | | | | 17 09:30 | | | | | | PST | | | | +-------+ +--------+---+---+ +---+---+ | | | +---+---+ + +-------+ +--------+---+---+ | budesonide (PULMICORT) 180 | Given | | 1 puff | | | | mcg/actuation inhaler 1 puff 1 | | 7 10:47 | | | | | puff, inhalation, TWICE DAILY, | | PST | | | | | First dose on Wed07/23/17 at | | | | | | | 0900, Until Discontinued | | | | | | + +-------+ +--------+---+---+ +-------+ +--------+---+---+ | Given | | 1 puff | | | | | 7 20:49 | | | | | | PST | | | | +-------+ +--------+---+---+ | Given | | 1 puff | | | | | 7 08:38 | | | | | | PST | | | | +-------+ +--------+---+---+ +---+---+ | | | +---+---+ + +-------+ +--------+---+---+ | dilTIAZem CD 24 hour release | Given | 08/05/20 | 240 mg | | | | (CARDIZEM CD) capsule 240 mg 240 | | 17 08:22 | | | | | mg, oral, DAILY, First dose on | | PST | | | | | Wed07/23/17 at 0900, Until | | | | | | | Discontinued | | | | | | + +-------+ +--------+---+---+ +-------+ +--------+---+---+ | Given | 08/06/20 | 240 mg | | | | | 17 08:32 | | | | | | PST | | | | +-------+ +--------+---+---+ | Given | 08/07/20 | 240 mg | | | | | 17 08:22 | | | | | | PST | | | | +-------+ +--------+---+---+ +---+---+ | | | +---+---+ + +-------+ +-------+---+---------+ | enoxaparin (LOVENOX) injection | Given | 08/04/20 | 40 mg | | Abdomen | | 40 mg 40 mg, subcutaneous, EVERY | | 17 20:32 | | | | | EVENING, First dose on Cassy | | PST | | | | | 07/22/17 at 2115, Until | | | | | | | Discontinued | | | | | | + +-------+ +-------+---+---------+ +-------+ +-------+---+---------+ | Given | 08/05/20 | 40 mg | | Abdomen | | | 17 19:39 | | | | | | PST | | | | +-------+ +-------+---+---------+ | Given | 08/06/20 | 40 mg | | Abdomen | | | 17 19:40 | | | | | | PST | | | | +-------+ +-------+---+---------+ +---+---+ | | | +---+---+ + +-------+ +--------+---+--------+ | gadobutrol (GADAVIST) IV 8.5 mL | Given | 08/06/20 | 8.5 mL | | Right | | 8.5 mL, intravenous, PROCEDURE | | 17 13:54 | | | Arm | | ONCE, 1 dose, 08/06/17 at | | PST | | | | | 1400 | | | | | | + +-------+ +--------+---+--------+ +---+---+ | | | +---+---+ + +-------+ +---------+---+--------+ | insulin aspart (NOVOLOG | Given | 07/22/20 | 2 Units | | Right | | FLEXPEN) injection 1-15 Units | | 17 21:23 | | | Arm | | 1-15 Units, subcutaneous, BEFORE | | PST | | | | | MEALS AND BEDTIME, First dose on | | | | | | | Cassy 07/22/17 at 2100, Until | | | | | | | Discontinued | | | | | | + +-------+ +---------+---+--------+ +---+---+ | | | +---+---+ + +-------+ +---------+---+--------+ | insulin aspart (NOVOLOG | Given | | 1 Units | | Right | | FLEXPEN) injection 1-15 Units | | 7 12:48 | | | Arm | | 1-15 Units, subcutaneous, BEFORE | | PST | | | | | MEALS AND BEDTIME, First dose on | | | | | | | 07/23/17 at 1730, Until | | | | | | | Discontinued | | | | | | + +-------+ +---------+---+--------+ +-------+ +---------+---+ + | Given | | 1 Units | | Left Arm | | | 7 21:19 | | | | | | PST | | | | +-------+ +---------+---+ + | Given | | 1 Units | | Right | | | 7 21:21 | | | Arm | | | PST | | | | +-------+ +---------+---+ + +---+---+ | | | +---+---+ + +-------+ + +---+ + | insulin detemir (LEVEMIR) | Given | | 10 Units | | Left Arm | | injection 10 Units 10 Units, | | 7 09:06 | | | | | subcutaneous, DAILY, First dose | | PST | | | | | on Wed07/23/17 at 0900, Until | | | | | | | Discontinued | | | | | | + +-------+ + +---+ + +---+---+ | | | +---+---+ + +-------+ +---------+---+--------+ | insulin detemir (LEVEMIR) | Given | | 8 Units | | Right | | injection 8 Units 8 Units, | | 7 08:47 | | | Arm | | subcutaneous, DAILY, First dose | | PST | | | | | on 07/24/17 at 0900, Until | | | | | | | Discontinued | | | | | | + +-------+ +---------+---+--------+ +-------+ +---------+---+ + | Given | | 8 Units | | Left Arm | | | 7 08:20 | | | | | | PST | | | | +-------+ +---------+---+ + | Given | | 8 Units | | Left Arm | | | 7 08:21 | | | | | | PST | | | | +-------+ +---------+---+ + +---+---+ | | | +---+---+ + +-------+ +--------+---+---+ | ipratropium-albuterol | Given | | 1 puff | | | | (COMBIVENT RESPIMAT) inhaler 1 | | 7 17:36 | | | | | puff 1 puff, inhalation, FOUR | | PST | | | | | TIMES DAILY, First dose on Cassy | | | | | | | 07/22/17 at 2200, Until | | | | | | | Discontinued | | | | | | + +-------+ +--------+---+---+ +-------+ +--------+---+---+ | Given | | 1 puff | | | | | 7 20:48 | | | | | | PST | | | | +-------+ +--------+---+---+ | Given | | 1 puff | | | | | 7 08:38 | | | | | | PST | | | | +-------+ +--------+---+---+ +---+---+ | | | +---+---+ + +-------+ +------+---+---+ | ipratropium-albuterol (JENNIFERO-NEB) | Given | | 3 mL | | | | nebulizer solution 3 mL 3 mL, | | 7 21:08 | | | | | inhalation, EVERY 6 HOURS, First | | PST | | | | | dose on 07/24/17 at 1600, | | | | | | | Until Discontinued | | | | | | + +-------+ +------+---+---+ +-------+ +------+---+---+ | Given | | 3 mL | | | | | 7 03:28 | | | | | | PST | | | | +-------+ +------+---+---+ | Given | | 3 mL | | | | | 7 10:11 | | | | | | PST | | | | +-------+ +------+---+---+ +---+---+ | | | +---+---+ + +-------+ +------+---+---+ | ipratropium-albuterol (DUO-NEB) | Given | | 3 mL | | | | nebulizer solution 3 mL 3 mL, | | 7 06:24 | | | | | inhalation, EVERY 6 HOURS | | PST | | | | | NEEDED, Starting 07/26/17 at | | | | | | | 1045, Until 08/07/17 at 1954, | | | | | | | dyspnea/SOB | | | | | | + +-------+ +------+---+---+ +---+---+ | | | +---+---+ + +-------+ +-------+---+---+ | lisinopril (PRINIVIL) tablet 20 | Given | 08/05/20 | 20 mg | | | | mg 20 mg, oral, DAILY, First | | 17 08:22 | | | | | dose on Wed07/23/17 at 0900, | | PST | | | | | Until Discontinued | | | | | | + +-------+ +-------+---+---+ +-------+ +-------+---+---+ | Given | 08/06/20 | 20 mg | | | | | 17 08:32 | | | | | | PST | | | | +-------+ +-------+---+---+ | Given | 08/07/20 | 20 mg | | | | | 17 08:23 | | | | | | PST | | | | +-------+ +-------+---+---+ +---+---+ | | | +---+---+ + +-------+ +------+---+---+ | melatonin tablet TbER 3 mg 3 | Given | 08/04/20 | 3 mg | | | | mg, oral, EVERY EVENING, First | | 17 20:31 | | | | | dose on Cassy 07/22/17 at 2100, | | PST | | | | | Until Discontinued | | | | | | + +-------+ +------+---+---+ +-------+ +------+---+---+ | Given | 08/05/20 | 3 mg | | | | | 17 19:40 | | | | | | PST | | | | +-------+ +------+---+---+ | Given | 08/06/20 | 3 mg | | | | | 17 19:40 | | | | | | PST | | | | +-------+ +------+---+---+ +---+---+ | | | +---+---+ + +-------+ +--------+---+---+ | metFORMIN SR (GLUCOPHAGE XR) | Given | | 500 mg | | | | tablet 500 mg 500 mg, oral, | | 7 17:32 | | | | | EVERY DINNER, First dose on Wed | | PST | | | | | 07/23/17 at 1700, Until | | | | | | | Discontinued | | | | | | + +-------+ +--------+---+---+ +-------+ +--------+---+---+ | Given | | 500 mg | | | | | 7 17:47 | | | | | | PST | | | | +-------+ +--------+---+---+ | Given | | 500 mg | | | | | 7 17:29 | | | | | | PST | | | | +-------+ +--------+---+---+ +---+---+ | | | +---+---+ + +-------+ +-------+---+---+ | pantoprazole (PROTONIX) tablet | Given | 08/05/20 | 40 mg | | | | 40 mg 40 mg, oral, DAILY, First | | 17 08:22 | | | | | dose on Wed07/23/17 at 0900, | | PST | | | | | Until Discontinued | | | | | | + +-------+ +-------+---+---+ +-------+ +-------+---+---+ | Given | 08/06/20 | 40 mg | | | | | 17 08:32 | | | | | | PST | | | | +-------+ +-------+---+---+ | Given | 08/07/20 | 40 mg | | | | | 17 08:23 | | | | | | PST | | | | +-------+ +-------+---+---+ +---+---+ | | | +---+---+ + +-------+ +------+---+---+ | polyethylene glycol (MIRALAX) | Given | | 17 g | | | | packet 17 g 17 g, oral, DAILY | | 7 08:32 | | | | | NEEDED, Starting Cassy 07/22/17 at | | PST | | | | | 1843, Until 08/07/17 at | | | | | | | 1954, Constipation | | | | | | + +-------+ +------+---+---+ +-------+ +------+---+---+ | Given | | 17 g | | | | | 7 08:49 | | | | | | PST | | | | +-------+ +------+---+---+ +---+---+ | | | +---+---+ + +-------+ +--------+---+---+ | salmeterol (SEREVENT) 50 | Given | | 1 puff | | | | mcg/dose diskus inhaler 1 puff 1 | | 7 10:47 | | | | | puff, inhalation, TWICE DAILY, | | PST | | | | | First dose on Wed07/23/17 at | | | | | | | 0900, Until Discontinued | | | | | | + +-------+ +--------+---+---+ +-------+ +--------+---+---+ | Given | | 1 puff | | | | | 7 20:48 | | | | | | PST | | | | +-------+ +--------+---+---+ | Given | | 1 puff | | | | | 7 08:38 | | | | | | PST | | | | +-------+ +--------+---+---+ +---+---+ | | | +---+---+ + +-------+ +------+---+---+ | warfarin (COUMADIN) tablet 5 mg | Given | 08/07/20 | 5 mg | | | | 5 mg, oral, User Specified | | 17 12:57 | | | | | (Daily), First dose on Sat | | PST | | | | | 08/07/17 at 1300, Until | | | | | | | Discontinued | | | | | | + +-------+ +------+---+---+ +---+---+ | | | +---+---+ + +-------+ +--------+---+---+ | warfarin (COUMADIN) tablet 7.5 | Given | 08/06/20 | 7.5 mg | | | | mg 7.5 mg, oral, User Specified | | 17 15:10 | | | | | (Daily), First dose on Fri | | PST | | | | | 08/06/17 at 1430, Until | | | | | | | Discontinued | | | | | | + +-------+ +--------+---+---+ +---+---+ | | | +---+---+ in this encounter
[~2017-08-23 13:10] MED LIST changes: +LIPITOR80 MG PO; +LISINOPRIL20 MG PO
--- NOTE | 2017-08-23 20:15 | NUR ---
REPORT RECIEVED FROM DAY SHIFT. PT IS ABLE TO COMMUNICATE WELL DESPITE SOME WORD SALAD. FIRST SETENCE IS USUALLY CLEAR. WAS ABLE TO VOID IN URINAL ON OWN. IS EATING DINNER WITHOUT PROBLEM. HEPARIN INFUSING.
--- NOTE | 2017-08-23 23:44 | NUR ---
AWAKENED FOR LAB DRAW. PT HAS NO C/O OR REQUESTS. EDEMA R LEG SL LESS, ABLE TO PALP DORSALIS PEDIS PULSE NOW.
--- NOTE | 2017-08-24 00:23 | NUR ---
PTT IS IN THERAPUTIC RANGE, WILL RECHECK IN AM.
--- NOTE | 2017-08-24 02:15 | NUR ---
PT SLEEPING. VOIDED EARLIER.
--- NOTE | 2017-08-24 04:14 | NUR ---
PT AWAKENED WHEN IV PUMP BEEPED, ASSESSMENT DONE. HAS NO C/O.
--- NOTE | 2017-08-24 05:37 | NUR ---
RESTING, LAB DRAWN. HAS NO C/O. NO CHANGES.
--- NOTE | 2017-08-24 06:38 | EKG ---
[facility] [address] [place] [address] Signed Normal sinus rhythm Rightward axis Nonspecific ST abnormality Abnormal ECG When compared with ECG of 08-JUL-2017 09:49, No significant change was found Confirmed by RORY CELIS MD ([id number]) on 08/24/2017 6:38:28 AM Electronically Signed By: RORY CELIS MD 08/24/17 0638 PATIENT NAME: MARYJOHN Electrocardiogram DATE OF : 53 PHYSICIAN: RORY CELIS MD REPORT #: [id number] REPORT IS CONFIDENTIAL AND NOT TO BE RELEASED WITHOUT AUTHORIZATION
--- NOTE | 2017-08-24 06:52 | NUR ---
LAB PTT 146 HEPARIN TURNED OFF AT 0640, TO BE RESUMED AT 1420 UNITS/HR AT 0740. PT AMB TO BR TO VOID AND HAVE BM. HR UP TO 111. DID HAVE AUDIBLE WHEEZES WITH EXERTION BUT DENIES SOB. NO CHEST DISCOMFORT.
--- NOTE | 2017-08-24 07:53 | NUR ---
ORDERED PT BREAKFAST. VS TAKEN AND DOCUMENTED. PT DENIES ANY OTHER NEEDS AT THIS TIME. PT'S WATER AND CALL LIGHT ARE IN REACH.
--- NOTE | 2017-08-24 08:05 | NUR ---
OFFERED PT WASH CLOTH AND FOR HIM TO BRUSH HIS TEETH. PT STATES HE DID IT EARLIER THIS MORNING. CALL LIGHT IS IN REACH.
--- NOTE | 2017-08-24 09:26 | NUR ---
PT AWAKE, ASSESSMENT COMPETED, DR. CELIS IN TO ASSESS PT ALSO. PT HAVING DIFFICULTY IN FINDING THE RIGHT WORDS TO USE TO COMMUNICATE. HEPARIN GTT CONTINUES AT 1420 UNITS/HR. NEXT PTT DUE AT 1230. PT ATE 100% OF BREAKFAST AND IS NOW SLEEPING ON RIGHT SIDE, SATS 94%.
--- NOTE | 2017-08-24 09:40 | NUR ---
PT HAS BEEN SLEEPING. WATER AND CALL LIGHT ARE IN REACH.
--- NOTE | 2017-08-24 10:38 | NUR ---
PT USED URINAL AND VOIDED 250 MLS DARK YELLOW URINE.
--- NOTE | 2017-08-24 12:25 | NUR ---
ASSESSMENT COMPLETED, PT DENIES C/O. UP WITH ONE PERSON ASSIST TO BATHROOM AND HAD BM ALSO VOIDED 250 MLS. RETURNED TO BED AND IS EATING LUNCH. LAB HERE FOR PTT DRAW.
--- NOTE | 2017-08-24 13:17 | NUR ---
RN STATED THAT PT WOULD NEED TO BE CLEANED UP. OFFERED PT A BED BATH, PT REFUSED AT THIS TIME. PT STATES HE WOULD LIKE TO DO IT LATER TONIGHT. TOLD PT I WOULD CHECK BACK WITH HIM THIS EVENING ABOUT A BED BATH. WILL NOTIFY RN. PT'S CALL LIGHT AND FRESH ICE WATER.
--- NOTE | 2017-08-24 13:54 | NUR ---
ZITA BUENO ALERTED ME TO THE DIFFICULTY PT HAS WITH GETTING STATEMENTS OUT THAT MAKE SENSE. SHE WAS RIGHT. I STILL WAS ABLE TO HAVE CONVERSATION WITH PT, BUT MUCH OF WHAT HE SAID, WAS COMPLETELY DIFFERENT THAN WHAT I KNOW HE WANTED TO SAY. SOMETIMES HE WOULD CATCH HIMSELF WHEN HE KNEW HE WAS WANDERING. EXTENDED A BLESSING, WILL CONTINUE TO FOLLOW
--- NOTE | 2017-08-24 15:04 | NUR ---
PT RESTING IN BED WATCHING TV WITH HIS . HAS NO NEEDS AT THIS TIME. VITALS TAKEN AND DOCUMENTED. WATER AND CALL LIGHT ARE IN REACH.
[2017-08-24] MEDS ORDERED: WARFARIN SODIU7.5 MG PO (15:59)
[2017-08-24] MEDS ORDERED: WARFARIN SODIUM5 MG PO (15:59)
--- NOTE | 2017-08-24 16:08 | NUR ---
MED REC COMPLETE
--- NOTE | 2017-08-24 16:58 | NUR ---
UP TO BATHROOM WITH ONE PERSON ASSIST, PT VOIDED 300 MLS CLEAR YELLOW URINE. RETURNED TO BED, R.T. HERE TO GIVE MERRILL RIVERA.
--- NOTE | 2017-08-24 17:57 | NUR ---
PT IS SITTING UP IN BED EATING DINNER WITH FAMILY. PT HAS NO NEEDS AT THIS TIME. CALL LIGHT IS IN REACH.
--- NOTE | 2017-08-24 18:00 | NUR ---
CARE CONFERENCE ATTENDEES: PT, RUSTAM HIS , AND HIS ADULT SON STAFF: DR CELIS, MYSELF CASE MANAGEMENT, Lonnie MCRAE RN, CHAPIS CELIS EXPLAINED HOW THE PT IS DOING AND WHAT HER THOUGHTS ARE TO THIS POINT AND WHAT AND WHERE WE NEED TO GO FROM HERE. SHE TALKED ABOUT THE OPTIONS THE FAMILY AND PT HAVE TO MAKE AND THAT WE COULD DO SEVERAL DIFFERENT THINGS--SOME BEING DEPENDENT ON WHAT HIS INSURANCE SAYS. WE TALKED ABOUT GOING HOME BOTH ON OR OFF BLOOD THINNERS, WE TALKED ABOUT HIM GOING TO A SNF LOCALLY, AND EVEN THE POSS OF SWING BED. THE FAMILY STATED THEY NEED TO MAKE SOME DECISIONS AND TALK ABOUT IT TONIGHT. DR CELIS DID SAY THAT SHE MAY SEND HIM HOME TOMORROW IF THAT IS WHERE THE DECISION GOES. WILL CHECK BACK WITH THE FAMILY IN THE MORING.
--- NOTE | 2017-08-24 18:00 | NUR ---
CARE CONFERENCE WITH PT,FAMILY MEMBERS, DR. CELIS, PLASTIC BATTERY ASSEMBLER AND R.N. PLAN OF CARE ADDRESSED. FAMILY WANTS TO TAKE SOME TIME TO THINK ABOUT WHAT PLAN OF CARE WILL WORK THE BEST FOR THEM AND PT. QUESTIONS FROM FAMILY MEMBERS ANSWERED BY DR. CELIS. PLAN TO MEET TOMORROW TO DISCUSS AGAIN THE PLAN FOR DISCHARGE.
--- NOTE | 2017-08-24 19:04 | NUR ---
VITALS AND I&O'S TAKEN AND DOCUMENTED. PT BACK TO BED FROM BATHROOM. PT DENIED NEEDING ANYTHING AT THIS TIME. WATER AND CALL LIGHT IN REACH.
--- NOTE | 2017-08-24 20:00 | NUR ---
WORD SALAD WORSE TONIGHT BUT PT ABLE TO INDICATE THAT HE IS FEELING OVERWHELMED SINCE CARE CONFERENCE. PT RE ASSURED THAT HE HAD QUALITY TIME LEFT AND THAT HE COULD POSSIBLY GO HOME. REITERATED THAT HE AND FAMILY NEEDED TO DECIDE BETWEEN LOVENOX INJECTIONS OR COUMADIN FOR DVT PROPHOLAXIS. AFFECT IMPROVED SOME AFTER TIME. DENIES PAIN.
--- NOTE | 2017-08-24 22:15 | NUR ---
PT RESTING, NO C/O.
--- NOTE | 2017-08-24 23:52 | NUR ---
PT AWAKENED FOR ASSESSMENT, HAD RECENTLY VOIDED. DENIES PAIN. NO C/O.
--- NOTE | 2017-08-25 01:30 | NUR ---
SLEEPING, NO CHANGE.
--- NOTE | 2017-08-25 04:20 | NUR ---
IN TO CHANGE IV. PT AWAKENED. HAS NO C/O. VOIDING WELL.
--- NOTE | 2017-08-25 05:33 | NUR ---
UP TO BR TO HAVE SEMI LIQ STOOL. HAD SMALL AMT STOOL BEFORE GETTING UP. WAS COUGHING VIGOROUSLY PRIOR. PT SOB WITH EXERTION BUT SATS STAYED MID 90'S. SOME EXERTIONAL WHEEZING NOTED. BETTER WITH IN MIN WITH REST.BED CHANGED AND DERRICK OPERATOR NOW HLEPING WITH AM CARE.
--- NOTE | 2017-08-25 05:52 | NUR ---
STATES FEELS BETTER AFTER AM CARE. GIVEN COFFEE.
--- NOTE | 2017-08-25 06:59 | NUR ---
RESTING, NO CHANGE.
--- NOTE | 2017-08-25 07:58 | NUR ---
DR. CELIS IN ROOM EVALUATING PATIENT. PATIENT EATING HIS BREAKFAST AT THIS TIEM. PLAN WILL BE TO START LOVENOX AND D/C HEPARIN GTT AFTER LOVENOX IS STARTED. PT AWAKE, ALERT, ORIENTED. PT STILL HAS SOME EXP APHASIA AT TIMES. CONTINUE TO MONITOR.
--- NOTE | 2017-08-25 08:08 | NUR ---
PATIENT AMBULATES INTO BATHROOM AT THIS TIME. PT STEADY ON FEET.
--- NOTE | 2017-08-25 08:48 | NUR ---
LOVENOX INJECTION GIVEN AT THIS TIME. PT TOLERATED WELL. PT TO BE PLACED ON A TELE AND TRANSFERRED TO MED/SURG THIS AM. HEPARIN GTT WILL BE STOPPED AT 0915. CONTINUE TO MONITOR.
--- NOTE | 2017-08-25 09:49 | NUR ---
REPORT GIVEN TO ZITA BARNES ON MED/SURG. PATIENT BEING TRANSFERRED AT THIS TIME IN CHAIR TO ROOM 124. PT VOIDS 200 PRIOR TO LEAVING CCU.
--- NOTE | 2017-08-25 10:06 | NUR ---
PATIENT TO MED-SURG FLOOR FROM CCU ITH NURSE KAILEY. PATIENT SITTING IN CHAIR DENIES PAIN AT THIS TIME. TELE IN PLACE. RIGHT LEG APPEARS SWELLING, NO REDNESS NOTED. PATIENT DENIES PAIN WHEN PALPATE RIGHT LEG. IV SITE IS LEAKING. WILL START A NEW IV SITE. PATIENT RESTING IN THE CHAIR, CALL LIGHT AND PERSONAL BELONGING WITHIN REACH.
--- NOTE | 2017-08-25 10:25 | NUR ---
PATIENT SITTING UP IN CHAIR. OT AND RN IN ROOM WORKING WITH PATIENT.
--- NOTE | 2017-08-25 10:30 | NUR ---
OCCUPATIONAL THERAPIST IN ROOM WITH PATIENT AT THIS TIME. LOWER EXTREMITIES WERE MEASURED. RIGHT LEG IS 44.5CM AND LEFT LEG IS 40CM. PATIENT REPORTS MILD PAIN IN THE RIGHT LEG WHEN MOVING. PATIENT HAS SOME EXPRESSIVE APHASIA.
--- NOTE | 2017-08-25 12:57 | NUR ---
PATIENT SITTING AT BEDSIDE EATING LUNCH. DENIES ANY COMPLAINTS AT THIS TIME. FAMILY IN ROOM.
--- NOTE | 2017-08-25 13:55 | NUR ---
PATIENT SITTING UP IN BED WATCHING TV. FRESH ICE WATER GIVEN CALL BUTTON IN REACH.
--- NOTE | 2017-08-25 16:10 | NUR ---
PATIENT SITTING AT BEDSIDE, RT IN ROOM TO ADMINISTER NEB TX. PATIENT DENIES PAIN AT THIS TIME. RIGHT LEG CORRECTIONAL SUPERVISING COOK. NO APPARENT DISTRESS. WILL CONTINUE TO MONITOR PATIENT. CALL LIGHT WITHIN REACH.
--- NOTE | 2017-08-25 16:50 | NUR ---
PATIENT SITTING IN BED EATING DINNER. NO COMPLAINTS. CALL LIGHT IN REACH. NO OTHER NEED AT THIS TIME.
--- NOTE | 2017-08-25 17:32 | NUR ---
PATIENT SITTING UP IN BED WATCHING TV. FRESH ICE WATER AND SODA GIVEN. CALL BUTTON IN REACH. PATIENT STATES HE'S NOT READY TO PEE YET. NO OTHER NEEDS AT THIS TIME.
--- NOTE | 2017-08-25 18:27 | NUR ---
PATIENT TRANSFER FROM CCU TO MED-SURG FLOOR THIS AM. PATIENT IS ON TELE # 7. PATIENT IS INDEPENDENT IN ROOM. VOIDED QUANTITY SUFFICIENT. RIGHT LEG IS SWELLEN AND HARD TO TOUCH AND WARM, LEFT LEG HAS MODERATE EDEMA. SCHEDULE NEB TX. REGULAR DIET. SL. PATIENT HAS EXPRESSIVE APHASIA.
--- NOTE | 2017-08-25 19:07 | NUR ---
RECEIVED REPORT FROM RN. PATIENT RESTING COMFORTABLY IN BED, BREATHING IS EVEN AND UNLABORED. DENIES ANY PAIN AT THIS TIME. HAS NO NEEDS. CALL LIGHT WITHIN REACH.
--- NOTE | 2017-08-25 20:21 | NUR ---
PATIENT RESTING COMFORTABLY IN BED, BREATHING IS EVEN AND UNLABORED. DENIES NEEDS AT THIS TIME. ASSESSMENT DONE, MEDICATIONS GIVEN. CALL LIGHT WITHIN REACH.
--- NOTE | 2017-08-25 21:50 | NUR ---
PATIENT REQUESTING JELLO. NO OTHER NEEDS AT THIS TIME. CALL LIGHT WITHIN REACH.
--- NOTE | 2017-08-26 00:50 | NUR ---
PATIENT RESTING COMFORTABLY IN BED, BREATHING IS EVEN AND UNLABORED. CALL LIGHT WITHIN REACH.
--- NOTE | 2017-08-26 03:28 | NUR ---
PATIENT RESTING COMFORTABLY IN BED, BREATHING IS EVEN AND UNLABORED. DENIES NEEDS AT THIS TIME. ASSESSMENT DONE. CALL LIGHT WITHIN REACH.
--- NOTE | 2017-08-26 05:20 | NUR ---
PATIENT RESTING COMFORTABLY IN BED. DENIES NEEDS AT THIS TIME. CALL LIGHT WITHIN REACH.
--- NOTE | 2017-08-26 05:55 | NUR ---
PATIENT'S NIGHT WAS UNEVENTFUL. HE HAS BEEN RESTING COMFORTABLY IN BED THROUGHOUT SHIFT. VSS, NO COMPLAINTS OF PAIN. ORIENTED TO SELF, UNABLE TO ASSESS REST OF LOC DUE TO PATIENT'S EXPRESSIVE APHASIA AND WORD SALAD. ON TELE #7, RUNNING NORMAL SINUS THROUGHOUT SHIFT. LUNGS ARE CLEAR, ON ROOM AIR. PATIENT IS SBA. REQUIRES BED ALARM DUE TO BEING IMPULSIVE AND DOES NOT CALL APPROPRIATELY. RIGHT CALF HAS HAD NO CHANGES, CONTINUES TO HAVE +1 EDEMA. CMS INTACT. IV IS SALINE LOCKED. NO ACUTE CHANGES FROM BEGINNING OF SHIFT.
--- NOTE | 2017-08-26 06:42 | NUR ---
VITALS AND I&OS DONE AND CHARTED. PT SAYS HE IS DOING FINE AND DOES NOT NEED ANYTHING AT THIS TIME. CALL LIGHT THERE IF HE NEEDS IT. PER PT I ORDERED HIM BREAKFAST OF HIS CHOICE. LET HIM KNOW TO CALL IF HE NEEDS ANYTHING.
--- NOTE | 2017-08-26 07:27 | NUR ---
BEDSIDE REPORT RECEIVED FROM FARRUKH. ASSUMING PATIENT CARE AT THIS TIME. PATIENT AWAKE SITTING IN BED. DENIES PAIN AT THIS TIME. NO APPARENT DISTRESS NOTED.
--- NOTE | 2017-08-26 09:20 | NUR ---
PATIENT SITTING IN BED DRINKING COFFEE. REPORTS MILD PAIN IN THE RIGHT CALF WHEN AMBULATING. LUNGS CLEAR AND DIM IN THE BASES. PATIENT STILL HAS HARD TIME EXPRESSING HIMSELF. PATIENT AMBULATING IN ROOM BY SELF. TELE IN PLACE. PATIENT ATE MOST OF HIS MEAL. PATIENT WAS MEDICATED FOR MILD PAIN IN THE RIGHT LEG. RIGHT LEG SWELLING HAS REGRESSED,RIGHT CALF MEASURES 44CM THIS AM AND LEFT LEG 40CM. PEDAL PULSES PALPABLE. SKIN TEMP EQUAL IN BOTH LEGS. CALL LIGHT IN REACH
--- NOTE | 2017-08-26 11:20 | NUR ---
CARE CONFERENCE PRESENT: PT AND EX STAFF: DR CELIS, MYSELF [employer] MANAGEMENT, [facility], CAMERON AHUMADA. DR CELIS REQUESTED THIS TO FIND OUT THE FAMILIES THOUGHTS ON THE INFORMATION WE HAD DISCUSSED ON 08/24/17. RUSTAM SAID FOREMOST HE WANTS TO GO HOME, AND SHE ADDED THAT HE WANTS THE LOVENOX INJECTIONS. THEN DR CELIS TALKED WITH THEM ABOUT THE POLST FORM. PT INDICATING THROUGH RUSTAM THAT HE WOULD ONLY LIKE TO HAVE CHEST COMPRESSIONS NO DEFIB AND NO INTUBATION, AND TUBE FEEDING ON A TRIAL BASIS. WE THEN TALKED ABOUT HAVING HOME HEALTH COME OUT AND HELP TEACH PT SON TO DO LOVENOX INJECTIONS, AND TO CHECK HIS MEDS ETC, ALSO WILL HAVE PT AND ST. PT AND RUSTAM DENIED MORE QUESTIONS AT THIS TIME.
[2017-08-26] MEDS ORDERED: ENOXAPARIN100 MG/1 M SUB-Q (11:51)
--- NOTE | 2017-08-26 12:03 | NUR ---
DR CELIS, IUSS ACOUSTIC ANALYST LUL DANIELS AND THIS RN WERE IN ROOM WITH PATIENT AND PATIENT EX- FOR A CARE CONFERENCE. MD DISCUSSED PLAN OF CARE PATIENT DO NOT WANT CHEMO FOR HIS LUNG CA BASED ON CONVERSATION MD HAS WITH DR TRUJILLO. POLST FORM WAS DISCUSSED AND SIGN BY PATIENT AND EX . PLAN TO D/C PATIENT IN LOVENOX INJECTION, AND HOME HEALTH. PATIENT AND EX VERBALIZED UNDERSTANDING OF PLAN OF CARE.
--- NOTE | 2017-08-26 15:47 | NUR ---
FAXED CHART NOTES INCLUDING FACESHEET, ORDERS, FACE ENCOUNTER, H AND P, DC SUMMARY AND DC PACKET TO [facility]. TALKED WITH JOHN FROM [facility] AND SHE STATED THEY RECIEVED THE FAX.
== END 2017-08-26 12:35 | disposition home or self-care (01) | DRG 300 ==
LOC: ED 13:10 → CCU 18:02 → MS 08-25 09:55
PROVIDERS: ADMIT Internal Medicine
DX: I82.401 Acute embolism and thrombosis of unspecified deep veins of right lower extremity (principal); R47.01 Aphasia; C34.90 Malignant neoplasm of unspecified part of unspecified bronchus or lung; F17.200 Nicotine dependence, unspecified, uncomplicated; Z86.711 Personal history of pulmonary embolism; Z79.01 Long term (current) use of anticoagulants; Z79.899 Other long term (current) drug therapy; Z51.5 Encounter for palliative care; Z95.828 Presence of other vascular implants and grafts
CPT/HCPCS: 36415; 80053; 83605; 83880; 85025; 85610; 85730; 92523; 93005; 93010; 93971; 94640; 96374; 97110; 97163; 97165; 99285; J1644; J1650; J7030

== ENCOUNTER 2018-01-24 22:11 | Inpatient (IN) | payer OTHER ==
[~2018-01-24] VITALS: Ht 172.7 cm; Wt 85.9 kg
[~2018-01-24 22:11] MED LIST changes: +WARFARIN SODIU7.5 MG PO; +WARFARIN SODIUM5 MG PO
--- NOTE | 2018-01-25 00:40 | NUR ---
PT ARRIVED VIA STRETCHER WITH FLOAT RN. PT IS WITHDRAWN AND WHEN ASKED QUESTIONS STATED "I DONT KNOW". PT APPEARS TO BE WORKING HARD TO BREATH. PT ARRIVED ON RA. PLACED ON BIPAP WHEN HE ARRIVED. PT SKIN IS PURPLE/REDDISH IN COLOR ON PT'S CHEST, NECK, BACK, AND FACE. PT ALSO NOTED TO HAVE SOME PETECHIAE ON CHEST. PT RR 30 ON ARRIVAL WITH AUDIBLE WHEEZE.
--- NOTE | 2018-01-25 01:00 | NUR ---
PT IS UNABLE TPO ANSWER QUESTIONS AT THIS TIME. PT STATES "I DONT KNOW WHEN ASKED WHO HIS DOCTORS ARE AND TREATMENT PLANS". WILL DEFER FURTHER HISTORY QUESTIONS UNTIL PATIENTS FAMILY ARRIVES. PT ASSESSMENT COMPLETED. BREATH SOUNDS CLEAR IN UPPER LOBES AND DIMINISHED IN LOWER. PT REMAINS ON BIPAP AT THIS TIME. PT IS TOLERATING WELL. NO EDEMA NOTED. PT ASKED ABOUT IF HE COULD HAVE FLUIDS. UPDATED PT REGUARDING HIS TREATMENT PLAN AT THIS TIME. WILL CONTINUE TO CLOSELY MONITOR.
--- NOTE | 2018-01-25 02:45 | NUR ---
MD CALLED TO CHECK ON PT STATUS. UPDATED MD THAT PT IS RESTING ON BIPAP AT THIS TIME. UPDATED MD THAT ON ADMISSION PT WAS UNABLE TO ANSWER HISTORY QUESTIONS AND APPEARS CONFUSED. UPDATED MD THAT PT SKIN COLOR IS POOR IN COLOR AND THAT PT BP ARE SOFT ON ADMISSION. PT PT 90-100'S SYSTOLIC. PER MD START DUO NEBS Q4 HRS AND CALL MD IF PT BP DECREASE FURTHER. WILL CONTINUE TO CLOSELY MONITOR.
--- NOTE | 2018-01-25 03:35 | NUR ---
PT IS ABLE TO ANSWER SIMPLE COMMANDS. PT HAS NOT VOIDED SINCE ARIVING TO THE FLOO. PT DENIES NEEDING TO URINATE AT THIS TIME. PT ASKED FOR A SIP OF WATER AND WAS ABLE TO CALL APPROPRIATELY ON THE CALL LIGHT. WILL CONTINUE TO CLSOELY MONITOR.
--- NOTE | 2018-01-25 04:30 | NUR ---
PT RESTING IN BED. OTHER RN IN TO HELP PT USE URINAL WITH NO URINE OUTPUT. WILL CONTINUE TO MONITOR AT THIS TIME. PT HAS CALL LIGHT AND HAS USED IT APPROPRIATELY.
--- NOTE | 2018-01-25 06:15 | NUR ---
UPDATED MD THAT PT HAS NOT URINATED YET. PT TRIED AN HOUR AGO WITH NO RETURN, BUT STATED HE FELT LIKE IT WAS GETTING CLOSE. PT UP AGAIN AT 0610 AND COULD NOT URINATE. WILL BLADDER SCAN.
--- NOTE | 2018-01-25 06:20 | NUR ---
BLADDER SCAN SHOWS APPROX 170MLS. CALLED AND UPDATED MD. PER MD NO NEW ORDERS. MD WILL COME IN AND EVALUATE THE PT. WILL CONTINUE TO CLOSELY MONITOR.
--- NOTE | 2018-01-25 07:48 | NUR ---
DR. GOOD IN TO ASSESS PT.
--- NOTE | 2018-01-25 08:34 | NUR ---
ULTRA SOUND TECH HERE FOR ULTRA SOUND OF RIGHT UPPER QUAD OF ABD.
--- NOTE | 2018-01-25 09:49 | NUR ---
ORTHOS COMPLETED BUT PT ONLY ABLE TO STAND FOR ONE MINUTE. BP 111/66 AND STANDING FOR ONE MIN BP 91/60. PT RETURNED TO BED. DR. GOOD NOTIFIED.
--- NOTE | 2018-01-25 10:00 | NUR ---
ASSESSMENT COMPLETED, PT STATES "I NEED SOMETHING TO DRINK". CLEAR LIQ GIVEN AFTER DISCUSSING WITH DR. GOOD. PT ASHKAN FLUIDS WELL.
--- NOTE | 2018-01-25 12:02 | NUR ---
DR. GOOD IN TO ASSESS PT AND TALK WITH FAMILY MEMBERS CONCERNING THE PLAN OF CARE. PT ON BIPAP 15, RESP .
--- NOTE | 2018-01-25 13:11 | NUR ---
FAMILY MEMBERS REQUESTING INFORMATION ON HOSPICE AND WHAT IS AVAILABLE. FRANCES TAVARES GREEN COFFEE BLENDER HERE TO ANSWER QUESTIONS FROM FAMILY MEMBERS AND PATIENT. PATIENT VOIDED 125 DARK LATOSHA URINE, SAMPLE SENT TO LAB.
--- NOTE | 2018-01-25 13:45 | NUR ---
REQUESTED BY ZITA MCRAE TO COME VISIT WITH PT AND HIS EX RUSTAM AND HIS DAUGHTER EDUARDO, THEY HAD QUESTIONS ETC REGARDING HOSPICE. ENTERED ROOM AND SAT DISCUSSING WITH THE FAMILY SAYING THEY ARE NOT READY TO GIVE UP ON PT AND NEITHER IS HE. WE TALKED ABOUT THE REQUIREMENTS TO BE ABLE TO QUALIFY FOR HOSPICE. ASKED ABOUT IF HE AND WE STILL WANT TREATMENT IS HOSPICE SOMETHING THAT WE WANT TO PURSUE YET. EXPLAINED THAT HOSPICE IF FOR COMFORT CARE AND DNR/DNI. THEY SAID THEY ARE NOT READY FOR THAT. EDUARDO ASKED ABOUT GETTING AN APPLICATION FOR CAREGIVER SO SHE CAN BE PAID TO TAKE CARE OF DAD. I EXPLAINED FOR HER TO CALL [facility] FIRST AND GET DAD CHECKED TO SEE IF THEY WILL PAY FOR CAREGIVERS. THEN START WORKING ON THE APPLICATION FOR HERSELF TO GET PAID FOR CARING. ALSO EXPLAINED THAT WITH THE HOSPICE PIECE THEY WOULD HAVE TO PROVIDE 24 HOUR CARE HOSPICE DOESN'T STAY 24 HOURS A DAY, JUST A COUPLE TIMES A WEEK AND WHEN THEY CALL THEY WILL EITHER HELP ON PHONE RO COME SEE. RUSTAM AND EDUARDO WERE OK WITH THIS CONVERSATION. INFORMED IF THEY NEEDED SOMETHING MORE TO ASK AND I WOULD GLADLY COME OR I COULD CALL SOMEONE FROM HOSPICE TO COME AND VISIT WITH THEM. GAVE MY BUSINESS CARDS TO THEM.
--- NOTE | 2018-01-25 14:04 | NUR ---
BOWEN CATH INSERTED AND PT ASHKAN WELL. 80 MLS LATOSHA URINE EMPTIED AND 500 ML NS BOLUS STARTED PER DR. CAPPS.
--- NOTE | 2018-01-25 14:06 | NUR ---
PT MOVED TO ROOM 129 VIA BED.
--- NOTE | 2018-01-25 17:31 | NUR ---
ASSESSMENT COMPLETED. DR. GOOD IN TO ASSESS PT. URINE OUTPUT POOR, DR. GOOD AWARE. NORMAL SALINE BOLUS ORDERED. PT COUGHING HARD AND FACE TURNED RED, PT HAS A BLANK STARE AND WAS NOT RESPONSIVE. DR. GOOD IN ROOM. PT STARTED MOVING EYES AFTER A FEW SECONDS. BP 119/77,HR 113. PT AWAKE AND TALKING.
[2018-01-25] MEDS ORDERED: ALBUTEROL2.5 MG/3 M INH (18:11)
--- NOTE | 2018-01-25 18:11 | NUR ---
MED REC COMPLETE
--- NOTE | 2018-01-25 18:26 | NUR ---
PT AWAKE AND DRINK OF WATER GIVEN, BACK ON BIPAP 15 32% FI02.
--- NOTE | 2018-01-25 18:56 | NUR ---
PT WITH NO URINE OUTPUT, DR. GOOD NOTIFIED. SBP 62-68. LAB CALLED WITH CO2 9. DR. GOOD HERE TO CHECK PT. NS 500 ML BOLUS STARTED.
--- NOTE | 2018-01-25 19:15 | NUR ---
LEVOPHED GTT HUNG AT 4 MCG/MIN.
--- NOTE | 2018-01-25 19:24 | NUR ---
LEVOPHED GTT INCREASED TO 8 MCG/MIN, PER DR. GOOD
--- NOTE | 2018-01-25 20:00 | NUR ---
PT LEVOPHED GTT INCREASED TO 12MCG/MIN TO MAINTAIN BLOOD PRESSURE. PT IS WEAK AND STATES HE DOES NOT FEEL WELL. PT FAMILY IS AT BEDSIDE. MD IS SPEAKING WITH FAMILY ABOUT FURTHER TREATMENT OPTIONS.
--- NOTE | 2018-01-25 20:30 | NUR ---
IN PATIENTS ROOM TO TALK WITH FAMILY REGAURDING PTS CONDITION PER REQUEST OF FAMILY. PT IS WORKING VERY HARD TO BREATH AND IS CURRENTLY ON BIPAP AND LEVOPHED AT 12MCG/MIN. PT HR IS 140'S. PT IS DROWSY AND STATES "I AM SICK, I DONT FELL GOOD". PT CAN ANSWER SIMPLE QUESTIONS. WILL CONTINUE TO CLOSELY MONITOR. FAMILY IS WAITING ON SON TO ARRIVE.
--- NOTE | 2018-01-25 22:10 | NUR ---
FAMILY HAS ARRIVED AND TALKED WITH EACH OTHER REGURDING FURTHER TREATMENT OPTIONS. FAMILY, THIS RN, AND DR. GOOD HAD A CARE CONFERENCE REGURDING PTS CONDITION AND DURTHER OPTIONS. PT HAS A POLST FOR IN PLACE AND FAMILY CAME TO THE DECISION TOGETHER TO HONOR HIS WISHES AND TO HELP MAKE HIM COMFORTABLE AT THIS TIME. FAMILY DENIES ANY FURTHER QUESTIONS. WILL CONTINUE TO CLOSELY MONITOR.
--- NOTE | 2018-01-25 22:20 | NUR ---
PT REQUESTED TO HAVE BIPAP OFF AT THIS TIME AND TALKING WITH FAMILY. PT IS VERY WEAK AND CAN ONLY SPEAK ONE WORD AT A TIME. PER FAMILY AND PT GAVE MEDICATION TO HELP PT RELAX AND TO HELP WITH PAIN. WILL TITRATE LEVOPHED DOWN AT THIS TIME. OFFERED PASTORAL CARE X3 AND FAMILY DENIED. FAMILY AND PT DENY FURTHER NEEDS. WILL CONTINUE TO CLOSELY MONITOR.
--- NOTE | 2018-01-25 23:00 | NUR ---
CALLED FOR AN UPDATE. PT RR ELEVATED TO 30 AND PT MOANS AND GRIMACES FACE OCCASIONALLY. GAVE PRN MEDICATIONS TO HELP PT WITH PAIN AND AIR HUNGER. NO NEW ORDERS AT THIS TIME. WILL CONTINUE TO CLOSELY MONITOR.
--- NOTE | 2018-01-25 23:45 | NUR ---
PT GROANING AND GRIMACING FACE. PT RR UP TO 30. GAVE PRN MEDICATIONS TO HELP MAKE PT MORE COMFORTABLE. WILL CONTINUE TO CLOSELY MONITOR.
--- NOTE | 2018-01-26 01:00 | NUR ---
GAVE PT PRN PAIN MEDICATION AND ATIVAN TO HELP PT RELAX. PT RR 33 AND PT IS GRIMACING IN THE FACE AND MOANING. REPOSITIONED FOR COMFORT WITH PILLOW SUPPORT. WILL CONTINUE TO CLOSELY MONITOR.
--- NOTE | 2018-01-26 01:30 | NUR ---
PT MOANING OUT AND GRIMACING AND IS TENSE IN THE LEGS. GAVE PRN PAIN MEDICATION AND ATIVAN FOR COMFORT. WILL CONTINUE TO PROVIDE COMFORT FOR PATIENT AT THIS TIME.
--- NOTE | 2018-01-26 01:54 | EKG ---
[facility] [address] [place] [address] Signed Atrial flutter with variable AV block Rightward axis Pulmonary disease pattern ST \T\ T wave abnormality, consider inferior ischemia Abnormal ECG When compared with ECG of 23-AUG-2017 17:10, Atrial flutter has replaced Sinus rhythm ST no longer elevated in Inferior leads ST now depressed in Lateral leads T wave inversion now evident in Inferior leads Confirmed by SHOAIB GOOD MD ([id number]) on 01/26/2018 1:54:42 AM Electronically Signed By: SHOAIB GOOD MD 01/26/18 0154 PATIENT NAME: JOHN HERNANDEZ Electrocardiogram DATE OF : 53 PHYSICIAN: SHOAIB GOOD MD REPORT #: [id number] REPORT IS CONFIDENTIAL AND NOT TO BE RELEASED WITHOUT AUTHORIZATION
--- NOTE | 2018-01-26 02:15 | NUR ---
UPDATED MD REGARDING PT STATUS. MD GOOD ORDERED FENTANYL PATCH TO HELP PT WITH COMFORT. PRN MEDICATIONS GIVEN AT THIS TIME. WILL CONTINUE TO CLOSELY MONITOR.
--- NOTE | 2018-01-26 03:30 | NUR ---
PT RR INCREASED TO 35. GAVE PRN MEDICATIONS TO HELP PT RELAX. PT IS INCOHERENT AT THIS TIME. WILL CONTINUE TO HELP MAKE PT COMFORTABLE AT THIS TIME. WILL CONTINUE TOCLOSELY MONITOR.
--- NOTE | 2018-01-26 05:30 | NUR ---
REPOSITIONED PT FOR COMFORT WITH PILLOW SUPPORT. PT DID NOT RESPOND TO TURNING. PT RR RATE UP TO 38 AND PT HAS GRIMACING ON FACE. GAVE PRN MEDICATIONS TO HELP PT RELAX AND HELP WITH PT PAIN. PT ALSO HAS A FANTANYL PATCH IN PLACE.
--- NOTE | 2018-01-26 06:20 | NUR ---
PT AT 0618 CALLED . MD WILL BE DOWN TO CALL TIME OF .
--- NOTE | 2018-01-26 06:35 | NUR ---
NOTIFIED NEXT OF KIN RUSTAM HERNANDEZ AND UPDATED THAT THE PATIENT THIS MORNING. RUSTAM STATED HER KIDS EDUARDO AND [place] ARE WITH HER AND SHE WILL NOTIFY THEM AT THIS TIME. NOTIFIED THAT HE WILL BE GOING TO [facility] AND THEY WILL NEED TO CALL THEM LATER TODAY. FAMILY STATES THEY HAVE NO FURTHER QUESTIONS AT THIS TIME.
--- NOTE | 2018-01-26 07:15 | NUR ---
[facility] STAFF HERE AND TAKING PATIENT AT THIS TIME. BELONGINGS SENT WITH [facility].
--- NOTE | 2018-01-26 07:34 | NUR ---
I WAS NOTIFIED BY HOUSE SUPV @8066 OF PT'S PASSING. RN CARRIE REQUESTED TO CONTACT SPOUSE FOR NOTIFICATION. FAMILY HAD NO PREFERENCE FOR HOME, [facility] FROM [facility] [employer] [facility]'S SCHEDULE. FAMILY WILL NOT BE COMING TO HOSP., PERSONAL BELONGINGS (CLOTHES AND SHOES) TO [facility] WITH BODY. FAMILY WILL RETRIEVE THERE. PLACED PASSAGE QUILT AND FLAG IN HONOR OF PT'S SERVICE. OFFERED PRAYER OF ARTEMIO AND CARE FOR FAMILY.
--- NOTE | 2018-01-26 07:40 | CONS ---
[facility] [address], [place] [address] Signed DATE OF CONSULTATION: 01/25/2018 REFERRING PHYSICIAN: Shoaib Good MD CHIEF COMPLAINT: Right upper quadrant abdominal pain. HISTORY OF PRESENT ILLNESS: Nash is a 62-year-old gentleman, who was apparently unknown to physicians until last fall. 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 He came in the hospital and was diagnosed with COPD and stage IV lung cancer. He has declined treatment of his lung cancer. He has also declined treatment for his diabetes. He has had DVTs with pulmonary emboli along with a hemorrhagic stroke. He does have some expressive aphasia remaining. He did have inferior vena cava filter placed. He also has paroxysmal atrial flutter. He remains on Lovenox. He came in the emergency room yesterday with shortness of breath. In addition, he was noted to have some right upper quadrant abdominal pain with elevated liver function test. An ultrasound was ordered by the Internal Medicine Service. It showed a fatty liver with no obvious METS in the liver. The gallbladder seems to be full of sludge with possibly a single gallstone. The gallbladder wall was thickened at 10 mm and may possibly be laminated. He did have a positive Lyons sign. Common bile duct was unremarkable. Consequently, I was asked to see him as a general surgeon on-call. He remains a limited code. PAST MEDICAL HISTORY: 1. Stage IV lung cancer. 2. COPD. 3. Deep vein thrombosis. 4. Pulmonary emboli. 5. Stroke in 2017. 6. Expressive aphasia. 7. Paroxysmal atrial flutter. 8. Diabetes. PAST SURGICAL HISTORY: Includes inferior vena cava filter. SOCIAL HISTORY: He continues to smoke. He does not drink. His ex- Josephine helps him. Her phone #[phone]. He was a explosives truck driver. Dr. Shoaib Good is his primary care provider. He prefers the [facility]. FAMILY HISTORY: Electronically Signed By: VISH MARINA MD 01/26/18 0740 PATIENT NAME: NASH HERNANDEZ CONSULTATION DATE OF : 53 REPORT #: [id number] PHYSICIAN: VISH MARINA MD PCP: SHOAIB GOOD MD REPORT IS CONFIDENTIAL AND NOT TO BE RELEASED WITHOUT AUTHORIZATION [facility] [address] [place] [id number] Signed Not reviewed. REVIEW OF SYSTEMS: He had 10 systems reviewed. Most of that was through the chart because he is short of breath. ALLERGIES: None. MEDICATIONS: 1. Diltiazem. 2. Lovenox. 3. Lisinopril. PHYSICAL EXAMINATION: VITAL SIGNS: His blood pressure is 91/60, his heart rate is 96 with a flutter, his respiratory rate is 27, and temperature is 97.5. He is 95% on 2 L nasal cannula. He is 5 feet 8 inches, 85 kg. GENERAL: Nash is a 62-year-old gentleman, lying supine in his ICU bed. He is clearly short of breath with some mild increased work of breathing. LUNGS: Generally clear to auscultation, although he has been on nebs. HEART: He is in a flutter according to the rhythm strip. ABDOMEN: Moderately protuberant, but soft, although he is tender in the right upper quadrant. LABORATORY DATA: His white blood cell count is 9.8 with neutrophils 91 and his hemoglobin is 13. His potassium is 5.3, BUN is 54, his creatinine is 2.3 with a CO2 of 115, and glucose is 227. His total bilirubin is 1.3, AST 949, ALT 1370, alkaline phosphatase 70, and albumin is 3.6. His INR is 1.3. PTT is 38. His troponin was negative. His beta natriuretic peptide is 61. RADIOGRAPHIC STUDIES: Chest x-ray was unremarkable. Ultrasound showed the fatty liver with the gallbladder nearly full of sludge, possibly a single gallstone. His gallbladder wall thickened at 10 mm and appears to be laminated. He had a positive Lyons sign. Common bile duct was unremarkable. ASSESSMENT AND PLAN: Nash is a 62-year-old gentleman, who presents with acute cholecystitis and possibly a gallstone as well. He is not a candidate for general anesthesia and/or surgery. If he wanted to pursue his gallbladder, he could consider percutaneous CT-guided drainage at an outside hospital. We do not have that available to us at our small 25-bed critical access hospital. I reviewed that with Nash and he declined. At this point, he is going Electronically Signed By: VISH MARINA MD 01/26/18 0740 PATIENT NAME: NASH HERNANDEZ CONSULTATION DATE OF : 53 REPORT #: [id number] PHYSICIAN: VISH MARINA MD PCP: SHOAIB GODO MD REPORT IS CONFIDENTIAL AND NOT TO BE RELEASED WITHOUT AUTHORIZATION [address] [address] Signed to remain on aggressive medical therapy including the Zosyn and Flagyl with repeat labs in the morning. He is fully aware of the magnitude of his situation and chooses to proceed as above. Vish Marina MD ALB/MODL /[id number] cc: MD Vish Levi MD Copies: SHOAIB GOOD MD, ANDREW L MD ~ Electronically Signed By: VISH MARINA MD 01/26/18 0740 PATIENT NAME: NASH HERNANDEZ CONSULTATION DATE OF : 53 REPORT #: [id number] PHYSICIAN: VISH MARINA MD PCP: SHOAIB GOOD MD REPORT IS CONFIDENTIAL AND NOT TO BE RELEASED WITHOUT AUTHORIZATION
== END 2018-01-26 06:15 | DRG 190 ==
LOC: ED 22:11 → CCU 01-25 00:24
PROVIDERS: ADMIT Internal Medicine
DX: J44.1 Chronic obstructive pulmonary disease with (acute) exacerbation (principal); N17.0 Acute kidney failure with tubular necrosis; K80.00 Calculus of gallbladder with acute cholecystitis without obstruction; C34.90 Malignant neoplasm of unspecified part of unspecified bronchus or lung; I48.92 Unspecified atrial flutter; Z51.5 Encounter for palliative care; R74.0 Nonspecific elevation of levels of transaminase and lactic acid dehydrogenase [LDH]; E86.0 Dehydration; F17.210 Nicotine dependence, cigarettes, uncomplicated; E11.9 Type 2 diabetes mellitus without complications; I69.220 Aphasia following other nontraumatic intracranial hemorrhage; Z86.718 Personal history of other venous thrombosis and embolism; Z86.711 Personal history of pulmonary embolism; Z91.14 Patient's other noncompliance with medication regimen; Z66 Do not resuscitate; Z95.828 Presence of other vascular implants and grafts; Z79.01 Long term (current) use of anticoagulants; Z79.899 Other long term (current) drug therapy
CPT/HCPCS: 36415; 71045; 76705; 80053; 82570; 83735; 83880; 84300; 84484; 84540; 85025; 85610; 85730; 93005; 93010; 94640; 94644; 94660; 96361; 96374; 96375; 99285; 99406; J0696; J1650; J1815; J2060; J2405; J2543; J2930; J3010; J7030; J7040